=== PATIENT | male | born 1960 | race Caucasian/White ===

== ENCOUNTER 2019-06-18 11:01 | Outpatient (REF) | payer MEDICAID, SELFPAY ==
[2019-06-18 20:50] LABS: Calculated LDL 119 mg/dL; Cholesterol 219 mg/dL (50-200); Glucose 100 mg/dL (70-100); HDL Cholesterol 73 mg/dL (40-60); Triglyceride 139 mg/dL (30-150)
== END 2019-06-18 11:21 ==
LOC: NCHCN 11:01
PROVIDERS: PCP Nurse Practitioner Family; Visit Provider Internal Medicine
DX: I10 Essential (primary) hypertension (principal); Z72.0 Tobacco use; F10.99 Alcohol use, unspecified with unspecified alcohol-induced disorder; J44.9 Chronic obstructive pulmonary disease, unspecified; I51.9 Heart disease, unspecified; Z13.1 Encounter for screening for diabetes mellitus
CPT/HCPCS: 80061; 82947

== ENCOUNTER 2019-09-12 10:18 | Outpatient (REF) | payer MEDICAID, SELFPAY ==
[2019-09-12 21:36] LABS: ALT 59 U/L (16-63); AST 39 U/L (15-37); Albumin 3.9 g/dL (3.4-5.0); Alkaline Phosphatase 107 U/L (46-116); Anion Gap 8.5 mmol/L (3-11); BUN 11 mg/dL (7-18); Bilirubin, Total 0.4 mg/dL (0.2-1.0); CO2 29.5 mmol/L (21.0-32.0); CREATININE 0.87 mg/dL (0.70-1.30); Calcium 9.3 mg/dL (8.5-10.1); Chloride 105 mmol/L (98-107); Glucose 121 mg/dL (74-106); Potassium 4.4 mmol/L (3.5-5.1); Sodium 143 mmol/L (136-145); Total Protein 6.9 g/dL (6.4-8.2)
[2019-09-12 21:52] LABS: Bilirubin Negative (Negative); Blood Negative (Negative); Clarity Sl Cloudy (Clear); Glucose Negative (Negative); Ketones Negative (Negative); Leukocyte Esterase Negative (Negative); Nitrite Negative (Negative)
== END 2019-09-12 10:38 ==
LOC: NCHCN 10:18
PROVIDERS: Nurse Practitioner Community Health; PCP Nurse Practitioner Family; Visit Provider Internal Medicine
DX: I10 Essential (primary) hypertension (principal); F10.19 Alcohol abuse with unspecified alcohol-induced disorder
CPT/HCPCS: 80053; 81003

== ENCOUNTER 2020-07-07 14:02 | Outpatient (REF) | payer MEDICAID, SELFPAY ==
[2020-07-09 13:13] LABS: COVID-19 RT-PCR Result NEGATIVE (Negative)
== END 2020-07-07 14:22 ==
LOC: NCHCN 14:02
PROVIDERS: PCP Nurse Practitioner Family; Visit Provider Internal Medicine
DX: Z20.828 Contact with and (suspected) exposure to other viral communicable diseases (principal)
CPT/HCPCS: U0003

== ENCOUNTER 2020-09-12 07:50 | Outpatient (REF) | payer MEDICAID, SELFPAY ==
[2020-09-12 21:21] LABS: ALT 97 U/L (16-63); AST 70 U/L (15-37); Albumin 4.2 g/dL (3.4-5.0); Alkaline Phosphatase 134 U/L (46-116); Anion Gap 8.8 mmol/L (3-11); BUN 12 mg/dL (7-18); Bilirubin, Total 0.5 mg/dL (0.2-1.0); CO2 27.2 mmol/L (21.0-32.0); CREATININE 0.96 mg/dL (0.70-1.30); Calcium 8.9 mg/dL (8.5-10.1); Calculated LDL 99 mg/dL (<100); Chloride 102 mmol/L (98-107); Cholesterol 201 mg/dL (<200); Glucose 98 mg/dL (74-106); HDL Cholesterol 54 mg/dL (40-60); Potassium 4.1 mmol/L (3.5-5.1); Sodium 138 mmol/L (136-145); Total Protein 7.5 g/dL (6.4-8.2); Triglyceride 241 mg/dL (<150)
== END 2020-09-12 08:10 ==
LOC: NCHCN 07:50
PROVIDERS: PCP Nurse Practitioner Family; Visit Provider Internal Medicine
DX: I10 Essential (primary) hypertension (principal); E78.5 Hyperlipidemia, unspecified; R74.01 Elevation of levels of liver transaminase levels
CPT/HCPCS: 80053; 80061

== ENCOUNTER 2020-12-12 18:59 | Outpatient (REF) | payer MEDICAID, SELFPAY ==
[2020-12-12 14:08] LABS: Calculated LDL 80 mg/dL (<100); Cholesterol 160 mg/dL (<200); HDL Cholesterol 55 mg/dL (40-60); Triglyceride 127 mg/dL (<150)
== END 2020-12-12 19:00 | disposition home or self-care (01) ==
LOC: NCHCN 18:59
PROVIDERS: PCP Nurse Practitioner Family; Visit Provider Internal Medicine
DX: I10 Essential (primary) hypertension (principal); E78.5 Hyperlipidemia, unspecified
CPT/HCPCS: 80061

== ENCOUNTER 2020-12-19 22:36 | Outpatient (CLI) | payer MEDICAID, SELFPAY ==
--- NOTE | 2020-12-19 | DI.US_ITS ---
EXAM: US LOWER EXTREMITY VENOUS RT CLINICAL HISTORY: PAIN RT THIGH M79.651, PAIN AT SITE OF PREVIOUS VASCULAR SURGERY, SWELLING,. TECHNIQUE: Lower extremity venous ultrasound performed using grayscale, color-flow, and spectral Do ppler analysis. COMPARISON: No exams were available for comparison FINDINGS: The common femoral, femoral and popliteal veins demonstrate normal compressibility, augmentation, and color Doppler. The posterior tibial veins are patent. No saphenous vein thrombosis or other superfi cial venous thrombosis is seen. No hematoma, fluid collection or Louise's cyst is seen. No femoral a rtery pseudoaneurysm is seen. A lymph node is noted in the groin in the region of the of the patient 's pain. It measures 3.9 x 0.5 x 2 cm and shows normal architecture. IMPRESSION: Normal appearing groin lymph node. No evidence of DVT. DATA REPOSITORY:
== END 2020-12-19 22:56 ==
PROVIDERS: PCP Nurse Practitioner Family; Visit Provider Internal Medicine
DX: M79.651 Pain in right thigh (principal); R60.0 Localized edema
CPT/HCPCS: 93971

== ENCOUNTER 2021-03-20 11:07 | Outpatient (REF) | payer MEDICAID, SELFPAY ==
[2021-03-20 14:50] LABS: ALT 106 U/L (16-63); AST 75 U/L (15-37); Albumin 4.1 g/dL (3.4-5.0); Alkaline Phosphatase 117 U/L (46-116); Anion Gap 10.6 mmol/L (3-11); BUN 13 mg/dL (7-18); Bilirubin, Total 0.5 mg/dL (0.2-1.0); CO2 26.4 mmol/L (21.0-32.0); CREATININE 0.7 mg/dL (0.70-1.30); Calcium 8.9 mg/dL (8.5-10.1); Calculated LDL 81 mg/dL (<100); Chloride 105 mmol/L (98-107); Cholesterol 159 mg/dL (<200); Glucose 97 mg/dL (74-106); HDL Cholesterol 52 mg/dL (40-60); Potassium 4.7 mmol/L (3.5-5.1); Sodium 142 mmol/L (136-145); Total Protein 7.5 g/dL (6.4-8.2); Triglyceride 132 mg/dL (<150)
== END 2021-03-20 11:08 | disposition home or self-care (01) ==
LOC: NCHCN 11:07
PROVIDERS: PCP Nurse Practitioner Family; Visit Provider Internal Medicine
DX: I10 Essential (primary) hypertension (principal); E78.5 Hyperlipidemia, unspecified
CPT/HCPCS: 80053; 80061

== ENCOUNTER 2022-08-18 16:47 | Outpatient (REF) | payer MEDICAID, SELFPAY ==
[2022-08-18 15:45] LABS: ALT 50 U/L (16-63); AST 49 U/L (15-37); Albumin 4.2 g/dL (3.4-5.0); Alkaline Phosphatase 90 U/L (46-116); Anion Gap 7.2 mmol/L (3-11); BUN 12 mg/dL (7-18); Bilirubin, Total 0.7 mg/dL (0.2-1.0); CO2 29.8 mmol/L (21.0-32.0); Calcium 9.4 mg/dL (8.5-10.1); Calculated LDL 55 mg/dL (<100); Chloride 103 mmol/L (98-107); Cholesterol 144 mg/dL (<200); Estimated GFR 86.16 (mL/min/1.73m2); Glucose 118 mg/dL (74-106); HDL Cholesterol 80 mg/dL (40-60); Potassium 4.2 mmol/L (3.5-5.1); Sodium 140 mmol/L (136-145); Total Protein 7.7 g/dL (6.4-8.2); Triglyceride 46 mg/dL (<150)
== END 2022-08-18 16:48 | disposition home or self-care (01) ==
LOC: NCHCN 16:47
PROVIDERS: PCP Nurse Practitioner Family; Visit Provider Internal Medicine
DX: E78.5 Hyperlipidemia, unspecified (principal); I10 Essential (primary) hypertension; K76.0 Fatty (change of) liver, not elsewhere classified
CPT/HCPCS: 80053; 80061

== ENCOUNTER 2022-10-15 11:42 | Outpatient (REF) | payer MEDICAID, SELFPAY ==
[2022-10-18 08:57] LABS: Hepatitis B Surface Ag Negative (Negative)
[2022-10-18 09:02] LABS: Hepatitis C Ab w Rflx HCV PCR Negative (Negative)
[2022-10-18 10:35] LABS: HBs Antibody, Quant <3.1 mIU/mL (See Note); Hepatitis B Surface Ab Negative (See Note)
== END 2022-10-15 11:43 | disposition home or self-care (01) ==
LOC: NCHCN 11:42
PROVIDERS: PCP Nurse Practitioner Family; Visit Provider Internal Medicine
DX: R74.01 Elevation of levels of liver transaminase levels (principal)
CPT/HCPCS: 86706; 86803; 87340

== ENCOUNTER 2023-09-26 16:20 | Outpatient (REF) | payer MEDICAID, SELFPAY ==
[2023-09-26 16:10] LABS: HCT 46.6 % (40.0-50.0); HGB 15.9 g/dL (13.5-17.5); MCH 33.9 pg (27.0-33.0); MCHC 34.1 % (32.0-36.0); MCV 99 fL (80-95); MPV 9.4 fL (8.0-11.0); Platelet Count 332 10^3/uL (130-400); RBC 4.69 10^6/uL (4.36-5.78); RDW-SD 51.3 fL; WBC 7.25 10^3/uL (4.4-10.8)
[2023-09-26 16:28] LABS: ALT 63 U/L (16-63); AST 46 U/L (15-37); Albumin 4.2 g/dL (3.4-5.0); Alkaline Phosphatase 91 U/L (46-116); BUN 13 mg/dL (7-18); CREATININE 0.9 mg/dL (0.70-1.30); Calcium 9.7 mg/dL (8.5-10.1); Chloride 103 mmol/L (98-107); Cholesterol 161 mg/dL (<200); Estimated GFR 97.17 (mL/min/1.73m2); Glucose 102 mg/dL (74-106); Potassium 4.1 mmol/L (3.5-5.1); Sodium 140 mmol/L (136-145); Total Protein 7.8 g/dL (6.4-8.2); Triglyceride 119 mg/dL (<150)
[2023-09-26 17:20] LABS: Bilirubin, Total 0.4 mg/dL (0.2-1.0); Calculated LDL 64 mg/dL (<100); HDL Cholesterol 74 mg/dL (40-60)
== END 2023-09-26 16:21 | disposition home or self-care (01) ==
LOC: NCHCN 16:20
PROVIDERS: PCP Nurse Practitioner Family; Visit Provider Internal Medicine
DX: K76.0 Fatty (change of) liver, not elsewhere classified (principal); I73.89 Other specified peripheral vascular diseases
CPT/HCPCS: 80053; 80061; 85027

== ENCOUNTER 2024-08-29 11:02 | Outpatient (REF) | payer MEDICAID, SELFPAY ==
--- OUTSIDE RECORDS SUMMARY | 2024-08-29 11:04 | XMS_ITS | Referral Summary ---
Author Organization [facility] Address [address] [place] [address] Care Team Providers Care Regulatory Product Manager Name Role Phone Brittany Fay Primary Care Provider [phone] Encounters Date Type Department Care Team Description 08/23/2024 Orders Only [facility] [address] [place] [address] Luiz Singh MD 08/23/2024 10:15 EST - 08/23/2024 23:59 EST Hospital Encounter [facility] CT Scan [address] [place] [address] Kidney stone Discharge Disposition: Home or Self Care 08/20/2024 8:[address] [facility] - Outpatient Phlebotomy Drawing [address] [place] [address] [facility] Op Phlebotomy Kidney stone; Prostate cancer screening 08/20/2024 8:00 EST Office Visit [facility] [address] [place] [address] Luiz Singh MD Kidney stone (Primary Dx); Prostate cancer screening 06/22/2024 8:04 EDT - 06/22/2024 11:25 EDT Emergency [facility] Emergency Department [address] [place], [place] [address] Christian Castorena MD Left ureteral stone (Primary Dx); Right kidney stone Discharge Disposition: Home or Self Care from Last 3 Months Allergies Active Allergy Reactions Criticality Noted Date Comments Penicillins 05/28/2015 Tetanus Vaccines And Toxoid 05/28/20 15 Medications aspirin 81 mg EC tablet Take 1 Tablet by mouth daily. Active ibuprofen (MOTRIN) 800 mg tablet Take 1 Tablet by mouth every 8 hours as needed for Pain. Active lisinopril (PRINIVIL) 10 mg tablet 2 Tablets daily. Active TAMSulosin (FLOMAX) 0.4 mg capsule Take 1 Capsule by mouth daily. 30 Capsule 4 4 Active tamsulosin (FLOMAX) 0.4 mg capsule 1 cap(s) orally once a day 9 08/23/20 24 Discontinued Active Problems Problem Noted Date Diagnosed Date Abdominal pain, left lower quadrant 08/16/2016 Sigmoid polyp 04/27/2016 Diverticulitis of colon 03/15/2016 Immunizations Name Administration Dates Next Due Covid-19 mRNA Booster Vaccin e (MODERNA COVID-19 BOOSTER) PF 0.25 mL IM (18 yrs+) 09/30/2021 Covid-19 mRNA Vaccine (PFIZE R COVID-19) PF 0.3 ml IM (12 yrs+) 02/18/2021,01/28/2021 Social History Tobacco Use Types Packs/Day Years Used Date Smoking Tobacco: Every Day Cigarettes 2 20 Smokeless Tobacco: Never Tobacco Cessation:Ready to Q uit: No; Counseling Given: Yes Alcohol Use Standard Drinks/Week Comments Yes 20 (1 standard drink = 0.6 oz pu re alcohol) Interpersonal Safety Answer Date Record ed Physically Hurt Never 05/11/2020 Verbally Threaten Not on file 05/11/2020 Sex and Gender Information Value Date Recorded Sex Assigned at Male 08/20/2024 8:28 EST Legal Sex Male 17:59 EST Gender Identity Male 06/22/2024 8:08 EDT Sexual Orientation Not on file Last Filed Vital Signs Vital Sign Reading Time Taken Comments Blood Pressure 115/75 06/22/2024 1000 EDT Pulse 72 06/22/2024 0930 EDT Temperature 36.6 ??C (97.8 ??F) 06/22/2024 0815 EDT Respiratory Rate 18 06/22/2024 1000 EDT Oxygen Saturation 95% 06/22/2024 1000 EDT Inhaled Oxygen Concentration - - Weight 81.6 kg (180 lb) 11/02/2021 1129 EST Height 172.7 cm (5' 8) 03/15/2016 0954 EDT Body Mass Index 27.37 03/15/2016 0954 EDT Functional Status * Are you deaf or do you have serious difficulty hearing? Answer Date of Assessment Author No 06/22/2024 8:17 EDT Shannan Yu RN Plan of Treatment Not on file Procedures Procedure Name Priority Date/Time Associated Diagnosis Comments CT RENAL STONE Routine 08/23/2024 10:25 EST Kidney stone PSA SCREEN Routine 08/20/2024 8:40 EST Kidney stone Prostate cancer screening PTH INTACT Routine 08/20/2024 8:40 EST Kidney stone URIC ACID Routine 08/20/2024 8:40 EST Kidney stone POCT URINALYSIS Routine 08/20/2024 Kidney stone UA SEDIMENT + REFLEX TO CULTURE STAT 06/22/2024 10:21 EDT UA WITH REFLEX SEDIMENT (CULTURE IF POS) STAT 06/22/2024 10:[address] RENAL STONE STAT 06/22/2024 9:03 EDT COMPREHENSIVE METABOLIC PANEL (CMP) STAT 06/22/2024 8:25 EDT COMPLETE BLOOD COUNT AND DIFFERENTIAL STAT 06/22/2024 8:25 EDT HEPATITIS C AB W REFLEX TO HCV RNA BY PCR Routine 10/15/2022 9:30 EST from Last 3 Months or Most Recently Relevant to Health Maintenance Results * CT RENAL STONE (08/23/2024 10:25 EST) Anatomical Region Laterality Modality Body, Abdomen Computed Tomogra phy 08/23/2024 11:1 0 EST Impressions 08/23/2024 11:10 EST 1. Resolution of previous left ureteral stone. Resolution of previous left hydronephrosis. 2. Small nonobstructing right renal calculus. [id number] Narrative 08/23/2024 11:[address] RENAL STONE ??08/23/2024 10:16 AM Signs and Symptoms/Comments: left ureteral stone. ??r/o retained stone; left ureteral stone. ??r/o retained stone Technique: CT images obtained from abdomen immediately superior to level of kidneys through the pelvis without administration of IV contrast. This CT used either dose modulation and/or iterative reconstruction techniques to lower radiation dose. Comparison: 06/22/2020 Findings: Lower chest: Lung bases clear Liver: Mild hepatic steatosis. Too small to characterize low-density lesion in hepatic segment 4, present since 2016 and therefore likely benign. Gallbladder: Unremarkable. Bile ducts: Unremarkable Spleen: Unremarkable. Pancreas: Unremarkable. Adrenal glands: Unremarkable. Kidneys, ureters, bladder: Resolution of previous left ureteral stone and resolution of previous left hydronephrosis. 3 mm nonobstructing stone in the upper pole of the right kidney. No other urinary tract calculi at this time. Reproductive organs: Mildly heterogeneous prostate Bowel: No bowel obstruction or focal inflammation. Rectosigmoid anastomosis. Peritoneal cavity: No free fluid or free intraperitoneal air. Lymph nodes: No lymphadenopathy. Vascular: Scattered atherosclerosis Abdominal wall: Intact Musculoskeletal: Unremarkable for age. No suspicious osseous lesion Resulting Agency Comment [id number] Procedure Note Boom Garcia MD - 08/23/2024 CT RENAL STONE 08/23/2024 10:16 AM Signs and Symptoms/Comments: left ureteral stone. r/o retained stone;left ureteral stone. r/o retained stone Technique: CT images obtained from abdomen immediately superior to levelof kidneys through the pelvis without administration of IV contrast. This CT used either dose modulation and/or iterative reconstructiontechniques to lower radiation dose. Comparison: 06/22/2020 Findings: Lower chest: Lung bases clear Liver: Mild hepatic steatosis. Too small to characterize low-densitylesion in hepatic segment 4, present since 2016 and therefore likelybenign. Gallbladder: Unremarkable. Bile ducts: Unremarkable Spleen: Unremarkable. Pancreas: Unremarkable. Adrenal glands: Unremarkable. Kidneys, ureters, bladder: Resolution of previous left ureteral stone andresolution of previous left hydronephrosis. 3 mm nonobstructing stone inthe upper pole of the right kidney. No other urinary tract calculi at thistime. Reproductive organs: Mildly heterogeneous prostate Bowel: No bowel obstruction or focal inflammation. Rectosigmoidanastomosis. Peritoneal cavity: No free fluid or free intraperitoneal air. Lymph nodes: No lymphadenopathy. Vascular: Scattered atherosclerosis Abdominal wall: Intact Musculoskeletal: Unremarkable for age. No suspicious osseous lesion IMPRESSION 1. Resolution of previous left ureteral stone. Resolution of previous lefthydronephrosis. 2. Small nonobstructing right renal calculus. [id number] us Luiz Singh MD IMG CT ORDERABLES Final Resu lt * PTH INTACT (08/20/2024 8:40 EST) Pathologist [facility] Intact PTH 52 8 - 54 pg/mL 08/20/2024 9:57 EST [facility] Comment:The results of this assay can be falsely decreased due to the consumption of Biotin. Blood VENOUS BLOOD / Unknown Venipuncture / Unknown 08/20/2024 8:40 EST 08/20/2024 9:15 EST us Luiz Singh MD CHEMISTRY & BLOOD GAS ORDERA BLES Final Result Performing Organization Address [place] Co de Phone Number [facility] [address] [place] [address] * (ABNORMAL) URIC ACID (08/20/2024 8:40 EST) [facility] Uric Acid 3.6(L) 3.9 - 9.0 mg/dL 08/20/2024 10:06 EST [facility] Blood VENOUS BLOOD / Unknown Venipuncture / Unknown 08/20/2024 8:40 EST 08/20/2024 9:15 EST us Luiz Singh MD CHEMISTRY & BLOOD GAS ORDERA BLES Final Result Performing Organization Address [place] Co de Phone Number [facility] [address] [place] [address] * PSA SCREEN (08/20/2024 8:40 EST) Pathologist [facility] PSA 0.816 <=4.500 ng/mL 08/20/2024 10:16 EST [facility] Comment: NOTE: Serum PSA concentration should not be interpreted as absolute evidence for the presence or absence of malignant disease. Assayed on [employer] [id number] using chemiluminescent technology. Values obtained by using different assay methods cannot be used interchangeably. Blood VENOUS BLOOD / Unknown Venipuncture / Unknown 08/20/2024 8:40 EST 08/20/2024 9:15 EST us Luiz Singh MD CHEMISTRY & BLOOD GAS ORDERA BLES Final Result [facility] [address] [place] [address] * (ABNORMAL) POCT URINALYSIS, CLINITEK NON-INTERFACED (08/20/2024) Color, UA Yellow Yellow, Colorless [facility] Clarity, UA Clear Clear [facility] Glucose, UA Negative Negative mg/dL [facility] Bilirubin, UA Negative Negative [facility] Ketones, UA Negative Negative mg/dL [facility] Spec Grav, UA 1.025 1.001 - 1.030 [facility] POINT OF CARE Blood, UA Negative Negative [facility] pH, UA 7.0 5.0 - 8.0 [facility] T [facility] Protein, UA 1+(A) Negative mg/dL [facility] Urobilinogen, UA 1.0 0.2 - 1.0 E.U./dL [facility] Nitrite, UA Negative Negative [facility] PO INT [facility] CARE Leuk Esterase Negative Negative [facility] Comment [facility] PO[facility] T [facility] C[facility] Urine URINE SPECIMEN OBTAINED BY CLEAN CATCH PROCEDURE / Unknown 08/20/2024 us Luiz Singh MD POINT OF CARE TEST ORDERABLE S Final Result [facility] PO[facility] CARE * (ABNORMAL) UA CASCADE TO CULTURE (06/22/2024 10:21 EDT) Color UA Angela(A) Colorless, Yellow 06/22/2024 10:37 [facility] Clarity UA Cloudy(A) Clear 06/22/2024 10:37 [facility] Glucose UA Negative Negative mg/dL 06/22/2024 10:37 [facility] Bilirubin UA 1+(A) Negative 06/22/2024 10:37 [facility] Ketones UA Trace(A) Negative 06/22/2024 10:37 [facility] Specific Magna, Urine >=1.030 1.001 - 1.030 06/22/2024 10:37 [facility] Blood UA 3+(A) Negative 06/22/2024 10:37 [facility] pH, UA 5.5 5.0 - 8.0 06/22/2024 10:37 [facility] Protein UA 2+(A) Negative mg/dL 06/22/2024 10:37 [facility] Urobilinogen UA 1.0 0.2-1.0 mg/dL mg/dL 06/22/2024 10:37 [facility] Nitrite UA Negative Negative 06/22/2024 10:37 [facility] Leukocyte Esterase UA Negative Negative 06/22/2024 10:37 [facility] Urine URINE SPECIMEN OBTAINED BY CLEAN CATCH PROCEDURE / Unknown Urine Collect / Unknown 06/22/2024 10:21 EDT 06/22/2024 10:24 EDT us Viki Quiñones [employer] URINALYSIS ORDERABLES Final Result [facility] [address] [place] [id number] * (ABNORMAL) UA SEDIMENT + REFLEX TO CULTURE (06/22/2024 10:21 EDT) Urine RBC Count, Manual >50(A) 0 - 2 Cells/HPF 06/22/2024 10:38 EDT [facility] Urine WBC Count 0 - 3 0 - 3 Cells/HPF 06/22/2024 10:38 EDT [facility] Urine Squamous Count, Manual Few(A) None Seen Cells/HPF 06/22/2024 10:38 EDT [facility] Urine Hyaline Cast Count, Manual <=10 <=10 Casts/LPF 06/22/2024 10:38 EDT [facility] Urine Bacteria Count, Manual Few(A) None Seen Bacteria/H PF 06/22/2024 10:38 EDT [facility] Urine URINE SPECIMEN OBTAINED BY CLEAN CATCH PROCEDURE / Unknown Urine Collect / Unknown 06/22/2024 10:21 EDT 06/22/2024 10:24 EDT Narrative [facility] - 06/22/2024 10:38 EDT Mucus threads seen. Urine Sediment Analysis results are unreliable on urines that are unrefrigerated for >2 hrs or refrigerated >8 hrs. NOTE: Reflex to Urine Culture test is not indicated based on Urine Sediment Analysis results. Viki Quiñones NP URINALYSIS ORDERABLES Final Result Performing Organization Address [place]/State/ZIP Co de Phone Number [facility] [address] [place] [address] * CT RENAL STONE (06/22/2024 9:03 EDT) Anatomical Region Laterality Modality Body, Abdomen Computed Tomogra phy 06/22/2024 9:16 EDT Impressions 06/22/2024 9:16 EDT 1. ??OBSTRUCTING 3 MM MID LEFT URETERAL CALCULUS. Mild left hydronephrosis. 2. ??Small right renal calculus. 3. ??Urinary bladder unremarkable. 4. ??HEALING NONDISPLACED RIGHT 10TH-12TH RIB FRACTURES, new compared to 2017. 5. ??Additional nonemergent findings detailed above. [id number] Narrative 06/22/2024 9:[address] RENAL STONE ?? Signs and Symptoms/Comments: ??flank/abd pain left; Abdominal/flank pain, stone suspected; flank/abd pain left Comparison: CT on 04/21/2017 Technique: CT abdomen pelvis without intravenous contrast was performed. Stone Protocol was utilized. FINDINGS: This exam was performed without intravenous contrast, decreasing sensitivity for some focal lesions. Right Urinary Tract: Nonobstructing 3 mm calculus in the right kidney upper pole. No ureteral calculus or hydronephrosis. Unenhanced kidney otherwise unremarkable. Chronic chronic perinephric fat stranding noted. Left Urinary Tract: Obstructing 3 mm calculus in the mid left ureter, with associated mild left hydronephrosis (coronal series 4 image 50). No additional calculi identified in the left kidney. Unenhanced left kidney otherwise unremarkable. Mild-moderate perinephric fat stranding. Urinary Bladder: No bladder calculus identified. Bladder wall appears unremarkable. Visible Chest: Healing nondisplaced lateral right 10th-12th rib fractures, new compared to 2017 (axial series 2 image [id number]). Visible lung bases unremarkable. Liver: Mild-moderate hepatosteatosis. Bile Ducts: Unremarkable. Gallbladder: Unremarkable. Pancreas: Unremarkable. Spleen: Unremarkable. Adrenal glands: Unremarkable. Bowel: Stomach unremarkable. Scattered distal small bowel feces, suspicious for slow transit. No evidence of acute small bowel obstruction or inflammation. Normal appendix. Grossly intact distal colonic anastomosis. Peritoneal Cavity: No intraperitoneal free fluid or free air identified. Body Wall: Unremarkable. Pelvis/Reproductive: No pelvic mass identified. Lymph Nodes: Unremarkable. Vascular Structures: Patency of the vascular structures cannot be assessed on this noncontrast study. Moderate calcified peripheral atherosclerotic disease. Bones: Healing right 10th-12th rib fractures, new compared to 2017. Mild lumbar spondylosis. Mild bilateral hip and sacroiliac degenerative changes. Resulting Agency Comment [id number] Procedure Note Arvind Champagne MD - 06/22/2024 CT RENAL STONE Signs and Symptoms/Comments: flank/abd pain left; Abdominal/flank pain,stone suspected; flank/abd pain left Comparison: CT on 04/21/2017 Technique: CT abdomen pelvis without intravenous contrast was performed.Stone Protocol was utilized. FINDINGS: This exam was performed without intravenous contrast, decreasingsensitivity for some focal lesions. Right Urinary Tract: Nonobstructing 3 mm calculus in the right kidneyupper pole. No ureteral calculus or hydronephrosis. Unenhanced kidneyotherwise unremarkable. Chronic chronic perinephric fat stranding noted. Left Urinary Tract: Obstructing 3 mm calculus in the mid left ureter, withassociated mild left hydronephrosis (coronal series 4 image 50). Noadditional calculi identified in the left kidney. Unenhanced left kidneyotherwise unremarkable. Mild-moderate perinephric fat stranding. Urinary Bladder: No bladder calculus identified. Bladder wall appearsunremarkable. Visible Chest: Healing nondisplaced lateral right 10th-12th rib fractures,new compared to 2017 (axial series 2 image 51-64). Visible lung basesunremarkable. Liver: Mild-moderate hepatosteatosis. Bile Ducts: Unremarkable. Gallbladder: Unremarkable. Pancreas: Unremarkable. Spleen: Unremarkable. Adrenal glands: Unremarkable. Bowel: Stomach unremarkable. Scattered distal small bowel feces,suspicious for slow transit. No evidence of acute small bowel obstructionor inflammation. Normal appendix. Grossly intact distal colonicanastomosis. Peritoneal Cavity: No intraperitoneal free fluid or free air identified. Body Wall: Unremarkable. Pelvis/Reproductive: No pelvic mass identified. Lymph Nodes: Unremarkable. Vascular Structures: Patency of the vascular structures cannot be assessedon this noncontrast study. Moderate calcified peripheral atheroscleroticdisease. Bones: Healing right 10th-12th rib fractures, new compared to 2017. Mildlumbar spondylosis. Mild bilateral hip and sacroiliac degenerativechanges. IMPRESSION 1. OBSTRUCTING 3 MM MID LEFT URETERAL CALCULUS. Mild lefthydronephrosis. 2. Small right renal calculus. 3. Urinary bladder unremarkable. 4. HEALING NONDISPLACED RIGHT 10TH-12TH RIB FRACTURES, new compared [id number]. 5. Additional nonemergent findings detailed above. [id number] us Viki Quiñones NP IMG CT ORDERABLES Final Res ult * (ABNORMAL) COMPLETE BLOOD COUNT AND DIFFERENTIAL (06/22/2024 8:25 EDT) WBC 8.91 4.00 - 10.40 K/cmm 06/22/2024 8:31 EDT [facility] RBC 4.61 4.36 - 5.78 M/cmm 06/22/2024 8:31 [facility] Hemoglobin 15.9 13.8 - 17.3 g/dL 06/22/2024 8:31 [facility] HCT 46.6 39.5 - 50.2 % 06/22/2024 8:31 [facility] MCV 101(H) 81 - 95 fL 06/22/2024 8:31 [facility] MCH 34.5(H) 27.6 - 33.0 pg 06/22/2024 8:31 [facility] MCHC 34.1 32.8 - 36.4 g/dL 06/22/2024 8:31 [facility] RDW-CV 13.4 <14.2 % 06/22/2024 8:31 [facility] RDW-SD 50.2(H) <46.0 fl 06/22/2024 8:31 [facility] PLT 272 141 - 377 K/cmm 06/22/2024 8:31 [facility] MPV 8.6(L) 9.5 - 12.7 fL 06/22/2024 8:31 [facility] % Neutrophils 73.1 Not Indicated % 06/22/2024 8:31 [facility] % Lymphocytes 16.0 Not Indicated % 06/22/2024 8:31 [facility] % Monocytes 7.2 Not Indicated % 06/22/2024 8:31 [facility] % Eosinophils 2.7 Not Indicated % 06/22/2024 8:31 [facility] % Basophils 0.7 Not Indicated % 06/22/2024 8:31 [facility] % Immature Grans 0.3 <0.9 % 06/22/2024 8:31 [facility] Absolute Neutrophils 6.51 2.20 - 8.85 K/cmm 06/22/2024 8:31 [facility] Absolute Lymphocytes 1.43 1.09 - 3.30 K/cmm 06/22/2024 8:31 [facility] Absolute Monocytes 0.64 0.10 - 0.80 K/cmm 06/22/2024 8:31 [facility] Absolute Eosinophils 0.24 0.03 - 0.61 K/cmm 06/22/2024 8:31 [facility] ABS Basophils 0.06 0.01 - 0.11 K/cmm 06/22/2024 8:31 [facility] Absolute Immature Grans 0.03 0.00 - 0.06 K/cmm 06/22/2024 8:31 [facility] Type of Differential: Auto 06/22/2024 8:31 [facility] Blood VENOUS BLOOD / Unknown Venipuncture / Unknown 06/22/2024 8:25 EDT 06/22/2024 8:28 EDT us Viki Quiñones [employer] PACKAGES & DNA PROBE ORDERA BLES Final Result [facility] [address] [place] [address] * (ABNORMAL) COMPREHENSIVE METABOLIC PANEL (CMP) (06/22/2024 8:25 EDT) Sodium 141 136 - 145 mmol/L 06/22/2024 8:51 [facility] Potassium 4.5 3.5 - 5.0 mmol/L 06/22/2024 8:51 [facility] Chloride 106 96 - 110 mmol/L 06/22/2024 8:51 [facility] CO2 Total 25 22 - 32 mmol/L 06/22/2024 8:51 [facility] Glucose 131(H) 70 - 99 mg/dl 06/22/2024 8:51 [facility] BUN 13 10 - 26 mg/dL 06/22/2024 8:51 [facility] Creatinine 0.81 0.66 - 1.25 mg/dL 06/22/2024 8:51 [facility] eGFR 100 >60 mL/min/1.7 3m2 06/22/2024 8:51 [facility] Total Protein 7.6 6.3 - 8.2 g/dL 06/22/2024 8:51 [facility] Albumin 4.8 3.4 - 4.9 g/dL 06/22/2024 8:51 [facility] Alkaline Phosphatase 94 38 - 126 U/L 06/22/2024 8:51 [facility] AST 86(H) 15 - 46 U/L 06/22/2024 8:51 [facility] ALT 72(H) <50 U/L 06/22/2024 8:51 [facility] Bilirubin, Total 1.0 <1.4 mg/dL 06/22/20 8:51 [facility] Calcium 9.7 8.5 - 10.5 mg/dL 06/22/2024 8:51 [facility] Albumin/Globulin Ratio 1.7 1.0 - 2.5 06/22/2024 8:51 [facility] Anion Gap 10 5 - 14 mmol/L 06/22/2024 8:51 [facility] Blood VENOUS BLOOD / Unknown Venipuncture / Unknown 06/22/2024 8:25 EDT 06/22/2024 8:28 EDT us Viki Quiñones [employer] CHEMISTRY & BLOOD GAS ORDER ADITYA Final Result [facility] [address] [place] [address] * HEPATITIS C AB W REFLEX TO HCV RNA BY PCR (10/15/2022 9:30 EST) Hep C Antibody Negative Negative 10/18/2022 8:58 EST [facility] Blood VENOUS BLOOD / Unknown 10/15/2022 9:30 EST 10/17/2022 17:07 EST us Provider Outr Resulting Lab CHEMISTRY & BLOOD GA S ORDERABLES Final Result [facility] [address] [place] [address] from Last 3 Months or Most Recently Relevant to Health Maintenance Insurance [place] Care Teams Regulatory Product Manager Relationship Specialty Start Date End Date Brittany [place] [address] [place] [phone] PCP - General Internal Medicine - Primary Care 06/22/24
--- OUTSIDE RECORDS SUMMARY | 2024-08-29 11:04 | XMS_ITS | Encounter Summary ---
Author Organization [facility] Address [address] [place] [address] Care Team Providers Care Transportation Program Director Name Role Phone Titus Castro MD Primary Care Provider Unav ailable Encounter Details Date Type Department Care Team (Late st Contact Info) Description 09/14/2017 Historical Results Only [facility] - Main [place] [address] [place] [address] [id number] Amee Campos MD [address] [place] [phone] Social History Tobacco Use Types Packs/Day Years Used Date Smoking Tobacco: Every Day Cigarettes 1 20 Smokeless Tobacco: Never Alcohol Use Standard Drinks/Week Comments Yes 20 (1 standard drink = 0.6 oz pu re alcohol) Sex and Gender Information Value Date Recorded Sex Assigned at Male 08/20/2024 8:28 EST Legal Sex Male 17:59 EST Gender Identity Male 06/22/2024 8:08 EDT Sexual Orientation Not on file documented as of this encounter Plan of Treatment Not on file documented as of this encounter Procedures Procedure Name Priority Date/Time Associated Diagnosis Comments OCCULT BLOOD DIAGNOSTIC, FECES Routine 09/14/2017 7:15 EST documented in this encounter Results * OCCULT BLOOD DIAGNOSTIC, FECES (09/14/2017 7:15 EST) STOOL FOR OCCULT BLOOD - [facility] NEG NEG 09/14/2017 13:33 EST [facility] 09/14/2017 7:15 EST 09/14/2017 9:23 EST us Amee Campos MD MICROBIOLOGY - GENERAL ORDERABL ES Final Result [facility] documented in this encounter Visit Diagnoses Not on filedocumented in this encounter Care Teams Transportation Program Director Relationship Specialty Start Date End Date Titus Castro MD PCP - General 05/27/15 06/21/24 documented as of this encounter
--- OUTSIDE RECORDS SUMMARY | 2024-08-29 11:04 | XMS_ITS | Clinical Summary ---
Author Organization [facility] Address [address] [place] [address] Care Team Providers Care Clinical Systems Analyst Name Role Phone Brittany Fay Primary Care Provider Allergies Active Allergy Reactions Criticality Noted Date [...] Sigmoid polyp 04/27/2016 Diverticulitis of colon 03/15/2016 Encounters Date Type Department Care Team Description 08/23/2024 10:15 EST - 08/23/2024 23:59 EST Hospital Encounter [facility] CT Scan [address] [place] [address] Kidney stone Discharge Disposition: Home or Self Care 08/23/2024 Orders Only [facility] [address] [place] [address] Luiz Singh MD 08/20/2024 8:30 EST Phlebotomy Only [facility] - Outpatient Phlebotomy Drawing [address] [place] [address] Lab, [facility] Phlebotomy Kidney stone; Prostate cancer screening 08/20/2024 8:00 EST Office Visit [facility] [address] [place] [address] Luiz Singh MD Kidney stone (Primary Dx); Prostate cancer screening 06/22/2024 8:04 EDT - 06/22/2024 11:25 EDT Emergency [facility] Emergency Department [address] [place] [address] Christian Castorena MD Left ureteral stone (Primary Dx); Right kidney stone Discharge Disposition: Home or Self Care from Last 3 Months Immunizations Name Administration Dates Next Due Covid-19 mRNA Booster Vaccin e (MODERNA COVID-19 BOOSTER) PF 0.25 mL IM (18 yrs+) 09/30/2021 Covid-19 mRNA Vaccine (PFIZE R COVID-19) PF 0.3 ml IM (12 yrs+) 02/18/2021,01/28/2021 Surgical History Surgery Date Site/Laterality Comments COLON SURGERY 05/27/2016 sigmoid colectomy for diverticulitis Medical History Medical History Date Comments Hypertension Family History Relation Status Comments Brother 1 Alive Brother 2 Alive Brother 3 Alive Brother 4 Alive Father Alive Mother Alive Social History Tobacco Use Types Packs/Day Years [...] 8:08 EDT Sexual Orientation Not on file Obstetrics History Last Filed Vital Signs Vital Sign Reading [...] Body Mass Index 27.37 03/15/2016 0954 EDT Plan of Treatment Health Maintenance Due Date Last Done Comments Lung Cancer Screening 1961 Pneumococcal Immunization (1 of 2 - PCV) 1967 COVID-19 Vaccine ( - season) 2024 09/30/2021, 02/18/2021, 01/28/2021 RSV Immunization ( o r 60+ Years) (1 - 1-dose 75+ series) 2036 Hepatitis C Screen Completed 10/15/2022, 05/24/2019 Procedures Procedure Name Priority Date/Time Associated Diagnosis [...] hydronephrosis. 2. Small nonobstructing right renal calculus. [id number] Narrative 08/23/2024 11:[address] RENAL STONE [...] No suspicious osseous lesion Resulting Agency Comment [id number] Procedure Note Boom Garcia MD - 08/23/2024 [...] lefthydronephrosis. 2. Small nonobstructing right renal calculus. [id number] us Luiz Singh MD IMG CT ORDERABLES Final Resu lt * PTH INTACT (08/20/2024 8:40 EST) Intact PTH 52 8 - 54 pg/mL 08/20/2024 9:57 EST [facility] Comment:The results of this assay can be falsely decreased due to the consumption of Biotin. Blood VENOUS BLOOD / Unknown Venipuncture / Unknown 08/20/2024 8:40 EST 08/20/2024 9:15 EST us Luiz Singh MD CHEMISTRY & BLOOD GAS ORDERA BLES Final Result [facility] [address] [place] [address] * (ABNORMAL) URIC ACID (08/20/2024 8:40 EST) Uric Acid 3.6(L) 3.9 - 9.0 mg/dL 08/20/2024 10:06 EST [facility] Blood VENOUS BLOOD / Unknown Venipuncture / Unknown 08/20/2024 8:40 EST 08/20/2024 9:15 EST us Luiz Singh MD CHEMISTRY & BLOOD GAS ORDERA BLES Final Result Performing Organization Address [facility] Co de Phone Number [facility] [address] [place] [address] * PSA SCREEN (08/20/2024 8:40 EST) PSA 0.816 <=4.500 ng/mL 08/20/2024 10:16 EST [facility] Comment: NOTE: Serum PSA concentration should not be interpreted as absolute evidence for the presence or absence of malignant disease. Assayed on Email Data Source00 using chemiluminescent technology. Values obtained by using different assay methods cannot be used interchangeably. Blood VENOUS BLOOD / Unknown Venipuncture / Unknown 08/20/2024 8:40 EST 08/20/2024 9:15 EST us Luiz Singh MD CHEMISTRY & BLOOD GAS ORDERA BLES Final Result Performing Organization Address [facility] Co de Phone Number [facility] [address] [place] [address] * (ABNORMAL) POCT URINALYSIS, CLINITEK NON-INTERFACED (08/20/2024) Color, UA Yellow Yellow, Colorless [facility] POINT OF CARE Clarity, UA Clear Clear [facility] PO INT OF CARE Glucose, UA Negative Negative mg/dL [facility] POINT OF CARE Bilirubin, UA Negative Negative [facility] POINT OF CARE Ketones, UA Negative Negative mg/dL [facility] POINT OF CARE Spec Grav, UA 1.025 1.001 - 1.030 UV N POINT OF CARE Blood, UA Negative Negative [facility] POIN T OF CARE pH, UA 7.0 [...] OF CARE TEST ORDERABLE S Final Result [facility] * (ABNORMAL) UA CASCADE TO CULTURE (06/22/2024 10:21 EDT) Color UA Angela(A) Colorless, Yellow 06/22/2024 10:37 [facility] Clarity UA Cloudy(A) Clear 06/22/2024 10:37 [facility] Glucose UA Negative Negative mg/dL 06/22/2024 10:37 [facility] Bilirubin UA 1+(A) Negative 06/22/2024 10:37 [facility] Ketones UA Trace(A) Negative 06/22/2024 10:37 [facility] Specific [place], Urine >=1.030 1.001 - 1.030 06/22/2024 10:37 [facility] Blood UA 3+(A) Negative 06/22/2024 10:37 [facility] pH, UA 5.5 5.0 - 8.0 06/22/2024 10:37 [facility] Protein UA 2+(A) Negative mg/dL 06/22/2024 10:37 [facility] Urobilinogen UA 1.0 0.2-1.0 mg/dL mg/dL 06/22/2024 10:37 [facility] Nitrite UA Negative Negative 06/22/2024 10:37 [facility] Leukocyte Esterase UA Negative Negative 06/22/2024 10:37 [facility] Urine URINE SPECIMEN OBTAINED BY CLEAN CATCH PROCEDURE / Unknown Urine Collect / Unknown 06/22/2024 10:21 EDT 06/22/2024 10:24 EDT Viki Quiñones PATHOLOGY SECRETARY/TRANSCRIPTIONIST URINALYSIS ORDERABLES Final Result Performing Organization Address City/[facility]/ZIP Co de Phone Number [facility] [address] [place] [address] * (ABNORMAL) UA SEDIMENT + REFLEX TO CULTURE (06/22/2024 10:21 EDT) Urine RBC Count, Manual >50(A) 0 - 2 Cells/HPF 06/22/2024 10:38 EDT [facility] Urine WBC Count 0 - 3 0 - 3 Cells/HPF 06/22/2024 10:38 [facility] Urine Squamous Count, Manual Few(A) None Seen Cells/HPF 06/22/2024 10:38 [facility] Urine Hyaline Cast Count, Manual <=10 <=10 Casts/LPF 06/22/2024 10:38 [facility] Urine Bacteria Count, Manual Few(A) None Seen Bacteria/H PF 06/22/2024 10:38 [facility] Urine URINE SPECIMEN OBTAINED BY CLEAN CATCH PROCEDURE / Unknown Urine Collect / Unknown 06/22/2024 10:21 EDT 06/22/2024 10:24 EDT Narrative [facility] - 06/22/2024 10:38 EDT Mucus threads seen. Urine Sediment Analysis results are unreliable on urines that are unrefrigerated for >2 hrs or refrigerated >8 hrs. NOTE: Reflex to Urine Culture test is not indicated based on Urine Sediment Analysis results. Viki Quiñones PATHOLOGY SECRETARY/TRANSCRIPTIONIST URINALYSIS ORDERABLES Final Result Performing Organization Address City/[facility]/ZIP Co de Phone Number [facility] [address] [place] [phone] * CT RENAL STONE (06/22/2024 9:03 EDT) Anatomical Region Laterality Modality Body, Abdomen Computed Tomogra phy 06/22/2024 9:16 EDT Impressions 06/22/2024 9:16 EDT 1. ??OBSTRUCTING 3 MM MID LEFT URETERAL CALCULUS. Mild left hydronephrosis. 2. ??Small right renal calculus. 3. ??Urinary bladder unremarkable. 4. ??HEALING NONDISPLACED RIGHT 10TH-12TH RIB FRACTURES, new compared to 2017. 5. ??Additional nonemergent findings detailed above. [id number] Narrative 06/22/2024 9:[address] RENAL STONE [...] and sacroiliac degenerative changes. Resulting Agency Comment [id number] Procedure Note Arvind Champagne MD - 06/22/2024 [...] NONDISPLACED RIGHT 10TH-12TH RIB FRACTURES, new compared [id number]. 5. Additional nonemergent findings detailed above. [id number] us Viki Quiñones PATHOLOGY SECRETARY/TRANSCRIPTIONIST IMG CT ORDERABLES Final Res ult * (ABNORMAL) COMPLETE BLOOD COUNT AND DIFFERENTIAL (06/22/2024 8:25 EDT) WBC 8.91 4.00 - 10.40 K/cmm 06/22/2024 8:31 [facility] RBC 4.61 4.36 - 5.78 M/cmm 06/22/2024 8:31 [facility] Hemoglobin 15.9 13.8 - 17.3 g/dL 06/22/2024 8:31 [facility] HCT 46.6 39.5 - 50.2 % 06/22/2024 8:31 [facility] MCV 101(H) 81 - 95 fL 06/22/2024 8:31 [facility] MCH 34.5(H) 27.6 - 33.0 pg 06/22/2024 8:31 [facility] MCHC 34.1 32.8 - 36.4 g/dL 06/22/2024 8:31 [facility] RDW-CV 13.4 <14.2 % 06/22/2024 8:31 [facility] RDW-SD 50.2(H) <46.0 fl 06/22/2024 8:31 [facility] PLT 272 141 - 377 K/cmm 06/22/2024 8:31 [facility] MPV 8.6(L) 9.5 - 12.7 fL 06/22/2024 8:31 [facility] % Neutrophils 73.1 Not Indicated % 06/22/2024 8:31 [facility] % Lymphocytes 16.0 Not Indicated % 06/22/2024 8:31 [facility] % Monocytes 7.2 Not Indicated % 06/22/2024 8:31 [facility] % Eosinophils 2.7 Not Indicated % 06/22/2024 8:31 [facility] % Basophils 0.7 Not Indicated % 06/22/2024 8:31 [facility] % Immature Grans 0.3 <0.9 % 06/22/2024 8:31 [facility] Absolute Neutrophils 6.51 2.20 - 8.85 K/cmm 06/22/2024 8:31 [facility] Absolute Lymphocytes 1.43 1.09 - 3.30 K/cmm 06/22/2024 8:31 [facility] Absolute Monocytes 0.64 0.10 - 0.80 K/cmm 06/22/2024 8:31 [facility] Absolute Eosinophils 0.24 0.03 - 0.61 K/cmm 06/22/2024 8:31 [facility] ABS Basophils 0.06 0.01 - 0.11 K/cmm 06/22/2024 8:31 [facility] Absolute Immature Grans 0.03 0.00 - 0.06 K/cmm 06/22/2024 8:31 [facility] Type of Differential: Auto 06/22/2024 8:31 [facility] Blood VENOUS BLOOD / Unknown Venipuncture / Unknown 06/22/2024 8:25 EDT 06/22/2024 8:28 EDT us Viki Quiñones PATHOLOGY SECRETARY/TRANSCRIPTIONIST PACKAGES & DNA PROBE ORDERA BLES Final Result [facility] [address] [place] [address] * (ABNORMAL) COMPREHENSIVE METABOLIC PANEL (CMP) (06/22/2024 8:25 EDT) Sodium 141 136 - 145 mmol/L 06/22/2024 8:51 [facility] Potassium 4.5 3.5 - 5.0 mmol/L 06/22/2024 8:51 [facility] Chloride 106 96 - 110 mmol/L 06/22/2024 8:51 [facility] CO2 Total 25 22 - 32 mmol/L 06/22/2024 8:51 [facility] Glucose 131(H) 70 - 99 mg/dl 06/22/2024 8:51 [facility] BUN 13 10 - 26 mg/dL 06/22/2024 8:51 [facility] Creatinine 0.81 0.66 - 1.25 mg/dL 06/22/2024 8:51 [facility] eGFR 100 >60 mL/min/1.7 3m2 06/22/2024 8:51 [facility] Total Protein 7.6 6.3 - 8.2 g/dL 06/22/2024 8:51 [facility] Albumin 4.8 3.4 - 4.9 g/dL 06/22/2024 8:51 [facility] Alkaline Phosphatase 94 38 - 126 U/L 06/22/2024 8:51 [facility] AST 86(H) 15 - 46 U/L 06/22/2024 8:51 [facility] ALT 72(H) <50 U/L 06/22/2024 8:51 [facility] Bilirubin, Total 1.0 <1.4 mg/dL 06/22/20 8:51 [facility] Calcium 9.7 8.5 - 10.5 mg/dL 06/22/2024 8:51 [facility] Albumin/Globulin Ratio 1.7 1.0 - 2.5 06/22/2024 8:51 [facility] Anion Gap 10 5 - 14 mmol/L 06/22/2024 8:51 [facility] Blood VENOUS BLOOD / Unknown Venipuncture / Unknown 06/22/2024 8:25 EDT 06/22/2024 8:28 EDT Viki Quiñones PATHOLOGY SECRETARY/TRANSCRIPTIONIST CHEMISTRY & BLOOD GAS ORDER ADITYA Final Result [facility] [address] [place] [address] * HEPATITIS C AB W REFLEX TO HCV RNA BY PCR (10/15/2022 9:30 EST) Hep C Antibody Negative Negative 10/18/2022 8:58 EST [facility] Blood VENOUS BLOOD / Unknown 10/15/2022 9:30 EST 10/17/2022 17:07 EST us Provider Outr Resulting Lab CHEMISTRY & BLOOD GA S ORDERABLES Final Result [facility] [address] [place] [address] from Last 3 Months or Most Recently Relevant to Health Maintenance Insurance [place] Care Teams Clinical Systems Analyst Relationship Specialty Start Date End Date Brittany Fay [address] [place] [address] PCP - General Internal Medicine - Primary Care 06/22/24
--- OUTSIDE RECORDS SUMMARY | 2024-08-29 11:04 | XMS_ITS | Encounter Summary ---
Author Organization [facility] Address [address] [place] [address] Care Team Providers Care Hydraulic Jack Operator Name Role Phone Titus Castro MD Primary Care Provider Unav ailable Encounter Details Date Type Department Care Team (Latest Contact Info) Description 05/16/2019 9:19 EDT - 05/16/2019 23:59 EDT Hospital Encounter [facility] [address] [place] [address] Unknown, Provider, MD Discharge Disposition: Home or Self Care Social History Tobacco Use Types Packs/Day Years [...] on file documented as of this encounter Medications at Time of Discharge aspirin 81 mg EC tablet Take 1 Tablet by mouth daily. ibuprofen (MOTRIN) 800 mg tablet Take 1 Tablet by mouth every 8 hours as needed for Pain. betamethasone dipropionate 0.05 % lotion Apply topically 2 times daily. 0 fluocinonide (LIDEX) 0.05 % ointment Apply topically 2 times daily Do not apply to face, armpit or groin. 1 Tube 3 05/28/2015 0 hydrochlorothiazid e (HYDRODIURIL) 12.5 mg tablet Take 12.5 mg by mouth daily. 0 lisinopril (PRINIVIL, ZESTRIL) 5 mg tablet Take 5 mg by mouth daily 0 polyethylene glycol (GOLYTELY) 236-22.74-6.74 -5.86 gram suspension Take 4,000 mL by mouth once for 1 dose. 1 Bottle 09/27/2017 0 sildenafil citrate (VIAGRA) 100 mg tablet Take 100 mg by mouth as needed 0 documented as of this encounter Discharge Disposition Disposition Code Departure Means Destination Home or Self Assisted documented in this encounter Plan of Treatment Not on file documented as of this encounter Visit Diagnoses Not on filedocumented in this encounter Care Teams Hydraulic Jack Operator Relationship Specialty Start Date End Date Titus Castro MD PCP - General 05/27/15 06/21/24 documented as of this encounter
--- OUTSIDE RECORDS SUMMARY | 2024-08-29 11:04 | XMS_ITS | Encounter Summary ---
Author Organization [facility] Address [address] [place] [address] Care Team Providers Care Manager Application Development Name Role Phone Brittany Fay Primary Care Provider [phone] Reason for Referral * Radiology Services (Routine/Next Available) - Authorization Not Required Specialty Diagnoses / Procedures Referred By Lexus garsia Referred To Contact Diagnoses Kidney stone Procedures CT RENAL STONE Luiz Singh MD [address] [facility] [address] [place] [address] Phone: tel: fax: [facility] [place] Referral ID Status Reason Start Date Expiration Date Visits Requested Visits Authorized [id number] Authorization Not Required 4 1 1 Reason for Visit * Reason Comments Follow-up * Consult (Routine/Next Available) - Authorization Not Required Specialty Diagnoses / Procedures Referred By Lexus garsia Referred To Contact Urology Diagnoses Left ureteral stone Viki Quiñones, PROPERTY DAMAGE CLAIMS ADJUSTOR [address] [facility] [address] [place] [address] Phone: tel: fax: [facility] [address] [place] [address] Phone: tel: fax: Referral ID Status Reason Start Date Expiration Date Visits Requested Visits Authorized [id number] Authorization Not Required Specialty Services Required 4 1 1 Encounter Details Date Type Department Care Team (Late st Contact Info) Description 08/20/2024 8:00 EST Office Visit [facility] [address] [place] [address] Luiz Singh MD [address] [facility] [address] [place] [address] Kidney stone (Primary Dx); Prostate cancer screening Social History Tobacco Use Types Packs/Day Years Used Date Smoking Tobacco: Every Day Cigarettes 2 20 Smokeless Tobacco: Never Alcohol Use Standard [...] on file documented as of this encounter Functional Status * Are you deaf or do you have serious difficulty hearing? Answer Date of Assessment Author No 06/22/2024 8:17 EDT Shannan Yu RN documented as of this encounter Progress Notes * Skylar Elizabeth, NATASHA - 08/20/2024 0800 EST Chart Prep Reason for Visit: left ureteral stone Last Seen: new patient Other pertinent information from chart: Referral from ER visit 06/22/24 , presented to ER for left flank pain. Has hx of kidney stones. CT 06/22/24 : IMPRESSION 1. OBSTRUCTING 3 MM MID LEFT URETERAL CALCULUS. Mild left hydronephrosis. 2. Small right renal calculus. 3. Urinary bladder unremarkable. 4. HEALING NONDISPLACED RIGHT 10TH-12TH RIB FRACTURES, new compared to 2017. 5. Additional nonemergent findings detailed above. * Luiz Singh MD - 08/20/2024 0800 EST 08/20/2024 NEW PATIENT CHIEF COMPLAINT Follow-up PATIENT: Pollo Melara HISTORY OF PRESENT ILLNESS Pollo Melara is a very pleasant 63 y.o. male who presents with ureterolithiasis. Patient presented himself to the emergency department on 06/22/2024 with acute onset left-sided flank pain and hematuria. CT scan was performed showing a 3 mm left proximal ureteral calculus. He had some hematuria in the emergency department as well as pain, that resolved at that point and he wonders if he passeda stone while he was there. He strained his urine for several days afterwards but no stone was seen. He has had some persistent urinary urgency and frequency since the presentation however. Prior episode of stone in 2017 status post stent placement and subsequent shockwave lithotripsy Family history: Brother with stone recently treated, no urologic malignancy No results found for: PSAULTRA, PSA, PSAEXT, %PSA PAST HISTORY Past Medical History: Diagnosis Date Hypertension Past Surgical History: Procedure Laterality Date COLON SURGERY 05/27/2016 sigmoid colectomy for diverticulitis No family history on file. Social History Tobacco Use Smoking status: Every Day Current packs/day: 2.00 Average packs/day: 2.0 packs/day for 20.0 years (40.0 ttl pk-yrs) Types: Cigarettes Smokeless tobacco: Never Substance Use Topics Alcohol use: Yes Alcohol/week: 20.0 standard drinks of alcohol Types: 20 Shots of liquor per week Drug use: No MEDICATIONS Current Outpatient Medications Medication Sig Dispense Refill aspirin 81 mg EC tablet Take 1 Tablet by mouth daily. ibuprofen (MOTRIN) 800 mg tablet Take 1 Tablet by mouth every 8 hours as needed for Pain. lisinopril (PRINIVIL) 10 mg tablet 2 Tablets daily. tamsulosin (FLOMAX) 0.4 mg capsule 1 cap(s) orally once a day (Patient not taking: Reported on 08/20/2024) No current facility-administered medications for this visit. ALLERGIES Allergies Allergen Reactions Penicillins Tetanus Vaccines And Toxoid REVIEW OF SYSTEMS All other systems reviewed and are negative. VITALS There were no vitals filed for this visit. PHYSICAL EXAM Nursing note and vitals reviewed.Vitals and nursing note reviewed. Constitutional: Appearance: Normal appearance. HENT: Head: Normocephalic. Right Ear: External ear normal. Left Ear: External ear normal. Nose: Nose normal. Mouth/Throat: Mouth: Mucous membranes are moist. Eyes: Conjunctiva/sclera: Conjunctivae normal. Pulmonary: Effort: Pulmonary effort is normal. No respiratory distress. Abdominal: General: Abdomen is flat. Tenderness: There is no abdominal tenderness. There is no right CVA tenderness or left CVA tenderness. Genitourinary: Penis: Normal. Testes: Normal. Prostate: Normal. Rectum: Normal. Comments: Prostate 20 g, nontender, no nodules Skin: General: Skin is warm and dry. Neurological: General: No focal deficit present. Mental Status: He is alert and oriented to person, place, and time. Psychiatric: Mood and Affect: Mood normal. Behavior: Behavior normal. DIAGNOSTIC DATA Office Visit on 08/20/2024 Component Date Value Ref Range Status Color, UA 08/20/2024 Yellow Yellow, Colorless Final Clarity, UA 08/20/2024 Clear Clear Final Glucose, UA 08/20/2024 Negative Negative mg/dL Final Bilirubin, UA 08/20/2024 Negative Negative Final Ketones, UA 08/20/2024 Negative Negative mg/dL Final Spec Grav, UA 08/20/2024 1.025 1.001 - 1.030 Final Blood, UA 08/20/2024 Negative Negative Final pH, UA 08/20/2024 7.0 5.0 - 8.0 Final Protein, UA 08/20/2024 1+ (A) Negative mg/dL Final Urobilinogen, UA 08/20/2024 1.0 0.2 - 1.0 E.U./dL Final Nitrite, UA 08/20/2024 Negative Negative Final Leuk Esterase 08/20/2024 Negative Negative Final BMP: Lab Results Component Value Date NA 141 06/22/2024 K 4.5 06/22/2024 CL 106 06/22/2024 CO2 25 06/22/2024 BUN 13 06/22/2024 CREATININE 0.81 06/22/2024 CALCIUM 9.7 06/22/2024 MG 1.90 05/16/2019 LABALBU 4.8 06/22/2024 DIAGNOSIS 1. Kidney stone POCT URINALYSIS, CLINITEK NON-INTERFACED URIC ACID PTH INTACT CT RENAL STONE PSA SCREEN CANCELED: PSA SCREEN 2. Prostate cancer screening PSA SCREEN ASSESSMENT 63-year-old male with a 3 mm left ureteral stone, persistence of urinary symptoms raises a questionof persistence of the ureteral stone likely migrated to the UVJ -Check repeat CT rule out retained ureteral stone -Metabolic testing will be needed given the high risk recurrent stone condition. Check PTH and uricacid now. If CT negative for stone, check 24-hour urine x 2 -Check PSA PLAN Other Orders Placed This Visit Procedures CT RENAL STONE Uric Acid PTH Intact PSA Screen POCT Urinalysis, Clinitek Non-Interfaced Luiz Singh MD Electronicaly signed by: Luiz Singh MD documented in this encounter Plan of Treatment Not on file documented as of this encounter Procedures Procedure Name Priority Date/Time Associated Diagnosis Comments POCT URINALYSIS Routine 08/20/2024 Kidney stone documented in this encounter Results * CT RENAL STONE (08/23/2024 10:25 EST) Anatomical Region Laterality Modality Body, Abdomen Computed Tomogra phy 08/23/2024 11:1 0 EST Impressions 08/23/2024 11:10 EST 1. Resolution of previous left ureteral stone. Resolution of previous left hydronephrosis. 2. Small nonobstructing right renal calculus. [id number] Narrative 08/23/2024 11:[address] RENAL STONE [...] No suspicious osseous lesion Resulting Agency Comment [id number] Procedure Note Boom Garcia MD - 08/23/2024 [...] lefthydronephrosis. 2. Small nonobstructing right renal calculus. [id number] us Luiz Singh MD IM CT ORDERABLES Final Resu lt * PSA SCREEN (08/20/2024 8:40 EST) PSA 0.816 <=4.500 ng/mL 08/20/2024 10:16 EST [facility] Comment: NOTE: Serum PSA concentration should not be interpreted as absolute evidence for the presence or absence of malignant disease. Assayed on [employer] using chemiluminescent technology. Values obtained by using different assay methods cannot be used interchangeably. Blood VENOUS BLOOD / Unknown Venipuncture / Unknown 08/20/2024 8:40 EST 08/20/2024 9:15 EST us Luiz Singh MD CHEMISTRY & BLOOD GAS ORDERA BLES Final Result Performing Organization Address City/[facility]/ZIP Co de Phone Number [facility] [address] [place] [address] * PTH INTACT (08/20/2024 8:40 EST) Intact PTH 52 8 - 54 pg/mL 08/20/2024 9:57 EST [facility] Comment:The results of this assay can be falsely decreased due to the consumption of Biotin. Blood VENOUS BLOOD / Unknown Venipuncture / Unknown 08/20/2024 8:40 EST 08/20/2024 9:15 EST us Luiz Singh MD CHEMISTRY & BLOOD GAS ORDERA BLES Final Result Performing Organization Address [facility] Co de Phone Number [facility] [address] [place] [address] * (ABNORMAL) URIC ACID (08/20/2024 8:40 EST) Uric Acid 3.6(L) 3.9 - 9.0 mg/dL 08/20/2024 10:06 EST [facility] Blood VENOUS BLOOD / Unknown Venipuncture / Unknown 08/20/2024 8:40 EST 08/20/2024 9:15 EST us Luiz Singh MD CHEMISTRY & BLOOD GAS ORDERA BLES Final Result Performing Organization Address [facility] Co de Phone Number [facility] [address] [place] [address] * (ABNORMAL) POCT URINALYSIS, CLINITEK NON-INTERFACED (08/20/2024) Color, UA Yellow Yellow, Colorless [facility] POINT OF CARE Clarity, UA Clear Clear [facility] PO INT OF CARE Glucose, UA Negative [...] Negative Negative [facility] POINT OF CARE Comment [facility] POIN T OF CARE Urine URINE SPECIMEN OBTAINED BY CLEAN CATCH PROCEDURE / Unknown 08/20/2024 Luiz Singh MD POINT OF CARE TEST ORDERABLE S Final Result [facility] documented in this encounter Visit Diagnoses Diagnosis Kidney stone- Primary Calculus of kidney Prostate cancer screening Special screening for malignant neoplasm of prostate Kidney stone Calculus of kidney documented in this encounter Care Teams Manager Application Development Relationship Specialty Start Date End Date Brittany Fay [address] [place] [address] PCP - General Internal Medicine - Primary Care 06/22/24 documented as of this encounter
--- OUTSIDE RECORDS SUMMARY | 2024-08-29 11:04 | XMS_ITS | Encounter Summary ---
Author Organization [facility] Address [address] [place] [address] Care Team Providers Care As400 Analyst Name Role Phone Titus Castro MD Primary Care Provider Unav ailable Encounter Details Date Type Department Care Team (Late st Contact Info) Description 11/11/[address] [facility] Radiology Results [address] [place] [address] Abdelrahman Noonan MD [address] [place] [address] Social History Tobacco Use Types Packs/Day Years [...] Procedure Name Priority Date/Time Associated Diagnosis Comments XR ABDOMEN 1 VIEW 11/11/2017 9:36 EST documented in this encounter Results * XR ABDOMEN 1 VIEW (11/11/2017 9:36 EST) Anatomical Region Laterality Modality Body Other 11/11/2017 9:36 EST Narrative 11/11/2017 9:39 EST ? EXAM: RADIOLOGY/KUB 1V ?EX. D/ (0846) ? CLINICAL INFORMATION: ? LEFT URETERAL STONE. ??R/O RADIO-OPAQUE URINARY ? STONES. ? INDICATION: LEFT URETERAL STONE. ??R/O RADIO-OPAQUE URINARY, STONES. ? KIDNEY STONES ? TECHNIQUE: Single view abdomen. ? COMPARISON: Radiograph 05/31/[address] abdomen pelvis 04/21/2017. ? FINDINGS: ? No abnormal calculi overlie the kidneys or ureters. ? No abnormal dilated small bowel loops are seen. No abnormal small ? bowel air-fluid levels are noted. ??Air and stool scattered throughout ? the colon. ? There is convex rightward curvature centered near the thoracolumbar ? junction. ? IMPRESSION: ? No urolithiasis detected. ? REPORT SIGNED IN OTHER VENDOR SYSTEM 11/11/2017 ?Reported By: Boom Garcia MD ? CC: ? Transcribed Date/Time: 11/11/2017 (0939) ? Apricot Packer: ? Printed Date/Time: 03/29/2019 (1457) ? PAGE 1 ? Signed Report ? Procedure Note Boom Garcia E - 08/15/2019 EXAM: RADIOLOGY/KUB 1V EX. D/ (0846) CLINICAL INFORMATION: LEFT URETERAL STONE. R/O RADIO-OPAQUE URINARY STONES. INDICATION: LEFT URETERAL STONE. R/O RADIO-OPAQUE URINARY, STONES. KIDNEY STONES TECHNIQUE: Single view abdomen. COMPARISON: Radiograph 05/31/[address] abdomen pelvis 04/21/2017. FINDINGS: No abnormal calculi overlie the kidneys or ureters. No abnormal dilated small bowel loops are seen. No abnormal small bowel air-fluid levels are noted. Air and stool scatteredthroughout the colon. There is convex rightward curvature centered near the thoracolumbar junction. IMPRESSION: No urolithiasis detected. REPORT SIGNED IN OTHER VENDOR SYSTEM 11/11/2017 Reported By: Boom Garcia MD CC: Transcribed Date/Time: 11/11/2017 (0939) Apricot Packer: Printed Date/Time: 03/29/2019 (2359) PAGE 1 Signed Report Abdelrahman Noonan MD IMG DIAGNOSTIC IMAGING OR DERABLES Final Result documented in this encounter Visit Diagnoses Not on filedocumented in this encounter Care Teams As400 Analyst Relationship Specialty Start Date End Date Titus Castro MD PCP - General 05/27/15 06/21/24 documented as of this encounter
--- OUTSIDE RECORDS SUMMARY | 2024-08-29 11:04 | XMS_ITS | Encounter Summary ---
Author Organization [facility] Address [address] [place] [address] Care Team Providers Care Human Resources Talent Manager Name Role Phone Titus Castro MD Primary Care Provider Unav ailable Reason for Visit * Reason Onset Date Comments Pre-procedure 10/12/2017 Encounter Details Date Type Department Care Team (Late st Contact Info) Description 10/12/2017 Telephone [facility] General Surgery - [place] [address] [address] Amee Campos MD [address] [address] Pre-procedure Social History Tobacco Use Types Packs/Day Years [...] on file documented as of this encounter Miscellaneous Notes * Telephone Encounter - Marilu Brandon RN - 10/14/2017 1429 EST Pt states he is all set. No further interventions. * Telephone Encounter - Patito Wesley - 10/12/2017 0969 EST Pt has questions regarding his surgery next Tuesday, 10/19 documented in this encounter Plan of Treatment Not on file documented as of this encounter Visit Diagnoses Not on filedocumented in this encounter Care Teams Human Resources Talent Manager Relationship Specialty Start Date End Date Titus Castro MD PCP - General 05/27/15 06/21/24 documented as of this encounter
--- OUTSIDE RECORDS SUMMARY | 2024-08-29 11:04 | XMS_ITS | Encounter Summary ---
Author Organization [facility] Address [address] [place] [address] Care Team Providers Care Clinical Programmer Name Role Phone Titus Castro MD Primary Care Provider Unav ailable Encounter Details Date Type Department Care Team (Late st Contact Info) Description 10/19/2017 Historical Results Only [facility] Lab - Main [place] [address] [place] [address] Amee Campos MD [address] [place] [address] [address] Social History Tobacco Use Types Packs/Day [...] Procedure Name Priority Date/Time Associated Diagnosis Comments SURGICAL PATHOLOGY Routine 10/19/2017 documented in this encounter Results * SURGICAL PATHOLOGY (10/19/2017) 10/19/2017 10/20/2017 9:1 8 EST Narrative [facility] - 10/21/2017 13:13 EST ----- ------- Name: FERN MONTGOMERY ?: 62 ?Age/Sex: 58/M ?Unit#: [id number] ? Loc: END ? Status: DEP CLI ?? Reg Date: 10/19/17 ? Pt.Phone Number: ? ----- ------- Specimen: [id number] ?STATUS: SOUT ?Spec Date:10/19/17 ? Physician Copies: ?Amee Campos ? Tissues: A ?? Endoscopy specimen (CECUM) ? Titus Castro ?? CPT: 29640 ?? Units: ??1 ?FINAL DIAGNOSIS ? CECUM, POLYP, BIOPSY; ? - Tubular adenoma. ? GROSS DESCRIPTION ? Received in formalin labeled with the patient's name and Cecal polyp is a ? single mucosal tissue fragment measuring 0.4 cm. es 1 KF ?? PREOP DX/CLINICAL HISTORY ?Abdominal pain Signed ____(signature on file)____ Ella Velasquez M.D. 10/21/17 By the signature above, the attending physician certifies that he/she has personally conducted a gross and/or microscopic examination of the described specimens and rendered or confirmed the above diagnosis. Test Performed by [facility], [address] [place] [address] Smoke Eater: Ella Velasquez MD PHD ----- ------- us Amee Campos MD PATHOLOGY ORDERABLES Final Resu lt [facility] documented in this encounter Visit Diagnoses Not on filedocumented in this encounter Care Teams Clinical Programmer Relationship Specialty Start Date End Date Titus Castro MD PCP - General 05/27/15 06/21/24 documented as of this encounter
--- OUTSIDE RECORDS SUMMARY | 2024-08-29 11:04 | XMS_ITS | Encounter Summary ---
Author Organization [facility] Address [address] [place] [address] Care Team Providers Care Lead Housekeeper Name Role Phone Brittany Fay Primary Care Provider [phone] Encounter Details Date Type Department Care Team (Late st Contact Info) Description 08/20/2024 8:30 EST Phlebotomy Only [facility] - Outpatient Phlebotomy Drawing [address] [place] [address] Lab, [facility] Op Phlebotomy Kidney stone; Prostate cancer screening Social History Tobacco Use [...] Yu RN documented as of this encounter Plan of Treatment Not on file documented as of this encounter Procedures Procedure Name Priority Date/Time Associated Diagnosis Comments PTH INTACT Routine 08/20/2024 8:40 EST Kidney stone URIC ACID Routine 08/20/2024 8:40 EST Kidney stone PSA SCREEN Routine 08/20/2024 8:40 EST Kidney stone Prostate cancer screening documented in this encounter Results * PSA SCREEN (08/20/2024 8:40 EST) PSA 0.816 <=4.500 ng/mL 08/20/2024 10:16 EST [facility] Comment: NOTE: Serum PSA concentration should not be interpreted as absolute evidence for the presence or absence of malignant disease. Assayed on [employer] [id number] using chemiluminescent technology. Values obtained by using different assay methods cannot be used interchangeably. Blood VENOUS BLOOD / Unknown Venipuncture / Unknown 08/20/2024 8:40 EST 08/20/2024 9:15 EST us Luiz Singh MD CHEMISTRY & BLOOD GAS ORDERA BLES Final Result Performing Organization Address [facility] Co de Phone Number [facility] [address] [place] [address] * PTH INTACT (08/20/2024 8:40 EST) Pathologist [facility] Intact PTH 52 8 - 54 pg/mL 08/20/2024 9:57 EST [facility] Comment:The results of this assay can be falsely decreased due to the consumption of Biotin. Blood VENOUS BLOOD / Unknown Venipuncture / Unknown 08/20/2024 8:40 EST 08/20/2024 9:15 EST us Luiz Singh MD CHEMISTRY & BLOOD GAS ORDERA BLES Final Result Performing Organization Address [facility] Co de Phone Number [facility] [address] [place] [address] * (ABNORMAL) URIC ACID (08/20/2024 8:40 EST) Pathologist [facility] Uric Acid 3.6(L) 3.9 - 9.0 mg/dL 08/20/2024 10:06 EST [facility] Blood VENOUS BLOOD / Unknown Venipuncture / Unknown 08/20/2024 8:40 EST 08/20/2024 9:15 EST us Luiz Singh MD CHEMISTRY & BLOOD GAS ORDERA BLES Final Result [facility] [address] [place] [address] documented in this encounter Visit Diagnoses Diagnosis Kidney stone Calculus of kidney Prostate cancer screening Special screening for malignant neoplasm of prostate documented in this encounter Care Teams Lead Housekeeper Relationship Specialty Start Date End Date Brittany Fay [address] [place] [address] PCP - General Internal Medicine - Primary Care 06/22/24 documented as of this encounter
--- OUTSIDE RECORDS SUMMARY | 2024-08-29 11:04 | XMS_ITS | Encounter Summary ---
Author Organization [facility] Address [address] [place] [address] Care Team Providers Care Dispatch Clerk Name Role Phone Brittany Fay Primary Care Provider [phone] Encounter Details Date Type Department Care Team (Late st Contact Info) Description 08/23/2024 Orders Only [facility] Clinic [address] [place] [address] Luiz Singh MD [address] [facility] [address] [place] [address] Social History Tobacco Use Types Packs/Day [...] Yu RN documented as of this encounter Ordered Prescriptions Prescription Sig Dispense Quantity Refills Last Filled Start Date End Date TAMSulosin (FLOMAX) 0.4 mg capsule Take 1 Capsule by mouth daily. 30 Capsule 4 08/23/2024 documented in this encounter Plan of Treatment Not on file documented as of this encounter Visit Diagnoses Not on filedocumented in this encounter Discontinued Medications Medication Sig Discontinue Reason Start Date End Da te tamsulosin (FLOMAX) 0.4 mg capsule 1 cap(s) orally once a day 05/24/2019 08/23/2024 documented as of this encounter Care Teams Dispatch Clerk Relationship Specialty Start Date End Date Brittany Fay [address] [place] [address] PCP - General Internal Medicine - Primary Care 06/22/24 documented as of this encounter
--- OUTSIDE RECORDS SUMMARY | 2024-08-29 11:04 | XMS_ITS | Encounter Summary ---
Author Organization [facility] Address [address] [place] [address] Care Team Providers Care Solar Energy Consultant And Designer Name Role Phone Titus Castro MD Primary Care Provider Brittany Barger Primary Care Provider [phone] Encounter Details Date Type Department Care Team (Late st Contact Info) Description 07/08/2020 Lab Requisition [facility] Pathology & Laboratory Medicine - [facility] [address] [place] [address] Outr Resulting Lab, Provider Social History Tobacco Use Types Packs/Day Years [...] Procedure Name Priority Date/Time Associated Diagnosis Comments DO NOT ORDER STANDALONE - BROAD COVID TEST Today 07/07/2020 14:00 EDT COVID-19 TESTING Routine 07/07/2020 14:0 0 EDT documented in this encounter Results * DO NOT ORDER STANDALONE - BROAD COVID TEST (07/07/2020 14:00 EDT) COVID-19 rt-PCR Result NEGATIVE Negative 07/09/2020 10:54 EDT [facility] Comment: 2019-novel Coronavirus (2019-nCoV) not detected by the qRT-PCR assay. Consider testing for other respiratory viruses or re-collecting for 2019-nCoV testing. Note: Optimum timing for peak viral levels during infections caused by 2019-nCoV have not been determined. Collection of multiple specimens from the same patient may be necessary to detect the virus. Limitations Positive results are indicative of active infection with SARS-CoV-2 but do not rule out bacterial infection or co-infection with other viruses. The agent detected may not be the definite cause of disease. In addition, detection of viral RNA may not indicate the presence of infectious virus or that SARS-CoV-2 is the causative agent for clinical symptoms. Negative results do not preclude SARS-CoV-2 infection and should not be used as the sole basis for patient management decisions. Negative results must be combined with clinical observations, patient history, and epidemiological information. False negative results may also occur if amplification inhibitors are present in the specimen or if inadequate numbers of organisms are present in the specimen. Optimum specimen types and timing for peak viral levels during infections caused by SARS-CoV-2 have not been fully determined. Collection of multiple specimens (types and time points) from the same patient may be necessary to detect the virus. The test was validated for use with upper respiratory specimens obtained via nasopharyngeal or oropharyngeal swabs in VTM, UTM, M4, M5, M6, saline, and MTM media. The performance of this test has not been established for other specimens. Specimens collected using other FDA recommended Specimen Collection Materials listed in the FDA COVID-19 [employer] communication (January 03, 2020) are processed with the caveat that they were not all validated for use with this test and the result must be interpreted in this context. Furthermore, a false negative results may occur if a specimen is improperly collected, transported or handled. If the virus mutates in the RT-PCR target region, SARS-CoV-2 may not be detected or may be detected less predictably. Inhibitors or other types of interference may produce a false negative result. An interference study evaluating the effect of common cold medications was not performed. This test is not FDA-cleared but its performance characteristics were established by our CLIA-certified, CAP-accredited, high complexity laboratory in accordance with CLIA regulations, [employer] (CAP) guidelines (Dec 27, 2019), and FDA guidance (Dec 08, 2019). This test is only for use under the Food and Drug Administration's Emergency Use Authorization. Swab ENTIRE NASOPHARYNX / Unknown 07/07/2020 14:00 EDT 07/08/2020 15:54 EDT us Provider Outr Resulting Lab MICROBIOLOGY - GENER AL ORDERABLES Final Result [facility] [place], [place] * COVID-19 TESTING (07/07/2020 14:00 EDT) COVID-19 rt-PCR Result NEGATIVE Negative 07/09/2020 13:08 EDT [facility] Comment: 2019-novel Coronavirus (2019-nCoV) not detected by the qRT-PCR assay. Consider testing for other respiratory viruses or re-collecting for 2019-nCoV testing. Note: Optimum timing for peak viral levels during infections caused by 2019-nCoV have not been determined. Collection of multiple specimens from the same patient may be necessary to detect the virus. Limitations Positive results are indicative of active infection with SARS-CoV-2 but do not rule out bacterial infection or co-infection with other viruses. The agent detected may not be the definite cause of disease. In addition, detection of viral RNA may not indicate the presence of infectious virus or that SARS-CoV-2 is the causative agent for clinical symptoms. Negative results do not preclude SARS-CoV-2 infection and should not be used as the sole basis for patient management decisions. Negative results must be combined with clinical observations, patient history, and epidemiological information. False negative results may also occur if amplification inhibitors are present in the specimen or if inadequate numbers of organisms are present in the specimen. Optimum specimen types and timing for peak viral levels during infections caused by SARS-CoV-2 have not been fully determined. Collection of multiple specimens (types and time points) from the same patient may be necessary to detect the virus. The test was validated for use with upper respiratory specimens obtained via nasopharyngeal or oropharyngeal swabs in VTM, UTM, M4, M5, M6, saline, and MTM media. The performance of this test has not been established for other specimens. Specimens collected using other FDA recommended Specimen Collection Materials listed in the FDA COVID-19 [employer] communication (January 03, 2020) are processed with the caveat that they were not all validated for use with this test and the result must be interpreted in this context. Furthermore, a false negative results may occur if a specimen is improperly collected, transported or handled. If the virus mutates in the RT-PCR target region, SARS-CoV-2 may not be detected or may be detected less predictably. Inhibitors or other types of interference may produce a false negative result. An interference study evaluating the effect of common cold medications was not performed. This test is not FDA-cleared but its performance characteristics were established by our CLIA-certified, CAP-accredited, high complexity laboratory in accordance with CLIA regulations, [employer] [place] [employer] (CAP) guidelines (Dec 27, 2019), and FDA guidance (Dec 08, 2019). This test is only for use under the Food and Drug Administration's Emergency Use Authorization. Performing Lab [facility] 07/09/2020 13:08 EDT [facility] Swab 07/07/2020 14:0 0 EDT 07/08/2020 15:54 EDT us Provider Outr Resulting Lab MICROBIOLOGY - GENER AL ORDERABLES Final Result [facility] [address] [place] [address] [facility] [place], [place] documented in this encounter Visit Diagnoses Not on filedocumented in this encounter Care Teams Solar Energy Consultant And Designer Relationship Specialty Start Date End Date Titus Castro MD PCP - General 05/27/15 06/21/24 Brittany [address]ay [address] [place] [address] PCP - General Internal Medicine - Primary Care 06/22/24 documented as of this encounter
--- OUTSIDE RECORDS SUMMARY | 2024-08-29 11:04 | XMS_ITS | Encounter Summary ---
Author Organization [facility] Address [address] [place] [address] Care Team Providers Care Speech Pathologist Name Role Phone Titus Castro MD Primary Care Provider Unav ailable Reason for Visit * Reason Onset Date Comments Biopsy Results 11/08/2017 Encounter Details Date Type Department Care Team (Late st Contact Info) Description 11/08/2017 Telephone [facility] General Surgery - [place] [address] [address] Amee Campos MD [address] [id number] Biopsy Results Social History Tobacco Use Types Packs/Day Years [...] encounter Miscellaneous Notes * Telephone Encounter - Amee Campos MD - 11/08/2017 1237 EST I left a voicemail message for Mr. Melara regarding his polypectomy: tubular adenoma. I recommendthat he repeat his screening colonoscopy in 5 years. I will send him a letter with this informationas well. Amee Campos MD documented in this encounter Plan of Treatment Not on file documented as of this encounter Visit Diagnoses Not on filedocumented in this encounter Care Teams Speech Pathologist Relationship Specialty Start Date End Date Titus Castro MD PCP - General 05/27/15 06/21/24 documented as of this encounter
--- OUTSIDE RECORDS SUMMARY | 2024-08-29 11:04 | XMS_ITS | Encounter Summary ---
Author Organization [facility] Address [address] [place] [address] Care Team Providers Care Cloth Printer Helper Name Role Phone Brittany Fay Primary Care Provider [phone] Reason for Referral * Consult (Routine/Next Available) - Authorization Not Required Specialty Diagnoses / Procedures Referred By Lexus garsia Referred To Contact Urology Diagnoses Left ureteral stone Viki Quiñones NP [address] [facility] [address] [place] [id number] Phone: tel: fax: [facility] [address] [place] [address] Phone: tel: fax: Referral ID Status Reason Start Date Expiration Date Visits Requested Visits Authorized [id number] Authorization Not Required Specialty Services Required 4 1 1 Question Answer Reason for Request: left ureteral stone Reason for Visit * Reason Comments Flank Pain Pt presents with acu te onset left flank pain that started at 0200 this AM. Hx kidney stones. Denies n/v. Endorses urinary retention. Denies fevers. Encounter Details Date Type Department Care Team (Late st Contact Info) Description 06/22/2024 8:04 EDT - 06/22/2024 11:25 EDT Emergency [facility] Emergency Department [address] [place], [place] [id number] Christian Castorena MD [address] [place] [address] Left ureteral stone (Primary Dx); Right kidney stone Discharge Disposition: Home or Self Care Social [...] on file documented as of this encounter Last Filed Vital Signs Vital Sign Reading Time Taken Comments Blood Pressure 115/75 06/22/2024 1000 EDT Pulse 72 06/22/2024 0930 EDT Temperature 36.6 ??C (97.8 ??F) 06/22/2024 0815 EDT Respiratory Rate 18 06/22/2024 1000 EDT Oxygen Saturation 95% 06/22/2024 1000 EDT Inhaled Oxygen Concentration - - Weight - - Height - - Body Mass Index - - documented in this encounter Functional Status * Are you deaf or do you have serious difficulty hearing? Answer Date of Assessment Author No 06/22/2024 8:17 EDT Shannan Yu RN documented as of this encounter Discharge Instructions * Discharge Instructions* Viki Quiñones NP - 06/22/2024 9:25 EDT You were seen today in the emergency department for left flank/abdominal pain. We performed blood work, urinalysis, and a CT scan to look for a kidney stone. You received 15 mg of a medication calledToradol, which is in the same class as ibuprofen. You also received 4 mg of Zofran for nausea and 1mg of Dilaudid, a narcotic pain medication. You reported improvement in your pain after the Dilaudid. The CT scan showed that you do in fact have a 3mm ureteral stone on the left side that is likely causing your symptoms as well as a smaller stone in the kidney on the right side, which is likely not symptomatic. Your ureter is the tube that connects your kidney to your bladder. Stones that are 5 mmor less tend to pass on their own most of the time without intervention. Incidentally, your 10th through 12th ribs showed evidence of healing fracture on the right side. Your blood work was largely unremarkable. Your liver enzymes are slightly elevated. Your kidney function, blood cells, and electrolytes all look good. There was a large amount of blood in your urine, but this is not unusual with u reteral/kidney stones. Please hydrate well at home to try to help pass the kidney stone. For pain, you may take ibuprofen 800 mg every 8 hours as needed. It sounds like you have a medication called tamsulosin (AKA flomax) at home. This medication can help you pass stones. You should take one 0.4 mg pill once daily. You can take it for up to 4 weeks oruntil the kidney stone passes, whichever comes sooner. A referral was placed to urology. You should hear from them within the week. Please return to the emergency department if your pain becomes unbearable, you develop uncontrollednausea and vomiting, you develop a fever over 101 ??F, or if you develop persistent shaking chills. documented in this encounter Medications at Time of Discharge aspirin 81 mg EC tablet Take 1 Tablet by mouth daily. ibuprofen (MOTRIN) 800 mg tablet Take 1 Tablet by mouth every 8 hours as needed for Pain. lisinopril (PRINIVIL) 10 mg tablet 2 Tablets daily. tamsulosin (FLOMAX) 0.4 mg capsule 1 cap(s) orally once a day 05/24/2019 08/23/2024 documented as of this encounter Discharge Disposition Disposition Code Departure Means Destination Comment s Home or Self Group Home documented in this encounter ED Notes * Christian Castorena MD - 06/22/2024 0803 EDT I, Christian Castorena MD, reviewed this case with the Advanced Practice Provider (ARNOL) and have reviewed the ARNOL's note. I did not perform a [id number] evaluation. My personal evaluation included review of nursing notes, review of vital signs, review of relevant records, and review of diagnostic data. Final diagnoses: Left ureteral stone Right kidney stone * Viki Quiñones NP - 06/22/2024 0803 EDT Emergency Department Visit Medical Decision Making Relevant Data as of 06/22/24 1124 TueJun 22, 2024 0858 BUN: 13 [SITA] 0858 Creatinine: 0.81 [SITA] 0858 GFR, Calculated: 100 [SITA] 0858 AST(!): 86 [SITA] 0858 ALT(!): 72 [SITA] 0858 WBC: 8.91 [SITA] 1122 RBC, UA(!): >50 [SITA] 1122 Urine Squamous Count, Auto(!): Few [SITA] 1122 Bacteria, UA(!): Few [SITA] 1122 Blood, UA(!): 3+ [SITA] Relevant Data User Index [SITA] Viki Quiñones NP Medical Decision Making Pollo Melara is a 63 y.o. male with a past medical history of kidney stones and diverticulitiswho presents to the ED for 10/10 left flank/abdominal pain that awoke him from sleep around 2 AM. He states his pain is very similar to when he had a kidney stone in the past. Physical exam reveals a pleasant cooperative elderly gentleman in moderate acute distress related to pain. His abdomen is flat bowel sounds are normal. There is mild epigastric abdominal tenderness and moderate suprapubic and left lower quadrant abdominal tenderness. There is mild right CVA tenderness and moderate left CVA tenderness. The patient skin is warm and dry. He is afebrile. His respiratory rate and blood pressure are slightly elevated. Differential diagnosis includes ureteral calculi, renal calculi, pyelonephritis, UTI, diverticulitis. A CBC, CMP, UA, and CT for renal stone were ordered. The patient received 1 L of normal saline as well as 15 mg of ketorolac and 4 mg of zofran. The patient was still in a significant amount of pain several minutes after the toradol administration, and then received 1 mg of dilaudid IV with positive effect. Blood work is largely unremarkable aside from a slightly elevated AST/ALT at 86 and 72 respectively. Notably is renal function and WBCs are within normal limits. The CT for renal stone showed an obstructing 3 mm mid left ureteral calculus and mild left hydronephrosis. There is additionallya small right renal calculus. The urinary bladder is unremarkable and incidentally healing nondispla brandie right 10th through 12th rib fractures are identified. Read as urine was positive for blood. This is not surprising given the presence of his stones. There were few bacteria noted, but this is likely contaminant given that there are also squamous cells present. Ultimately Pollo was discharged in stable condition with instructions to take ibuprofen as needed for pain. He declined a prescription for antiemetics. A referral to urology was placed. He states that he has Flomax available at home, and he was told that he may take this medication, 0.4 mg once daily for up to 4 weeks or until he passes the kidney stone, whichever comes sooner. Return precautions were reviewed. Please see discharge instructions for full details. Problems Addressed: Left ureteral stone: complicated acute illness or injury Right kidney stone: complicated acute illness or injury Amount and/or Complexity of Data Reviewed Labs: Decision-making details documented in ED Course. Radiology: ordered. Risk Prescription drug management. Final diagnoses: Left ureteral stone Right kidney stone Disposition: Discharged Chief complaint: Left flank/abdominal pain HPI Pollo Melara is a 63 y.o. male with a past medical history of kidney stones and diverticulitiswho presents to the ED for left flank/abdominal pain. Pollo states that he was in his usual state of health when he went to bed last night. At 2 AM, he was awoken by 10/10 left flank/abdominal pain.This pain is persisted since that time. He states that the pain is always present, but seems to ramp up at moments. He has not taken anything for the pain. He notes a sharp. Pollo states that this feels very similar to when he had a kidney stone in the past, 3-4 years ago. He notes that since 2 AMhe has experienced some burning with urination. He has not noticed any blood in the urine. He states he has been moving his bowels normally. His last bowel movement was this morning and was formed brown. Pollo states he does not believe he has been febrile, but admits to occasional chills and hot flashes. He states he has experienced some episodes of shaking. He denies nausea/vomiting. When asked about the treatment of his kidney stone in the past, Pollo states that this needed to be blasted. When questioned further and asked if it was blasted internally with a laser or externally with ESWL, he believes the treatment was external. Pollo sounds to have a bit of mucus in his throat, but states he is a smoker and this is not unusual for him. History was provided by: Patient Patient's pertinent PMH, FH, SH were reviewed and edited as necessary. Nursing notes reviewed. A medical screening exam was performed. Physical Exam BP 115/75 Pulse 72 Temp 36.6 ??C (97.8 ??F) (Oral) Resp 18 SpO2 95% Physical Exam Constitutional: General: He is in acute distress (Moderate acute distress related to pain). Cardiovascular: Rate and Rhythm: Normal rate and regular rhythm. Pulmonary: Effort: Pulmonary effort is normal. No respiratory distress. Breath sounds: Normal breath sounds. Abdominal: General: Abdomen is flat. Bowel sounds are normal. Tenderness: There is abdominal tenderness (Mild epigastric tenderness; moderate suprapubic and leftlower quadrant tenderness) in the epigastric area, suprapubic area and left lower quadrant. There is right CVA tenderness (Mild) and left CVA tenderness (moderate). There is no guarding or rebound. Skin: General: Skin is warm and dry. Neurological: General: No focal deficit present. Mental Status: He is alert and oriented to person, place, and time. Psychiatric: Mood and Affect: Mood normal. Behavior: Behavior normal. Thought Content: Thought content normal. Judgment: Judgment normal. CT RENAL STONE IMPRESSION 1. OBSTRUCTING 3 MM MID LEFT URETERAL CALCULUS. Mild left hydronephrosis. 2. Small right renal calculus. 3. Urinary bladder unremarkable. 4. HEALING NONDISPLACED RIGHT 10TH-12TH RIB FRACTURES, new compared to 2017. 5. Additional nonemergent findings detailed above. Procedures Procedures documented in this encounter Plan of Treatment Scheduled Referrals Name Type Priority Associated Diagnoses Order Schedule AMB CONS/FOLLOW UP UROLOGY Outpatient Referral Routine/Next Available Left ureteral stone Expected: 06/29/2024 (Approximate), Expires: 06/22/2025 documented as of this encounter Procedures Procedure Name Priority Date/Time Associated Diagnosis Comments UA WITH REFLEX SEDIMENT (CULTURE IF POS) STAT 06/22/2024 10:21 EDT UA SEDIMENT + REFLEX TO CULTURE STAT 06/22/2024 10:[address] RENAL STONE STAT 06/22/2024 9:03 EDT COMPLETE BLOOD COUNT AND DIFFERENTIAL STAT 06/22/2024 8:25 EDT COMPREHENSIVE METABOLIC PANEL (CMP) STAT 06/22/2024 8:25 EDT documented in this encounter Results * (ABNORMAL) UA SEDIMENT + REFLEX TO CULTURE (06/22/2024 10:21 EDT) Urine RBC Count, Manual >50(A) 0 - 2 Cells/HPF 06/22/2024 10:38 [facility] Urine WBC Count 0 - 3 0 - 3 Cells/HPF 06/22/2024 10:38 [facility] Urine Squamous Count, Manual Few(A) None Seen Cells/HPF 06/22/2024 10:38 [facility] Urine Hyaline Cast Count, Manual <=10 <=10 Casts/LPF 06/22/2024 10:38 [facility] Urine Bacteria Count, Manual Few(A) None Seen Bacteria/H PF 06/22/2024 10:38 [facility] Urine URINE SPECIMEN OBTAINED BY CLEAN CATCH PROCEDURE / Unknown Urine Collect / Unknown 06/22/2024 10:21 EDT 06/22/2024 10:24 T [facility] - 06/22/2024 10:38 EDT Mucus threads seen. Urine Sediment Analysis results are unreliable on urines that are unrefrigerated for >2 hrs or refrigerated >8 hrs. NOTE: Reflex to Urine Culture test is not indicated based on Urine Sediment Analysis results. us Viki L Cotnoir SHEET HEATER HELPER URINALYSIS ORDERABLES Final Result [facility] [address] [place] [address] * (ABNORMAL) UA CASCADE TO CULTURE (06/22/2024 10:21 EDT) Color UA Angela(A) Colorless, Yellow 06/22/2024 10:37 [facility] Clarity UA Cloudy(A) Clear 06/22/2024 10:37 [facility] Glucose UA Negative Negative mg/dL 06/22/2024 10:37 [facility] Bilirubin UA 1+(A) Negative 06/22/2024 10:37 [facility] Ketones UA Trace(A) Negative 06/22/2024 10:37 [facility] Specific [place], Urine >=1.030 1.001 - 1.030 06/22/2024 10:37 [facility] Blood UA 3+(A) Negative 06/22/2024 10:37 [facility] pH, UA 5.5 5.0 - 8.0 06/22/2024 10:37 [facility] Protein UA 2+(A) Negative mg/dL 06/22/2024 10:37 [facility] Urobilinogen UA 1.0 0.2-1.0 mg/dL mg/dL 06/22/2024 10:37 [facility] Nitrite UA Negative Negative 06/22/2024 10:37 [facility] Leukocyte Esterase UA Negative Negative 06/22/2024 10:37 [facility] Urine URINE SPECIMEN OBTAINED BY CLEAN CATCH PROCEDURE / Unknown Urine Collect / Unknown 06/22/2024 10:21 EDT 06/22/2024 10:24 EDT us Viki L Cotnoir SHEET HEATER HELPER URINALYSIS ORDERABLES Final Result [facility] [address] [place] [address] * CT RENAL STONE (06/22/2024 9:03 EDT) Anatomical Region Laterality Modality Body, Abdomen Computed Tomogra phy 06/22/2024 9:16 EDT Impressions 06/22/2024 9:16 EDT 1. ??OBSTRUCTING 3 MM MID LEFT URETERAL CALCULUS. Mild left hydronephrosis. 2. ??Small right renal calculus. 3. ??Urinary bladder unremarkable. 4. ??HEALING NONDISPLACED RIGHT 10TH-12TH RIB FRACTURES, new compared to 2017. 5. ??Additional nonemergent findings detailed above. [id number] Narrative 06/22/2024 9:[address] RENAL STONE [...] and sacroiliac degenerative changes. Resulting Agency Comment [id number] Procedure Note Arvind Champagne MD - 06/22/2024 [...] NONDISPLACED RIGHT 10TH-12TH RIB FRACTURES, new compared [id number]. 5. Additional nonemergent findings detailed above. [id number] us Viki Quiñones SHEET HEATER HELPER IMG CT ORDERABLES Final Res ult * (ABNORMAL) COMPREHENSIVE METABOLIC PANEL (CMP) (06/22/2024 8:25 EDT) Sodium 141 136 - 145 mmol/L 06/22/2024 8:51 [facility] Potassium 4.5 3.5 - 5.0 mmol/L 06/22/2024 8:51 [facility] Chloride 106 96 - 110 mmol/L 06/22/2024 8:51 [facility] CO2 Total 25 22 - 32 mmol/L 06/22/2024 8:51 [facility] Glucose 131(H) 70 - 99 mg/dl 06/22/2024 8:51 [facility] BUN 13 10 - 26 mg/dL 06/22/2024 8:51 [facility] Creatinine 0.81 0.66 - 1.25 mg/dL 06/22/2024 8:51 [facility] eGFR 100 >60 mL/min/1.7 3m2 06/22/2024 8:51 [facility] Total Protein 7.6 6.3 - 8.2 g/dL 06/22/2024 8:51 [facility] Albumin 4.8 3.4 - 4.9 g/dL 06/22/2024 8:51 [facility] Alkaline Phosphatase 94 38 - 126 U/L 06/22/2024 8:51 [facility] AST 86(H) 15 - 46 U/L 06/22/2024 8:51 [facility] ALT 72(H) <50 U/L 06/22/2024 8:51 [facility] Bilirubin, Total 1.0 <1.4 mg/dL 06/22/20 8:51 [facility] Calcium 9.7 8.5 - 10.5 mg/dL 06/22/2024 8:51 [facility] Albumin/Globulin Ratio 1.7 1.0 - 2.5 06/22/2024 8:51 [facility] Anion Gap 10 5 - 14 mmol/L 06/22/2024 8:51 [facility] Blood VENOUS BLOOD / Unknown Venipuncture / Unknown 06/22/2024 8:25 EDT 06/22/2024 8:28 EDT us Viki Quiñones NP CHEMISTRY & BLOOD GAS ORDER ADITYA Final Result [facility] [address] [place] [address] * (ABNORMAL) COMPLETE BLOOD COUNT AND DIFFERENTIAL (06/22/2024 8:25 EDT) WBC 8.91 4.00 - 10.40 K/cmm 06/22/2024 8:31 [facility] RBC 4.61 4.36 - 5.78 M/cmm 06/22/2024 8:31 [facility] Hemoglobin 15.9 13.8 - 17.3 g/dL 06/22/2024 8:31 [facility] HCT 46.6 39.5 - 50.2 % 06/22/2024 8:31 [facility] MCV 101(H) 81 - 95 fL 06/22/2024 8:31 [facility] MCH 34.5(H) 27.6 - 33.0 pg 06/22/2024 8:31 [facility] MCHC 34.1 32.8 - 36.4 g/dL 06/22/2024 8:31 [facility] RDW-CV 13.4 <14.2 % 06/22/2024 8:31 [facility] RDW-SD 50.2(H) <46.0 fl 06/22/2024 8:31 [facility] PLT 272 141 - 377 K/cmm 06/22/2024 8:31 [facility] MPV 8.6(L) 9.5 - 12.7 fL 06/22/2024 8:31 [facility] % Neutrophils 73.1 Not Indicated % 06/22/2024 8:31 [facility] % Lymphocytes 16.0 Not Indicated % 06/22/2024 8:31 [facility] % Monocytes 7.2 Not Indicated % 06/22/2024 8:31 [facility] % Eosinophils 2.7 Not Indicated % 06/22/2024 8:31 [facility] % Basophils 0.7 Not Indicated % 06/22/2024 8:31 [facility] % Immature Grans 0.3 <0.9 % 06/22/2024 8:31 [facility] Absolute Neutrophils 6.51 2.20 - 8.85 K/cmm 06/22/2024 8:31 [facility] Absolute Lymphocytes 1.43 1.09 - 3.30 K/cmm 06/22/2024 8:31 [facility] Absolute Monocytes 0.64 0.10 - 0.80 K/cmm 06/22/2024 8:31 [facility] Absolute Eosinophils 0.24 0.03 - 0.61 K/cmm 06/22/2024 8:31 [facility] ABS Basophils 0.06 0.01 - 0.11 K/cmm 06/22/2024 8:31 [facility] Absolute Immature Grans 0.03 0.00 - 0.06 K/cmm 06/22/2024 8:31 [facility] Type of Differential: Auto 06/22/2024 8:31 [facility] Blood VENOUS BLOOD / Unknown Venipuncture / Unknown 06/22/2024 8:25 EDT 06/22/2024 8:28 EDT Viki Quiñones SHEET HEATER HELPER PACKAGES & DNA PROBE ORDERA BLES Final Result [facility] [address] [place] [address] documented in this encounter Visit Diagnoses Diagnosis Left ureteral stone- Primary Right kidney stone Calculus of kidney documented in this encounter Administered Medications Inactive Administered Medications - up to 3 most recent administrations Medication Order MAR Action Action Date Dose Rate Site HYDROmorphone (DILAUDID) injection 1 mg 1 mg, intravenous, NOW X1, 1 dose, On Tue06/22/24 at 0900, STAT Given 06/22/2024 8:44 EDT 1 mg ketOROLAC (TORADOL) injection 15 mg 15 mg, intravenous, NOW X1, 1 dose, On Tue06/22/24 at 0845, STAT Given 06/22/2024 8:31 EDT 15 mg ondansetron (PF) (ZOFRAN) injection 4 mg 4 mg, intravenous, NOW X1, 1 dose, On Tue06/22/24 at 0900, STAT Given 06/22/2024 8:39 EDT 4 mg sodium chloride 0.9 % BOLUS 1,000 mL 1,000 mL, intravenous, NOW X1, 1 dose, On Tue06/22/24 at 0845, STAT New Bag 06/22/2024 8:32 EDT 1,000 mL documented in this encounter Active and Recently Administered Medications Times are shown in EDT. Scheduled Medication Order 06/20/2024 06/21/2024 06/22/2024 HYDROmorphone (DILAUDID) injection 1 mg (COMPLETED) 1 mg, intravenous, NOW X1, 1 dose, On Tue06/22/24 at 0900, STAT 0844 (Given - Provid er: Shala Noble RN) ketOROLAC (TORADOL) injection 15 mg (COMPLETED) 15 mg, intravenous, NOW X1, 1 dose, On Tue06/22/24 at 0845, STAT 0831 (Given - Provid er: Shala Noble RN) ondansetron (PF) (ZOFRAN) injection 4 mg (COMPLETED) 4 mg, intravenous, NOW X1, 1 dose, On Tue06/22/24 at 0900, STAT 0839 (Given - Provid er: Shala Noble RN) sodium chloride 0.9 % BOLUS 1,000 mL (COMPLETED) 1,000 mL, intravenous, NOW X1, 1 dose, On Tue06/22/24 at 0845, STAT 0832 (New Bag - Prov ider: Shala Noble RN)1123 (Completed - Provider: Shala Noble RN) documented in this encounter Care Teams Cloth Printer Helper Relationship Specialty Start Date End Date Brittany Fay [address] [facility] [place] [id number] PCP - General Internal Medicine - Primary Care 06/22/24 documented as of this encounter
--- OUTSIDE RECORDS SUMMARY | 2024-08-29 11:04 | XMS_ITS | Encounter Summary ---
Author Organization [facility] Address [address] [place] [address] Care Team Providers Care Fabrication Department Supervisor Name Role Phone Titus Castro MD Primary Care Provider Unav ailable Encounter Details Date Type Department Care Team (Late st Contact Info) Description 05/24/2019 Historical Results Only [facility] - Main Marine [address] [place], [place] [id number] Mary Taylor PA-C [address] [place] [address] [address] [place] [address] Social History Tobacco Use Types Packs/Day Years [...] Procedure Name Priority Date/Time Associated Diagnosis Comments GC/CHLAMYDIA/TRICHO MONAS URINE - [facility] Routine 05/24/2019 11:36 EDT HIV 1/2 AB, P24 AG - [facility] Routine 05/24/2019 11:36 EDT RAPID PLASMA REAGIN (RPR) WITH REFLEX, S Routine 05/24/2019 11:36 EDT HEPATITIS C AB W REFLEX TO HCV RNA BY PCR Routine 05/24/2019 11:36 EDT HEPATITIS A TOTAL ANTIBODY W REFLEX Routine 05/24/2019 11:36 EDT HEPATITIS B CORE ANTIBODY (TOTAL) Routine 05/24/2019 11:36 EDT HEPATITIS B SURFACE ANTIGEN Routine 05/24/2019 11:36 EDT BACTERIAL CULTURE, URINE Routine 05/24/2019 11:36 EDT documented in this encounter Results * BACTERIAL CULTURE, URINE (05/24/2019 11:36 EDT) Urine Culture 05/26/2019 12:01 EDT [facility] Urine Culture No growth. 05/26/2019 12:01 EDT [facility] 05/24/2019 11:3 6 EDT 05/24/2019 13:08 EDT Comment:VOID us Mary Taylor PA-C MICROBIOLOGY - GENERAL ORDERA BLES Final Result [facility] * HIV 1/2 AB, P24 AG - [facility] (05/24/2019 11:36 EDT) HIV 1/2 AB, P24 AG - [facility] Negative Negative 05/24/2019 14:39 EDT [facility] 05/24/2019 11:3 6 EDT 05/24/2019 13:08 EDT us Mary Taylor PA-C CHEMISTRY & BLOOD GAS ORDERAB LES Final Result [facility] * HEPATITIS C AB W REFLEX TO HCV RNA BY PCR (05/24/2019 11:36 EDT) HEPATITIS C AB W/REFLEX - [facility] Negative 05/24/2019 15:00 EDT [facility] Comment:Expected Values: Neg ative. 05/24/2019 11:3 6 EDT 05/24/2019 13:08 EDT Mary Jorgensen Brandon PA-C CHEMISTRY & BLOOD GAS ORDERAB LES Final Result Performing Organization Address [facility] Co de Phone Number [facility] * HEPATITIS B SURFACE ANTIGEN (05/24/2019 11:36 EDT) Hep B Surface Ag Negative 05/24/2019 15:00 EDT [facility] Comment: Expected Values: ??Negative. The results of this assay can be falsely lowered due to the consumption of Biotin. 05/24/2019 11:3 6 EDT 05/24/2019 13:08 EDT Mary Jorgensen Brandon PA-C CHEMISTRY & BLOOD GAS ORDERAB LES Final Result Performing Organization Address [facility] Phone Number [facility] * HEPATITIS A TOTAL ANTIBODY W REFLEX (05/24/2019 11:36 EDT) Hepatitis A Antibody, IgM Negative 05/24/2019 15:11 EDT [facility] Comment: Indicates a non-reactive sample, negative for anti-HAV. Indicates that the individual has not been infected and is presumed not to be immune to HAV infection. The results of this assay can be falsely lowered due to the consumption of Biotin. 05/24/2019 11:3 6 EDT 05/24/2019 13:08 EDT us Mary A Brandon PA-C CHEMISTRY & BLOOD GAS ORDERAB LES Final Result Performing Organization Address [facility] Co de Phone Number [facility] * GC/CHLAMYDIA/TRICHOMONAS URINE - [facility] (05/24/2019 11:36 EDT) CHLAMYDIA PCR - [facility] NOT DETECTED 05/24/2019 16:10 EDT [facility] GONORRHEA PCR - [facility] NOT DETECTED 05/24/2019 16:10 EDT [facility] SOURCE URINE 05/24/2019 15:48 EDT [facility] TRICHOMONAS VAGINALIS PCR UR - [facility] NOT DETECTED 05/24/2019 15:48 EDT [facility] 05/24/2019 11:3 6 EDT 05/24/2019 13:08 EDT us Mary RAMIREZ-C CHEMISTRY & BLOOD GAS ORDERAB LES Final Result [facility] * HEPATITIS B CORE ANTIBODY (TOTAL) (05/24/2019 11:36 EDT) Hepatitis B Core Ab, Total Negative NEGAT 05/25/2019 15:51 EDT [facility] Comment: Test performed [place] [address] 05/24/2019 11:3 6 EDT 05/24/2019 13:08 EDT us Mary Taylor PA-C CHEMISTRY & BLOOD GAS ORDERAB LES Final Result Performing Organization Address City/[facility]/ZIP Co de Phone Number [facility] * RAPID PLASMA REAGIN (RPR) WITH REFLEX, S (05/24/2019 11:36 EDT) APID PLASMA REAGIN - [facility] Nonreactive NEG 05/31/2019 8:23 EDT [facility] 05/24/2019 11:3 6 EDT 05/24/2019 13:08 EDT us Mary NASCIMENTOC IMMUNOLOGY AND SEROLOGY ORDER ADITYA Final Result [facility] documented in this encounter Visit Diagnoses Not on filedocumented in this encounter Care Teams Fabrication Department Supervisor Relationship Specialty Start Date End Date Titus Castro MD PCP - General 05/27/15 06/21/24 documented as of this encounter
--- OUTSIDE RECORDS SUMMARY | 2024-08-29 11:04 | XMS_ITS | Encounter Summary ---
Author Organization [facility] Address [address] [place] [address] Care Team Providers Care Dray Driver Name Role Phone Brittany Fay Primary Care Provider [phone] Reason for Referral * Radiology Services (Routine/Next Available) - Authorization Not Required Specialty Diagnoses / Procedures Referred By Contac t Referred To Contact Diagnoses Kidney stone Procedures CT RENAL STONE Luiz Singh MD [address] [address] Phone: tel: fax: [facility] Referral ID Status Reason Start Date Expiration Date Visits Requested Visits Authorized [id number] Authorization Not Required 4 1 1 Reason for Visit * Radiology Services (Routine/Next Available) - Authorization Not Required Specialty Diagnoses / Procedures Referred By Lexus garsia Referred To Contact Diagnoses Kidney stone Procedures CT RENAL STONE Luiz Singh MD [address] [address] Phone: tel: fax: [facility] Referral ID Status Reason Start Date Expiration Date Visits Requested Visits Authorized [id number] Authorization Not Required 4 1 1 Encounter Details Date Type Department Care Team (Latest Contact Info) Description 08/23/2024 10:15 EST - 08/23/2024 23:59 EST Hospital Encounter [facility] CT Scan [address] [place] [id number] Kidney stone Discharge Disposition: Home or Self [...] Yu RN documented as of this encounter Medications at Time of Discharge aspirin 81 mg EC tablet Take 1 Tablet by mouth daily. ibuprofen (MOTRIN) 800 mg tablet Take 1 Tablet by mouth every 8 hours as needed for Pain. lisinopril (PRINIVIL) 10 mg tablet 2 Tablets daily. TAMSulosin (FLOMAX) 0.4 mg capsule Take 1 Capsule by mouth daily. 30 Capsule 4 08/23/2024 documented as of this encounter Discharge Disposition Disposition Code Departure Means Destination Home or Self Care documented in this encounter Plan of Treatment Not on file documented as of this encounter Procedures Procedure Name Priority Date/Time Associated Diagnosis Comments CT RENAL STONE Routine 08/23/2024 10:25 EST Kidney stone documented in this encounter Results * CT RENAL STONE (08/23/2024 10:25 EST) Anatomical Region Laterality Modality Body, Abdomen Computed Tomogra phy 08/23/2024 11:1 0 EST Impressions 08/23/2024 11:10 EST 1. Resolution of previous left ureteral stone. Resolution of previous left hydronephrosis. 2. Small nonobstructing right renal calculus. [id number] Narrative 08/23/2024 11:[address] RENAL STONE [...] No suspicious osseous lesion Resulting Agency Comment [id number] Procedure Note Boom Garcia MD - 08/23/2024 [...] lefthydronephrosis. 2. Small nonobstructing right renal calculus. [id number] us Luiz Singh MD IMG CT ORDERABLES Final Resu lt documented in this encounter Visit Diagnoses Diagnosis Kidney stone Calculus of kidney documented in this encounter Care Teams Dray Driver Relationship Specialty Start Date End Date Brittany Fay [address] [place] [address] PCP - General Internal Medicine - Primary Care 06/22/24 documented as of this encounter
--- OUTSIDE RECORDS SUMMARY | 2024-08-29 11:04 | XMS_ITS | Encounter Summary ---
Author Organization [facility] Address [address] [place] [address] Care Team Providers Care Core Winding Operator Name Role Phone Titus Castro MD Primary Care Provider Unav ailable Encounter Details Date Type Department Care Team (Late st Contact Info) Description 05/16/2019 Historical Results Only [facility] Radiology Results [address] [place], [place] [phone] Matthew Ware MD [address] [place] [address] Social History Tobacco Use Types Packs/Day Years [...] Name Priority Date/Time Associated Diagnosis Comments XR CHEST 2 VIEWS 05/16/2019 10:5 2 EDT ETHYL ALCOHOL - [facility] Routine 05/16/2019 9:59 EDT COMPLETE BLOOD COUNT WITH DIFFERENTIAL (AUTO) Routine 05/16/2019 9:59 EDT TROPONIN I Routine 05/16/2019 9:59 EDT MAGNESIUM Routine 05/16/2019 9:59 EDT LIPASE Routine 05/16/2019 9:59 EDT COMPREHENSIVE METABOLIC PANEL (CMP) Routine 05/16/2019 9:59 EDT documented in this encounter Results * XR CHEST 2 VIEWS (05/16/2019 10:52 EDT) Anatomical Region Laterality Modality Other 05/16/2019 10:5 2 EDT Narrative 05/16/2019 10:55 EDT ? EXAM: RADIOLOGY/CHEST PA ?? LAT ?EX. D/ (1047) ? CLINICAL INFORMATION: ? cp ? INDICATION: cp CHEST PAIN ? TECHNIQUE: ??Chest, PA and lateral views ? COMPARISON: None ? FINDINGS: The lungs are clear. There is no pleural effusion or ? pneumothorax. The cardiac silhouette is mildly enlarged. The ? pulmonary vascularity is within normal limits. ? The osseous structures are normal for age. ? IMPRESSION: ? 1. Mild cardiomegaly. ? REPORT SIGNED IN OTHER VENDOR SYSTEM 05/16/2019 ?Reported By: Boom Garcia MD ? CC: Matthew Ware MD ? Transcribed Date/Time: 05/16/2019 (1055) ? Cleaning Laborer: ? Printed Date/Time: 06/27/2019 (3471) ? PAGE 1 ? Signed Report ? Procedure Note Boom Garcia E - 08/14/2019 EXAM: RADIOLOGY/CHEST PA LAT EX. D/ (1047) CLINICAL INFORMATION: cp INDICATION: cp CHEST PAIN TECHNIQUE: Chest, PA and lateral views COMPARISON: None FINDINGS: The lungs are clear. There is no pleural effusion or pneumothorax. The cardiac silhouette is mildly enlarged. The pulmonary vascularity is within normal limits. The osseous structures are normal for age. IMPRESSION: 1. Mild cardiomegaly. REPORT SIGNED IN OTHER VENDOR SYSTEM 05/16/2019 Reported By: Boom Garcia MD CC: Matthew Ware MD Transcribed Date/Time: 05/16/2019 (4500) Cleaning Laborer: Printed Date/Time: 06/27/2019 (9978) PAGE 1 Signed Report Matthew Ware MD IMG DIAGNOSTIC IMAGING O RDERABLES Final Result * MAGNESIUM (05/16/2019 9:59 EDT) Magnesium 1.90 1.7 - 2.8 mg/dL 05/16/2019 10:18 EDT [facility] 05/16/2019 9:59 EDT 05/16/2019 10:01 EDT Matthew Ware MD CHEMISTRY & BLOOD GAS OR DERABLES Final Result [facility] * LIPASE (05/16/2019 9:59 EDT) Lipase 112 <251 U/L 05/16/2019 10:23 EDT [facility] 05/16/2019 9:59 EDT 05/16/2019 10:01 EDT Matthew Ware MD CHEMISTRY & BLOOD GAS OR DERABLES Final Result [facility] * ETHYL ALCOHOL - [facility] (05/16/2019 9:59 EDT) Pathologist [facility] ETHYL ALCOHOL [facility] <10.0 <10 mg/dL 05/16/2019 10:23 [facility] 05/16/2019 9:59 EDT 05/16/2019 10:01 EDT Matthew Ware MD CHEMISTRY & BLOOD GAS OR DERABLES Final Result [facility] * (ABNORMAL) COMPREHENSIVE METABOLIC PANEL (CMP) (05/16/2019 9:59 EDT) [facility] Albumin % 4.9 3.4 - 4.9 g/dL 05/16/2019 10:18 [facility] ALKALINE PHOSPHATASE - [facility] 132(H) 38 - 126 U/L 05/16/2019 10:18 [facility] BILIRUBIN TOTAL 0.8 0.2 - 1.3 mg/dL 05/16/2019 10:18 [facility] BUN - [facility] 13 10 - 26 mg/dL 05/16/2019 10:18 [facility] CALCIUM - [facility] 10.4 8.5 - 10.5 mg/dL 05/16/2019 10:18 [facility] Chloride 100 96 - 110 mmol/L 05/16/2019 10:18 [facility] CO2 Total 28 21 - 32 mEq/L 05/16/2019 10:18 [facility] CREATININE 0.79 0.66 - 1.25 mg/dL 05/16/2019 10:18 [facility] eGFR >60 05/16/2019 10:18 [facility] Comment: Chronic renal impairment is defined as GFR <60 Multiply result by 1.210 for patients. Anion Gap 10 0 - 18 05/16/2019 10:18 [facility] GLUCOSE - [facility] 117(H) 70 - 100 mg/dL 05/16/2019 10:18 [facility] Potassium 4.4 3.5 - 5.0 mEq/L 05/16/2019 10:18 EDT [facility] Sodium 138 136 - 145 mEq/L 05/16/2019 10:18 EDT [facility] TOTAL PROTEIN - [facility] 8.1 6.2 - 8.2 gm/dL 05/16/2019 10:18 [facility] SGOT/AST - [facility] 89(H) 17 - 59 U/L 05/16/2019 10:18 [facility] SGPT/ALT - [facility] 92(H) 21 - 72 U/L [facility]2019 [facility] 9:59 EDT 05/16/2019 10:01 EDT Matthew Ware MD CHEMISTRY & BLOOD GAS OR DERABLES Final Result Performing Organization Address [facility] de Phone Number [facility] * TROPONIN I (05/16/2019 9:59 EDT) [facility] Troponin I (ng/mL) <0.034 0.000 - 0.034 ng/mL 05/16/2019 10:29 EDT [facility] Comment: Interpretation comments: ??Cutoff for a positive troponin result is set at the 99th percentile of the upper reference limit. ??Elevated troponin must always be interpreted in the context of the clinical presentation. ?Serial troponin testing 3-6 hr from baseline is favored over relying on a single troponin level. ?? The results of this assay can be falsely lowered due to the consumption of Biotin. 05/16/2019 9:59 EDT 05/16/2019 10:01 EDT Matthew Ware MD CHEMISTRY & BLOOD GAS OR DERABLES Final Result Performing Organization Address [facility]/ZIP Co de Phone Number [facility] * (ABNORMAL) COMPLETE BLOOD COUNT WITH DIFFERENTIAL (AUTO) (05/16/2019 9:59 EDT) ABSOLUTE NEUTROPHIL COUN - [facility] 3.8 2.2 - 8.85 10e3/uL 05/16/2019 10:13 [facility] BASO # - [facility] 0.06 0.01 - 0.11 10e/uL 05/16/2019 10:13 [facility] BASO % - [facility] 1 0 - 2 % 05/16/2019 10:13 [facility] EOS # - [facility] 0.22 0.03 - 0.61 10e3/ul 05/16/2019 10:13 [facility] EOS % - [facility] 3 0 - 5 % 05/16/2019 10:13 [facility] GRAN % - [facility] 53.6 40 - 80 % 05/16/2019 10:13 [facility] HEMATOCRIT - [facility] 47.8 39.5 - 50.2 % 05/16/2019 10:13 [facility] HEMOGLOBIN - [facility] 16.7 13.8 - 17.3 g/dl 05/16/2019 10:13 [facility] IG# - [facility] 0.02 0 - 0.7 10e3/uL 05/16/2019 10:13 [facility] IG% - [facility] 0.3 0 - 0.9 % 05/16/2019 10:13 [facility] LYMPH # - [facility] 2.3 1.09 - 3.3 10e3/ul 05/16/2019 10:13 [facility] LYMPH% - [facility] 32.9 20 - 40 % 05/16/2019 10:13 [facility] MEAN CORPUSCULAR HGB - [facility] 34.2(H) 27.6 - 33.0 pg 05/16/2019 10:13 [facility] MEAN CORPUSCULAR HGB CONC - [facility] 34.9 32.8 - 36.4 g/dL 05/16/2019 10:13 [facility] MEAN CELL VOLUME - [facility] 98.0(H) 81 - 95 fl 05/16/2019 10:13 [facility] MONO # - [facility] 0.7 0.1 - 0.8 10e3/uL 05/16/2019 10:13 EDT [facility] MONO% - [facility] 9.2 0 - 12 % 05/16/2019 10:13 EDT [facility] PLATELET COUNT 294 141 - 377 10e3/ul 05/16/2019 10:13 EDT [facility] RED BLOOD COUNT - [facility] 4.88 4.36 - 5.78 10e3/ul 05/16/2019 10:13 EDT [facility] RED CELL DISTRI WIDTH - [facility] 12.2 <14.2 % 05/16/2019 10:13 [facility] WHITE BLOOD COUNT - [facility] 7.1 4.0 - 10.4 10e3/ul 05/16/2019 10:13 [facility] 05/16/2019 9:59 EDT 05/16/2019 10:01 EDT Matthew Ware MD HEMATOLOGY & PF4 ORDERAB LES Final Result [facility] documented in this encounter Visit Diagnoses Not on filedocumented in this encounter Care Teams Core Winding Operator Relationship Specialty Start Date End Date Titus Castro MD PCP - General 05/27/15 06/21/24 documented as of this encounter
--- OUTSIDE RECORDS SUMMARY | 2024-08-29 11:04 | XMS_ITS | Encounter Summary ---
Author Organization [facility] Address [address] [place] [address] Care Team Providers Care Long Wall Shear Operator Name Role Phone Titus Castro MD Primary Care Provider Brittany Barger Primary Care Provider [phone] Encounter Details Date Type Department Care Team (Late st Contact Info) Description 10/17/2022 Lab Requisition [facility] Pathology & Laboratory Medicine - [address] [address] Outr Resulting Lab, Provider Social History Tobacco [...] Procedure Name Priority Date/Time Associated Diagnosis Comments HEPATITIS C AB W REFLEX TO HCV RNA BY PCR Routine 10/15/2022 9:30 EST HEPATITIS B SURFACE ANTIBODY Routine 10/15/2022 9:30 EST HEPATITIS B SURFACE ANTIGEN Routine 10/15/2022 9:30 EST documented in this encounter Results * HEPATITIS B SURFACE ANTIBODY (10/15/2022 9:30 EST) Hep B Surface Ab, Quantitative <3.1 See Note mIU/mL 10/18/2022 10:31 EST [facility] Comment: Reference Range for Hep B Surface Ab, Quant: Positive: >= 10.0 mIU/mL Negative: ??< 10.0 mIU/mL Patient is presumed to not be immune to infection with Hepatitis B Virus. Hep B Surface Ab, Qualitative Negative See Note 10/18/2022 10:31 EST [facility] Comment: Reference Range for Hep B Surface Ab, Qual: Unvaccinated: ??Negative Vaccinated: ??Positive Blood VENOUS BLOOD / Unknown 10/15/2022 9:30 EST 10/17/2022 17:07 EST us Provider Outr Resulting Lab CHEMISTRY & BLOOD GA S ORDERABLES Final Result Performing Organization Address [facility] Co de Phone Number [facility] [address] [place] [address] * HEPATITIS B SURFACE ANTIGEN (10/15/2022 9:30 EST) Hep B Surface Ag Negative Negative 10/18/2022 8:52 EST [facility] Blood VENOUS BLOOD / Unknown 10/15/2022 9:30 EST 10/17/2022 17:07 EST us Provider Outr Resulting Lab CHEMISTRY & BLOOD GA S ORDERABLES Final Result Performing Organization Address [facility] Co de Phone Number [facility] [address] [place] [address] * HEPATITIS C AB W REFLEX TO HCV RNA BY PCR (10/15/2022 9:30 EST) Hep C Antibody Negative Negative 10/18/2022 8:58 EST [facility] Blood VENOUS BLOOD / Unknown 10/15/2022 9:30 EST 10/17/2022 17:07 EST us Provider Outr Resulting Lab CHEMISTRY & BLOOD GA S ORDERABLES Final Result Performing Organization Address [facility]/State/ZIP Co de Phone Number [facility] [address] [place] [address] documented in this encounter Visit Diagnoses Not on filedocumented in this encounter Care Teams Long Wall Shear Operator Relationship Specialty Start Date End Date Titus Castro MD PCP - General 05/27/15 06/21/24 Brittany Fay [address] [place], [place] [address] PCP - General Internal Medicine - Primary Care 06/22/24 documented as of this encounter
--- OUTSIDE RECORDS SUMMARY | 2024-08-29 11:04 | XMS_ITS | Encounter Summary ---
Author Organization [facility] Address [address] [place] [address] Care Team Providers Care Swaging Machine Operator Name Role Phone Titus Castro MD Primary Care Provider Unav ailable Reason for Visit * Reason Comments Follow-up LLQ pain Encounter Details Date Type Department Care Team (Late st Contact Info) Description 09/27/2017 13:45 EST Office Visit [facility] [address] [address] Amee Capmos MD [address] [address] Abdominal pain, left lower quadrant (Primary Dx) Social History Tobacco Use Types Packs/Day Years [...] Sign Reading Time Taken Comments Blood Pressure 142/96 09/27/2017 1340 EST Pulse 99 09/27/2017 1340 EST Temperature - - Respiratory Rate - - Oxygen Saturation - - Inhaled Oxygen Concentration - - Weight - - Height - - Body Mass Index - - documented in this encounter Ordered Prescriptions Prescription Sig Dispense Quantity Refills Last Filled Start Date End Date polyethylene glycol (GOLYTELY) 236-22.74-6.74 -5.86 gram suspension Take 4,000 mL by mouth once for 1 dose. 1 Bottle 09/27/2017 10/30/2019 documented in this encounter Progress Notes * Amee Campos MD - 09/27/2017 1345 EST Chief complaint: Left lower quadrant pain; Sigmoidectomy in 2016 Subjective: The patient says he continues to have left lower quadrant pain for at least one month. He did not have it initially following sigmoidectomy. He is trying to eat green vegetables and has been trying to pay attention to what foods make the left lower quadrant pain worse. He thinks fatty foods make the pain worse and give him diarrhea. He is also still drinking alcohol. I sent him for Hemoccult and hemogram after our last visit. Objective:BP (!) 142/96 Pulse 99 Gen.: No distress, hunched over and holding onto his left side, alert and oriented ??3 Lab work: Stool negative for occult blood Hemoglobin 15, hematocrit 44.3 Assessment/plan: Mr. Melara is a 56-year-old man who had laparoscopic sigmoidectomy for diverticulitis in 2016. In the last 2 months he has developed persistent left lower quadrant pain. We discussed the possibility of adhesions causing the pain. I also said that it could be a recurrence of diverticulitis although he denies any fevers or chills. I recommend that we repeat colonoscopy since the last one he had was incomplete prior to surgery. I prescribed the GoLYTELY to his pharmacy. We reviewed the split prep instructions together and I provided him with a written copy. We will schedule colonoscopy sometime within the next few weeks. Amee Campos MD documented in this encounter Plan of Treatment Not on file documented as of this encounter Visit Diagnoses Diagnosis Abdominal pain, left lower quadrant- Primary documented in this encounter Care Teams Swaging Machine Operator Relationship Specialty Start Date End Date Titus Castro MD PCP - General 05/27/15 06/21/24 documented as of this encounter
--- OUTSIDE RECORDS SUMMARY | 2024-08-29 11:04 | XMS_ITS | Encounter Summary ---
Author Organization [facility] Address [address] [place] [address] Care Team Providers Care Gifts Officer Name Role Phone Titus Castro MD Primary Care Provider Unav ailable Reason for Visit * Reason Comments New Patient Visit Encounter Details Date Type Department Care Team (Late st Contact Info) Description 10/30/2019 16:00 EST Procedure visit [facility] [address] [place] [address] Raghu Williamson MD [address] [facility] [address] [place] [address] Paresthesia (Primary Dx) Social History Tobacco Use Types [...] Sign Reading Time Taken Comments Blood Pressure 120/82 10/30/2019 1603 EST Pulse 80 10/30/2019 1603 EST Temperature - - Respiratory Rate - - Oxygen Saturation - - Inhaled Oxygen Concentration - - Weight - - Height - - Body Mass Index - - documented in this encounter Progress Notes * Raghu Williamson MD - 10/30/2019 1600 EST [facility] Clinical Neurophysiology Nerve Conduction and Electromyography Report PATIENT NAME: Pollo Melara PATIENT : 1960 PCP: Titus Castro DATE OF SERVICE: 10/30/2019 History: Pollo Melara is a 58 y.o. male who presents to EMG on referral by Brittany Fay for evaluation of right leg weakness. He describes intermittent whole right leg tingling paroxysmally, especiallywhen walking uphill or climbing stairs. It resolves afterwards. It is not a particularly burning feeling. There is not any romario weakness other than the uncomfortable tingling. He has no history of back surgery or back injury. He is not sure how much of the foot it encompasses, but certainly circumferentially around the upper and lower leg. Past Medical History: Diagnosis Date ??? Hypertension Past Surgical History: Procedure Laterality Date ??? COLON SURGERY 05/27/2016 sigmoid colectomy for diverticulitis REVIEW OF SYSTEMS: 10-point ROS performed and was negative except as noted in HPI. Clinical Exam: General appearance: alert, normal body habitus, no distress Skin: Smoking discoloration changes on the right second and third digits HEENT: NC/AT, no oral lesions Extremities: Feet mildly cool to the touch. Motor Exam: Normal bulk and tone. Lower Extremity Strength HF H Abd KF KE A DF A PF Toe E Right 5/5 5/5 5/5 5/5 5/5 5/5 5/5 Left 5/5 5/5 5/5 5/5 5/5 5/5 5/5 DTRs: 2+ and symmetric at bilateral patellae and Achilles. No crossed abductor present. Toes are downgoing to plantar stimulation. Sensation: Normal pinprick sensation throughout the bilateral lower extremities. Electrodiagnostic Findings: Nerve Conduction: -All nerves examined were normal including the right superficial peroneal sensory, and the right peroneal and tibial motor responses EMG: -All muscles examined were normal including the right gastrocnemius, peroneus longus, tibialis anterior, quadriceps and tensor fascia jeana. For waveforms/values/tables of EMG/nerve conduction study please see accompanying scanned document in the scans/media tab in EMR. Electrodiagnostic Impression: - This study was normal. There is no evidence of right lumbosacral radiculopathy, peripheral neuropathy, or myopathy. Raghu Williamson MD documented in this encounter Plan of Treatment Not on file documented as of this encounter Visit Diagnoses Diagnosis Paresthesia- Primary Disturbance of skin sensation documented in this encounter Discontinued Medications Medication Sig Discontinue Reason Start Date End Da te lisinopril (PRINIVIL, ZESTRIL) 5 mg tablet Take 5 mg by mouth daily 10/30/2019 hydrochlorothiazide (HYDRODIURIL) 12.5 mg tablet Take 12.5 mg by mouth daily. 10/30/2019 polyethylene glycol (GOLYTELY) 236-22.74-6.74 -5.86 gram suspension Take 4,000 mL by mouth once for 1 dose. 09/27/2017 10/30/2019 sildenafil citrate (VIAGRA) 100 mg tablet Take 100 mg by mouth as needed 10/30/2019 fluocinonide (LIDEX) 0.05 % ointment Apply topically 2 times daily Do not apply to face, armpit or groin. 05/28/2015 10/30/2019 betamethasone dipropionate 0.05 % lotion Apply topically 2 times daily. 10/30/2019 documented as of this encounter Historical Medications * This list may reflect changes made after this encounter. lisinopril (PRINIVIL) 10 mg tablet 2 Tablets daily. tamsulosin (FLOMAX) 0.4 mg capsule 1 cap(s) orally once a day 05/24/2019 08/23/2024 added in this encounter Care Teams Gifts Officer Relationship Specialty Start Date End Date Titus Castro MD PCP - General 05/27/15 06/21/24 documented as of this encounter
--- OUTSIDE RECORDS SUMMARY | 2024-08-29 11:05 | XMS_ITS | Encounter Summary ---
Author Organization [facility] Address [address] [place] [address] Care Team Providers Care Electric Tripper Machine Operator Name Role Phone Titus Castro MD Primary Care Provider Unav ailable Encounter Details Date Type Department Care Team (Latest Contact Info) Description 05/27/2016 17:18 EDT - 05/27/2016 23:[address] [facility] [address] [place] [address] Unknown, Provider, MD Discharge Disposition: Home or [...] Take 12.5 mg by mouth daily. 0 HYDROcodone-acetam inophen (VICODIN) 5-300 mg tablet Take 2 Tabs by mouth every 6 hours as needed for Pain. 6 lisinopril (PRINIVIL, ZESTRIL) 5 mg tablet Take 5 mg by mouth daily 0 nicotine (NICODERM CQ) 14 mg/[address] 1 Patch onto the skin daily for 30 days. 30 Patch 1 05/11/2016 6 oxyCODONE (ROXICODONE) 5 mg immediate release tablet Take 5-10 mg by mouth every 4 hours as needed for Pain. 6 sildenafil citrate (VIAGRA) 100 mg tablet Take 100 mg by mouth as needed 0 documented as of this encounter Discharge Disposition Disposition Code Departure Means Destination Home or Self Intermediate documented in this encounter Plan of Treatment Not on file documented as of this encounter Visit Diagnoses Not on filedocumented in this encounter Care Teams Electric Tripper Machine Operator Relationship Specialty Start Date End Date Titus Castro MD PCP - General 05/27/15 06/21/24 documented as of this encounter
--- OUTSIDE RECORDS SUMMARY | 2024-08-29 11:05 | XMS_ITS | Encounter Summary ---
Author Organization [facility] Address [address] [place] [address] Care Team Providers Care Skin Grader Name Role Phone Titus Castro MD Primary Care Provider Unav ailable Encounter Details Date Type Department Care Team (Late st Contact Info) Description 09/13/[address] [facility] [place] [address] [place] [phone] Amee Campos MD [address] [place] [phone] Social History Tobacco Use Types Packs/Day [...] Procedure Name Priority Date/Time Associated Diagnosis Comments COMPLETE BLOOD COUNT WITH DIFFERENTIAL (AUTO) Routine 09/13/2017 14:20 EST documented in this encounter Results * COMPLETE BLOOD COUNT WITH DIFFERENTIAL (AUTO) (09/13/2017 14:20 EST) ABSOLUTE NEUTROPHIL COUN - [facility] 4.74 1.7 - 7.0 10e3/ul 09/13/2017 14:37 EST [facility] BASO # - [facility] 0.04 0.0 - 0.3 10e3/uL 09/13/2017 14:37 [facility] BASO % - [facility] 1 0 - 2 % 09/13/2017 14:37 [facility] EOS # - [facility] 0.35 0.05 - 0.5 10e3/uL 09/13/2017 14:37 [facility] EOS % - [facility] 4 0 - 5 % 09/13/2017 14:37 [facility] GRAN % - [facility] 60 40 - 80 % 09/13/2017 14:37 [facility] HEMATOCRIT - [facility] 44.3 36.0 - 52.0 % 09/13/2017 14:37 [facility] HEMOGLOBIN - [facility] 15.0 13.7 - 17.5 g/dl 09/13/2017 14:37 [facility] IG# - [facility] 0.03 0 - 0.07 10e3/uL 09/13/2017 14:37 [facility] IG% - [facility] 0.4 0 - 0.9 % 09/13/2017 14:37 [facility] LYMPH # - [facility] 2.11 0.9 - 2.9 10e3/uL 09/13/2017 14:37 [facility] LYMPH% - [facility] 27 20 - 40 % 09/13/2017 14:37 [facility] MEAN CORPUSCULAR HGB - [facility] 33.7 26 - 34 pg 09/13/2017 14:37 [facility] MEAN CORPUSCULAR HGB CONC - [facility] 33.9 31 - 36 g/dL 09/13/2017 14:37 [facility] MEAN CELL VOLUME - [facility] 99.6 77 - 100 fl 09/13/2017 14:37 [facility] MONO # - [facility] 0.64 0.3 - 0.9 10e3/uL 09/13/2017 14:37 [facility] MONO% - [facility] 8 0 - 12 % 09/13/2017 14:37 [facility] PLATELET COUNT 290 150 - 400 10e3/ul 09/13/2017 14:37 [facility] RED BLOOD COUNT - [facility] 4.45 4.3 - 5.7 10e6/ul 09/13/2017 14:37 EST [facility] RED CELL DISTRI WIDTH - [facility] 12.7 11.8 - 15.6 % 09/13/2017 14:37 EST [facility] WHITE BLOOD COUNT - [facility] 7.9 3.5 - 10.5 10e3/ul 09/13/2017 14:37 EST [facility] 09/13/2017 14:2 0 EST 09/13/2017 14:20 EST Narrative [facility] - 09/13/2017 14:37 EST Does PT Have a Latex Allergy? NO us Amee Campos MD HEMATOLOGY & PF4 ORDERABLES Fin al Result [facility] documented in this encounter Visit Diagnoses Not on filedocumented in this encounter Care Teams Skin Grader Relationship Specialty Start Date End Date Titus Castro MD PCP - General 05/27/15 06/21/24 documented as of this encounter
--- OUTSIDE RECORDS SUMMARY | 2024-08-29 11:05 | XMS_ITS | Encounter Summary ---
Author Organization [facility] Address [address] [place] [address] Care Team Providers Care Music Autographer Name Role Phone Titus Castro MD Primary Care Provider Unav ailable Reason for Visit * Reason Comments New Patient Visit no h/o skin cancer, no f/h of melanoma Rash hands, lower legs, f eet x 4 months * Consult (Routine) - Closed Specialty Diagnoses / Procedures Referred By Lexus garsia Referred To Contact Dermatology Diagnoses Contact dermatitis and other eczema due to solvents Titus Castro MD [facility] Dermatology [address] [place] [address] Phone: tel: fax: Referral ID Status Reason Start Date Expiration Date Visits Re quested Visits Authorized [id number] Closed 1 1 Encounter Details Date Type Department Care Team (Late st Contact Info) Description 05/28/2015 9:30 EDT Office Visit [facility] Dermatology 3[address] [id number] Michael Velez MD [address] [place] [address], [address] [place] [phone] Dermatitis (Primary Dx) Social History Tobacco Use Types [...] on file documented as of this encounter Discharge Diagnoses Diagnosis 692.9 DERMATITIS NOS[ICD-9-CM] documented in this encounter Patient Instructions * Patient Instructions* Carley Dorsey - 05/28/2015 9:25 EDT Quitting smoking Stopping smoking is the best step you can take to improve your own health and lengthen your life. Quitting smoking will lower your risk for heart attacks, lung problems, and many forms of cancer. When you stop smoking, your loved ones will breathe less smoke from the air. That will lower their riskfor asthma, lung infections, heart attacks, and lung cancer. You will also save money, look and smell better, and feel good about what you've done. Many people have quit smoking. The best way to quit is to be clear on your reasons for quitting, set a quit date, use medication, and work with a trained counselor. Counseling in [facility] offers free smoking cessation counseling services to [facility] including a telephone quit line, in person cessation groups, and Quitnet - an online quit service. You may be able to get nicotine replacement medications for low or even no cost through these counseling services depending on your insurance. The [place] Department of Health also has tips and tools for those who want to try toquit on their own. To learn more about these options go to www.[employer]tersquitnetwork.org or call 1 868-PLGI-NMS ( ). I hope you quit smoking. I think it's the best thing you can do for your health. Please call our office if you have any questions. documented in this encounter Ordered Prescriptions Prescription Sig Dispense Quantity Refills Last Filled Start Date End Date fluocinonide (LIDEX) 0.05 % ointment Apply topically 2 times daily Do not apply to face, armpit or groin. 1 Tube 3 05/28/2015 0 documented in this encounter Progress Notes * Xin Boykin MD - 05/28/2015 0930 EDT DERMATOLOGY OUTPATIENT CLINIC NOTE Chief Complaint Patient presents with ??? New Patient Visit no h/o skin cancer, no f/h of melanoma ??? Rash hands, lower legs, feet x 4 months Dermatologic History: none Last Dermatology office visit: new patient SUBJECTIVE Mr. Melara is a 54 y.o. male who presents for new evaluation and treatment for rash. It is very itchy for him. He says it has been present for about two months. He has tried some steroid cream from his PCP but it has not been very helpful for him. 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 For full Medical, Surgical, Family, and Social histories, please see the History section of this encounter in the electronic chart which I have personally reviewed. For Review of Systems, Medications and Allergies, please see those sections of this encounter in the electronic chart which I have also reviewed. He has a current medication list which includes the following prescription(s): lisinopril and sildenafil citrate. He is allergic to penicillins and tetanus vaccines & toxoid. OBJECTIVE VS: There were no vitals taken for this visit. Mr. Melara is healthy, well developed, well-nourished and in no acute distress male sitting on the examination table with a normal affect. He is alert and oriented to person, place and time. He hasFitzpatrick type II skin. Cutaneous focused exam of the arms, hands, legs, feet, face was performed. The dermatologic examination was normal with the addition of the following comments: A) bilateral plantar feet, bilateral volar wrists: hyperkeratotic scale B) medial right lower leg: scaly 1.5cm nummular plaque C) JONNY prep x 2 negative for fungal elements. IMPRESSION: 1.Nonspecific dermatitis PLAN: 1.Prescription sent for fluocinonide ointmetn to use to areas twice daily. He was also advised to aggressively moisturize with plain vaseline/petrolatum and this will help as well. It was discussed that, while unfortunate, there is no cure for this type of nonspecific dermatitis, rather it is aboutcontrolling the symptoms to be manageable for the patient. He understood this and will try the steroid ointment. 2. The nature of sun-induced photo-aging and skin cancers was discussed. Sun avoidance, protective clothing, and the use of 30-SPF sunscreens is advised. He will f/u as planned or in the interim should problems arise. Xin Boykin MD 05/28/2015 9:32 Attestation Statement: I saw and examined the patient with the resident/fellow. I agree with the findings and plan of care documented in the resident's/fellow's note. Michael Velez MD * Carley Dorsey - 05/28/2015 0927 EDT Review of Systems Constitutional: Negative for fever, fatigue and unexpected weight change. HENT: Negative for mouth sores. Eyes: Negative for pain. Respiratory: Negative for cough and shortness of breath. Cardiovascular: Negative for chest pain and palpitations. Gastrointestinal: Negative for nausea, vomiting, abdominal pain, diarrhea, constipation and blood in stool. Genitourinary: Negative for dysuria, frequency and hematuria. Musculoskeletal: Negative for myalgias, joint swelling, arthralgias and muscle stiffness in the morning. Skin: Negative for rash. Neurological: Negative for numbness and headaches. Endo/Heme/Allergies: Does not bruise/bleed easily. Psychiatric/Behavioral: Negative for sleep disturbance. The patient is not nervous/anxious. Morenosegundo Sunita 9:27 05/28/2015 Building And Grounds Supervisor, Dermatology documented in this encounter Plan of Treatment Not on file documented as of this encounter Visit Diagnoses Diagnosis Dermatitis- Primary Contact dermatitis and other eczema, due to unspecified cause documented in this encounter Historical Medications * This list may reflect changes made after this encounter. sildenafil citrate (VIAGRA) 100 mg tablet Take 100 mg by mouth as needed 10/30/2019 lisinopril (PRINIVIL, ZESTRIL) 5 mg tablet Take 5 mg by mouth daily 10/30/2019 added in this encounter Care Teams Music Autographer Relationship Specialty Start Date End Date Titus Castro MD PCP - General 05/27/15 06/21/24 documented as of this encounter
--- OUTSIDE RECORDS SUMMARY | 2024-08-29 11:05 | XMS_ITS | Encounter Summary ---
Author Organization [facility] Address [address] [place] [address] Care Team Providers Care Nuisance Animal Damage Control Agent Name Role Phone Titus Castro MD Primary Care Provider Unav ailable Reason for Referral * Laboratory Services (Routine) - Closed Specialty Diagnoses / Procedures Referred By Lexus garsia Referred To Contact Diagnoses Orthostatic dizziness Procedures HEMAGRAM AND DIFFERENTIAL Amee Campos MD Phone: tel: fax: Referral ID Status Reason Start Date Expiration Date Visits Re quested Visits Authorized [id number] Closed 09/13/2017 1 1 Reason for Visit * Reason Comments Follow-up Encounter Details Date Type Department Care Team (Late st Contact Info) Description 09/13/2017 13:45 EST Office Visit [facility] General [facility] [address] [facility] [address] [place] [address] Amee Campos MD [address] [facility] [address] [place] [address] Orthostatic dizziness (Primary Dx); Black tarry stools; Abdominal pain, left lower quadrant Social History Tobacco Use Types Packs/Day Years [...] Sign Reading Time Taken Comments Blood Pressure 147/102 09/13/2017 1346 EST Pulse 94 09/13/2017 1346 EST Temperature - - Respiratory Rate - - Oxygen Saturation - - Inhaled Oxygen Concentration - - Weight - - Height - - Body Mass Index - - documented in this encounter Progress Notes * Amee Campos MD - 09/13/2017 1345 EST Chief complaint: Left lower quadrant pain Subjective: The patient had a brief period after his sigmoidectomy in May 2016, during which he did not have left lower quadrant pain. He had been dealing with kidney stones for many months and that is finally resolved. About 3 weeks ago he experienced left lower quadrant pain that is intermittent. He has urgency to defecate and has had one episode of incontinence. He describes dark, sticky, foul-smelling stools, but no bright red blood per rectum. He feels dizzy when he stands up. Once a month he also experiences intense urgency to pass gas and then water comes out of his bottom. He is unsure if it is related to what he eats but he thinks that drinking water causes him cramps. His last colonoscopy was incomplete in March 2016, just prior to surgery. He has about 3-4 bowel movements perday. He does not take NSAIDs. Objective: BP (!) 147/102 Pulse 94 Gen.: Mild distress, alert and oriented ??3, pleasant and cooperative, hunched over and holding onto his left lower abdomen Heart: Regular rate and rhythm Lungs: Clear to auscultation bilaterally Abdomen: Soft, nontender, nondistended, well-healed surgical incision, no rebound or guarding Assessment/plan: Mr. Melara is a 56-year-old man with chronic left lower quadrant pain following laparoscopic sigmoidectomy for diverticulitis. Given his report of orthostatic dizziness, I have ordered a hemagram. Given the report of what sounds like melena, I have also ordered a Hemoccult. I would like to see him in follow-up in 1 week after these lab tests have been performed. If the Hemoccult is positive or he shows signs of anemia, then I think we should proceed with colonoscopy. I told him the colonoscopy would be easier this time around because now his inflamed segment of sigmoid colon has been removed. He expressed understanding. Amee Campos MD documented in this encounter Plan of Treatment Scheduled Orders Name Type Priority Associated Diagnoses Orde r Schedule HEMAGRAM AND DIFFERENTIAL Lab Routine Orthostatic dizziness Ordered: 09/13/2017 documented as of this encounter Visit Diagnoses Diagnosis Orthostatic dizziness- Primary Black tarry stools Blood in stool Abdominal pain, left lower quadrant documented in this encounter Care Teams Nuisance Animal Damage Control Agent Relationship Specialty Start Date End Date Titus Castro MD PCP - General 05/27/15 06/21/24 documented as of this encounter
--- OUTSIDE RECORDS SUMMARY | 2024-08-29 11:05 | XMS_ITS | Encounter Summary ---
Author Organization [facility] Address [address] [place] [address] Care Team Providers Care Torts Law Professor Name Role Phone Titus Castro MD Primary Care Provider Unav ailable Encounter Details Date Type Department Care Team (Late st Contact Info) Description 05/31/2017 Historical Results Only [facility] Radiology Results [address] [place], [place] [id number] Marleni Childress MD Social History Tobacco Use Types Packs/Day Years [...] Associated Diagnosis Comments XR ABDOMEN 1 VIEW 05/31/2017 18: 11 EDT COMPLETE BLOOD COUNT WITH DIFFERENTIAL (AUTO) Routine 05/31/2017 17:04 EDT C REACTIVE PROTEIN Routine 05/31/2017 17 :04 EDT COMPREHENSIVE METABOLIC PANEL (CMP) Routine 05/31/2017 17:04 EDT documented in this encounter Results * XR ABDOMEN 1 VIEW (05/31/2017 18:11 EDT) Anatomical Region Laterality Modality Body Other 05/31/2017 18:1 1 EDT Narrative 05/31/2017 18:15 EDT ? EXAM: RADIOLOGY/KUB 1V ?EX. D/ (1740) ? CLINICAL INFORMATION: ? 5 MM STONE COMPARISON LOCATION/PAIN ? KUB 1V ? Signs and Symptoms/Comments: 5 MM STONE COMPARISON LOCATION/PAIN ? Comparison: KUB on 05/11/2017, 05/06/2017. CT abdomen pelvis on ? 04/21/2017. ? FINDINGS: ? AP supine views of the abdomen were performed. The left ureteral ? stent has been removed compared to 05/11/2017. Although the previously ? described left UVJ calculus is no longer visible, a 7 mm oval ? calcification projecting over the left pelvis is suspicious for ? distal migration of the calculus, which now may lie at the left UVJ ? or in the bladder. A tiny nonobstructing calculus in the upper pole ? of the right kidney is better appreciated on the prior CT. Scattered ? atherosclerotic calcifications are present. ? The bowel gas pattern is unremarkable. An anastomotic staple line ? projects over the mid pelvis. No acute osseous abnormality is ? identified. ? IMPRESSION: ? 1. ??Suspect distal migration of the known 7 mm left ureteral ? calculus, now lying either at the left UVJ or within the bladder. CT ? may be performed for further evaluation if desired. ? 2. ??Interval removal of the left internal ureteral stent. ? 3. ??Known tiny nonobstructing right renal calculus, better ? appreciated on prior CT. ? REPORT SIGNED IN OTHER VENDOR SYSTEM 05/31/2017 ?Reported By: Arvind Champagne MD ? CC: ? Transcribed Date/Time: 05/31/2017 (1815) ? Lift Mechanic: SCR ? Printed Date/Time: 03/27/2019 (1522) ? PAGE 1 ? Signed Report ? Procedure Note Arvind Champagne MD - 08/15/2019 EXAM: RADIOLOGY/KUB 1V EX. D/ (1740) CLINICAL INFORMATION: 5 MM STONE COMPARISON LOCATION/PAIN KUB 1V Signs and Symptoms/Comments: 5 MM STONE COMPARISON LOCATION/PAIN Comparison: KUB on 05/11/2017, 05/06/2017. CT abdomen pelvis on 04/21/2017. FINDINGS: AP supine views of the abdomen were performed. The left ureteral stent has been removed compared to 05/11/2017. Although thepreviously described left UVJ calculus is no longer visible, a 7 mm oval calcification projecting over the left pelvis is suspicious for distal migration of the calculus, which now may lie at the left UVJ or in the bladder. A tiny nonobstructing calculus in the upper pole of the right kidney is better appreciated on the prior CT.Scattered atherosclerotic calcifications are present. The bowel gas pattern is unremarkable. An anastomotic staple line projects over the mid pelvis. No acute osseous abnormality is identified. IMPRESSION: 1. Suspect distal migration of the known 7 mm left ureteral calculus, now lying either at the left UVJ or within the bladder.CT may be performed for further evaluation if desired. 2. Interval removal of the left internal ureteral stent. 3. Known tiny nonobstructing right renal calculus, better appreciated on prior CT. REPORT SIGNED IN OTHER VENDOR SYSTEM 05/31/2017 Reported By: Arvind Champagne MD CC: Transcribed Date/Time: 05/31/2017 (837) Lift Mechanic: Printed Date/Time: 03/27/2019 (2807) PAGE 1 Signed Report us Marleni Childress MD IMG DIAGNOSTIC IMAGING ORD ERABLES Final Result * (ABNORMAL) C REACTIVE PROTEIN (05/31/2017 17:04 EDT) Pathologist [facility] C-Reactive Protein 4.25(H) 0.0 - 3.0 mg/L [facility]2017 [facility]29 [facility] 17:0 4 EDT 05/31/2017 17:10 EDT Narrative [facility] - 05/31/2017 17:29 EDT Does PT Have a Latex Allergy? NO Marleni Childress MD CHEMISTRY & BLOOD GAS ORDE [facility] Final Result [facility] * (ABNORMAL) COMPREHENSIVE METABOLIC PANEL (CMP) (05/31/2017 17:04 EDT) [facility] Albumin % 4.0 3.4 - 5.0 g/dL 05/31/2017 17:29 [facility] ALKALINE PHOSPHATASE - [facility] 117 42 - 122 U/L 05/31/2017 17:29 [facility] BILIRUBIN TOTAL 0.4 0.0 - 1.0 mg/dL 05/31/2017 17:29 [facility] BUN - [facility] 22(H) 7 - 18 mg/dL 05/31/2017 17:29 [facility] CALCIUM - [facility] 9.2 8.5 - 10.1 mg/dL 05/31/2017 17:29 [facility] Chloride 105 98 - 107 mEq/L 05/31/2017 17:29 [facility] CO2 Total 26 21 - 32 mEq/L 05/31/2017 17:29 [facility] CREATININE 1.02 0.5 - 1.3 mg/dL 05/31/2017 17:29 EDT [facility] eGFR >60 05/31/2017 17:29 EDT [facility] Comment: Chronic renal impairment is defined as GFR <60 Multiply result by 1.210 for patients. Anion Gap 10 5 - 15 05/31/2017 17:29 EDT [facility] GLUCOSE - [facility] 90 70 - 100 mg/dL 05/31/2017 17:29 [facility] Potassium 3.6 3.5 - 5.0 mEq/L 05/31/2017 [facility]:29 [facility] Sodium 141 135 - 145 mEq/L 05/31/2017 17:29 [facility] TOTAL PROTEIN - [facility] 7.4 6.4 - 8.2 gm/dl 05/31/2017 17:29 [facility] SGOT/AST - [facility] 32 10 - 37 U/L 05/31/2017 17:29 [facility] SGPT/ALT - [facility] 44 12 - 78 U/L 05/31/2017 17:29 [facility] 05/31/2017 17:0 4 EDT 05/31/2017 17:10 EDT Narrative [facility] - 05/31/2017 17:29 EDT Does PT Have a Latex Allergy? NO us Marleni Childress MD CHEMISTRY & BLOOD GAS [facility] Final Result [facility] * (ABNORMAL) COMPLETE BLOOD COUNT WITH DIFFERENTIAL (AUTO) (05/31/2017 17:04 EDT) ABSOLUTE NEUTROPHIL COUN - [facility] 3.95 1.7 - 7.0 10e3/ul 05/31/2017 17:19 EDT [facility] BASO # - CV 0.04 0.0 - 0.3 10e3/uL 05/31/2017 [facility] % - [facility] 1 0 - 2 % 05/31/2017 17:19 [facility] EOS # - [facility] 0.23 0.05 - 0.5 10e3/uL 05/31/2017 17:19 [facility] EOS % - [facility] 3 0 - 5 % 05/31/2017 17:19 [facility] GRAN % - [facility] 57 40 - 80 % 05/31/2017 17:19 [facility] HEMATOCRIT - [facility] 45.3 36.0 - 52.0 % 05/31/2017 17:19 [facility] HEMOGLOBIN - [facility] 15.8 13.7 - 17.5 g/dl 05/31/2017 17:19 [facility] IG# - [facility] 0.01 0 - 0.07 10e3/uL 05/31/2017 17:19 [facility] IG% - [facility] 0.1 0 - 0.9 % 05/31/2017 17:19 [facility] LYMPH # - [facility] 2.03 0.9 - 2.9 10e3/uL 05/31/2017 17:19 [facility] LYMPH% - [facility] 29 20 - 40 % 05/31/2017 17:19 [facility] MEAN CORPUSCULAR HGB - [facility] 34.6(H) 26 - 34 pg 05/31/2017 17:19 [facility] MEAN CORPUSCULAR HGB CONC - [facility] 34.9 31 - 36 g/dL 05/31/2017 17:19 [facility] MEAN CELL VOLUME - [facility] 99.3 77 - 100 fl 05/31/2017 17:19 [facility] MONO # - [facility] 0.68 0.3 - 0.9 10e3/uL 05/31/2017 17:19 [facility] MONO% - [facility] 10 0 - 12 % 05/31/2017 17:19 [facility] PLATELET COUNT 298 150 - 400 10e3/ul 05/31/2017 17:19 [facility] RED BLOOD COUNT - [facility] 4.56 4.3 - 5.7 10e6/ul 05/31/2017 17:19 [facility] RED CELL DISTRI WIDTH - [facility] 13.1 11.8 - 15.6 % 05/31/2017 17:19 EDT [facility] WHITE BLOOD COUNT - [facility] 6.9 3.5 - 10.5 10e3/ul 05/31/2017 17:19 EDT [facility] 05/31/2017 17:0 4 EDT 05/31/2017 17:10 EDT Narrative [facility] - 05/31/2017 17:19 EDT Does PT Have a Latex Allergy? NO us Marleni Childress MD HEMATOLOGY & PF4 ORDERABLE S Final Result [facility] documented in this encounter Visit Diagnoses Not on filedocumented in this encounter Care Teams Torts Law Professor Relationship Specialty Start Date End Date Titus Castro MD PCP - General 05/27/15 06/21/24 documented as of this encounter
--- OUTSIDE RECORDS SUMMARY | 2024-08-29 11:05 | XMS_ITS | Encounter Summary ---
Author Organization [facility] Address [address] [place] [address] Care Team Providers Care Applicator Sprayer Name Role Phone Titus Castro MD Primary Care Provider Unav ailable Encounter Details Date Type Department Care Team (Late st Contact Info) Description 05/11/2017 Historical Results Only [facility] Radiology Results [address] [place] [address] Abdelrahman Noonan MD [address] [place] [id number] Social History Tobacco Use Types Packs/Day [...] Associated Diagnosis Comments XR ABDOMEN 1 VIEW 05/11/2017 14: 26 EDT documented in this encounter Results * XR ABDOMEN 1 VIEW (05/11/2017 14:26 EDT) Anatomical Region Laterality Modality Body Other 05/11/2017 14:2 6 EDT Narrative 05/11/2017 14:30 EDT ? EXAM: RADIOLOGY/KUB 1V ?EX. D/ (1417) ? CLINICAL INFORMATION: ? N20.0, KIDNEY STONES ? INDICATION: N20.0, KIDNEY STONES. ? COMPARISON: KUB 05/06/2017. ? TECHNIQUE: AP view of the abdomen and pelvis was obtained. ? FINDINGS: The left ureteral stent is unchanged when compared to the ? prior examination. There is persistent 5 mm calcification located ? adjacent to the proximal aspect of the left ureteral stent consistent ? with a proximal ureteral stone. The position of this density is ? unchanged when compared to the prior exam. No other renal stone is ? identified. ? IMPRESSION: ? 1. Persistent left ureteral stone adjacent to the left ureteral ? stent. ? REPORT SIGNED IN OTHER VENDOR SYSTEM 05/11/2017 ?Reported By: Alexandr Hawk MD ? CC: ? Transcribed Date/Time: 05/11/2017 (1430) ? Home Care And Home Health Aides Teacher: ? Printed Date/Time: 03/27/2019 (1522) ? PAGE 1 ? Signed Report ? Procedure Note Alexandr Hawk MD - 08/15/2019 EXAM: RADIOLOGY/KUB 1V EX. D/ (1417) CLINICAL INFORMATION: N20.0, KIDNEY STONES INDICATION: N20.0, KIDNEY STONES. COMPARISON: KUB 05/06/2017. TECHNIQUE: AP view of the abdomen and pelvis was obtained. FINDINGS: The left ureteral stent is unchanged when compared to the prior examination. There is persistent 5 mm calcification located adjacent to the proximal aspect of the left ureteral stentconsistent with a proximal ureteral stone. The position of this density is unchanged when compared to the prior exam. No other renal stone is identified. IMPRESSION: 1. Persistent left ureteral stone adjacent to the left ureteral stent. REPORT SIGNED IN OTHER VENDOR SYSTEM 05/11/2017 Reported By: Alexandr Hawk MD CC: Transcribed Date/Time: 05/11/2017 (3423) [facility] Care And Home Health Aides Teacher: Printed Date/Time: 03/27/2019 (9356) PAGE 1 Signed Report Abdelrahman Noonan MD IMG DIAGNOSTIC IMAGING OR DERABLES Final Result documented in this encounter Visit Diagnoses Not on filedocumented in this encounter Care Teams Applicator Sprayer Relationship Specialty Start Date End Date Titus Castro MD PCP - General 05/27/15 06/21/24 documented as of this encounter
--- OUTSIDE RECORDS SUMMARY | 2024-08-29 11:05 | XMS_ITS | Encounter Summary ---
Author Organization [facility] Address [address] [place] [address] Care Team Providers Care Records Tech Name Role Phone Titus Castro MD Primary Care Provider Unav ailable Encounter Details Date Type Department Care Team (Late st Contact Info) Description 03/03/2016 Historical Results Only [facility] Radiology Results [address] [place] [address] Laurent Patton MD [address] [place] [address] Social History Tobacco Use Types [...] Name Priority Date/Time Associated Diagnosis Comments CT ABDOMEN PELVIS WO CONTRAST 03/03/2016 12:01 EDT documented in this encounter Results * CT ABDOMEN PELVIS WO CONTRAST (03/03/2016 12:01 EDT) Anatomical Region Laterality Modality Other 03/03/2016 12:0 1 EDT Narrative 03/03/2016 12:17 EDT ? EXAM: CAT SCAN/ABDOMEN PELVIS WITHOUT CON EX. D/ (1151) ? CLINICAL INFORMATION: ? RIGHT FLANK PAIN, RECENT DIAGNOSIS OF DIVERTICULITIS ? ABDOMEN PELVIS WITHOUT CONTRAS ? Signs and Symptoms/Comments: RIGHT FLANK PAIN, RECENT DIAGNOSIS OF ? DIVERTICULITIS: CONCERN FOR RENAL COLIC AND PERFORATED BOWEL ? Comparison: CT abdomen pelvis of 02/24/2016 ? Technique: Noncontrast CT abdomen pelvis was performed with ? multiplanar reconstructions. ? FINDINGS: ? Right Urinary Tract: There is a tiny 1 mm nonobstructing calculus in ? the upper pole of the right kidney (axial image 44). No obstructing ? calculi are identified. A 5 mm hyperdense focus in the lower pole of ? the right kidney is similar to prior study and likely a hyperdense ? cyst (axial image 68). No hydronephrosis is present. ? Left Urinary Tract: There is a 6 mm nonobstructing calculus in the ? mid right kidney (axial image 43). No obstructing calculi are ? identified. The unenhanced kidney is unremarkable. No hydronephrosis ? is present. ? Urinary Bladder: No bladder calculi are identified. The bladder wall ? is unremarkable. ? Mild hepatosteatosis is present. The unenhanced liver is otherwise ? unremarkable. The unenhanced bile ducts, gallbladder, pancreas, ? spleen, and adrenal glands are unremarkable. ? The stomach is normal. The small bowel is normal without evidence of ? obstruction. The appendix is normal. Known acute sigmoid ? diverticulitis has progressed, now with romario perforation including ? multiple foci of intraperitoneal free air scattered throughout the ? pelvis, mesentery, and upper abdomen. No drainable fluid collection ? is present at this time. The body wall is unremarkable. ? No pelvic mass is present. No enlarged abdominal or pelvic lymph ? nodes are present. Patency of the major vascular structures cannot be ? assessed on this noncontrast study. Moderate atherosclerotic disease ? is present. The osseous structures are unremarkable. ? Mild bibasilar dependent atelectasis is present. ? IMPRESSION: ? 1. ??Progressive acute sigmoid diverticulitis now with perforation and ? numerous foci of intraperitoneal free air scattered throughout the ? abdomen and pelvis. No drainable fluid collection present at this ? time. ? PAGE 1 ? Signed Report ? (CONTINUED) ? 2. ??Bilateral nonobstructing nephrolithiasis. ? 3. ??Additional chronic findings detailed above. ? Dr. Arvind Champagne discussed these findings with Dr. Laurent Patton on ? 03/03/2016 12:05 PM. ? REPORT SIGNED IN OTHER VENDOR SYSTEM 03/03/2016 ?Reported By: Arvind Champagne MD ? CC: ? Transcribed Date/Time: 03/03/2016 (1217) ? Metal Sorter: ? Printed Date/Time: 03/23/2019 (0153) ? PAGE 2 ? Signed Report ? Procedure Note Arvind Champagne MD - 08/15/2019 EXAM: CAT SCAN/ABDOMEN PELVIS WITHOUT CON EX. D/ (1151) CLINICAL INFORMATION: RIGHT FLANK PAIN, RECENT DIAGNOSIS OF DIVERTICULITIS ABDOMEN PELVIS WITHOUT CONTRAS Signs and Symptoms/Comments: RIGHT FLANK PAIN, RECENT DIAGNOSIS OF DIVERTICULITIS: CONCERN FOR RENAL COLIC AND PERFORATED BOWEL Comparison: CT abdomen pelvis of 02/24/2016 Technique: Noncontrast CT abdomen pelvis was performed with multiplanar reconstructions. FINDINGS: Right Urinary Tract: There is a tiny 1 mm nonobstructing calculusin the upper pole of the right kidney (axial image 44). No obstructing calculi are identified. A 5 mm hyperdense focus in the lower poleof the right kidney is similar to prior study and likely a hyperdense cyst (axial image 68). No hydronephrosis is present. Left Urinary Tract: There is a 6 mm nonobstructing calculus in the mid right kidney (axial image 43). No obstructing calculi are identified. The unenhanced kidney is unremarkable. Nohydronephrosis is present. Urinary Bladder: No bladder calculi are identified. The bladderwall is unremarkable. Mild hepatosteatosis is present. The unenhanced liver is otherwise unremarkable. The unenhanced bile ducts, gallbladder, pancreas, spleen, and adrenal glands are unremarkable. The stomach is normal. The small bowel is normal without evidenceof obstruction. The appendix is normal. Known acute sigmoid diverticulitis has progressed, now with romario perforation including multiple foci of intraperitoneal free air scattered throughout the pelvis, mesentery, and upper abdomen. No drainable fluid collection is present at this time. The body wall is unremarkable. No pelvic mass is present. No enlarged abdominal or pelvic lymph nodes are present. Patency of the major vascular structures cannotbe assessed on this noncontrast study. Moderate atheroscleroticdisease is present. The osseous structures are unremarkable. Mild bibasilar dependent atelectasis is present. IMPRESSION: 1. Progressive acute sigmoid diverticulitis now with perforationand numerous foci of intraperitoneal free air scattered throughout the abdomen and pelvis. No drainable fluid collection present at this time. PAGE 1 Signed Report (CONTINUED) 2. Bilateral nonobstructing nephrolithiasis. 3. Additional chronic findings detailed above. Dr. Arvind Champagne discussed these findings with Dr. Laurent Osorio 03/03/2016 12:05 PM. REPORT SIGNED IN OTHER VENDOR SYSTEM 03/03/2016 Reported By: Arvind Champagne MD CC: Transcribed Date/Time: 03/03/2016 (1217) Metal Sorter: Printed Date/Time: 03/23/2019 (5803) PAGE 2 Signed Report us Laurent Patton MD IMG CT ORDERABLES Final Res ult documented in this encounter Visit Diagnoses Not on filedocumented in this encounter Care Teams Records Tech Relationship Specialty Start Date End Date Titus Castro MD PCP - General 05/27/15 06/21/24 documented as of this encounter
--- OUTSIDE RECORDS SUMMARY | 2024-08-29 11:05 | XMS_ITS | Encounter Summary ---
Author Organization [facility] Address [address] [place] [address] Care Team Providers Care Board Attendant Name Role Phone Titus Castro MD Primary Care Provider Unav ailable Encounter Details Date Type Department Care Team (Late st Contact Info) Description 04/28/2016 Historical Results Only [facility] Radiology Results [address] [place] [address] Amee Campos MD [address] [facility] [address] [place] [address] Social History Tobacco Use Types [...] Associated Diagnosis Comments XR CHEST 2 VIEWS 04/28/2016 8:51 EDT documented in this encounter Results * XR CHEST 2 VIEWS (04/28/2016 8:51 EDT) Anatomical Region Laterality Modality Other 04/28/2016 8:51 EDT Narrative 04/28/2016 8:57 EDT ? EXAM: RADIOLOGY/CHEST (PA ?? LAT) ?EX. D/ (0822) ? CLINICAL INFORMATION: ? PRE-OP FR SIGMOID COLECTOMY, DIVERTICULITIS, ? CURRENT TOBACCO USE ? K57.32 ? CHEST (PA ?? LAT) ??04/28/2016 8:22 AM ? CLINICAL HISTORY/COMMENTS: PRE-OP FR SIGMOID COLECTOMY, ? DIVERTICULITIS,: CURRENT TOBACCO USE. CURRENT TOBACCO USE ? COMPARISON: CT abdomen and pelvis 04/04/2016. ? FINDINGS: ? PA and lateral views of the chest were obtained. The lungs are clear ? and the cardiomediastinal silhouette and pulmonary vasculature are ? within normal limits. The bones and overlying soft tissues are ? unremarkable for patient age. ? IMPRESSION: ? No acute cardiopulmonary process. ? REPORT SIGNED IN OTHER VENDOR SYSTEM 04/28/2016 ?Reported By: Pedro Luis Wallace MD ? CC: Amee Campos ? Transcribed Date/Time: 04/28/2016 (0857) ? It Applications Manager: ? Printed Date/Time: 03/23/2019 (0153) ? PAGE 1 ? Signed Report ? Procedure Note Pedro Luis Wallace MD - 08/15/2019 EXAM: RADIOLOGY/CHEST (PA LAT) EX. D/ (0822) CLINICAL INFORMATION: PRE-OP FR SIGMOID COLECTOMY, DIVERTICULITIS, CURRENT TOBACCO USE K57.32 CHEST (PA LAT) 04/28/2016 8:22 AM CLINICAL HISTORY/COMMENTS: PRE-OP FR SIGMOID COLECTOMY, DIVERTICULITIS,: CURRENT TOBACCO USE. CURRENT TOBACCO USE COMPARISON: CT abdomen and pelvis 04/04/2016. FINDINGS: PA and lateral views of the chest were obtained. The lungs areclear and the cardiomediastinal silhouette and pulmonary vasculature are within normal limits. The bones and overlying soft tissues are unremarkable for patient age. IMPRESSION: No acute cardiopulmonary process. REPORT SIGNED IN OTHER VENDOR SYSTEM 04/28/2016 Reported By: Pedro Luis Wallace MD CC: Amee Campos Transcribed Date/Time: 04/28/2016 (0857) It Applications Manager: [email or web address] Printed Date/Time: 03/23/2019 (0150) PAGE 1 Signed Report Amee Campos MD IMG DIAGNOSTIC IMAGING ORDERABL ES Final Result documented in this encounter Visit Diagnoses Not on filedocumented in this encounter Care Teams Board Attendant Relationship Specialty Start Date End Date Titus Castro MD PCP - General 05/27/15 06/21/24 documented as of this encounter
--- OUTSIDE RECORDS SUMMARY | 2024-08-29 11:05 | XMS_ITS | Encounter Summary ---
Author Organization [facility] Address [address] [place] [address] Care Team Providers Care Clinical Secretary Name Role Phone Titus Castro MD Primary Care Provider Unav ailable Encounter Details Date Type Department Care Team (Latest Contact Info) Description 04/21/2017 11:49 EDT - 04/21/2017 23:59 EDT Hospital Encounter [facility] [address] [place] [address] Unknown, Provider, MD Discharge Disposition: Home or [...] Take 5 mg by mouth daily 0 sildenafil citrate (VIAGRA) 100 mg tablet Take 100 mg by mouth as needed 0 documented as of this encounter Discharge Disposition Disposition Code Departure Means Destination Home or Self Long Term documented in this encounter Plan of Treatment Not on file documented as of this encounter Visit Diagnoses Not on filedocumented in this encounter Care Teams Clinical Secretary Relationship Specialty Start Date End Date Titus Castro MD PCP - General 05/27/15 06/21/24 documented as of this encounter
--- OUTSIDE RECORDS SUMMARY | 2024-08-29 11:05 | XMS_ITS | Encounter Summary ---
[place] [address] Care Team Providers Care Club Manager Name Role Phone Brittany Fay MD Primary Care Provider Encounter Details Date Type Department Care Team (Late st Contact Info) Description 08/13/2021 Orders Only [place] [address] Carmela Moore, RN PAD (peripheral artery disease) Social History Tobacco Use Types Packs/Day Years Used Date Smoking Tobacco: Every Day Cigarettes 0.5 16 Smokeless Tobacco: Never Sex and Gender Information Value Date Recorded Sex Assigned at Not on file Gender Identity Not on file Sexual Orientation Not on file documented as of this encounter Plan of Treatment Not on file documented as of this encounter Visit Diagnoses Diagnosis PAD (peripheral artery disease) Peripheral vascular disease, unspecified documented in this encounter Care Teams Club Manager Relationship Specialty Start Date End Date Brittany Fay MD [address] [place] [address] PCP - General General Internal Medicine 03/25/20 documented as of this encounter
--- OUTSIDE RECORDS SUMMARY | 2024-08-29 11:05 | XMS_ITS | Encounter Summary ---
Author Organization [facility] Address [address] [place] [address] Care Team Providers Care Fine Patcher Name Role Phone Titus Castro MD Primary Care Provider Unav ailable Reason for Visit * Reason Onset Date Comments Appointment Related 09/17/2016 Encounter Details Date Type Department Care Team (Late st Contact Info) Description 09/17/2016 Telephone [facility] General Surgery - [place] [address] [address] Amee Campos MD [address] [phone] Appointment Related Social History Tobacco Use Types Packs/Day Years [...] encounter Miscellaneous Notes * Telephone Encounter - Carole Do - 09/17/2016 1511 EST Spoke to Pollo with regards to his CT scan and follow up with Dr. Campos. His CT is scheduled on 09-24-16 @ 11:00am. Patient is aware he needs to come in @ 8:00am for lab work. He will go to radiology @ 9:00am to start the prep. He will follow up with Dr. Campos on 10-05-16 @ 1:00PM. Patient has confirmed all these appointments. documented in this encounter Plan of Treatment Not on file documented as of this encounter Visit Diagnoses Not on filedocumented in this encounter Care Teams Fine Patcher Relationship Specialty Start Date End Date Titus Castro MD PCP - General 05/27/15 06/21/24 documented as of this encounter
--- OUTSIDE RECORDS SUMMARY | 2024-08-29 11:05 | XMS_ITS | Encounter Summary ---
Author Organization [facility] Address [address] [place] [address] Care Team Providers Care Product Design Manager Name Role Phone Titus Castro MD Primary Care Provider Unav ailable Reason for Referral * Radiology Services (STAT) - Closed Specialty Diagnoses / Procedures Referred By Lexus garsia Referred To Contact Diagnoses Diverticulitis of colon Procedures CT ABDOMEN AND PELVIS Amee Campos MD Phone: tel: fax: Referral ID Status Reason Start Date Expiration Date Visits Re quested Visits Authorized [id number] Closed 03/19/2016 1 1 Reason for Visit * Reason Onset Date Comments Abdominal Pain 03/19/2016 recent hospitali zation with complicated diverticulitis Encounter Details Date Type Department Care Team (Late st Contact Info) Description 03/19/2016 Telephone [facility] General Surgery [address] [address] Amee Campos MD [address] [place] [phone] Abdominal Pain (recent hospitalization with complicated diverticulitis) Social History Tobacco Use Types Packs/Day Years [...] Telephone Encounter - Amee Campos MD - 03/19/2016 1031 EDT I spoke with Mr Melara by telephone. He finished last dose oral abx on Tuesday evening. [place] pain-free for 3-4 days. Yesterday redeveloped low pelvic pain, described as constant dull ache. No fever, was able to tolerate breakfast this morning. I am ordering repeat CT abd/pelvis to evaluate for abscess today. Amee Campos MD documented in this encounter Plan of Treatment Scheduled Orders Name Type Priority Associated Diagnoses Orde r Schedule CT ABDOMEN AND PELVIS Imaging Routine Diverticulitis of colon Ordered: 03/19/2016 documented as of this encounter Visit Diagnoses Diagnosis Diverticulitis of colon- Primary Diverticulitis of colon (without mention of hemorrhage) documented in this encounter Care Teams Product Design Manager Relationship Specialty Start Date End Date Titus Castro MD PCP - General 05/27/15 06/21/24 documented as of this encounter
--- OUTSIDE RECORDS SUMMARY | 2024-08-29 11:05 | XMS_ITS | Encounter Summary ---
Author Organization [facility] Address [address] [place] [address] Care Team Providers Care Research Project Coordinator Name Role Phone Titus Castro MD Primary Care Provider Unav ailable Encounter Details Date Type Department Care Team (Late st Contact Info) Description 05/06/2017 Historical Results Only [facility] Radiology Results [address] [place] [address] Abdelrahman Noonan MD [address] [place] [address] Social History Tobacco Use Types Packs/Day [...] Associated Diagnosis Comments XR ABDOMEN 1 VIEW 05/06/2017 11: 23 EDT documented in this encounter Results * XR ABDOMEN 1 VIEW (05/06/2017 11:23 EDT) Anatomical Region Laterality Modality Body Other 05/06/2017 11:2 3 EDT Narrative 05/06/2017 11:26 EDT ? EXAM: RADIOLOGY/KUB 1V ?EX. D/ (1109) ? CLINICAL INFORMATION: ? URETERAL STONE LEFT/ PT IS HAVING SURG 05-06-2017 ? KUB 1V ? Signs and Symptoms/Comments: URETERAL STONE LEFT/ PT IS HAVING SURG ? 05-06-2017 ? Comparison: CT abdomen pelvis on 04/21/2017. ? FINDINGS: ? AP supine views of the abdomen were performed. A left ureteral stent ? is in expected position. There is a persistent 7 mm calculus at the ? left UPJ, as confirmed on recent CT. A tiny nonobstructing right ? renal calculus on CT is not well visualized radiographically. A few ? additional vascular calcifications project over the pelvis. ? A moderate amount of well-formed colonic stool is present. No ? abnormally dilated loops of bowel are visible to suggest acute ? obstruction. An anastomotic staple line projects over the mid pelvis. ? Surgical clips project over the scrotum. No acute osseous abnormality ? is visible. ? IMPRESSION: ? 1. ??Persistent 7 mm left UPJ calculus. Left ureteral stent in ? expected position. ? 2. ??Known tiny right renal calculus better appreciated on prior CT. ? REPORT SIGNED IN OTHER VENDOR SYSTEM 05/06/2017 ?Reported By: Arvind Champagne MD ? CC: ? Transcribed Date/Time: 05/06/2017 (1126) ? Switchboard Wire Worker Helper: ? Printed Date/Time: 03/26/2019 (0937) ? PAGE 1 ? Signed Report ? Procedure Note Arvind Champagne MD - 08/15/2019 EXAM: RADIOLOGY/KUB 1V EX. D/ (1109) CLINICAL INFORMATION: URETERAL STONE LEFT/ PT IS HAVING SURG 05-06-2017 KUB 1V Signs and Symptoms/Comments: URETERAL STONE LEFT/ PT IS HAVING SURG 05-06-2017 Comparison: CT abdomen pelvis on 04/21/2017. FINDINGS: AP supine views of the abdomen were performed. A left ureteralstent is in expected position. There is a persistent 7 mm calculus at the left UPJ, as confirmed on recent CT. A tiny nonobstructing right renal calculus on CT is not well visualized radiographically. A few additional vascular calcifications project over the pelvis. A moderate amount of well-formed colonic stool is present. No abnormally dilated loops of bowel are visible to suggest acute obstruction. An anastomotic staple line projects over the midpelvis. Surgical clips project over the scrotum. No acute osseousabnormality is visible. IMPRESSION: 1. Persistent 7 mm left UPJ calculus. Left ureteral stent in expected position. 2. Known tiny right renal calculus better appreciated on prior CT. REPORT SIGNED IN OTHER VENDOR SYSTEM 05/06/2017 Reported By: Arvind Champagne MD CC: Transcribed Date/Time: 05/06/2017 (1126) Switchboard Wire Worker Helper: Printed Date/Time: 03/26/2019 (5647) PAGE 1 Signed Report us Abdelrahman Noonan MD IMG DIAGNOSTIC IMAGING OR DERABLES Final Result documented in this encounter Visit Diagnoses Not on filedocumented in this encounter Care Teams Research Project Coordinator Relationship Specialty Start Date End Date Titus Castro MD PCP - General 05/27/15 06/21/24 documented as of this encounter
--- OUTSIDE RECORDS SUMMARY | 2024-08-29 11:05 | XMS_ITS | Encounter Summary ---
Author Organization [facility] Address [address] [place] [address] Care Team Providers Care Senior Data Analyst Name Role Phone Titus Castro MD Primary Care Provider Unav ailable Reason for Visit * Reason Onset Date Comments Appointment Related 04/13/2016 Encounter Details Date Type Department Care Team (Late st Contact Info) Description 04/13/[address] [facility] General Surgery - [place] [address] [address] Amee Campos MD [address] [phone] Appointment Related Social History Tobacco [...] * Telephone Encounter - Carole Do - 04/13/2016 1414 EDT Patient called to schedule a follow up from his colonoscopy and for his diverticulitis. This has been scheduled on 04-27-16. I scheduled it for 30 minutes. Is this okay? documented in this encounter Plan of Treatment Not on file documented as of this encounter Visit Diagnoses Not on filedocumented in this encounter Care Teams Senior Data Analyst Relationship Specialty Start Date End Date Titus Castro MD PCP - General 05/27/15 06/21/24 documented as of this encounter
--- OUTSIDE RECORDS SUMMARY | 2024-08-29 11:05 | XMS_ITS | Encounter Summary ---
Author Organization [facility] Address [address] [place] [address] Care Team Providers Care Bmet Name Role Phone Titus Castro MD Primary Care Provider Unav ailable Encounter Details Date Type Department Care Team (Late st Contact Info) Description 02/24/2016 Historical Results Only [facility] Radiology Results [address] [place] [address] Marleni Childress MD Social History Tobacco Use [...] Diagnosis Comments CT ABDOMEN PELVIS WO CONTRAST 02/24/2016 8:07 EDT documented in this encounter Results * CT ABDOMEN PELVIS WO CONTRAST (02/24/2016 8:07 EDT) Anatomical Region Laterality Modality Other 02/24/2016 8:07 EDT Narrative 02/24/2016 8:12 EDT ? EXAM: CAT SCAN/ABDOMEN PELVIS WITHOUT CON EX. D/ (0805) ? CLINICAL INFORMATION: ? RLQ PAIN ? Indication: RLQ PAIN. ? Comparison: None. ? Technique: Noncontrast CT scan of the abdomen and pelvis was ? performed. ? Findings: There are numerous diverticuli within the sigmoid colon. ? Hazy density and stranding of the fat adjacent to the sigmoid colon ? is consistent with mild diverticulitis. No abdominopelvic abscess or ? free intraperitoneal air is identified. Mild urinary bladder wall ? thickening is likely due to under distention. There is a ? nonobstructing 6 mm diameter stone at the corticomedullary junction ? of the left kidney midpole and a 3 mm diameter nonobstructing stone ? at the corticomedullary junction of the right kidney upper pole. No ? stones are seen within either ureter or the urinary bladder. No ? hydronephrosis is present. The appendix is normal. The unenhanced ? adrenal glands, spleen, pancreas and gallbladder are unremarkable. ? Diffuse hepatic fatty infiltration is present. The lung bases are ? clear. ? IMPRESSION: ? 1. Mild sigmoid diverticulitis. ? 2. Bilateral nephrolithiasis. ? 3. Diffuse hepatic fatty infiltration. ? REPORT SIGNED IN OTHER VENDOR SYSTEM 02/24/2016 ?Reported By: Alexandr Hawk MD ? CC: ? Transcribed Date/Time: 02/24/2016 (0812) ? Electrical Lineman: ? Printed Date/Time: 03/23/2019 (0153) ? PAGE 1 ? Signed Report ? Procedure Note Alexandr Hawk MD - 08/15/2019 EXAM: CAT SCAN/ABDOMEN PELVIS WITHOUT CON EX. D/ (0805) CLINICAL INFORMATION: RLQ PAIN Indication: RLQ PAIN. Comparison: None. Technique: Noncontrast CT scan of the abdomen and pelvis was performed. Findings: There are numerous diverticuli within the sigmoid colon. Hazy density and stranding of the fat adjacent to the sigmoid colon is consistent with mild diverticulitis. No abdominopelvic abscessor free intraperitoneal air is identified. Mild urinary bladder wall thickening is likely due to under distention. There is a nonobstructing 6 mm diameter stone at the corticomedullary junction of the left kidney midpole and a 3 mm diameter nonobstructing stone at the corticomedullary junction of the right kidney upper pole. No stones are seen within either ureter or the urinary bladder. No hydronephrosis is present. The appendix is normal. The unenhanced adrenal glands, spleen, pancreas and gallbladder are unremarkable. Diffuse hepatic fatty infiltration is present. The lung bases are clear. IMPRESSION: 1. Mild sigmoid diverticulitis. 2. Bilateral nephrolithiasis. 3. Diffuse hepatic fatty infiltration. REPORT SIGNED IN OTHER VENDOR SYSTEM 02/24/2016 Reported By: Alexandr Hawk MD CC: Transcribed Date/Time: 02/24/2016 (0812) Electrical Lineman: Printed Date/Time: 03/23/2019 (0156) PAGE 1 Signed Report Marleni Childress MD IMG CT ORDERABLES Final Re sult documented in this encounter Visit Diagnoses Not on filedocumented in this encounter Care Teams Bmet Relationship Specialty Start Date End Date Titus Castro MD PCP - General 05/27/15 06/21/24 documented as of this encounter
--- OUTSIDE RECORDS SUMMARY | 2024-08-29 11:05 | XMS_ITS | Encounter Summary ---
Author Organization [facility] Address [address] [place] [address] Care Team Providers Care Retail Asset Protection Specialist Name Role Phone Titus Castro MD Primary Care Provider Unav ailable Encounter Details Date Type Department Care Team (Late st Contact Info) Description 04/05/2016 Historical Results Only [facility] Radiology Results [address] [place], [place] [id number] Amee Campos MD [address] [facility] [address] [place] [address] Social History Tobacco Use Types [...] Diagnosis Comments CT ABDOMEN PELVIS WO CONTRAST 04/05/2016 0:15 EDT SURGICAL PATHOLOGY Routine 04/05/2016 documented in this encounter Results * CT ABDOMEN PELVIS WO CONTRAST (04/05/2016 0:15 EDT) Anatomical Region Laterality Modality Other 04/05/2016 0:15 EDT Narrative 04/05/2016 0:15 EDT ? EXAM: CAT SCAN/ABDOMEN PELVIS WITHOUT CON EX. D/ (2350) ? CLINICAL INFORMATION: ? LOWER ABD PAIN, NEPHROLITHIASIS ? EXAM: ? CT Abdomen and Pelvis Without Intravenous Contrast. ? CLINICAL HISTORY: ? 55 years old, ??male; Pain; Abdominal pain; Generalized; ? Additional info: Lower abd pain, nephrolithiasis ? TECHNIQUE: ? Axial computed tomography images of the abdomen and pelvis ? without intravenous contrast. ??This CT exam was performed using ? one or more of the following dose reduction techniques: ? automated exposure control, adjustment of the mA and/or kV ? according to patient size, and/or use of iterative ? reconstruction technique. ? EXAM DATE/TIME: ? Exam ordered ??04/04/2016 11:47 PM ? COMPARISON: ? CT - ABDOMEN PELVIS WITH CONTRAST 03/19/2016 2:20:49 PM ? FINDINGS: ? Lower thorax: Unremarkable. ?ABDOMEN: ? Liver: ??There are 2 tiny hypodensities in liver, stable from ? the prior exam ? Gallbladder and bile ducts: ??Unremarkable. ? Pancreas: ??Unremarkable. ? Spleen: ??Unremarkable. ? Adrenals: ??Unremarkable. ? Kidneys and ureters: There is stable renal calculi. ??No ? hydronephrosis. ??Stable tiny hyperdensity in the right renal ? lower pole likely hyperdense cyst. ?PELVIS: ? Bladder: ??Bladder is moderately distended, likely physiologic ? but correlate clinically to exclude urinary retention. ? Reproductive: ??Surgical clips in the scrotum. ? Appendix: Unremarkable. ?ABDOMEN ?? PELVIS: ? Stomach and bowel: The previously seen inflammation on the mid ? sigmoid colon has improved since the prior exam with mild ? persistent fat stranding and free fluid in this region. ??No ? drainable abscess or evidence of free air. ??There has been ? interval development of mild colonic dilatation with fluid ? levels which may be related to ileus or gastroenteritis. ??No ? obstruction. Small bowel is normal in caliber. ? Peritoneum: ??See above. ? Lymph nodes: ??No pathologic size nodes. ? Vasculature: ??Atherosclerotic disease. ? Bones: ??No acute findings. ? PAGE 1 ? Signed Report ? (CONTINUED) ? IMPRESSION: ? Improving mid sigmoid colon diverticulitis. ?? No abscess or free ? air. ? Interval development of mild colonic distention with fluid ? levels which may be related to ileus or gastroenteritis. ??No ? evidence of colonic obstruction. ? Moderate bladder distention which may be physiologic. ??Correlate ? clinically to exclude urinary outlet obstruction. ? Rest of exam is unchanged. ? REPORT SIGNED IN OTHER VENDOR SYSTEM 04/05/2016 ?Reported By: Marilu Stevenson MD ? CC: ? Transcribed Date/Time: 04/05/2016 (0015) ? Clothing Sales Assistant: ? Printed Date/Time: 03/23/2019 (0153) ? PAGE 2 ? Signed Report ? Procedure Note Marilu Stevenson E - 08/15/2019 EXAM: CAT SCAN/ABDOMEN PELVIS WITHOUT CON EX. D/ (0070) CLINICAL INFORMATION: LOWER ABD PAIN, NEPHROLITHIASIS EXAM: CT Abdomen and Pelvis Without Intravenous Contrast. CLINICAL HISTORY: 55 years old, male; Pain; Abdominal pain; Generalized; Additional info: Lower abd pain, nephrolithiasis TECHNIQUE: Axial computed tomography images of the abdomen and pelvis without intravenous contrast. This CT exam was performed using one or more of the following dose reduction techniques: automated exposure control, adjustment of the mA and/or kV according to patient size, and/or use of iterative reconstruction technique. EXAM DATE/TIME: Exam ordered 04/04/2016 11:47 PM COMPARISON: CT - ABDOMEN PELVIS WITH CONTRAST 03/19/2016 2:20:49 PM FINDINGS: Lower thorax: Unremarkable. ABDOMEN: Liver: There are 2 tiny hypodensities in liver, stable from the prior exam Gallbladder and bile ducts: Unremarkable. Pancreas: Unremarkable. Spleen: Unremarkable. Adrenals: Unremarkable. Kidneys and ureters: There is stable renal calculi. No hydronephrosis. Stable tiny hyperdensity in the right renal lower pole likely hyperdense cyst. PELVIS: Bladder: Bladder is moderately distended, likely physiologic but correlate clinically to exclude urinary retention. Reproductive: Surgical clips in the scrotum. Appendix: Unremarkable. ABDOMEN PELVIS: Stomach and bowel: The previously seen inflammation on the mid sigmoid colon has improved since the prior exam with mild persistent fat stranding and free fluid in this region. No drainable abscess or evidence of free air. There has been interval development of mild colonic dilatation with fluid levels which may be related to ileus or gastroenteritis. No obstruction. Small bowel is normal in caliber. Peritoneum: See above. Lymph nodes: No pathologic size nodes. Vasculature: Atherosclerotic disease. Bones: No acute findings. PAGE 1 Signed Report (CONTINUED) IMPRESSION: Improving mid sigmoid colon diverticulitis. No abscess or free air. Interval development of mild colonic distention with fluid levels which may be related to ileus or gastroenteritis. No evidence of colonic obstruction. Moderate bladder distention which may be physiologic. Correlate clinically to exclude urinary outlet obstruction. Rest of exam is unchanged. REPORT SIGNED IN OTHER VENDOR SYSTEM 04/05/2016 Reported By: Marilu Stevenson MD CC: Transcribed Date/Time: 04/05/2016 (0015) Clothing Sales Assistant: Printed Date/Time: 03/23/2019 (9494) PAGE 2 Signed Report us Kyle Ross MD IMG CT ORDERABLES Final Resu lt * SURGICAL PATHOLOGY (04/05/2016) 04/05/2016 04/06/2016 10: 59 EDT Narrative [facility] - 04/09/2016 10:30 EDT ----- ------- Name: FERN MONTGOMERY ?: 62 ?Age/Sex: 58/M ?Unit#: [id number] ? Loc: END ? Status: DEP CLI ?? Reg Date: 04/05/16 ? Pt.Phone Number: ? ----- ------- Specimen: [id number] ? STATUS: SOUT ?Spec Date:04/05/16 ? Physician Copies: ?Andres, Amee ? Tissues: A ?? Endoscopy specimen (SIGMOID @ 20 CM) ? Titus Castro ? B ?? Endoscopy specimen (TRANSVERSE) ? CPT: 26953 ?? Units: ??2 ?FINAL DIAGNOSIS ? A. SIGMOID COLON, 20 CM, BIOPSY; ? - Benign colonic mucosa with fibrosis of the lamina propria and ? superfical mucosal hyperplastic change with mild crypt disarray. ? - Abundant lamina propria hemosiderin laden macrophages and hemorrhage. ? - See comment. ? B. TRANSVERSE COLON, POLYP, BIOPSY; ? - Multiple tubular adenomas. ----- ------- ?COMMENT ? Because of the mild fibrosis of the lamina propria, additional levels were performed. The fibrosis is present yet there is only mild crypt disarray with no acute inflammation or increase in chronic inflammation. This findings in this case are non-specific but may represent a healed ischemic injury or chronic injury of unknown type. No malignancy is present. ??Clinical correlation necessary. ? GROSS DESCRIPTION ? A. ??Received in formalin labeled with the patient's name and Biopsy sigmoid ? are three mucosal tissue fragments ranging in size from 0.2 to 0.4 cm. es 1 ? B. ??Received in formalin labeled with the patient's name and Transverse colon ? polyps are three mucosal tissue fragments ranging in size from 0.3 to 0.4 cm. ? es 1 NM ?? PREOP DX/CLINICAL HISTORY ?Screening colonoscopy Signed ____(signature on file)____ Ally Diaz M.D. 04/09/16 ?? By the signature above, the attending physician certifies that he/she has personally conducted a gross and/or microscopic examination of the described specimens and rendered or confirmed the above diagnosis. Test Performed by [facility], [address] [place] [address] Envelope Sealer: Ella Velasquez MD PHD ----- ------- us Amee Campos MD PATHOLOGY ORDERABLES Final Resu lt [facility] documented in this encounter Visit Diagnoses Not on filedocumented in this encounter Care Teams Retail Asset Protection Specialist Relationship Specialty Start Date End Date Titus Castro MD PCP - General 05/27/15 06/21/24 documented as of this encounter
--- OUTSIDE RECORDS SUMMARY | 2024-08-29 11:05 | XMS_ITS | Encounter Summary ---
Author Organization [facility] Address [address] [place] [address] Care Team Providers Care Meter Engineer Name Role Phone Titus Castro MD Primary Care Provider Unav ailable Encounter Details Date Type Department Care Team (Late st Contact Info) Description 04/27/2017 Historical Results Only [facility] Radiology Results [address] [place] [address] Abdelrahman Noonan MD [address] [place] [address] Social History Tobacco Use Types Packs/Day [...] Procedure Name Priority Date/Time Associated Diagnosis Comments FL C-ARM URETEROSCOPY 04/27/2017 9:49 EDT documented in this encounter Results * FL C-ARM URETEROSCOPY (04/27/2017 9:49 EDT) Anatomical Region Laterality Modality Body Right Other 04/27/2017 9:49 EDT Narrative 04/27/2017 9:52 EDT ? EXAM: RADIOLOGY/C-ARM URETEROSCOPY ?EX. D/ (0945) ? CLINICAL INFORMATION: ? LEFT URETEROSCOPY, LASER LITHO ? C-ARM URETEROSCOPY ? Signs and Symptoms/Comments: LEFT URETEROSCOPY, LASER LITHO ? Comparison: CT abdomen pelvis on 04/21/2017. ? FINDINGS: ? Fluoroscopy services were provided during procedure performed by ? [facility]. ? A selected fluoroscopic image demonstrates contrast in the proximal ? collecting system and a ureteral stent. ? Fluoroscopy: 15.1 seconds ? IMPRESSION: ? As above. ? REPORT SIGNED IN OTHER VENDOR SYSTEM 04/27/2017 ?Reported By: Arvind Champagne MD ? CC: ? Transcribed Date/Time: 04/27/2017 (0952) ? Briquette Machine Operator Helper: ? Printed Date/Time: 03/26/2019 (140) ? PAGE 1 ? Signed Report ? Procedure Note Arvind Champagne MD - 08/15/2019 EXAM: RADIOLOGY/C-ARM URETEROSCOPY EX. D/ (0945) CLINICAL INFORMATION: LEFT URETEROSCOPY, LASER LITHO C-ARM URETEROSCOPY Signs and Symptoms/Comments: LEFT URETEROSCOPY, LASER LITHO Comparison: CT abdomen pelvis on 04/21/2017. FINDINGS: Fluoroscopy services were provided during procedure performed byDr. Noonan. A selected fluoroscopic image demonstrates contrast in the proximal collecting system and a ureteral stent. Fluoroscopy: 15.1 seconds IMPRESSION: As above. REPORT SIGNED IN OTHER VENDOR SYSTEM 04/27/2017 Reported By: Arvind Champagne MD CC: Transcribed Date/Time: 04/27/2017 (0952) Briquette Machine Operator Helper: Printed Date/Time: 03/26/2019 (7453) PAGE 1 Signed Report Abdelrahman Noonan MD IMG OTHER IMAGING ORDERAB LES Final Result documented in this encounter Visit Diagnoses Not on filedocumented in this encounter Care Teams Meter Engineer Relationship Specialty Start Date End Date Titus Castro MD PCP - General 05/27/15 06/21/24 documented as of this encounter
--- OUTSIDE RECORDS SUMMARY | 2024-08-29 11:05 | XMS_ITS | Encounter Summary ---
Author Organization [facility] Address [address] [place] [address] Care Team Providers Care Encapsulator Name Role Phone Titus Castro MD Primary Care Provider Unav ailable Reason for Visit * Reason Comments Diverticulitis Colonoscopy Encounter Details Date Type Department Care Team (Latest Contact Info) Description 03/15/2016 10:00 EDT Office Visit [facility] General Surgery - [place] [address] [address] Amee Campos MD [address] [address] Diverticulitis of colon (Primary Dx) Social History Tobacco Use Types [...] Sign Reading Time Taken Comments Blood Pressure 122/86 03/15/2016 0954 EDT Pulse 79 03/15/2016 0954 EDT Temperature - - Respiratory Rate - - Oxygen Saturation - - Inhaled Oxygen Concentration - - Weight 79.8 kg (176 lb) 03/15/2016 0954 EDT Height 172.7 cm (5' 8) 03/15/2016 0954 EDT Body Mass Index 26.76 03/15/2016 0954 EDT documented in this encounter Ordered Prescriptions Prescription Sig Dispense Quantity Refills Last Filled Start Date End Date polyethylene glycol (GOLYTELY) 236-22.74-6.74 -5.86 gram suspension Take 4,000 mL by mouth once for 1 dose. 1 Bottle 0 03/15/2016 04/27/2016 documented in this encounter Progress Notes * Amee Campos MD - 03/15/2016 1551 EDT [facility] H[facility]ORY AND PHYSICAL EXAMINATION Date of Service: 03/15/2016 PROBLEM: Chief Complaint Patient presents with ??? Diverticulitis ??? Colonoscopy SUBJECTIVE: Mr. Melara is a 55-year-old man whom I met in the emergency department and admitted for complicated diverticulitis. In mid February he was evaluated in the emergency department and sent homewith oral antibiotics for diverticulitis. He completed that course but then re-presented to the emergency department with increased her perineal and lower abdominal pain. He did not have a leukocytosis but a CT scan did show small dots of free air throughout the abdomen and a thickened sigmoid colon. He was admitted for IV antibiotics and bowel rest and was discharged home several days later witha 10 day course of Cipro and Flagyl. He follows up today in clinic and says that he has had no fevers or chills. He has been taking the antibiotics as prescribed and has 1 or 2 days left. Initially he had lower rectal pain 6 out of 10 but now it is 4 out of 10. He mostly has pain with bowel movement. His stools are soft. He has a bowel movement twice daily. He has no other abdominal pain subjectively. He has been refraining from drinking alcohol while on the antibiotics. He has never had a colonoscopy. PROBLEM LIST: does not have any pertinent problems on file. Past Medical History Diagnosis Date ??? Hypertension History reviewed. No pertinent past surgical history. History reviewed. No pertinent family history. History Social History ??? Marital Status: Single Spouse Name: N/A ??? Number of Children: N/A ??? Years of Education: N/A Social History Main Topics ??? Smoking status: Current Every Day Smoker -- 1.00 packs/day for 20 years Types: Cigarettes ??? Smokeless tobacco: Never Used ??? Alcohol Use: 12.0 oz/week 20 Shots of liquor per week ??? Drug Use: No ??? Sexual Activity: Not on file Other Topics Concern ??? None Social History Narrative Current Outpatient Prescriptions Medication Sig Dispense Refill ??? aspirin 81 mg EC tablet Take 81 mg by mouth daily. ??? betamethasone dipropionate 0.05 % lotion Apply topically 2 times daily. ??? ciprofloxacin HCl (CIPRO) 500 mg tablet Take 500 mg by mouth every 12 hours. ??? fluocinonide (LIDEX) 0.05 % ointment Apply topically 2 times daily Do not apply to face, armpitor groin. 1 Tube 3 ??? hydrochlorothiazide (HYDRODIURIL) 12.5 mg tablet Take 12.5 mg by mouth daily. ??? HYDROcodone-acetaminophen (VICODIN) 5-300 mg tablet Take 2 Tabs by mouth every 6 hours as needed for Pain. ??? ibuprofen (MOTRIN) 800 mg tablet Take 800 mg by mouth every 8 hours as needed for Pain. ??? lisinopril (PRINIVIL, ZESTRIL) 5 mg tablet Take 5 mg by mouth daily ??? metroNIDAZOLE (FLAGYL) 250 mg tablet Take 500 mg by mouth 4 times daily. ??? oxyCODONE (ROXICODONE) 5 mg immediate release tablet Take 5-10 mg by mouth every 4 hours as needed for Pain. ??? polyethylene glycol (GOLYTELY) 236-22.74-6.74 -5.86 gram suspension Take 4,000 mL by mouth oncefor 1 dose. 1 Bottle 0 ??? sildenafil citrate (VIAGRA) 100 mg tablet Take 100 mg by mouth as needed No current facility-administered medications for this visit. ALLERGIES: Allergies Allergen Reactions ??? Penicillins ? ? Tetanus Vaccines & Toxoid REVIEW OF SYSTEMS: A 10-point review of systems was conducted. Pertinent positives are listed in the HPI above. All other systems are negative. PHYSICAL EXAM: BP 122/86 mmHg Pulse 79 Ht 172.7 cm (68) Wt 79.833 kg (176 lb) BMI 26.77 kg/m2 General: well-nourished, very pleasant, NAD HEENT: head normocephalic, atraumatic, oronasopharynx clear. Neck supple without masses. Eyes: sclera non-icteric Heart: RRR, no M/R/G Lungs: ctab Abd: bowel sounds present, soft, minimally tender in bilateral lower abdomen, non-distended, no organomegaly; AYUSH reveals pea-sized firm nodule left lateral wall but no other masses or lesions and noballotable fluid collection. Recommend anoscopy Skin: warm and dry, no rashes Musculoskeletal: full range of motion, normal muscle strength and tone for age Psychiatric: A&Ox3, appropriate mood and affect Hem/Lymph: no groin lymphadenopathy bilaterally Anoscopy I explained the procedure, as well as benefits of the procedure, alternative treatments, and consequences of no treatment to patient. Verbal consent for the procedure was obtained. A pre-procedure verification was conducted prior to the procedure. The patient was placed in right lateral position and the buttocks were spread. The anoscope was inserted and the anal canal was inspected circumferentially. Findings were of small internal hemorrhoids and no masses or lesions ASSESSMENT: 1. Diverticulitis of colon Mr. Melara is a 55-year-old man with his first bout of diverticulitis. He is completing a course of oral antibiotics and still has some pain in his pelvis with defecation. I recommend a screening colonoscopy in 1 month from now. We will refrain from any surgical intervention at this time. PLAN: We discussed the pathophysiology of diverticulitis. I explained that some people have a second attack requiring drainage and/or surgery. I explained that we might consider elective sigmoid resection given that he had a complicated bout of diverticulitis. I would like to see how he does off of antibiotics once he finishes this course. If he has recurrence of pain or fevers, then my plan would be to rescan his abdomen/pelvis, looking for an abscess in the pelvis. I explained that diverticulitis can be a spectrum requiring sometimes just antibiotics and sometimes surgery with an ostomy. He agreed to have screening colonoscopy in 1 month from now, assuming his pain has resolved by then. We went over the Split Prep instructions and I ordered GoLYTELY for his pharmacy. I will touch base with him again by telephone on Tuesday to check in on his pelvic pain. If he continues to have pain then I will order CT abdomen/pelvis with oral/IV/rectal contrast.The patient demonstrated understanding. There were no barriers to understanding. Amee Campos MD 03/15/2016 documented in this encounter Plan of Treatment Not on file documented as of this encounter Visit Diagnoses Diagnosis Diverticulitis of colon- Primary Diverticulitis of colon (without mention of hemorrhage) documented in this encounter Historical Medications * This list may reflect changes made after this encounter. ibuprofen (MOTRIN) 800 mg tablet Take 1 Tablet by mouth every 8 hours as needed for Pain. aspirin 81 mg EC tablet Take 1 Tablet by mouth daily. HYDROcodone-acetam inophen (VICODIN) 5-300 mg tablet Take 2 Tabs by mouth every 6 hours as needed for Pain. 6 betamethasone dipropionate 0.05 % lotion Apply topically 2 times daily. 0 hydrochlorothiazid e (HYDRODIURIL) 12.5 mg tablet Take 12.5 mg by mouth daily. 0 metroNIDAZOLE (FLAGYL) 250 mg tablet Take 500 mg by mouth 4 times daily. 6 ciprofloxacin HCl (CIPRO) 500 mg tablet Take 500 mg by mouth every 12 hours. 6 oxyCODONE (ROXICODONE) 5 mg immediate release tablet Take 5-10 mg by mouth every 4 hours as needed for Pain. 6 added in this encounter Care Teams Encapsulator Relationship Specialty Start Date End Date Titus Castro MD PCP - General 05/27/15 06/21/24 documented as of this encounter
--- OUTSIDE RECORDS SUMMARY | 2024-08-29 11:05 | XMS_ITS | Encounter Summary ---
Author Organization [facility] Address [address] [place] [address] Care Team Providers Care Development Analyst Name Role Phone Titus Castro MD Primary Care Provider Unav ailable Encounter Details Date Type Department Care Team (Late st Contact Info) Description 09/24/2016 Historical Results Only [facility] Radiology Results [address] [place], [place] [id number] Jeanna Maldonado MD [address] [facility] [address] [place] [address] Social History Tobacco Use Types [...] Date/Time Associated Diagnosis Comments CT ABDOMEN PELVIS W CONTRAST 09/24/2016 17:54 EST BASIC METABOLIC PANEL (BMP) Routine 09/24/2016 7:54 EST documented in this encounter Results * CT ABDOMEN PELVIS W CONTRAST (09/24/2016 17:54 EST) Anatomical Region Laterality Modality Other 09/24/2016 17:5 4 EST Narrative 09/24/2016 18:07 EST ? EXAM: CAT SCAN/ABDOMEN PELVIS WITH CONTRA EX. D/ (1121) ? CLINICAL INFORMATION: ? R10.30 LOWER ABDOMINAL PAIN ? PT UNDERWENT SIGMOID RESECTION 3 MOS AGO, NOW ? HAS INCREASING CRAMPING AND LEFT SIDED PAIN ? R/O STRICTXURE VS ABSCESS ? ABDOMEN PELVIS WITH CONTRAST 09/24/2016 11:21 AM ? Signs and Symptoms: ABDOMINAL PAIN W/CRAMPS R10.30 LOWER ABDOMINAL ? PAIN: PT UNDERWENT SIGMOID RESECTION 3 MOS AGO, NOW HAS INCREASING ? CRAMPING AND LEFT-SIDED PAIN. EVAL FOR STRICTURE VERSUS ABSCESS. ? Comparison: 04/04/2016 CT abdomen/pelvis ? Technique: Axial enhanced imaging of the abdomen and pelvis was ? obtained. Multiplanar reconstruction was performed. Prior to ? examination, the patient received radiopaque oral contrast, IV ? contrast, and water soluble rectal contrast via enema. 99 cc of ? 350mg% nonionic IV contrast was administered at 3 cc/sec. ? Findings: ? Lower chest: Minimal coronary atherosclerosis. Normal size of cardiac ? chambers. Lung bases clear. ? Hepatobiliary: Moderate hepatic steatosis is present. There are ? scattered hypoattenuating lesions in the liver. These are likely ? cysts though they are too small to confidently characterize by CT. ? Spleen, pancreas, adrenal glands: No abnormalities. ? Kidneys, ureters, bladder: There is a nonobstructing calculus in the ? left kidney (axial #45) it measures approximately 6 mm in diameter. ? There are scattered renal cysts. No abnormalities are seen in the ? collecting system or bladder. ? Prostate, seminal vesicles: Prostatic calcifications. Seminal ? vesicles also contain calcifications this is a nonspecific finding of ? doubtful clinical significance. ? Bowel: There postsurgical changes related to sigmoid resection, with ? rectosigmoid anastomosis noted at the rectosigmoid junction (axial ? #115). The anastomotic site appears widely patent. There is no ? evidence of leak or abscess. The bowel is normal appearing. The ? appendix is present and normal appearing. ? Peritoneal cavity / Subperitoneal space: The small bowel mesentery is ? normal. No free air or fluid. ? Lymphovascular: There is no retroperitoneal adenopathy. ? Abdominal wall: There are post surgical changes related to ? laparotomy. No evidence of dehiscence or hernia noted. ? Musculoskeletal: No abnormalities. ? Impression: ? PAGE 1 ? Signed Report ? (CONTINUED) ? 1. ??No acute abnormality. ? 2. ??Post surgical changes related to sigmoid resection with ? rectosigmoid anastomotic site in the deep pelvis. Anastomotic site ? appears widely patent. ? 3. ??6 mm nonobstructing left renal calculus. ? 4. ??Atherosclerosis. ? REPORT SIGNED IN OTHER VENDOR SYSTEM 09/24/2016 ?Reported By: Alo Curtis MD ? CC: Jeanna Maldonado MD ? Transcribed Date/Time: 09/24/2016 (1807) ? Overnight Associate: ? Printed Date/Time: 03/24/2019 (0115) ? PAGE 2 ? Signed Report ? Procedure Note Alo Curtis MD - 08/15/2019 EXAM: CAT SCAN/ABDOMEN PELVIS WITH CONTRA EX. D/ (1121) CLINICAL INFORMATION: R10.30 LOWER ABDOMINAL PAIN PT UNDERWENT SIGMOID RESECTION 3 MOS AGO, NOW HAS INCREASING CRAMPING AND LEFT SIDED PAIN R/O STRICTXURE VS ABSCESS ABDOMEN PELVIS WITH CONTRAST 09/24/2016 11:21 AM Signs and Symptoms: ABDOMINAL PAIN W/CRAMPS R10.30 LOWER ABDOMINAL PAIN: PT UNDERWENT SIGMOID RESECTION 3 MOS AGO, NOW HAS INCREASING CRAMPING AND LEFT-SIDED PAIN. EVAL FOR STRICTURE VERSUS ABSCESS. Comparison: 04/04/2016 CT abdomen/pelvis Technique: Axial enhanced imaging of the abdomen and pelvis was obtained. Multiplanar reconstruction was performed. Prior to examination, the patient received radiopaque oral contrast, IV contrast, and water soluble rectal contrast via enema. 99 cc of 350mg% nonionic IV contrast was administered at 3 cc/sec. Findings: Lower chest: Minimal coronary atherosclerosis. Normal size ofcardiac chambers. Lung bases clear. Hepatobiliary: Moderate hepatic steatosis is present. There are scattered hypoattenuating lesions in the liver. These are likely cysts though they are too small to confidently characterize by CT. Spleen, pancreas, adrenal glands: No abnormalities. Kidneys, ureters, bladder: There is a nonobstructing calculus inthe left kidney (axial #45) it measures approximately 6 mm in diameter. There are scattered renal cysts. No abnormalities are seen in the collecting system or bladder. Prostate, seminal vesicles: Prostatic calcifications. Seminal vesicles also contain calcifications this is a nonspecific findingof doubtful clinical significance. Bowel: There postsurgical changes related to sigmoid resection,with rectosigmoid anastomosis noted at the rectosigmoid junction (axial #115). The anastomotic site appears widely patent. There is no evidence of leak or abscess. The bowel is normal appearing. The appendix is present and normal appearing. Peritoneal cavity / Subperitoneal space: The small bowel mesenteryis normal. No free air or fluid. Lymphovascular: There is no retroperitoneal adenopathy. Abdominal wall: There are post surgical changes related to laparotomy. No evidence of dehiscence or hernia noted. Musculoskeletal: No abnormalities. Impression: PAGE 1 Signed Report (CONTINUED) 1. No acute abnormality. 2. Post surgical changes related to sigmoid resection with rectosigmoid anastomotic site in the deep pelvis. Anastomotic site appears widely patent. 3. 6 mm nonobstructing left renal calculus. 4. Atherosclerosis. REPORT SIGNED IN OTHER VENDOR SYSTEM 09/24/2016 Reported By: Alo Curtis MD CC: Jeanna Maldonado MD Transcribed Date/Time: 09/24/2016 (6651) Overnight Associate: Printed Date/Time: 03/24/2019 (2735) PAGE 2 Signed Report Jeanna Maldonado MD IMG CT ORDERABLES Shelby l Result * (ABNORMAL) BASIC METABOLIC PANEL (BMP) (09/24/2016 7:54 EST) [facility] [place] [facility] 7 - 18 mg/dL 09/24/2016 8:17 [facility] CALCIUM [place] [facility] 9.2 8.5 - 10.1 mg/dL 09/24/2016 8:17 [facility] Chloride 102 98 - 107 mEq/L 09/24/2016 8:17 [facility] CO2 Total 31 21 - 32 mEq/L 09/24/2016 8:17 [facility] CREATININE 0.83 0.5 - 1.3 mg/dL 09/24/2016 8:17 [facility] eGFR >60 09/24/2016 8:17 [facility] Comment: Chronic renal impairment is defined as GFR <60 Multiply result by 1.210 for patients. Anion Gap 7 5 - 15 09/24/2016 8:17 [facility] GLUCOSE - [facility] 112(H) 70 - 100 mg/dL 09/24/2016 8:17 [facility] Potassium 4.5 3.5 - 5.0 mEq/L 09/24/2016 8:18 [facility] Comment: 1+ Hemolysis, Interpret results with caution. Verified Hemolysis Visually Sodium 140 135 - 145 mEq/L 09/24/2016 8:17 EST [facility] 09/24/2016 7:54 EST 09/24/2016 7:54 EST Narrative [facility] - 09/24/2016 8:18 EST Does PT Have a Latex Allergy? NO us Jeanna Maldonado MD CHEMISTRY & BLOOD GAS ORDERABLES Final Result [facility] documented in this encounter Visit Diagnoses Not on filedocumented in this encounter Care Teams Development Analyst Relationship Specialty Start Date End Date Titus Castro MD PCP - General 05/27/15 06/21/24 documented as of this encounter
--- OUTSIDE RECORDS SUMMARY | 2024-08-29 11:05 | XMS_ITS | Encounter Summary ---
[place] [address] Care Team Providers Care Assembler Adjuster Name Role Phone Brittany Fay MD Primary Care Provider Encounter Details Date Type Department Care Team (Late st Contact Info) Description 07/19/2022 Telephone [place] [id number] Adrienne Dsouza Social History Tobacco Use Types Packs/Day Years Used Date Smoking Tobacco: Every Day Cigarettes 0.5 16 Smokeless Tobacco: Never Sex and Gender Information Value Date Recorded Sex Assigned at Not on file Gender Identity Not on file Sexual Orientation Not on file documented as of this encounter Miscellaneous Notes * Telephone Encounter - Adrienne Dsouza - 07/19/2022 2:01 PM EDT LVM X1 SENT RECALL LETTER X2 CLOSED RECALL. GM 07/19/22 [facility] - PAD; s/p rght fem endarterectomy 1Y f/u [facility] documented in this encounter Plan of Treatment Not on file documented as of this encounter Visit Diagnoses Not on filedocumented in this encounter Care Teams Assembler Adjuster Relationship Specialty Start Date End Date Brittany Fay MD [address] [place] [address] PCP - General General Internal Medicine 03/25/20 documented as of this encounter
--- OUTSIDE RECORDS SUMMARY | 2024-08-29 11:05 | XMS_ITS | Encounter Summary ---
Author Organization [facility] Address [address] [place] [address] Care Team Providers Care Parts Facilitator Name Role Phone Titus Castro MD Primary Care Provider Unav ailable Reason for Referral * Radiology Services (3 - 10 Business Days) - Closed Specialty Diagnoses / Procedures Referred By Lexus garsia Referred To Contact Diagnoses Lower abdominal pain Procedures CT ABDOMEN AND PELVIS Jeanna Maldonado MD Phone: tel: fax: Referral ID Status Reason Start Date Expiration Date Visits Re quested Visits Authorized [id number] Closed 08/31/2016 1 1 Reason for Visit * Reason Onset Date Comments Other 08/31/2016 Encounter Details Date Type Department Care Team (Late st Contact Info) Description 08/31/2016 Telephone [facility] [address] [place] [address] Jeanna Maldonado MD 130 [facility] [address] [address] Other Social History Tobacco Use Types Packs/Day Years [...] Telephone Encounter - Marilu Brandon RN - 08/31/2016 1444 EST Pt notified that Dr. Maldonado has ordered a CT scan and that he will receive a call once this is scheduled. He is aware that he will need bloodwork prior to the CT scan. No further nursing interventions. * Telephone Encounter - Jeanna Maldonado MD - 08/31/2016 1433 EST Patient will need a CT scan to rule out stricture. Needs blood work prior to CT. * Telephone Encounter - Marilu Brandon RN - 08/31/2016 1331 EST Spoke with pt he states he is not doing very good. He says that his symptoms are getting worse and he has cramps big time. Pt states that the pain in his side is constant sometimes he notices that when he is sitting on the couch at night it hurts even worse. He has not gone back to [facility] and says that he gives up on them. Pt denies any fevers no nausea or vomiting. Pt states that he is constipated at times and other times he has loose stools. He is taking a stool softener regularly. Will talk with Dr. Maldonado and call the pt back with his thoughts. Pt has an appointment on 09/[address] Campos. * Telephone Encounter - Noemi Cowan - 08/31/[address] Maldonado on 08/16 and he was told if he was not feeling better by the end of this month tocall and he would order some tests. He feels the same, the pain is still there, in his lower stomach, left side documented in this encounter Plan of Treatment Scheduled Orders Name Type Priority Associated Diagnoses Orde r Schedule CT ABDOMEN AND PELVIS Imaging Routine Lower abdominal pain Ordered: 08/31/2016 documented as of this encounter Visit Diagnoses Diagnosis Lower abdominal pain- Primary Abdominal pain, other specified site documented in this encounter Care Teams Parts Facilitator Relationship Specialty Start Date End Date Titus Castro MD PCP - General 05/27/15 06/21/24 documented as of this encounter
--- OUTSIDE RECORDS SUMMARY | 2024-08-29 11:05 | XMS_ITS | Encounter Summary ---
Author Organization [facility] Address [address] [place] [address] Care Team Providers Care Hydrogen Braze Furnace Operator Name Role Phone Titus Castro MD Primary Care Provider Unav ailable Reason for Visit * Reason Onset Date Comments Appointment Related 03/09/2016 Encounter Details Date Type Department Care Team (Late st Contact Info) Description 03/09/2016 Telephone [facility] General Surgery [facility] [address] [address] Amee Campos MD [address] [address] Appointment Related Social History Tobacco [...] encounter Miscellaneous Notes * Telephone Encounter - Blanca Almaguer - 03/11/2016 1149 EDT Pt rescheduled for 03/15/16 at 10:00am; pt confirmed. * Telephone Encounter - Blanca Almaguer - 03/11/2016 1057 EDT Pt called back to say that he could not wait to see Dr Campos until 04/06/16 due to a return of the abdominal pressure. I will speak with Dr Campos to find a sooner appt. * Telephone Encounter - Blanca Almaguer - 03/09/2016 1733 EDT LMTCB to inform pt of appt w/Dr Campos on 04/06/16 at 1:15pm. Please confirm. documented in this encounter Plan of Treatment Not on file documented as of this encounter Visit Diagnoses Not on filedocumented in this encounter Care Teams Hydrogen Braze Furnace Operator Relationship Specialty Start Date End Date Titus Castro MD PCP - General 05/27/15 06/21/24 documented as of this encounter
--- OUTSIDE RECORDS SUMMARY | 2024-08-29 11:05 | XMS_ITS | Encounter Summary ---
Author Organization [facility] Address [address] [place] [address] Care Team Providers Care Tip Stitcher Name Role Phone None, Provider Primary Care Provider Unavailabl e Encounter Details Date Type Department Care Team (Latest Contact Info) Description 01/03/2015 8:52 EDT - 01/03/2015 23:59 EDT Hospital Encounter [address] [address] Unknown, Provider, MD Discharge Disposition: Home or Self Care Social History Tobacco Use Types Packs/Day Years Used Date Smoking Tobacco: Never Assessed Sex and Gender Information Value Date Recorded Sex Assigned at Male 08/20/2024 8:28 EST Legal Sex Male 17:59 EST Gender Identity Male 06/22/2024 8:08 EDT Sexual Orientation Not on file documented as of this encounter Discharge Disposition Disposition Code Departure Means Destination Home or Self [place] documented in this encounter Plan of Treatment Not on file documented as of this encounter Visit Diagnoses Not on filedocumented in this encounter Care Teams Tip Stitcher Relationship Specialty Start Date End Date None, Provider PCP - General 05/08/10 01/07/15 documented as of this encounter
--- OUTSIDE RECORDS SUMMARY | 2024-08-29 11:05 | XMS_ITS | Encounter Summary ---
Author Organization [facility] Address [address] [place] [address] Care Team Providers Care Cloth Finishing Range Operator Name Role Phone Titus Castro MD Primary Care Provider Unav ailable Reason for Visit * Reason Onset Date Comments Appointment Related 08/02/2016 Encounter Details Date Type Department Care Team (Late st Contact Info) Description 08/02/2016 Telephone [facility] ENT - [place] [address] [place] [address] Amee Campos MD [address] [facility] [address] [place] [address] Appointment Related Social History Tobacco Use [...] Telephone Encounter - Marilu Brandon RN - 08/06/2016 7839 EDT Spoke with pt he states that he has started to have pain in his belly again. He had bloodwork with his pcp but is unsure of the results he believes that this would have gone to [place] as his pcp is in [place]. He notes that the pain is different this time. It is on the left side and lower... Priorto surgery it was in the middle. He denies any n/v, no fever but has been having diarrhea. Dr. Maldonado is aware and notes that there is less than a 5% chance of recurrence he recommends thatthe pt try taking aleve 2x daily and would like to see him in a week. Pt has been given a follow upfor 08/16 at 1pm. He knows that he can call if further questions or concerns arise. No further interventions. * Telephone Encounter - Noemi Cowan - 08/06/2016 1339 EDT Pt called back returning your call * Telephone Encounter - Alicia Cisse - 08/06/2016 1047 EDT Paul Melara [phone] Called again asking to be talked to about an appointment. He is in a lot of pain. Please call back @ [phone] * Telephone Encounter - Alicia Cisse - 08/02/2016 1010 EDT Paul called wanting and appointment. He is having a lot of pain in his lower stomach again. He knowsDr [place] wont be back until September and would like to see Dr Maldonado. documented in this encounter Plan of Treatment Not on file documented as of this encounter Visit Diagnoses Not on filedocumented in this encounter Care Teams Cloth Finishing Range Operator Relationship Specialty Start Date End Date Titus Castro MD PCP - General 05/27/15 06/21/24 documented as of this encounter
--- OUTSIDE RECORDS SUMMARY | 2024-08-29 11:05 | XMS_ITS | Encounter Summary ---
Author Organization [facility] Address [address] [place] [address] Care Team Providers Care Academic Advising Director Name Role Phone Titus Castro MD Primary Care Provider Unav ailable Encounter Details Date Type Department Care Team (Late st Contact Info) Description 05/27/2016 Historical Results Only [facility] - [place] [address] [place] [address] Amee Campos MD [address] [place] [address] [address] Social History Tobacco Use Types [...] Date/Time Associated Diagnosis Comments SURGICAL PATHOLOGY Routine 05/27/2016 documented in this encounter Results * SURGICAL PATHOLOGY (05/27/2016) 05/27/2016 05/27/2016 14: 56 EDT Narrative [facility] - 05/31/2016 11:26 EDT ----- ------- Name: FERN MONTGOMERY ?: 62 ?Age/Sex: 58/M ?Unit#: [id number] ? Loc: 2N ?Status: DIS IN ? Reg Date: 05/27/16 ? Pt.Phone Number: ? ----- ------- Specimen: [id number] ? STATUS: SOUT ?Spec Date:05/27/16 ? Physician Copies: ?Amee Campos ? Tissues: A ?? Colon, resection other than tumor (SIGMOID COLON) ?Titus Castro ?? CPT: 34870 ?? Units: ??1 ?FINAL DIAGNOSIS ? SIGMOID COLON, COLECTOMY; ? - Acute/subacute diverticulitis superimposed on chronic diverticulitis. ? - Evidence of previous perforation with organizing microabscess formation, ? hemorrhage and hemosiderin in subserosa, dense serosal adhesions. ? - Polypoid mucosa with hyperplastic changes and hemosiderin-laden macrophages ? in lamina propria and fibrotic submucosa, evidence of prior bleeding. ? - Proximal and distal resection margins viable, no significant inflammation. ? GROSS DESCRIPTION ? Received in formalin labeled with the patient's name and Sigmoid colon is an ? 18 cm long segment of bowel with pericolic fat. ??One end of the segment is ? stapled closed, while the opposite end is open. ??The free serosal surface is ? pacheco-pink with focal induration and extensive adhesions associated with some fat ? wrapping, filmy exudate, and dense consolidation. ??Greatest changes occupy the ? approximate mid portion of the segment. ??Pericolic fat measures up to 4.5 cm ? wide x 3.5 cm thick. ??The bowel segment is relative stiff with decreased ? compliance. ??Opening the bowel longitudinally shows irregular thickening of the ? muscular wall. ??The mucosa is pacheco-pink and velvety with the usual mucosal ? folds. ??A 0.8 cm red-pink mucosal polyp is identified and sampled for ? histology. ??The polyp is located about 5 cm from the closest resection margin. ? No other polyps or mass lesions are identified. ??A number of diverticula are ? found, each associated with dense fibrosis in pericolic fat. ??There are areas ? of induration and hemorrhage in the subserosa involving the free serosal ? surface and adjacent fat. ??Also present in the specimen container are two ? mucosal donuts up to 2.5 cm in diameter x 2 cm thick, both grossly ? unremarkable. ??rs 6 ??CP ?? PREOP DX/CLINICAL HISTORY ?Diverticulitis, sigmoid polyp. Signed ____(signature on file)____ Ella Velasquez M.D. 08/22/16 By the signature above, the attending physician certifies that he/she has personally conducted a gross and/or microscopic examination of the described specimens and rendered or confirmed the above diagnosis. Test Performed by [facility], [address] [place] [id number] Cloth Dyeing Range Tender: Ella Velasquez MD PHD ----- ------- us Amee Campos MD PATHOLOGY ORDERABLES Final Resu lt [facility] documented in this encounter Visit Diagnoses Not on filedocumented in this encounter Care Teams Academic Advising Director Relationship Specialty Start Date End Date Titus Castro MD PCP - General 05/27/15 06/21/24 documented as of this encounter
--- OUTSIDE RECORDS SUMMARY | 2024-08-29 11:05 | XMS_ITS | Encounter Summary ---
Author Organization [facility] Address [address] [place] [address] Care Team Providers Care Front Line Supervisor Name Role Phone Titus Castro MD Primary Care Provider Unav ailable Reason for Visit * Reason Onset Date Comments Colonoscopy 05/27/2017 Encounter Details Date Type Department Care Team (Late st Contact Info) Description 05/27/[address] [facility] General Surgery - [place] [address] [address] Amee Campos MD [address] [address] Colonoscopy Social History Tobacco Use Types Packs/Day Years [...] * Telephone Encounter - Carole Do - 06/21/[address] Campos and patient is not due for a colonoscopy until March 2019. Patient is aware. A reminder has been scheduled and the patient will get a reminder call to schedule. * Telephone Encounter - Noemi Cowan - 06/20/2017 1158 EDT Did not locate colo has been bennie'd * Telephone Encounter - Noemi Cowan - 05/27/2017 0920 EDT Pt wants to schedule his colo please Schedule as soon as something is available Pt rec'd letter/phone call back in March. His pharmacy is the [facility] Fyi: It states in reason in GE last colo 04/05/20 ... Not sure when he had it done documented in this encounter Plan of Treatment Not on file documented as of this encounter Visit Diagnoses Not on filedocumented in this encounter Care Teams Front Line Supervisor Relationship Specialty Start Date End Date Titus Castro MD PCP - General 05/27/15 06/21/24 documented as of this encounter
--- OUTSIDE RECORDS SUMMARY | 2024-08-29 11:05 | XMS_ITS | Encounter Summary ---
Author Organization [facility] Address [address] [place] [address] Care Team Providers Care Test Facility Engineer Name Role Phone Titus Castro MD Primary Care Provider Unav ailable Encounter Details Date Type Department Care Team (Late st Contact Info) Description 04/06/2016 Historical Results Only [facility] Radiology Results [address] [place], [place] [id number] Amee Campos MD [address] [facility] [address] [place] [address] Social History Tobacco Use Types [...] Name Priority Date/Time Associated Diagnosis Comments FL BARIUM ENEMA FULL COLUMN 04/06/2016 8:48 EDT documented in this encounter Results * FL BARIUM ENEMA FULL COLUMN (04/06/2016 8:48 EDT) Anatomical Region Laterality Modality Body Other 04/06/2016 8:48 EDT Narrative 04/06/2016 8:57 EDT ? EXAM: RADIOLOGY/BARIUM ENEMA/BARIUM ONLY ??EX. D/ (1818) ? CLINICAL INFORMATION: ? INDICATION: Unable to complete colonoscopy. ? COMPARISON: CT scan of the abdomen and pelvis 04/04/2016. ? TECHNIQUE: Single column barium enema was performed. ? FINDINGS: This examination is limited due to pre-existing colonic gas ? from recent colonoscopy. The cecum and ascending colon are not ? adequately visualized by this examination. ? There are numerous diverticuli within the sigmoid colon. No ? obstructing sigmoid colon mass is seen. Extensive segments of colonic ? spasm were encountered during this examination which limited the free ? flow of barium. The mucosal pattern is unremarkable. No mass is seen ? within the transverse, descending or sigmoid colon. ? IMPRESSION: ? 1. Limited single column barium enema. The cecum and ascending colon ? are not adequately visualized. Consider further assessment with ? routine barium enema or CT colonography. ? 2. Mild sigmoid diverticulosis. ? Fluoroscopy time utilized: 4 minutes and 21 seconds. ? REPORT SIGNED IN OTHER VENDOR SYSTEM 04/06/2016 ?Reported By: Alexandr Hawk MD ? CC: Amee Campos ? Transcribed Date/Time: 04/06/2016 (0857) ? Laboratory Monitor: ? Printed Date/Time: 03/23/2019 (0153) ? PAGE 1 ? Signed Report ? Procedure Note Alexandr Hawk MD - 08/15/2019 EXAM: RADIOLOGY/BARIUM ENEMA/BARIUM ONLY EX. D/ (1818) CLINICAL INFORMATION: INDICATION: Unable to complete colonoscopy. COMPARISON: CT scan of the abdomen and pelvis 04/04/2016. TECHNIQUE: Single column barium enema was performed. FINDINGS: This examination is limited due to pre-existing colonicgas from recent colonoscopy. The cecum and ascending colon are not adequately visualized by this examination. There are numerous diverticuli within the sigmoid colon. No obstructing sigmoid colon mass is seen. Extensive segments ofcolonic spasm were encountered during this examination which limited thefree flow of barium. The mucosal pattern is unremarkable. No mass isseen within the transverse, descending or sigmoid colon. IMPRESSION: 1. Limited single column barium enema. The cecum and ascendingcolon are not adequately visualized. Consider further assessment with routine barium enema or CT colonography. 2. Mild sigmoid diverticulosis. Fluoroscopy time utilized: 4 minutes and 21 seconds. REPORT SIGNED IN OTHER VENDOR SYSTEM 04/06/2016 Reported By: Alexandr Hawk MD CC: Amee Campos Transcribed Date/Time: 04/06/2016 (0857) Laboratory Monitor: Printed Date/Time: 03/23/2019 (0153) PAGE 1 Signed Report us Amee Campos MD IMG FLUOROSCOPY ORDERABLES Shelby l Result documented in this encounter Visit Diagnoses Not on filedocumented in this encounter Care Teams Test Facility Engineer Relationship Specialty Start Date End Date Titus Castro MD PCP - General 05/27/15 06/21/24 documented as of this encounter
--- OUTSIDE RECORDS SUMMARY | 2024-08-29 11:05 | XMS_ITS | Encounter Summary ---
Author Organization [facility] Address [address] [place] [address] Care Team Providers Care Electronics Design Engineer Name Role Phone Titus Castro MD Primary Care Provider Unav ailable Reason for Visit * Reason Comments Post-OP Follow Up Encounter Details Date Type Department Care Team (Latest Contact Info) Description 06/11/2016 9:00 EDT Office Visit [facility] General Surgery - [place] [address] [address] Amee Campos MD [address] [address] Diverticulitis of colon (Primary Dx) [...] Sign Reading Time Taken Comments Blood Pressure 131/92 06/11/2016 0857 EDT Pulse 88 06/11/2016 0857 EDT Temperature - - Respiratory Rate - - Oxygen Saturation - - Inhaled Oxygen Concentration - - Weight - - Height - - Body Mass Index - - documented in this encounter Progress Notes * Amee Campos MD - 06/11/2016 0908 EDT Mr. Melara is status post laparoscopic hand-assisted sigmoid colectomy on 05/27/2016. He has been recovering well at home. He says he has no abdominal pain but feels stiff. The incision is sensitiveat his belt line. He is eating a regular diet and taking Ensure shakes, which he hates. He has beenavoiding vegetables and fruit altogether and says that he does not have a bowel movement except every 2 or 3 days. His bowels are soft however and he has been taking Colace as instructed. He is hoping to resume eating fruits and vegetables. He took narcotic pain medication for about 3 days after surgery and then no more. He is no longer taking any pain medication including ibuprofen or Tylenol. He says he cut back on his smoking down to 1 pack a day from 2 or 3 packs a day. Overall he is doing quite well and is very pleased with the surgery. Visit Vitals ??? BP (!) 131/92 ??? Pulse 88 Gen.: No distress, alert oriented ??3, extremely pleasant Abdomen: Soft, nontender, trocar sites and lower midline incision intact without erythema or drainage, Steri-Strips removed Mr. Melara is a 55-year-old man status post laparoscopic hand-assisted sigmoid colectomy for recurrent diverticulitis. He is recovering very well. I said that he could resume eating fruits and vegetables especially if they are cooked. He really wants to have a salad and I said he could have a salad as long as he tries to chew very well and does not overdo it. I explained that the reason for avoiding the right fruits and vegetables so that he does not block up his system right before the intestinal anastomosis. He expressed understanding. I told him he no longer needs to be drinking the Ensure shakes if he really dislikes them but he should try to continue focusing on a high protein diet. I also encouraged him to continue cutting back on smoking. He had no further questions for me and wewill follow-up on an as-needed basis only. Amee Campos MD documented in this encounter Plan of Treatment Not on file documented as of this encounter Visit Diagnoses Diagnosis Diverticulitis of colon- Primary Diverticulitis of colon (without mention of hemorrhage) documented in this encounter Care Teams Electronics Design Engineer Relationship Specialty Start Date End Date Titus Castro MD PCP - General 05/27/15 06/21/24 documented as of this encounter
--- OUTSIDE RECORDS SUMMARY | 2024-08-29 11:05 | XMS_ITS | Encounter Summary ---
Author Organization [facility] Address [address] [place] [address] Care Team Providers Care Feather Sawyer Name Role Phone Titus Castro MD Primary Care Provider Unav ailable Encounter Details Date Type Department Care Team (Late st Contact Info) Description 04/21/2017 Historical Results Only [facility] Radiology Results [address] [place] [address] Becka Celis MD [address] [place] [address] Social History Tobacco Use Types [...] Procedure Name Priority Date/Time Associated Diagnosis Comments URINALYSIS/COMPLETE - [facility] Routine 04/21/2017 4:40 EDT BACTERIAL CULTURE, URINE Routine 04/21/2017 4:[address] RENAL STONE 04/21/2017 4:34 EDT LACTIC ACID SEPSIS REFLEX - [facility] Routine 04/21/2017 3:50 EDT COMPLETE BLOOD COUNT WITH DIFFERENTIAL (AUTO) Routine 04/21/2017 3:50 EDT C REACTIVE PROTEIN Routine 04/21/2017 3: 50 EDT LIPASE Routine 04/21/2017 3:50 EDT COMPREHENSIVE METABOLIC PANEL (CMP) Routine 04/21/2017 3:50 EDT documented in this encounter Results * BACTERIAL CULTURE, URINE (04/21/2017 4:40 EDT) PTH-Related Peptide STAPHYLOCOCCUS SP COAG NEG 04/23/2017 7:19 EDT [facility] CitrateConcentration >100,000 CFU/ML 04/09 7:19 EDT [facility] 04/21/2017 4:40 EDT 04/21/2017 5:29 EDT Comment:VOID Narrative Organism Antibiotic Method Susceptibility Staphylococcus sp coag neg Cefpodoxime GRAM POSITIVE SUSCEPTIBILITY - [facility] Susceptible Staphylococcus sp coag neg Cefazolin GRAM POSITIVE SUSCEPTIBILITY - [facility] Susceptible Staphylococcus sp coag neg Nitrofurantoin GRAM POSITIVE SUSCEPTIBILITY - [facility] <=16: Susceptible Staphylococcus sp coag neg Levofloxacin GRAM POSITIVE SUSCEPTIBILITY - [facility] 0.25: Susceptible Staphylococcus sp coag neg Oxacillin GRAM POSITIVE SUSCEPTIBILITY - [facility] <=0.25: Susceptible Staphylococcus sp coag neg Penicillin GRAM POSITIVE SUSCEPTIBILITY - [facility] 0.12: Resistant Staphylococcus sp coag neg Trimethoprim-Sulfamet hoxazole GRAM POSITIVE SUSCEPTIBILITY - [facility] <=10: Susceptible Staphylococcus sp coag neg Tetracycline GRAM POSITIVE SUSCEPTIBILITY - [facility] 2: Susceptible Staphylococcus sp coag neg Vancomycin GRAM POSITIVE SUSCEPTIBILITY - [facility] <=0.5: Susceptible Comment:See Reason(s) for St [facility] us Becka Celis MD MICROBIOLOGY - GENERAL ORDERABLES Edited Result - Final [facility] * URINALYSIS/COMPLETE - [facility] (04/21/2017 4:40 EDT) URINE APPEARANCE - [facility] Cloudy CLEAR 04/21/2017 5:26 EDT [facility] URINE BACTERIA - [facility] FEW 04/21/2017 5:29 [facility] URINE BILIRUBIN - DIPSTICK - [facility] 1+ NEGATIVE 04/21/2017 5:26 [facility] Comment: Unable to confirm positive urine bilirubin. If clinical correlation is inconsistent, consider serum bilirubin. URINE BLOOD - [facility] 3+ NEG 04/21/2017 5:26 [facility] URINE COLOR - [facility] Yellow YELLOW 04/21/2017 5:26 [facility] URINE GLUCOSE - DIPSTICK - [facility] Negative NEGATIVE 04/21/2017 5:26 [facility] URINE KETONE - [facility] Trace NEGATIVE 04/21/2017 5:26 [facility] URINE LEUK ESTERASE - [facility] Negative NEG 04/21/2017 5:26 [facility] URINE MUCUS - [facility] MOD 04/21/2017 5:29 [facility] URINE NITRITE - DIPSTICK - [facility] Positive NEG 04/21/2017 5:26 [facility] URINE PH - [facility] 5.5 4.0 - 8.0 7 5:26 [facility] URINE PROTEIN - DIPSTICK - [facility] 1+ NEG 04/21/2017 5:26 [facility] URINE RBC - [facility] TNTC rbc/hpf 04/21/20 17 5:29 [facility] URCULTIF+? - [facility] Culture Ordered 04/21/2017 5:29 [facility] URINE SPECIFIC GRAVITY - [facility] >=1.030 1.001 - 1.035 04/21/2017 5:26 [facility] URINE SQUAMOUS CELLS - [facility] RARE NEG #/hpf 04/21/2017 5:29 [facility] URINE UROBILINOGEN - DIPSTICK - [facility] 0.2 0.2 - 1.0 04/21/2017 5:26 [facility] URINE WBC - [facility] 1-4 NEG wbc/hpf 017 5:29 [facility] URINE YEAST - [facility] MOD 04/21/2017 5:29 [facility] 04/21/2017 4:40 EDT 04/21/2017 4:57 EDT Narrative [facility] - 04/21/2017 5:29 EDT Does PT Have a Latex Allergy? NO Becka Celis MD CHEMISTRY & BLOOD GAS ORDERABLES Final Result [facility] * CT RENAL STONE (04/21/2017 4:34 EDT) Anatomical Region Laterality Modality Other 04/21/2017 4:34 EDT Narrative 04/21/2017 4:34 EDT ? EXAM: CAT SCAN/CT STONE PROTOCOL ?EX. D/ (0428) ? CLINICAL INFORMATION: ? LEFT FLANK PAIN ? EXAM: ? CT Abdomen and Pelvis Without Intravenous Contrast ? CLINICAL HISTORY: ? 56 years old, male; Pain; Abdominal pain; Flank; Left; ? Additional info: Left flank pain ? TECHNIQUE: ? Axial computed tomography images of the abdomen and pelvis ? without intravenous contrast. ??This CT exam was performed using ? one or more of the following dose reduction techniques: ? automated exposure control, adjustment of the mA and/or kV ? according to patient size, and/or use of iterative ? reconstruction technique. ? COMPARISON: ? CT - ABDOMEN PELVIS WITH CONTRAST 09/24/2016 11:17:59 AM ? FINDINGS: ? Lower thorax: No acute findings. ?ABDOMEN: ? Liver: ??Hepatic steatosis. ??Stable right hepatic lesion. ? Gallbladder and bile ducts: ??Unremarkable. ??No calcified ? stones. ??No ductal dilation. ? Pancreas: ??Unremarkable. ??No ductal dilation. ? Spleen: ??Unremarkable. ??No splenomegaly. ? Adrenals: ??Unremarkable. ??No mass. ? Kidneys and ureters: ??7 mm left UPJ calculus without ? significant left hydronephrosis. ??Nonobstructing renal calculus. ? Stomach and bowel: ??Unremarkable. ??No obstruction. ??No mucosal ? thickening. ? Appendix: ??Normal appendix. ?PELVIS: ? Bladder: ??Unremarkable. ??No stones. ? Reproductive: ??Unremarkable as visualized. ?ABDOMEN and PELVIS: ? Intraperitoneal space: ??Age-indeterminate focal fat infarct or ? epiploic appendagitis of the peritoneal left mid to upper ? abdomen. ??No free air. ??No significant fluid collection. ? Bones/joints: ??No acute fracture. ??No dislocation. ? Soft tissues: ??Unremarkable. ? Vasculature: ??Unremarkable. ??No abdominal aortic aneurysm. ? Lymph nodes: ??Unremarkable. ??No enlarged lymph nodes. ? IMPRESSION: ? PAGE 1 ? Signed Report ? (CONTINUED) ? 7 mm left UPJ calculus without significant left ? hydronephrosis. ? REPORT SIGNED IN OTHER VENDOR SYSTEM 04/21/2017 ?Reported By: Ricci Cooney MD ? CC: ? Transcribed Date/Time: 04/21/2017 (0434) ? Aerobics Instructor: ? Printed Date/Time: 03/26/2019 (1404) ? PAGE 2 ? Signed Report ? Procedure Note Ricci Cooney MD - 08/15/2019 EXAM: CAT SCAN/CT STONE PROTOCOL EX. D/ (0428) CLINICAL INFORMATION: LEFT FLANK PAIN EXAM: CT Abdomen and Pelvis Without Intravenous Contrast CLINICAL HISTORY: 56 years old, male; Pain; Abdominal pain; Flank; Left; Additional info: Left flank pain TECHNIQUE: Axial computed tomography images of the abdomen and pelvis without intravenous contrast. This CT exam was performed using one or more of the following dose reduction techniques: automated exposure control, adjustment of the mA and/or kV according to patient size, and/or use of iterative reconstruction technique. COMPARISON: CT - ABDOMEN PELVIS WITH CONTRAST 09/24/2016 11:17:59 AM FINDINGS: Lower thorax: No acute findings. ABDOMEN: Liver: Hepatic steatosis. Stable right hepatic lesion. Gallbladder and bile ducts: Unremarkable. No calcified stones. No ductal dilation. Pancreas: Unremarkable. No ductal dilation. Spleen: Unremarkable. No splenomegaly. Adrenals: Unremarkable. No mass. Kidneys and ureters: 7 mm left UPJ calculus without significant left hydronephrosis. Nonobstructing renal calculus. Stomach and bowel: Unremarkable. No obstruction. No mucosal thickening. Appendix: Normal appendix. PELVIS: Bladder: Unremarkable. No stones. Reproductive: Unremarkable as visualized. ABDOMEN and PELVIS: Intraperitoneal space: Age-indeterminate focal fat infarct or epiploic appendagitis of the peritoneal left mid to upper abdomen. No free air. No significant fluid collection. Bones/joints: No acute fracture. No dislocation. Soft tissues: Unremarkable. Vasculature: Unremarkable. No abdominal aortic aneurysm. Lymph nodes: Unremarkable. No enlarged lymph nodes. IMPRESSION: PAGE 1 Signed Report (CONTINUED) 7 mm left UPJ calculus without significant left hydronephrosis. REPORT SIGNED IN OTHER VENDOR SYSTEM 04/21/2017 Reported By: Ricci Cooney MD CC: Transcribed Date/Time: 04/21/2017 (4364) Aerobics Instructor: Printed Date/Time: 03/26/2019 (6216) PAGE 2 Signed Report Becka Celis MD IMG CT ORDERABLES Shelby l Result * (ABNORMAL) C REACTIVE PROTEIN (04/21/2017 3:50 EDT) Pathologist [facility] C-Reactive Protein 4.25(H) 0.0 - 3.0 mg/L 04/21/2017 4[facility] 04[facility]/2017 3:50 EDT 04/21/2017 4:14 EDT Narrative [facility] - 04/21/2017 4:35 EDT Does PT Have a Latex Allergy? NO Becka Celis MD CHEMISTRY & BLOOD GAS ORDERABLES Final Result [facility] * (ABNORMAL) COMPREHENSIVE METABOLIC PANEL (CMP) (04/21/2017 3:50 EDT) [facility] Albumin % 4.1 3.4 - 5.0 g/dL 04/21/2017 4:35 [facility] ALKALINE PHOSPHATASE - [facility] 107 42 - 122 U/L 04/21/2017 4:35 [facility] BILIRUBIN TOTAL 0.3 0.0 - 1.0 mg/dL 04/21/2017 4:35 [facility] BUN - [facility] 17 7 - 18 mg/dL 04/21/2017 4:35 [facility] CALCIUM - [facility] 9.0 8.5 - 10.1 mg/dL 04/21/2017 4:35 [facility] Chloride 105 98 - 107 mEq/L 04/21/2017 4:35 [facility] CO2 Total 26 21 - 32 mEq/L 04/21/2017 4:35 [facility] CREATININE 1.01 0.5 - 1.3 mg/dL 04/21/2017 4:35 [facility] eGFR >60 04/21/2017 4:35 T [facility] Comment: Chronic renal impairment is defined as GFR <60 Multiply result by 1.210 for patients. Anion Gap 9 5 - 15 04/21/2017 4:35 [facility] GLUCOSE - [facility] 118(H) 70 - 100 mg/dL 04/21/2017 4:35 [facility] Potassium 3.7 3.5 - 5.0 mEq/L 04/21/2017 4:35 [facility] Sodium 140 135 - 145 mEq/L 04/21/2017 4:35 [facility] TOTAL PROTEIN - [facility] 7.9 6.4 - 8.2 gm/dl 04/21/2017 4:35 [facility] SGOT/AST - [facility] 37 10 - 37 U/L 04/21/2017 4:35 [facility] SGPT/ALT - [facility] 58 12 - 78 U/L 04/21/2017 4:35 EDT [facility] 04/21/2017 3:50 EDT 04/21/2017 4:14 EDT Narrative [facility] - 04/21/2017 4:35 EDT Does PT Have a Latex Allergy? NO Becka Celis MD CHEMISTRY & BLOOD GAS ORDERABLES Final Result [facility] * LIPASE (04/21/2017 3:50 EDT) Lipase 137 73 - 393 U/L 04/21/2017 4:30 EDT [facility] 04/21/2017 3:50 EDT 04/21/2017 4:13 EDT [facility] - 04/21/2017 4:30 EDT Does PT Have a Latex Allergy? NO Becka Celis MD CHEMISTRY & BLOOD GAS ORDERABLES Final Result [facility] * LACTIC ACID SEPSIS REFLEX - CV (04/21/2017 3:50 EDT) Pathologist [facility] LACTIC ACID - [facility] 1.6 0.4 - 2.0 mmol/L 04/21/2017 4:35 EDT [facility] 04/21/2017 3:50 EDT 04/21/2017 4:14 EDT Narrative [facility] - 04/21/2017 4:35 EDT Does PT Have a Latex Allergy? NO us Becka Celis MD CHEMISTRY & BLOOD GAS ORDERABLES Final Result [facility] * (ABNORMAL) COMPLETE BLOOD COUNT WITH DIFFERENTIAL (AUTO) (04/21/2017 3:50 EDT) Pathologist [facility] ABSOLUTE NEUTROPHIL COUN - [facility] 5.26 1.7 - 7.0 10e3/ul 04/21/2017 4:20 [facility] BASO # - [facility] 0.03 0.0 - 0.3 10e3/uL 04/21/2017 4:20 [facility] BASO % - [facility] 0 0 - 2 % 04/21/2017 4:20 [facility] EOS # - [facility] 0.27 0.05 - 0.5 10e3/uL 04/21/2017 4:20 [facility] EOS % - [facility] 3 0 - 5 % 04/21/2017 4:20 [facility] GRAN % - [facility] 67 40 - 80 % 04/21/2017 4:20 [facility] HEMATOCRIT - [facility] 45.0 36.0 - 52.0 % 04/21/2017 4:20 [facility] HEMOGLOBIN - [facility] 15.9 13.7 - 17.5 g/dl 04/21/2017 4:20 [facility] IG# - [facility] 0.01 0 - 0.07 10e3/uL 04/21/2017 4:20 [facility] IG% - [facility] 0.1 0 - 0.9 % 04/21/2017 4:20 [facility] LYMPH # - [facility] 1.58 0.9 - 2.9 10e3/uL 04/21/2017 4:20 [facility] LYMPH% - [facility] 20 20 - 40 % 04/21/2017 4:20 [facility] MEAN CORPUSCULAR HGB - [facility] 35.3(H) 26 - 34 pg 04/21/2017 4:20 [facility] MEAN CORPUSCULAR HGB CONC - [facility] 35.3 31 - 36 g/dL 04/21/2017 4:20 [facility] MEAN CELL VOLUME - [facility] 100.0 77 - 100 fl 04/21/2017 4:20 [facility] MONO # - [facility] 0.70 0.3 - 0.9 10e3/uL 04/21/2017 4:20 [facility] MONO% - [facility] 9 0 - 12 % 04/21/2017 4:20 [facility] PLATELET COUNT 306 150 - 400 10e3/ul 04/21/2017 4:20 [facility] RED BLOOD COUNT - [facility] 4.50 4.3 - 5.7 10e6/ul 04/21/2017 4:20 [facility] RED CELL DISTRI WIDTH - [facility] 13.6 11.8 - 15.6 % 04/21/2017 4:20 [facility] WHITE BLOOD COUNT - [facility] 7.9 3.5 - 10.5 10e3/ul 04/21/2017 4:20 [facility] 04/21/2017 3:50 EDT 04/21/2017 4:14 EDT Narrative [facility] - 04/21/2017 4:20 EDT Does PT Have a Latex Allergy? NO us Becka Celis MD HEMATOLOGY & PF4 ORDER ADITYA Final Result [facility] documented in this encounter Visit Diagnoses Not on filedocumented in this encounter Care Teams Feather Sawyer Relationship Specialty Start Date End Date Titus Castro MD PCP - General 05/27/15 06/21/24 documented as of this encounter
--- OUTSIDE RECORDS SUMMARY | 2024-08-29 11:05 | XMS_ITS | Encounter Summary ---
Author Organization [facility] Address [address] [place] [address] Care Team Providers Care Paper Cutter Operator Name Role Phone Titus Castro MD Primary Care Provider Unav ailable Reason for Visit * Reason Onset Date Comments Other 05/07/2016 Encounter Details Date Type Department Care Team (Late st Contact Info) Description 05/07/2016 Telephone [facility] General Surgery - [place] [address] [address] Amee Campos MD [address] [address] Other Social History Tobacco Use [...] Telephone Encounter - Marilu Brandon RN - 05/11/2016 1434 EDT Message left on pt cell phone that prescription for patches has been sent to [facility] [place]. No further interventions. * Telephone Encounter - Marilu Brandon RN - 05/11/2016 0843 EDT Left message for pt to call back. Will notify pt that prescription was sent to the pharmacy did notleave on message as message indicates that I have called another # however I tried 2 times and dialed the [phone] # will wait for call back to discuss. * Telephone Encounter - Carole Do - 05/07/2016 1053 EDT Patient is calling to ask for a prescription for patches to quit smoking. Dr. Campos has asked him to stop smoking prior to surgery. He uses [facility] in [place]. Please call to let him know @ [phone]. It is okay to leave a message. documented in this encounter Plan of Treatment Not on file documented as of this encounter Visit Diagnoses Not on filedocumented in this encounter Care Teams Paper Cutter Operator Relationship Specialty Start Date End Date Titus Castro MD PCP - General 05/27/15 06/21/24 documented as of this encounter
--- OUTSIDE RECORDS SUMMARY | 2024-08-29 11:05 | XMS_ITS | Encounter Summary ---
Author Organization [facility] Address [address] [place] [address] Care Team Providers Care Oil Well Pumper Name Role Phone Titus Castro MD Primary Care Provider Unav ailable Reason for Visit * Reason Onset Date Comments Advice Only 06/01/2016 Encounter Details Date Type Department Care Team (Late st Contact Info) Description 06/01/2016 Telephone [facility] General Surgery - [place] [address] [facility] [address] [place] [address] Marilu Brandon, hand bunch maker Only Social History Tobacco Use Types Packs/Day Years [...] Telephone Encounter - Marilu Brandon RN - 06/01/2016 1320 EDT Pt has concerns that he has not had a bowel movement since surgery last . Pt did do fleets enemas prior to surgery and denies any nausea or vomiting or bloating, pt also states he does not feel an urge to move his bowels. He is passing gas and overall feels ok. Pt verifies that he is takinga stool softener and will continue to do so. Dr. Campos is aware and feels that Pollo can give thissome more time however we did discuss s/s to watch for. Pollo will call back on should hestill have not had a BM. Pt also has not been sleeping well and wonders if the pain meds are making him crazy. He notes thathe is not taking a lot of the pain meds for these reasons. I have suggested that he try talking to his PCP for ideas to help with his sleeplessness. He understands and agrees to give dr. Castro a call. Will wait to hear back from pt regarding bowel movement. No further nursing interventions. documented in this encounter Plan of Treatment Not on file documented as of this encounter Visit Diagnoses Not on filedocumented in this encounter Care Teams Oil Well Pumper Relationship Specialty Start Date End Date Titus Castro MD PCP - General 05/27/15 06/21/24 documented as of this encounter
--- OUTSIDE RECORDS SUMMARY | 2024-08-29 11:05 | XMS_ITS | Encounter Summary ---
Author Organization [facility] Address [address] [place] [address] Care Team Providers Care Licensed Social Worker Name Role Phone Titus Castro MD Primary Care Provider Unav ailable Encounter Details Date Type Department Care Team (Latest Contact Info) Description 02/24/2016 12:42 EDT - 02/24/2016 23:59 EDT Hospital Encounter [facility] [address] [place] [address] Unknown, Provider, MD Discharge Disposition: Home or [...] this encounter Medications at Time of Discharge fluocinonide (LIDEX) 0.05 % ointment Apply topically 2 times daily Do not apply to face, armpit or groin. 1 Tube 3 05/28/2015 0 lisinopril (PRINIVIL, ZESTRIL) 5 mg tablet Take 5 mg by mouth daily 0 sildenafil citrate (VIAGRA) 100 mg tablet Take 100 mg by mouth as needed 0 documented as of this encounter Discharge Disposition Disposition Code Departure Means Destination Home or Self Group Home documented in this encounter Plan of Treatment Not on file documented as of this encounter Visit Diagnoses Not on filedocumented in this encounter Care Teams Licensed Social Worker Relationship Specialty Start Date End Date Titus Castro MD PCP - General 05/27/15 06/21/24 documented as of this encounter
--- OUTSIDE RECORDS SUMMARY | 2024-08-29 11:05 | XMS_ITS | Encounter Summary ---
Author Organization [facility] Address [address] [place] [address] Care Team Providers Care Lumber Hacker Name Role Phone Titus Castro MD Primary Care Provider Unav ailable Reason for Visit * Reason Comments Follow-up LLQ pain after colon surgery Encounter Details Date Type Department Care Team (Late st Contact Info) Description 10/05/2016 15:15 EST Office Visit [facility] General Surgery - [address] [address] Amee Campos MD [address] [place] [phone] Abdominal pain, left lower quadrant (Primary [...] Sign Reading Time Taken Comments Blood Pressure 158/95 10/05/2016 1515 EST Pulse 106 10/05/2016 1515 EST Temperature - - Respiratory Rate - - Oxygen Saturation - - Inhaled Oxygen Concentration - - Weight - - Height - - Body Mass Index - - documented in this encounter Progress Notes * Amee Campos MD - 10/05/2016 1515 EST Subjective: I am seeing Mr. Melara several months postoperatively for persistent left lower quadrant abdominal pain following sigmoid colon resection for diverticulitis. Last month he was evaluatedby Dr. Maldonado, who ordered a CT abdomen and pelvis looking for possible anastomotic stricture. Thepatient states that he persistently has intermittent left lower quadrant abdominal pain and that hehas difficulty with his bowel movements. He says that he feels the buildup of gas and then strains in order to pass gas. This incites the left lower quadrant pain. The pain is somewhat relieved by maximum dose ibuprofen. The patient has a bowel movement about every other day and he says his bowel mo vements are soft but that he does not always completely evacuate his bowels in one sitting. Again, he describes straining in order to pass stool, which brings on the left lower quadrant abdominal pain. He admits to not eating much food. For instance, he had nothing to eat today and says he had onlya piece of fish yesterday. He admits to drinking half a fifth of hard alcohol every day and he continues to smoke 1 pack of cigarettes per day. He does not eat much she says because he just does not feel hungry. Objective: Visit Vitals ??? BP (!) 158/95 ??? Pulse (!) 106 Gen.: No distress, alert and oriented ??3, very pleasant Abdomen: Soft, very minimally tender to deep palpation in the left lower quadrant, no masses, no rebound or guarding, well healed midline incision and laparoscopic port site incisions. Imaging: I reviewed the images from the CT abdomen and pelvis with PO/NH/IV contrast dated 09/24/2016. The anastomosis is well visualized in the pelvis and it appears widely patent. There is no evidence of leak or abscess. The remainder of the bowel appears normal. There is no evidence of hernia atthe abdominal wall. Assessment/plan: Mr. Melara is 4 months post op sigmoid resection for diverticulitis. CT scan is unremarkable and the anastomosis appears widely patent and the bowel otherwise appears normal. His pain is relieved with ibuprofen, which leads me to believe it is somewhat musculoskeletal in nature. I strongly urged him to reduce his alcohol intake, which is likely driving down his appetite. I alsostrongly encouraged him to increase the volume of food he eats every day and to take in high-fiber foods, including raw fruits and vegetables and perhaps even Metamucil. He was somewhat reluctant to make these changes but said he would try. I reassured him that there does not appear to be any concerning acute process in his abdomen and he was relieved. I asked him to stop straining in order to pass gas or to have a bowel movement as this may be exacerbating the pain. I encouraged him to call meif things should become worse. He expressed understanding. Amee Campos MD documented in this encounter Plan of Treatment Not on file documented as of this encounter Visit Diagnoses Diagnosis Abdominal pain, left lower quadrant- Primary documented in this encounter Care Teams Lumber Hacker Relationship Specialty Start Date End Date Titus Castro MD PCP - General 05/27/15 06/21/24 documented as of this encounter
--- OUTSIDE RECORDS SUMMARY | 2024-08-29 11:05 | XMS_ITS | Encounter Summary ---
Author Organization [facility] Address [address] [place] [address] Care Team Providers Care Slag Mixer Name Role Phone None, Provider Primary Care Provider Unavailabl e Encounter Details Date Type Department Care Team (Late st Contact Info) Description 01/03/2015 Results Only [facility] Laboratory Services - [facility] ([facility] [address], [place] [id number] Amee Joseph MD [address] [place] [phone] Social History Tobacco Use Types Packs/Day Years [...] Date/Time Associated Diagnosis Comments SURGICAL PATHOLOGY Routine 01/03/2015 8:39 EDT documented in this encounter Results * SURGICAL PATHOLOGY (01/03/2015 8:39 EDT) Pathology Report: SURGICAL PATHOLOGY REPORT Reports generated via electronic interface contain original data; however they are lacking the format of the original report. Caution should be taken when reading/interpret ing unformatted reports. Name: ? FERN MONTGOMERY ? Accession #: ? [id number] ? : ? 1960 (Age: 54) ??M ? Collect Date: ? 01/03/2015 ? Location: ? [facility] ? Receive Date: ? 01/06/2015 ? Provider: AMEE JOSEPH MD Copy to: ? Final Pathologic Diagnosis: SKIN OF ARM, RIGHT UPPER, PUNCH BIOPSY: - Subacute spongiotic dermatitis. ??See comment. Comment: The biopsy shows features of spongiotic (eczematous) dermatitis with prominent spongiosis and microvesicle formation. ??The accompanying inflammatory infiltrate has eosinophils with focal eosinophilic spongiosis. ??The features raise the possibility of allergic contact dermatitis. ??Other forms of eczematous dermatitis would also be included in the differential diagnosis. ??(Dr. Green)/[facility] Microscopic Description: Sections consist of a bisected punch biopsy of skin to the subcutis. ??The stratum corneum has confluent areas of parakeratosis and scale crust. ??The epidermis is slightly acanthotic with an irregular rete ridge pattern. ??There is prominent spongiosis with formation of spongiotic microvesicles. ??Superficial pustules are noted where there is erosion. ??The spongiosis is associated with lymphomononuclear cell exocytosis. ??A rare is also noted within the epidermis. The superficial dermis has a moderately dense perivascular and interstitial inflammatory infiltrate. ??The infiltrate includes eosinophils in addition to lymphomononuclear cells. ??There is mild edema and the vessels show reactive changes. ??(Dr. Green)/[facility] Document reviewed and electronically signed by: MISHEL GREEN MD Report ??Date: 01/08/2015 14:29 By the signature above, the attending physician certifies that he/she has personally conducted a gross and/or microscopic examination of the described specimens and rendered or confirmed the above diagnosis. Specimen(s) Received: Punch bx R upper arm Clinical History: Multiple pruritic scaly red plaques on extremities Gross Description: ? Received in formalin labelled with proper patient identification (initials L, R) and right elbow is a punch biopsy of pacheco-red skin (0.4 cm in diameter and 0.5 cm in thickness). ??The specimen is bisected and entirely submitted in 1. Larongonzalo Cronin 01/07/2015 9:40 AM End of Report [facility] 01/03/2015 8:39 EDT 01/06/2015 8:39 EDT us Amee Joseph MD PATHOLOGY ORDERABLES Final Res ult [facility] [address] [place] [address] documented in this encounter Visit Diagnoses Not on filedocumented in this encounter Care Teams Slag Mixer Relationship Specialty Start Date End Date None, Provider PCP - General 05/08/10 01/07/15 documented as of this encounter
--- OUTSIDE RECORDS SUMMARY | 2024-08-29 11:05 | XMS_ITS | Encounter Summary ---
Author Organization [facility] Address [address] [place] [address] Care Team Providers Care Machinery Cleaner Name Role Phone Titus Castro MD Primary Care Provider Unav ailable Reason for Visit * Reason Comments Follow-up Encounter Details Date Type Department Care Team (Latest Contact Info) Description 08/16/2016 13:00 EST Office Visit [facility] General Surgery - [place] [address] [address] Jeanna Maldonado MD [address] [place] [phone] Diverticulitis of colon (Primary Dx) Social [...] Sign Reading Time Taken Comments Blood Pressure 143/97 08/16/2016 1250 EST Pulse 91 08/16/2016 1250 EST Temperature 36.6 ??C (97.9 ??F) 08/16/2016 1250 EST Respiratory Rate - - Oxygen Saturation - - Inhaled Oxygen Concentration - - Weight 79.4 kg (175 lb) 08/16/2016 1250 EST Height - - Body Mass Index 26.61 03/15/2016 0954 EDT documented in this encounter Progress Notes * Jeanna Maldonado MD - 08/16/2016 1300 EST PROBLEM: Left lower quadrant abdominal pain. SUBJECTIVE: Mr Melara underwent surgery for complex diverticulitis by Dr Campos in mid- May. Moiraid have a rough couple of first weeks but states he has recovered well and was feeling well. He has been back to work and roughly 2 weeks ago noticed significant discomfort in his left lower quadrant of the abdomen. He has had no fevers or chills. He does state his bowels have not been quite normal. They are soft, but he does have a hard time initiating bowel movements. They are not changing caliber. He is not seeing any blood in his stool. The pain is worse with certain movements and especially lifting something heavy. 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 He also reports he saw his primary care physician, they did do blood work. He reports that this was normal. However, he was told he was somewhat dehydrated. On physical exam, he is afebrile and appears well. He does move around the room well. Pulse 91, blood pressure 143/97, temperature is 36.6 degrees Celsius, abdomen is soft, nontender, nondistended with good bowel sounds. He is most uncomfortable palpating the left lower quadrant of the abdomen, right where his lateral port site is. His incision has healed well. No evidence of incisional hernia. No incidence of a port site hernia or left inguinal hernia. ASSESSMENT: Left mid to lower quadrant abdominal pain of unclear etiology. However, I suspect muscle strain. PLAN: 1. I reassured the patient I find no concerning findings on physical exam or based on his history. 2. At this point, I recommend Aleve twice a day and using ice packs at the end of the day when he has been working. He is scheduled to only work for another week and then he will be laid off and perhaps this will allow the area to heal. 3. We should recheck him in a month. Other possibilities would be a stricture of his anastomosis but he has not had a change in the caliber of his stool and I think this is less likely. If, however, this is a concerning factor, we may need to consider a barium enema. documented in this encounter Plan of Treatment Not on file documented as of this encounter Visit Diagnoses Diagnosis Diverticulitis of colon- Primary Diverticulitis of colon (without mention of hemorrhage) documented in this encounter Discontinued Medications Medication Sig Discontinue Reason Start Date End Da te HYDROcodone-acetaminophe n (VICODIN) 5-300 mg tablet Take 2 Tabs by mouth every 6 hours as needed for Pain. Therapy completed 08/16/2016 oxyCODONE (ROXICODONE) 5 mg immediate release tablet Take 5-10 mg by mouth every 4 hours as needed for Pain. Therapy completed 08/16/2016 documented as of this encounter Care Teams Machinery Cleaner Relationship Specialty Start Date End Date Titus Castro MD PCP - General 05/27/15 06/21/24 documented as of this encounter
--- OUTSIDE RECORDS SUMMARY | 2024-08-29 11:05 | XMS_ITS | Encounter Summary ---
Author Organization [facility] Address [address] [place] [address] Care Team Providers Care Reducer Name Role Phone Titus Castro MD Primary Care Provider Unav ailable Encounter Details Date Type Department Care Team (Latest Contact Info) Description 09/24/2016 10:50 EST - 09/24/2016 23:59 EST Hospital Encounter [facility] [address] [place] [address] Unknown, Provider, MD Discharge Disposition: Home or [...] Code Departure Means Destination Home or Self Half-Way documented in this encounter Plan of Treatment Not on file documented as of this encounter Visit Diagnoses Not on filedocumented in this encounter Care Teams Reducer Relationship Specialty Start Date End Date Titus Castro MD PCP - General 05/27/15 06/21/24 documented as of this encounter
--- OUTSIDE RECORDS SUMMARY | 2024-08-29 11:05 | XMS_ITS | Encounter Summary ---
Author Organization [facility] Address [address] [place] [address] Care Team Providers Care Personnel Technician Name Role Phone Titus Castro MD Primary Care Provider Unav ailable Reason for Visit * Reason Onset Date Comments Appointment Related 03/19/2016 Encounter Details Date Type Department Care Team (Late st Contact Info) Description 03/19/2016 Telephone [facility] General Surgery - [place] [address] [address] Amee Campos MD [address] [phone] Appointment Related Social History Tobacco [...] * Telephone Encounter - Blanca Almaguer - 03/19/2016 1107 EDT Pt confirmed. Informed pt to arrive at 12:30pm to begin oral prep for CT. * Telephone Encounter - Blanca Almaguer - 03/19/2016 1105 EDT LMTCB to inform pt of 2:30pm CT today at [facility]. documented in this encounter Plan of Treatment Not on file documented as of this encounter Visit Diagnoses Not on filedocumented in this encounter Care Teams Personnel Technician Relationship Specialty Start Date End Date Titus Castro MD PCP - General 05/27/15 06/21/24 documented as of this encounter
--- OUTSIDE RECORDS SUMMARY | 2024-08-29 11:05 | XMS_ITS | Encounter Summary ---
Author Organization [facility] Address [address] [place] [address] Care Team Providers Care Equipment Maintenance Supervisor Name Role Phone Titus Castro MD Primary Care Provider Unav ailable Reason for Visit * Reason Onset Date Comments Biopsy Results 04/15/2016 Encounter Details Date Type Department Care Team (Late st Contact Info) Description 04/15/2016 Telephone [facility] General Surgery - [place] [address] [address] Amee Campos MD [address] [phone] Biopsy Results Social History Tobacco [...] Telephone Encounter - Amee Campos MD - 04/15/2016 151 EDT I spoke with Mr Melara by telephone to go over colonoscopy biopsy results. He had 2 tubular adenomas of the transverse colon and a sigmoid polyp that was benign but fibrotic and with superficial mucosal hyperplastic changes, laden with hemosiderin. We were unable to reach end of cecum using gastroscope, and follow up barium enema insufficiently visualized the cecum. Recommendation would be to repeat colonoscopy at the very least in 3 years. Patient has an appointment to see me on 04/27 to discuss his episode of diverticulitis and possible surgery. He also informed me that he has a new burning sensation with lifting and movement of the left lower abdomen (doesn't sound like it's in the groin). He has been having trouble having a BM in the morning and said he has to sit down 20 times to get anything out. I recommended he restart the stool softener, add Metamucil, and drink more water. He is not having the lower suprapubic pain any longer. We will discuss his symptoms and possible surgery at his next visit on 04/27. Amee Campos MD documented in this encounter Plan of Treatment Not on file documented as of this encounter Visit Diagnoses Not on filedocumented in this encounter Care Teams Equipment Maintenance Supervisor Relationship Specialty Start Date End Date Titus Castro MD PCP - General 05/27/15 06/21/24 documented as of this encounter
--- OUTSIDE RECORDS SUMMARY | 2024-08-29 11:05 | XMS_ITS | Clinical Summary ---
Author Organization [facility] Address [facility] [place] [address] Care Team Providers Care Production Mechanic Name Role Phone Brittany Fay MD Primary Care Provider [phone] Allergies Active Allergy Reactions Criticality Noted Date Comments Penicillins 05/28/2015 Tetanus Vaccines And Toxoid 05/28/20 15 Medications Medication Sig Dispensed Refills Start Date End Date Status aspirin EC 81 mg Tablet, Delayed Release (E.C.) Take 1 tablet by mouth daily. 30 tablet 3 07/12/2020 Active atorvastatin (Lipitor) 40 mg Tablet Take 1 tablet by mouth every evening. 90 tablet 3 07/11/2020 Active lisinopriL (Prinivil;Zestril) 20 mg Tablet Take 1 tablet by mouth daily. 90 tablet 3 07/12/2020 Active acetaminophen (Tylenol) 500 mg Tablet Take 2 tablets by mouth every 6 hours. 30 tablet 1 07/11/2020 Active Active Problems Problem Noted Date Diagnosed Date Cigarette smoker 07/14/2020 Hepatic steatosis 07/14/2020 Claudication 07/07/2020 PVD (peripheral vascular disease) with claudicat ion 04/23/2020 Hypertension 04/23/2020 Family History Medical History Relation Comments Abdominal Aortic Aneurysm Neg Hx Heart Disease Neg Hx Social History Tobacco Use Types Packs/Day Years Used Date Smoking Tobacco: Every Day Cigarettes 0.5 16 Smokeless Tobacco: Never Sex and Gender Information Value Date Recorded Sex Assigned at Not on file Gender Identity Not on file Sexual Orientation Not on file Last Filed Vital Signs Vital Sign Reading Time Taken Comments Blood Pressure 138/82 08/12/2021 8:01 AM EDT Pulse 87 08/12/2021 8:01 AM EDT Temperature 36.8 ??C (98.2 ??F) 07/11/2020 11:41 AM E DT Respiratory Rate 18 08/12/2021 8:01 AM EDT Oxygen Saturation 97% 07/11/2020 11:41 AM EDT Inhaled Oxygen Concentration - - Weight 81.6 kg (180 lb) 08/12/2021 8:01 AM EDT Height 170.2 cm (5' 7) 08/12/2021 8:01 AM EDT Body Mass Index 28.19 08/12/2021 8:01 AM EDT Plan of Treatment Health Maintenance Due Date Last Done Comments CT Colonography 1960 Colonoscopy 1960 Colorectal Cancer Screening 1960 FIT DNA 1960 FIT 1960 Sigmoidoscopy (10 year) with FIT yearly 1960 Sigmoidoscopy 1960 HIV screen 1979 Hepatitis C Screening 1979 Tetanus/Diphtheria/Pertussis Vaccines (1 - Tdap) 1980 Zoster vaccine (1 of 2) 2011 Advance Directive 2016 Covid-19 Vaccine ( - 2023-2 5 season) 2024 Influenza (Flu) vaccine (1 o f 1 - Influenza standard series) 06/10/2024 Diabetes Screening (HgbA1C o r Glucose) Discontinued 07/11/2020, 07/11/2020, 07/10/2020 Lipid Screening Discontinued 07/11/2020 Medical Devices Implanted Type Area Process Excellence Manager Device Identifier Shelf Expiration Date Model / Serial / Lot Patch,Biol,Xeno sure,.8x8cm ([id number]) - [id number] Implanted:Qty: 1 on 07/10/2020 by Chris Chase MD at [facility] IMPLANTS Right: Arterial [employer] 01/04/2026 [id number] / / [id number] Description:BIOLOGICAL PATCH TO RIGHT ILIOFEMORAL ARTERY Procedures Procedure Name Priority Date/Time Associated Diagnosis Comments HC CHOLESTEROL Routine 07/11/2020 10:21 AM EDT HC VENIPUNCTURE Routine 07/11/2020 10:21 AM EDT from Last 3 Months or Most Recently Relevant to Health Maintenance Results * HDL/Cholesterol Profile (07/11/2020 10:21 AM EDT) Cholesterol, Total 158 mg/dL Aditya PEREZ [facility] Comment: Lower Risk: <200 mg/dL Average Risk: 200-239 mg/dL Higher Risk: >tw=084 mg/dL HDL Cholesterol 56 mg/dL [facility] Comment: Males: ?? Higher Risk: <40 mg/dL Females: ?? HIgher Risk: <50 mg/dL Cholesterol/HDL Ratio 2.8 ratio [facility] Chol/HDL Interpretation See Note [facility] Comment: Lipid management should be guided by a patient? s ASCVD risk, goals and preferences. ACC/AHA Guidelines recommend high intensity statin if clinical ASCVD or LDL greater than or equal to 190 mg/dL. http://[employer].com/ZSV-OOP-Oajkjrxbu Measure LDL if Total Cholesterol minus HDL Cholesterol is greater than 220 mg/dL. Adults aged 40-75 with LDL 70-189 mg/dL should have their 10 year ASCVD risk estimated with the ACC/AHA ASCVD risk volunteer recruitment coordinator http://tools.acc.org/IQRFL-Idzn-Lqtrrhhkh/ Statin should be discussed if risk greater than or equal to 7.5% in non-diabetics. With diabetes, moderate intensity statin is recommended if risk less than 7.5%, high intensity if risk greater than or equal to 7.5%. Annual lipid monitoring on statins is not necessary. Lifestyle modification is a critical component of ASCVD risk reduction. Blood specimen (specimen) 07/11/2020 10:21 AM EDT 07/11/2020 10:54 AM EDT Narrative Resulting Agency Comment Spec In Lab Chris Chase MD CHEMISTRY ORDERABLES [facility] [place] [address] * Hemoglobin A1c (07/11/2020 10:21 AM EDT) Hemoglobin A1c 5.5 4.3 - 5.6 % [facility] Comment: Reference Range: 4.3 - 5.6% 5.7 - 6.4% - Increased Risk of Developing Diabetes Mellitus >= 6.5% - Consistent with diagnosis of Diabetes Mellitus In the absence of hyperglycemia (i.e. plasma glucose > 200 mg/dL) or classic symptoms of hyperglycemia a repeat measurement of HbA1c should be performed on a separate sample to confirm the diagnosis. Diagnosis and Classification of Diabetes Mellitus, Diabetes Care 2013; 36: Suppl. 1, R06-70 Estimated Average Glucose 112 mg/dL [facility] Comment: eAG equivalents for HbA1c percentages: HbA1c(%) ?eAG(mg/dL) 6.0 ?126 6.5 ?140 7.0 ?154 7.5 ?169 8.0 ?183 8.5 ?197 9.0 ?212 9.5 ?226 10.0 ? 240 Limitations: The eAG calculation has not been validated on women, individuals below 18 years old and above 70 years old, and individuals with hemoglobinopathies. Additional resources are available on the ADA website. Jaret FAIRCHILD, Desirae J, Sanjeev R, et al. ??Translating the A1C assay into estimated average glucose values. ??Diabetes Care 2008:31(8):7369-7194. Blood specimen (specimen) 07/11/2020 10:21 AM EDT 07/11/2020 10:54 AM EDT Narrative Resulting Agency Comment Spec In Lab Chris Chase MD CHEMISTRY ORDERABLES [facility] [place] [address] from Last 3 Months or Most Recently Relevant to Health Maintenance Advance Directives * Attempt Cardiopulmonary Resuscitation - Inpatient (Latest Code Status on File) Date Activated Date Inactivated Comments 07/10/2020 11:15 AM 07/11/2020 6:09 PM Question Answer Comments Code Status decision made by: Patient * Attempt Cardiopulmonary Resuscitation - Inpatient Date Activated Date Inactivated Comments 07/10/2020 7:03 AM 07/10/2020 11:15 AM Question Answer Comments Code Status decision made by: Patient Care Teams Production Mechanic Relationship Specialty Start Date End Date Brittany Fay MD [address] [place] [address] PCP - General General Internal Medicine 03/25/20
--- OUTSIDE RECORDS SUMMARY | 2024-08-29 11:05 | XMS_ITS | Encounter Summary ---
Author Organization [facility] Address [address] [place] [address] Care Team Providers Care Robot Programmer Name Role Phone Shagufta Bertrand SHOTGUN SHELL REPRINTING UNIT OPERATOR Primary Care Provider [phone] Reason for Visit * Reason Onset Date Comments Referral Request 05/12/2015 Encounter Details Date Type Department Care Team (Late st Contact Info) Description 05/12/2015 Telephone [facility] Dermatology 3rd Floor [address] [address] Michael Velez MD [address] [facility], [address] [place] [address] Referral Request Social History Tobacco Use Types Packs/Day Years Used Date Smoking Tobacco: Never Assessed Sex and Gender Information Value Date Recorded Sex Assigned at Male 08/20/2024 8:28 EST Legal Sex Male 17:59 EST Gender Identity Male 06/22/2024 8:08 EDT Sexual Orientation Not on file documented as of this encounter Miscellaneous Notes * Telephone Encounter - Jessica Bhardwaj - 05/12/2015 1125 EDT Patient schedule to see Dr. Velez on 05/28/15. Jessica Bhardwaj 05/12/2015 11:25 * Telephone Encounter - Edie Lindquist - 05/12/2015 1059 EDT This is a traffic manager request. 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 He would like to request to be seen before next available. Please call patient with appt date and time. documented in this encounter Plan of Treatment Not on file documented as of this encounter Visit Diagnoses Not on filedocumented in this encounter Care Teams Robot Programmer Relationship Specialty Start Date End Date Shagufta Bertrand FNP PCP - General 01/08/15 05/26/15 documented as of this encounter
--- OUTSIDE RECORDS SUMMARY | 2024-08-29 11:05 | XMS_ITS | Encounter Summary ---
Author Organization [facility] Address [address] [place] [address] Care Team Providers Care Health Service Worker Name Role Phone Titus Castro MD Primary Care Provider Unav ailable Reason for Visit * Reason Onset Date Comments Other 05/19/2016 Encounter Details Date Type Department Care Team (Late st Contact Info) Description 05/19/[address] [facility] General Surgery - [address] [place] [id number] Marilu Brandon, RN Other Social History Tobacco Use Types Packs/Day [...] Telephone Encounter - Marilu Brandon RN - 05/19/2016 1046 EDT Spoke with pt and discussed all of Dr. Campos's thoughts with him. He understands that he needs to do a fleets enema both the night before surgery and the morning of surgery. He states he already is drinking ensure and focusing on improving protein intake. He also states he is trying to quit smoking. He has not been able to do much walking and states I will get right on that he says that walkingis hard for him. However he notes that he understands and he will try. No further nursing interventions. * Telephone Encounter - Marilu Brandon RN - 05/19/2016 1000 EDT Attempted to call Pollo as Dr. Campos would like him to do a bowel prep for surgery next week. Pt will need to be given the below information when he calls back. See below. Per Dr. Campos: Can you ask patient Pollo Melara (62) to do a bowel prep before his sigmoid colectomy on 05/27? I would like him to do a Fleets enema the night before surgery, and another Fleets enema the morning of surgery. Also, can you ask him to drink a daily Ensure or other protein drink one week prior to surgery and to focus on healthy eating with lots of protein? He and I talked about quitting smoking and I already prescribed him the patches as he requested. It would also be good if he did some walking before surgery in order to get stronger (like a mile per day). documented in this encounter Plan of Treatment Not on file documented as of this encounter Visit Diagnoses Not on filedocumented in this encounter Care Teams Health Service Worker Relationship Specialty Start Date End Date Titus Castro MD PCP - General 05/27/15 06/21/24 documented as of this encounter
--- OUTSIDE RECORDS SUMMARY | 2024-08-29 11:05 | XMS_ITS | Encounter Summary ---
Author Organization [facility] Address [address] [place] [address] Care Team Providers Care Supervisor Customer Complaint Service Name Role Phone Titus Castro MD Primary Care Provider Unav ailable Encounter Details Date Type Department Care Team (Late st Contact Info) Description 03/19/[address] [facility] Radiology Results [address] [place], [place] [id number] Amee Campos MD [address] [facility] [address] [place] [address] Social History Tobacco Use Types [...] Diagnosis Comments CT ABDOMEN PELVIS W CONTRAST 03/19/2016 14:39 EDT documented in this encounter Results * CT ABDOMEN PELVIS W CONTRAST (03/19/2016 14:39 EDT) Anatomical Region Laterality Modality Other 03/19/2016 14:3 9 EDT Narrative 03/19/2016 14:50 EDT ? EXAM: CAT SCAN/ABDOMEN PELVIS WITH CONTRA EX. D/ (1431) ? CLINICAL INFORMATION: ? K57.32 RECENT DIVERTICULITIS;STILL WITH LOW ? PELVIC PAIN ? INDICATION: DIVERTICULITIS K57.32 RECENT DIVERTICULITIS;STILL WITH ? LOW: PELVIC PAIN ? TECHNIQUE: Axial enhanced imaging of the abdomen and pelvis was ? obtained. Multiplanar reconstruction was performed. ? COMPARISON: 03/03/2016. ? FINDINGS: ? CT ABDOMEN: The lung bases are clear. No effusion is seen at the lung ? bases. The scattered tiny low-attenuation hepatic foci are unchanged. ? There is a lobular peripheral 3 x 1 cm focus in the posterior right ? hepatic lobe (series 2 image 26). Aortic atherosclerosis is seen. No ? intra-abdominal free air is currently seen. No focal pancreatic ? abnormality is seen. No peripancreatic inflammation is noted. The ? spleen is normal in size. No focal splenic lesion is seen. The ? adrenal glands are symmetric and normal in appearance. There is a 5 ? mm left mid pole nonobstructing renal calculus again seen. No ? hydronephrosis is noted. No: Coronary No abnormally enlarged lymph ? nodes are seen within the abdomen or pelvis. ? CT PELVIS: Numerous diverticuli throughout the sigmoid colon are ? again seen. There is persistent extensive deep pelvic pericolonic ? stranding as well as sigmoid colonic wall thickening. However, the ? multifocal areas of extraluminal air in the deep pelvis appear to ? have resolved. The retrocecal appendix is normal in appearance. No ? free fluid is seen in the deep pelvis. No pelvic or inguinal ? adenopathy is detected. The bony structures of the pelvis and lumbar ? spine demonstrate no acute abnormality. ? IMPRESSION: ? 1. Diverticulosis without imaging evidence of diverticulitis again ? seen. The extensive deep pelvic stranding has improved slightly, and ? currently, no extraluminal air or circumscribed abscess is seen. ? 2. Nonobstructing left nephrolithiasis. ? 3. Multiple indeterminate low-attenuation hepatic foci. These are ? likely better seen on the current, enhanced study due to technical ? factors. Please consider right upper quadrant ultrasound to better ? assess these indeterminate foci. ? REPORT SIGNED IN OTHER VENDOR SYSTEM 03/19/2016 ?Reported By: Michael Baeza MD ? CC: Amee Campos ? Transcribed Date/Time: 03/19/2016 (1450) ? Autocad Draftsman: SCR ? Printed Date/Time: 03/23/2019 (0153) ? PAGE 1 ? Signed Report ? Procedure Note Michael Baeza MD - 08/15/2019 EXAM: CAT SCAN/ABDOMEN PELVIS WITH CONTRA EX. D/ (1431) CLINICAL INFORMATION: K57.32 RECENT DIVERTICULITIS;STILL WITH LOW PELVIC PAIN INDICATION: DIVERTICULITIS K57.32 RECENT DIVERTICULITIS;STILL WITH LOW: PELVIC PAIN TECHNIQUE: Axial enhanced imaging of the abdomen and pelvis was obtained. Multiplanar reconstruction was performed. COMPARISON: 03/03/2016. FINDINGS: CT ABDOMEN: The lung bases are clear. No effusion is seen at thelung bases. The scattered tiny low-attenuation hepatic foci areunchanged. There is a lobular peripheral 3 x 1 cm focus in the posterior right hepatic lobe (series 2 image 26). Aortic atherosclerosis is seen.No intra-abdominal free air is currently seen. No focal pancreatic abnormality is seen. No peripancreatic inflammation is noted. The spleen is normal in size. No focal splenic lesion is seen. The adrenal glands are symmetric and normal in appearance. There is a 5 mm left mid pole nonobstructing renal calculus again seen. No hydronephrosis is noted. No: Coronary No abnormally enlarged lymph nodes are seen within the abdomen or pelvis. CT PELVIS: Numerous diverticuli throughout the sigmoid colon are again seen. There is persistent extensive deep pelvic pericolonic stranding as well as sigmoid colonic wall thickening. However, the multifocal areas of extraluminal air in the deep pelvis appear to have resolved. The retrocecal appendix is normal in appearance. No free fluid is seen in the deep pelvis. No pelvic or inguinal adenopathy is detected. The bony structures of the pelvis andlumbar spine demonstrate no acute abnormality. IMPRESSION: 1. Diverticulosis without imaging evidence of diverticulitis again seen. The extensive deep pelvic stranding has improved slightly,and currently, no extraluminal air or circumscribed abscess is seen. 2. Nonobstructing left nephrolithiasis. 3. Multiple indeterminate low-attenuation hepatic foci. These are likely better seen on the current, enhanced study due to technical factors. Please consider right upper quadrant ultrasound to better assess these indeterminate foci. REPORT SIGNED IN OTHER VENDOR SYSTEM 03/19/2016 Reported By: Michael Baeza MD CC: Amee Campos Transcribed Date/Time: 03/19/2016 (1450) Autocad Draftsman: Printed Date/Time: 03/23/2019 (0154) PAGE 1 Signed Report us Amee Campos MD IMG CT ORDERABLES Final Result documented in this encounter Visit Diagnoses Not on filedocumented in this encounter Care Teams Supervisor Customer Complaint Service Relationship Specialty Start Date End Date Titus Castro MD PCP - General 05/27/15 06/21/24 documented as of this encounter
--- OUTSIDE RECORDS SUMMARY | 2024-08-29 11:05 | XMS_ITS | Encounter Summary ---
Author Organization [facility] Address [address] [place] [address] Care Team Providers Care Office Agent Name Role Phone Titus Castro MD Primary Care Provider Unav ailable Encounter Details Date Type Department Care Team (Late st Contact Info) Description 05/11/2016 Orders Only [facility] General Surgery - [place] [address] [facility] [address] [place] [address] Amee Campos MD [address] [facility] [address] [address] Social History Tobacco Use Types [...] on file documented as of this encounter Ordered Prescriptions Prescription Sig Dispense Quantity Refills Last Filled Start Date End Date nicotine (NICODERM CQ) 14 mg/[address] 1 Patch onto the skin daily for 30 days. 30 Patch 1 05/11/2016 06/10/2016 documented in this encounter Plan of Treatment Not on file documented as of this encounter Visit Diagnoses Not on filedocumented in this encounter Care Teams Office Agent Relationship Specialty Start Date End Date Titus Castro MD PCP - General 05/27/15 06/21/24 documented as of this encounter
--- OUTSIDE RECORDS SUMMARY | 2024-08-29 11:05 | XMS_ITS | Encounter Summary ---
Author Organization [facility] Address [address] [place] [address] Care Team Providers Care Network Liaison Name Role Phone Titus Castro MD Primary Care Provider Unav ailable Encounter Details Date Type Department Care Team (Late st Contact Info) Description 04/04/2016 Historical Results Only [facility] Radiology Results [address] [place], [place] [phone] Kyle Ross MD [address] [place] [address] Social History Tobacco Use Types Packs/Day Years [...] Priority Date/Time Associated Diagnosis Comments XR ABDOMEN FLAT AND UPRIGHT 04/04/2016 23:07 EDT documented in this encounter Results * XR ABDOMEN FLAT AND UPRIGHT (04/04/2016 23:07 EDT) Anatomical Region Laterality Modality Body Other 04/04/2016 23:0 7 EDT Narrative 04/04/2016 23:07 EDT ? EXAM: RADIOLOGY/ABDOMEN FLAT AND UPRIGHT ??EX. D/ (2242) ? CLINICAL INFORMATION: ? ABD PAIN ? EXAM: ? XR Abdomen, 1 View. ? CLINICAL HISTORY: ? 55 years old, ??male; Pain; Abdominal pain; Generalized; ? Additional info: Abd pain ? TECHNIQUE: ? Frontal supine view of the abdomen/pelvis. ? EXAM DATE/TIME: ? Exam ordered ??04/04/2016 9:19 PM ? COMPARISON: ? CT - ABDOMEN PELVIS WITH CONTRAST 03/19/2016 2:20:49 PM ? FINDINGS: ? Gastrointestinal tract: ??There are a few fluid levels in the ? small bowel which may related to ileus. ??No significant bowel ? dilatation noted. ? Visualized organs and vessels: ??Surgical clips are seen in ? scrotum. ??There is a 5 mm calcification in the region of the ? left renal upper pole which corresponds to the nonobstructing ? calculus seen on recent abdominal CT. ? Bones/joints: ??Unremarkable. ??No acute fracture. ? Other findings: ??No free air. ? IMPRESSION: ? Few fluid levels in nondilated small bowel which may related to ? ileus. ? 5 mm left renal calculus. ? REPORT SIGNED IN OTHER VENDOR SYSTEM 04/04/2016 ?Reported By: Marilu Stevenson MD ? CC: ? Transcribed Date/Time: 04/04/2016 (5767) ? Siebel Consultant: ? Printed Date/Time: 03/23/2019 (0153) ? PAGE 1 ? Signed Report ? Procedure Note GrahamMarilu polo - 08/15/2019 EXAM: RADIOLOGY/ABDOMEN FLAT AND UPRIGHT EX. D/ (2242) CLINICAL INFORMATION: ABD PAIN EXAM: XR Abdomen, 1 View. CLINICAL HISTORY: 55 years old, male; Pain; Abdominal pain; Generalized; Additional info: Abd pain TECHNIQUE: Frontal supine view of the abdomen/pelvis. EXAM DATE/TIME: Exam ordered 04/04/2016 9:19 PM COMPARISON: CT - ABDOMEN PELVIS WITH CONTRAST 03/19/2016 2:20:49 PM FINDINGS: Gastrointestinal tract: There are a few fluid levels in the small bowel which may related to ileus. No significant bowel dilatation noted. Visualized organs and vessels: Surgical clips are seen in scrotum. There is a 5 mm calcification in the region of the left renal upper pole which corresponds to the nonobstructing calculus seen on recent abdominal CT. Bones/joints: Unremarkable. No acute fracture. Other findings: No free air. IMPRESSION: Few fluid levels in nondilated small bowel which may related to ileus. 5 mm left renal calculus. REPORT SIGNED IN OTHER VENDOR SYSTEM 04/04/2016 Reported By: Marilu Stevenson MD CC: Transcribed Date/Time: 04/04/2016 (2303) Siebel Consultant: Printed Date/Time: 03/23/2019 (0156) PAGE 1 Signed Report us Kyle Ross MD IMG DIAGNOSTIC IMAGING ORDER ADITYA Final Result documented in this encounter Visit Diagnoses Not on filedocumented in this encounter Care Teams Network Liaison Relationship Specialty Start Date End Date Titus Castro MD PCP - General 05/27/15 06/21/24 documented as of this encounter
--- OUTSIDE RECORDS SUMMARY | 2024-08-29 11:06 | XMS_ITS | Encounter Summary ---
Author Organization [facility] [place] [address] Care Team Providers Care Service Promoter Salesperson Name Role Phone Brittany Fay MD Primary Care Provider [phone] Encounter Details Date Type Department Care Team (Late st Contact Info) Description 08/12/2021 7:30 AM EDT Tech [place] [phone] Ilya Castro [place] PAD (peripheral artery disease) Social History Tobacco [...] Procedure Name Priority Date/Time Associated Diagnosis Comments PRG NON-INVASIVE PHYSIOLOGIC STUDY EXTREMITY ART 2 LEVEL Routine 08/12/2021 7:28 AM EDT PAD (peripheral artery disease) documented in this encounter Results * PARKER, legs, multiple levels (08/12/2021 7:28 AM EDT) VB Text Report Department: Vascular Surgery Lab Patient: [id number] (FERN MONTGOMERY) CPT: 89529 ICD10: I73.9 Referring Physician: CHRIS CHASE ?? Phone: Indications: s/p RIGHT LE iliofemoral endart Diabetes mellitus: no ICD10 Diagnosis Code: I73.9 Findings: Right ?Pressure (mm Hg) ?? PARKER ??Waveform ?? Brachial Artery ?157 ? Dorsalis Pedis (Ankle) Artery ?166 ? 1.06 ??Triphasic ?? Posterior Tibial (Ankle) Artery ??168 ? 1.07 ??Triphasic ?? Left ? Pressure (mm Hg) ?? PARKER ??Waveform ? Brachial Artery ?150 ? Dorsalis Pedis (Ankle) Artery ?161 ? 1.03 ??Bi-Triphasic ?? Posterior Tibial (Ankle) Artery ??167 ? 1.06 ??Triphasic ? Interpretation: RIGHT: No significant lower extremity arterial occlusive disease identifiable at rest. Normal ankle/brachial pressure ratios and ankle Doppler waveforms. No significant change compared to previous exam. LEFT: No significant lower extremity arterial occlusive disease identifiable at rest. Normal ankle/brachial pressure ratios and ankle Doppler waveforms. No significant change compared to previous exam. Previous ABIs with change from previous value: Date ?RIGHT DP ?? RIGHT PT ?? RT GR TOE ??RT Sec TOE ??0.73 ? 0.90 ? ---- ? ---- ??1.06(+.33) 1.15(+.25) ---- ? ---- Current ? 1.06( .00) 1.07(-.08) ---- ? ---- Date ?LEFT DP ?LEFT PT ?LT GR TOE LT Sec TOE ??1.10 ? 1.28 ? ---- ? ---- ??1.17(+.07) 1.20(-.08) ---- ? ---- Current ? 1.03(-.14) 1.06(-.14) ---- ? ---- Electronically Signed by: CHRIS CHASE on 2021-08-12 08:30:44 AM VAS[facility] VB Text Report End of Report [facility] 08/12/2021 7:28 AM EDT Chris Chase MD VASCULAR ORDERABLES Performing Organization Address City/State/[facility] [place] Phone Number [facility] documented in this encounter Visit Diagnoses Diagnosis PAD (peripheral artery disease) Peripheral vascular disease, unspecified documented in this encounter Care Teams Service Promoter Salesperson Relationship Specialty Start Date End Date Brittany Fay MD [address] [place] [address] PCP - General General Internal Medicine 03/25/20 documented as of this encounter
--- OUTSIDE RECORDS SUMMARY | 2024-08-29 11:06 | XMS_ITS | Encounter Summary ---
Author Organization [facility] [place] [address] Care Team Providers Care Bus System Operator Name Role Phone Brittany Fay MD Primary Care Provider [phone] Reason for Visit * Auth/Cert Specialty Diagnoses / Procedures Referred By Lexus garsia Referred To Contact Diagnoses Claudication RLE claudication UNKNOWN Procedures PRO THROMBOENDARTECTMY ILIOFEMORAL @ENDARTERECTOMY, ILIOFEMORAL W OR W/O PATCH GRAFT (WRVU 19.86) Referral ID Status Reason Start Date Expiration Date Visits Re quested Visits Authorized [id number] 1 1 Encounter Details Date Type Department Care Team (Late st Contact Info) Description 07/10/2020 7:33 AM EDT Anesthesia Event [place] [id number] Keaton Thompson MD [facility] [place] [address] Anesthesia Record Procedure Summary Procedure Name Responsible Anesthesiologist Anesthesia Start Time Anesthesia Stop Time @ENDARTERECTOMY, ILIOFEMORAL W OR W/O PATCH GRAFT (WRVU 19.86) (Right: Groin) Keaton Thompson MD 07/10/20 0733 07/10/20 1109 Events Date Time Event Comment 07/10/2020 0712 0732 AN Verify 0733 Start 0733 An Start Data 0738 An Induction 0746 An Intubation 0757 Anesthesia Ready 0813 Break/Relief In I assumed ca re for Break Relief before which we: 1. Identified the patient 2. Identified the responsible provider(s) 3. Reviewed the pertinent medical history 4. Discussed the surgical plan and course 5. Reviewed intra-op anesthesia management and issues during anesthesia 6. Set expectations for the relief (and/or post-procedure) period 7. Allowed opportunity for questions and acknowledgement of understanding Bhavya Durham CRNA 0816 Procedure Start 0830 Break/Relief Out 0859 Heparin 1054 Extubation/LMA Out 1054 Procedure Stop 1058 an stop data 1109 Recovery or ICU Handoff Radha ent care was transferred to the destination unit staff after review of the patient's medical history, current anesthetic/surgical status and plan, according to the Provider Handoff Checklist. 1109 Stop Meds Name Total fentaNYL 100 mcg IV Lidocaine 100 mg Propofol 250 mg Rocuronium 50 mg Heparin 8,000 Units Protamine 50 mg Dexamethasone 8 mg clindamycin (CLEOCIN) 900mg in dextrose 5% 50mL 900 mg Esmolol 120 mg PHENYLephrine INF 970 mcg Dexmedetomidine 16 mcg lactated ringers infusion 1,600 mL Lactated Ringers 600 mL * Agents Name O2 Air N2O Sevoflurane (et) * Blood No blood administrations on file. Lines, Drains, and Airways Type Details Placement Removal (RETIRED) Peripheral IV Line - Single Lumen cephalic vein (lateral side of arm), right; bawg-out-pfmsdx catheter system; 18 gauge; Griselda Hendrickson NUT TIGHTENER; tolerated well; 07/11/20; 1524 07/10/20 0828 by 07/11/20 1524 by Teresa Rosen, RN (RETIRED) Peripheral IV Line - Single Lumen 05/23/20; 1446; median cubital vein (antecubital fossa), right; oeqs-bba-hpgkwt catheter system; 20 gauge; distraction, intradermal injection, tolerated well; 07/10/20; 19105/23/20 1446 by Dane Jacobsen LPN 07/10/20 191 by Doris Nunez RN (RETIRED) Peripheral IV Line - Single Lumen 07/03/20; 0943; basilic vein (medial side of arm), right; tmst-vxl-qoydgq catheter system; 22 gauge; 07/15/21 (LDA Cleanup utility RA#[id number]); 1650 (LDA Cleanup utility RA#[id number]) 07/03/20 0943 by Kyle Lobato 07/15/21 1650 by Helio Randle (RETIRED) Peripheral IV Line - Single Lumen 07/10/20; 0653; cephalic vein (lateral side of arm), left; chsp-tfp-ukyxyg catheter system; 20 gauge; distraction; 07/11/20; 1524 07/10/20 0653 by Teresa Rosen RN 07/11/20 1524 by Teresa Rosen RN ETT Mask Ventilation: Ea sourav (1); ETT Type: Cuffed, Oral; ETT Size: 8 mm; Mac Blade: 4; Exchange: Bougie; Notes: Asleep, Cricoid Pressure, Pre-O2, Stylette; Attempts: 2; Laryngoscopy Grade: 2; ETT Placement Verified By: Auscultation, Capnometry, Visual; Secured at Teeth: 23 cm; Inserted by: Donna; Removal Date: 07/10/20; Removal Time: 1054 07/10/20 0746 by Patito Méndez, NUT TIGHTENER 07/10/20 1054 by Patito Méndez CRNA Arterial Line 07/10/20; 0805; radi al artery, left; 20 gauge; Patito Méndez SRNA; Sterile Prep, Sterile Gloves; 07/10/20; 1243 07/10/20 0805 by Patito Méndez, NUT TIGHTENER 07/10/20 1243 by Nel Lehman RN Urethral Catheter 07/10/20; 0805; Surg allison longer than 2 hours; indwelling single lumen catheter; latex; 14; inserted at this facility; 1; 10; 10; (performed under general anesthesia); drainage bag to dependent drainage; urethral catheter removed, tubing intact; 07/11/20; 0007 07/10/20 0805 by Maryam Beyer RN 07/11/20 0007 by Doris Nunez RN Incision 07/10/20; 0817; groi n; 06/07/22 (LDA cleanup utility RA#[id number]); 1715 (LDA cleanup utility RA#[id number]) 07/10/20 08 by Maryam Beyer RN 06/07/22 171 by Leeann Kwong documented in this encounter Social History Tobacco Use Types Packs/Day Years Used Date Smoking Tobacco: Every Day Cigarettes 0.5 16 Smokeless Tobacco: Never Sex and Gender Information Value Date Recorded Sex Assigned at Not on file Gender Identity Not on file Sexual Orientation Not on file documented as of this encounter OR Notes * Anesthesia Postprocedure Evaluation - Keaton Thompson MD - 07/10/2020 1:24 PM EDT Department of Anesthesiology Post-procedure Note Patient: Pollo Melara Procedure Summary Date: 07/10/20 Room / Location: [address] MAIN OR Anesthesia Start: 732 Anesthesia Stop: 1108 Procedures: @ENDARTERECTOMY, ILIOFEMORAL W OR W/O PATCH GRAFT (WRVU 19.86) (Right Groin) @ENDARTERECTOMY, PROFUNDAPLASTY, DEEP, PROFUNDA FEMORIS W OR W/O PATCH GRAFT (WRVU 18.58) (Right Leg Upper) Diagnosis: (RLE claudication) Surgeon: Chris Chase MD Responsible Provider: Keaotn Thompson MD Anesthesia Type: general ASA Status: 3 All Anesthesia Providers: Anesthesiologist: Keaton Thompson MD NUT TIGHTENER: Griselda Hendrickson CRNA Student Nurse Tool Maker Apprentice: Patito Méndez Vitals Value Taken Time BP 125/78 07/10/20 1315 Temp 36.1 ??C (97 ??F) 07/10/20 1230 Pulse 71 07/10/20 1313 Resp 15 07/10/20 1313 SpO2 96 % 07/10/20 1322 Pain Level 6 07/10/20 1129 Vitals shown include unvalidated device data. Patient Location: PACU/[facility] Level of Consciousness: Awake and Alert Pain Management: Satisfactory Analgesia PONV: None Cardiovascular Status: Hemodynamically Stable and At Baseline Respiratory Status: Stable Respiratory Status Postoperative Fluid Status: Intravascular EUvolemia Possible Anesthetic Complications: NONE apparent at time of evaluation Final Primary Anesthesia Type: General (The anesthetic type performed was the same as planned.) Comments: * Anesthesia Preprocedure Evaluation - Keaton Thompson MD - 07/10/2020 6:54 AM EDT Pre-Anesthesia Evaluation for: Pollo Melara a 59 y.o. male. Procedure(s): @ENDARTERECTOMY, ILIOFEMORAL W OR W/O PATCH GRAFT (WRVU 19.86) Patient Active Problem List Diagnosis ??? Claudication ??? PVD (peripheral vascular disease) with claudication ??? Hypertension Past Medical History: Diagnosis Date ??? Hypertension 04/23/2020 ??? PVD (peripheral vascular disease) with claudication 04/23/2020 Past Surgical History: Procedure Laterality Date ??? COLON SURGERY diverticulitis Social History Tobacco Use ??? Smoking status: Current Every Day Smoker Packs/day: 0.50 Years: 16.00 Pack years: 8.00 Types: Cigarettes ??? Smokeless tobacco: Never Used Substance Use Topics ??? Alcohol use: Not on file Social History Substance and Sexual Activity Drug Use Not on file Allergies Allergen Reactions ??? Penicillins ??? Tetanus Vaccines And Toxoid Medications: MAR and/or home medications have been reviewed. Physical Exam: Patient Vitals for the past 24 hrs: Temp Pulse Resp BP SpO2 O2 Device 07/10/20 0614 36.4 ??C (97.5 ??F) 98 18 163/88 100 % RA Body mass index is 27.37 kg/m??. Height: 172.7 cm (5' 8) Airway Assessment: Mallampati: III TM distance: >3 FB Neck ROM: full Cardiovascular Assessment: Rhythm: regular Rate: normal Pulmonary Assessment: PE comment: NAD Dental Assessment: - normal exam Misc Assessment: IV access: Peripheral line Anesthesia Plan: ASA 3 general, with a(n) intravenous induction 59 y/o man with a PMH of HTN, HLD, smoking, PVD here for right femoral endarterectomy. Tolerated GA in the past without issue. Had reported some chest pressure along with exertional claudication, had nuc stress test with no ischemia, normal EF and wall motion. NPO. Plan for GA, ETT, PIVx2, arterial line. Region - [facility] Informed Consent: Anesthetic plan and risks discussed with patient. Plan discussed with NUT TIGHTENER. PAT Clinic Note documented in this encounter Plan of Treatment Not on file documented as of this encounter Visit Diagnoses Not on filedocumented in this encounter Administered Medications Inactive Administered Medications - up to 3 most recent administrations Medication Order MAR Action Action Date Dose Rate Site clindamycin (CLEOCIN) 900mg in dextrose 5% 50mL 900 mg, Intravenous, ONCE, 1 dose, On Freya 07/10/20 at 0630, Administer over 30 Minutes, Give over 30-60 minutes. Do not exceed 30mg/minute. Redose every 6 hours if CrCl is greater than 20. Redose every 6 hours if CrCl is less than 20., Day of Surgery (Day of Procedure), Indication for (Active or Suspected): Prophylaxis Given 07/10/2020 8:07 AM EDT 900 mg dexamethasone (Decadron) injection PRN, Starting on Freya 07/10/20 at 0738, Until Freya 07/10/20 at 1109, Anesthesia Intra-op, Routine Given 07/10/2020 7:38 AM EDT 8 mg dexmedetomidine (PRECEDEX) injection PRN, Starting on Freya 07/10/20 at 1042, Until Freya 07/10/20 at 1109, Anesthesia Intra-op, Routine Given 07/10/2020 10:52 AM EDT 6 mcg Given 07/10/2020 10:47 AM EDT 6 mcg Given 07/10/2020 10:42 AM EDT 4 mcg esmoloL (BREVIBLOC) injection PRN, Starting on Freya 07/10/20 at 0802, Until Freya 07/10/20 at 1109, Anesthesia Intra-op, Routine Given 07/10/2020 8:17 AM EDT 20 mg Given 07/10/2020 8:03 AM EDT 10 mg Given 07/10/2020 8:02 AM EDT 40 mg fentaNYL 50 mcg/mL multi-dose injection PRN, Starting on Freya 07/10/20 at 0738, Until Freya 07/10/20 at 1109, Anesthesia Intra-op, Routine Given 07/10/2020 7:38 AM EDT 100 mcg heparin (porcine) 1,000 unit/mL injection PRN, Starting on Freya 07/10/20 at 0859, Until Freya 07/10/20 at 1109, Anesthesia Intra-op, Routine Given 07/10/2020 8:59 AM EDT 8,000 Units lactated ringers infusion 1,000 mL, at 100 mL/hr, Intravenous, CONTINUOUS, Starting on Freya 07/10/20 at 0630, Until Freya 07/10/20 at 1122, Day of Surgery (Day of Procedure) New Bag 07/10/2020 9:22 AM EDT New Bag 07/10/2020 6:53 AM EDT 1,000 mLs 100 mL/hr lactated ringers infusion CONTINUOUS PRN, Starting on Freya 07/10/20 at 0755, Until Freya 07/10/20 at 1109, Anesthesia Intra-op New Bag 07/10/2020 7:55 AM EDT lidocaine (PF) (XYLOCAINE) 100 mg/5 mL (2 %) injection PRN, Starting on Freya 07/10/20 at 0738, Until Freya 07/10/20 at 1109, Anesthesia Intra-op, Routine Given 07/10/2020 7:38 AM EDT 100 mg PHENYLephrine (BLANCA-SYNEPHRINE) 20 mg in sodium chloride 250 mL (standard ADULT & Pedi greater than 20kg) infusion CONTINUOUS PRN, Starting on Freya 07/10/20 at 0936, Until Freya 07/10/20 at 1109, Anesthesia Intra-op, Routine Rate/Dose Change 07/10/2020 10:18 AM EDT 10 mcg/min 7.5 mL/hr New Bag 07/10/2020 9:36 AM EDT 20 mcg/min 15 mL/hr propofoL (Diprivan) 10 mg/mL bolus injection (Anesthesia) PRN, Starting on Freya 10 at 0738, Until Freya 07/10/20 at 1109, Anesthesia Intra-op Given 07/10/2020 7:45 AM EDT 50 mg Given 07/10/2020 7:41 AM EDT 40 mg Given 07/10/2020 7:38 AM EDT 160 mg protamine injection PRN, Starting on Freya 07/10/20 at 1006, Until Freya 07/10/20 at 1109, Anesthesia Intra-op, Routine Given 07/10/2020 10:06 AM EDT 50 mg rocuronium (ZEMURON) multi-dose injection PRN, Starting on Freya 10 at 0738, Until Freya 07/10/20 at 1109, Anesthesia Intra-op, Routine Given 07/10/2020 7:38 AM EDT 50 mg documented in this encounter Care Teams Bus System Operator Relationship Specialty Start Date End Date Brittany Fay MD [address] [place] [address] PCP - General General Internal Medicine 03/25/20 documented as of this encounter
--- OUTSIDE RECORDS SUMMARY | 2024-08-29 11:06 | XMS_ITS ---
Author Organization Unknown Address [address] [place] [phone] Phone Care Team Providers Care Electric Serviceman Name Role Phone CHANCE TED Tori Attending Unavailable REUBEN Lowery Primary Unavailable Social History Type Status Start Date End Date Code Code Syst em Smoking History Current every day smoker 652039147 SNOMED CT Sex Male Medications Medication Start Date End Date Route Frequency Dose Code Code System Medication Instructions Home Meds Valium 5MG Oral Tablet 11/02/2021 Unknown ORAL NEEDED EVERY 8 HOURS 1 TABLET 938423 RxNorm TAKE 1 TABLET ORAL NEEDED EVERY 8 HOURS Cipro 500MG Oral Tablet 01/08/2024 Unknown ORAL TWICE A DAY 1 TABLET 923486 RxNorm TAKE 1 TABLET ORAL TWICE A DAY Hospital Discharge Instructions Should you have any questions prior to discharge, please contact a member of your healthcare team. If you have left the hospital and have any questions, please contact your primary care physician. Reason For Referral No Data Found Procedures Procedure Name Date Status Code Code Syste m Exc B9 Lesion Mrgn Xcp Sk Tg T/A/L 0.6-1.0 cm 09/23/2022 c ompleted 77554 CPT Repair, Intermediate, Wounds Of Scalp, Axillae, Trunk And/Or Extremities; 2.5 cm Or Less 09/23/2022 completed 94852 CPT Problems Problem Start Date Resolved Date Status Code Code System HIGH BLOOD PRESSURE 01/07/2024 resolved 45970307 SNOMED-CT HIGH CHOLESTEROL 01/07/2024 resolved 09797934 SN OMED-CT Allergies and Adverse Reactions Allergy Substance Reaction Severity Start Date Concern Status Co de Code System TETANUS IMMUNE GLOBULIN Active 15347 RxNorm PENICILLIN Active Plan of Treatment CT CHEST W/O CONTRAST 10/14/2023 CT CHEST W/O CONTRAST 01/14/2023 Encounters Encounter Diagnosis Start Date Code Code Sys tem Epidermal cyst 09/23/2022 SNOMED-CT Personal Care Team Section Performer Name Performer Role Active Date Inactive Da te
--- OUTSIDE RECORDS SUMMARY | 2024-08-29 11:06 | XMS_ITS | Encounter Summary ---
Author Organization [facility] Address [facility] [place] [address] Care Team Providers Care Contracts Paralegal Name Role Phone Brittany Fay MD Primary Care Provider [phone] Encounter Details Date Type Department Care Team (Late st Contact Info) Description 08/12/2021 8:00 AM EDT Office [place] [address] Chris Chase MD [facility] [place] [address] PVD (peripheral vascular disease) with claudication Social History Tobacco Use Types Packs/Day Years [...] Pulse 87 08/12/2021 8:01 AM EDT Temperature - - Respiratory Rate 18 08/12/2021 8:01 AM EDT Oxygen Saturation - - Inhaled Oxygen Concentration - - Weight 81.6 kg (180 lb) 08/12/2021 8:01 AM EDT Height 170.2 cm (5' 7) 08/12/2021 8:01 AM EDT Body Mass Index 28.19 08/12/2021 8:01 AM EDT documented in this encounter Progress Notes * Chris Chase MD - 08/12/2021 8:00 AM EDT Vascular Surgery Follow up Visit CC: Follow up right femoral endarterectomy for claudication performed 07/10/2020 Interval history: Since last being seen Mr. Melara has had no recurrence of symptoms. He has beentaking his aspirin and statin. He is down to 0.5 PPD smoking. He has been having some tingling / numbness over a patch of his medial thigh which has been bothersome. He otherwise is feeling well. Review of Systems: 10 point review of systems negative except as noted Problem List: Patient Active Problem List Diagnosis ??? Cigarette smoker ??? Hepatic steatosis ??? Claudication ??? PVD (peripheral vascular disease) with claudication ??? Hypertension Home Medications: Antiplatelet: Aspirin Anticoagulant: None Statin: Lipitor Outpatient Medications Marked as Taking for the 08/12/21 encounter (Office Visit) with Chris Chase MD Medication Sig Dispense Refill ??? aspirin EC 81 mg Tablet, Delayed Release (E.C.) Take 1 tablet by mouth daily. 30 tablet 3 ??? atorvastatin (Lipitor) 40 mg Tablet Take 1 tablet by mouth every evening. 90 tablet 3 ??? lisinopriL (Prinivil;Zestril) 20 mg Tablet Take 1 tablet by mouth daily. 90 tablet 3 ??? acetaminophen (Tylenol) 500 mg Tablet Take 2 tablets by mouth every 6 hours. 30 tablet 1 Physical Exam: Temp: -- Heart Rate: [87] Resp: [18] BP: (138)/(82) SpO2: -- Heart Rate from SpO2: -- General: NAD, resting comfortably CVS: Regular rate Pulm: Normal work of breathing on room air GI: Abdomen soft, non tender, non distended Vasc: RLE: Well healed groin incision. No edema. No tissue loss. Brisk capillary refill 2/2 PT pulse LLE: No edema. No tissue loss. Brisk capillary refill 2/2 PT pulse Neuro: CN 2-12 grossly intact, nonfocal, moving all extremities. Studies: ABIs today: Findings: ?? Right ?Pressure (mm Hg) ?? PARKER ??Waveform ?? Brachial Artery ?157 ? Dorsalis Pedis (Ankle) Artery ?166 ? 1.06 ??Triphasic ?? Posterior Tibial (Ankle) Artery ??168 ? 1.07 ??Triphasic ? Left ? Pressure (mm Hg) ?? PARKER ??Waveform ? Brachial Artery ?150 ? Dorsalis Pedis (Ankle) Artery ?161 ? 1.03 ??Bi-Triphasic ?? Posterior Tibial (Ankle) Artery ??167 ? 1.06 ??Triphasic ? Interpretation: ?? RIGHT: No significant lower extremity arterial occlusive disease identifiable at rest. Normal ankle/brachial pressure ratios and ankle Doppler waveforms. No significant change compared to previous exam. ?? LEFT: No significant lower extremity arterial occlusive disease identifiable at rest. Normal ankle/brachial pressure ratios and ankle Doppler waveforms. No significant change compared to previous exam. ?? Previous ABIs with change from previous value: ?? Date ?RIGHT DP ?? RIGHT PT ?? RT GR TOE ??RT Sec TOE ??0.73 ? 0.90 ? ---- ? ---- ??1.06(+.33) 1.15(+.25) ---- ? ---- Current ? 1.06( .00) 1.07(-.08) ---- ? ---- ?? Date ?LEFT DP ?LEFT PT ?LT GR TOE LT Sec TOE ??1.10 ? 1.28 ? ---- ? ---- ??1.17(+.07) 1.20(-.08) ---- ? ---- Current ? 1.03(-.14) 1.06(-.14) ---- ? ---- ?? Assessment and Plan: 60 y.o. male smoker status post right femoral endarterectomy 07/10/2020. Resolution of claudication. Normal ABIs. I urged him for 5 minutes to stop smoking completely, and warned him of the implications of not doing so. He stated that he would continue to work on this anddeclined referrals to any support sources. He will continue taking his aspirin and statin. His area of numbness over the medial thigh is likely due to his femoral incision, and is an unavoidable consequence in some patients. He understood. I will see him back in 1 year with repeat ABIs. He will contact us sooner if he has any questions or troubles. Chris Chase MD Vascular Surgery [facility] documented in this encounter Plan of Treatment Not on file documented as of this encounter Visit Diagnoses Diagnosis PVD (peripheral vascular disease) with claudication Peripheral vascular disease, unspecified documented in this encounter Care Teams Contracts Paralegal Relationship Specialty Start Date End Date Brittany Fay MD [address] [place] [address] PCP - General General Internal Medicine 03/25/20 documented as of this encounter
--- OUTSIDE RECORDS SUMMARY | 2024-08-29 11:06 | XMS_ITS | Encounter Summary ---
Author Organization [facility] [place] [address] Care Team Providers Care Tyre Fitter Name Role Phone Brittany Fay MD Primary Care Provider [phone] Reason for Referral * Diagnostic Test (Routine) - Closed Specialty Diagnoses / Procedures Referred By Lexus garsia Referred To Contact Radiology Diagnoses PVD (peripheral vascular disease) with claudication Procedures CT Angiogram Aortic Lower Extremity Runoff Leesa Bruno APRN [facility] [place] [address] [facility] [place] [address] Referral ID Status Reason Start Date Expiration Date V isits Requested Visits Authorized [id number] Closed Specialty Service Requested 05/21/2020 11/17/2020 1 1 Reason for Visit * Consultation (MARINO) - Closed Specialty Diagnoses / Procedures Referred By Lexus garsia Referred To Contact Vascular Surgery Diagnoses Peripheral vascular disease, unspecified RT LEG CLAUDICATION Brittany Fay MD [address] [place] [address] [facility] [address] [place] [address] Referral ID Status Reason Start Date Expiration Date V isits Requested Visits Authorized [id number] Closed Consult, [facility] & Treat [facility] PCP Updated and/or Approved 04/17/2020 04/17/2021 1 1 Encounter Details Date Type Department Care Team (Late st Contact Info) Description 04/23/2020 8:30 AM EDT Office [place] [address] Leesa Bruno, [employer] [facility] [place] [address] PVD (peripheral vascular disease) with claudication Social [...] Sign Reading Time Taken Comments Blood Pressure 124/70 04/23/2020 8:39 AM EDT Pulse 74 04/23/2020 8:39 AM EDT Temperature - - Respiratory Rate - - Oxygen Saturation - - Inhaled Oxygen Concentration - - Weight 81.6 kg (180 lb) 04/23/2020 8:39 AM EDT r eported Height 170.2 cm (5' 7) 04/23/2020 8:39 AM EDT r eported Body Mass Index 28.19 04/23/2020 8:39 AM EDT documented in this encounter Progress Notes * Leesa Bruno, BRITTANY - 04/23/2020 8:30 AM EDT This is a new patient to the practice who is being evaluated for right leg claudication and was referred by Brittany Fay MD. 59 yo male with HTN noted one year of right calf pain with walking. More recently c/o right calf pain and numbness right leg at 30-50 feet, worsen with speed or inclines. Denies rest pain, tissue loss, chest pain, SOB, TIA's, NC, CVA,DVT. He is a current smoker for 30 years 1/2 ppd. He takes daily ASA. He does not take a statin. Social Hx: Social History Tobacco Use ??? Smoking status: Current Every Day Smoker Packs/day: 0.50 Years: 16.00 Pack years: 8.00 Types: Cigarettes ??? Smokeless tobacco: Never Used Substance Use Topics ??? Alcohol use: Not on file Medications: Medications 04/23/20 0912 Medication Sig Taking? lisinopriL (Prinivil;Zestril) 10 mg Tablet 20 mg Daily. Yes aspirin EC 81 mg Tablet, Delayed Release (E.C.) Take 81 mg by mouth Daily. Yes Allergies: Allergies Allergen Reactions ??? Penicillins ??? Tetanus Vaccines And Toxoid Review of Systems: Constitutional (weight change, fever) - Denies Neuro (dizziness, seizures, numbness, tingling) - Denies Eyes (vision) - Denies Ears, nose, throat (hearing) - Denies Cardiovascular (CP) - Denies Respiratory (SOB) - Denies GI (abd pain, nausea, emesis, blood in stool) - Denies (hematuria, dysuria, frequency) - Denies Muscoloskeletal (extremity pain, weakness) - right leg pain and numbness with walking. Skin (ulcers, rashes) - Denies All other ROS negative Physical Exam: Vitals: Vitals: 04/23/20 0839 BP: 124/70 BP Location (NBP): Right arm Patient Position: Sitting BP Cuff Sizes: Adult (25-34 cm) Pulse: 74 Weight: 81.6 kg (180 lb) Height: 170.2 cm (5' 7) General: NAD, appears well Neuro: Alert and oriented, motor sensory grossly intact Lungs: CTA Heart: RRR Abd: Soft, NT, ND, no palpable pulsatile masses Extremity - [place], warm, no ulceration, brisk capillary refill, no edema Vascular: R L Carotid 2/2 bruit (n) 2/2 bruit (n) Radial 2/2 2/2 Femoral 2/2 2/2 Popliteal -/2 -/2 DP -/2 2/2 PT -/2 2/2 PARKER's 03/25/20 Right ?Pressure (mm Hg) ?? PARKER ??Waveform ? Brachial Artery ?149 ? Common Femoral Artery ?Biphasic ? Popliteal Artery ? Biphasic ? Dorsalis Pedis (Ankle) Artery ?109 ? 0.73 ??Biphasic ? Posterior Tibial (Ankle) Artery ??134 ? 0.90 ??Bi-Triphasic ? Left ? Pressure (mm Hg) ?? PARKER ??Waveform ?? Brachial Artery ?146 ? Common Femoral Artery ?Triphasic ?? Popliteal Artery ? Triphasic ?? Dorsalis Pedis (Ankle) Artery ?164 ? 1.10 ??Triphasic ?? Posterior Tibial (Ankle) Artery ??190 ? 1.28 ??Triphasic ? Interpretation: RIGHT: Mild lower extremity arterial occlusive disease. Disease level, inflow. ?? LEFT: No significant lower extremity arterial occlusive disease identified at rest. Normal ankle/brachial pressure ratios and ankle Doppler waveforms. Assessment/Plan: 59 yo male with HTN noted one year of right calf pain with walking. More recently c/o right calf pain and numbness right leg at 30-50 feet, worsen with speed or inclines. Denies restpain, tissue loss. PARKER's right Mild lower extremity arterial occlusive disease. Disease level, inflow. Left: No significant lower extremity arterial occlusive disease identified at rest. Discussed natural history of PAD. Discussed importance of smoking cession. Continue ASA. Recommend having PCP start statin. RTC 1-4 weeks with CTA runoff and see one of the surgeons to discuss results and options. Cr today 0.85, GFR 96. documented in this encounter Plan of Treatment Not on file documented as of this encounter Results * CT Angiogram Aortic Lower Extremity Runoff (05/23/2020 2:57 PM EDT) Anatomical Region Laterality Modality Abdomen Computed Tomogra phy Impressions 05/23/2020 3:51 PM EDT 1. ??Bilateral dense calcified plaque within the common femoral arteries, just prior to the bifurcations resulting in moderate to severe stenosis, right greater than left. 2. ??Hepatic steatosis. 3. ??Prior sigmoid colectomy with end-to-end anastomosis; the anastomosis appears patent. Thank you for letting us participate in the care of this patient. For questions regarding this report, please contact the number below. ? Narrative 05/23/2020 3:51 PM EDT EXAMINATION: CT ANGIOGRAM AORTA LOWER EXTREMITY RUNOFF CLINICAL HISTORY: 59-year-old male with debilitating and disabling right lower extremity claudication. TECHNIQUE: Helical CTA of the abdomen, pelvis and lower extremities was performed following the intravenous administration of contrast. Administered 150.0 ml of OMNIPAQUE 350.00 mg/ml. MPRs were performed. 3-D images were generated on an independent workstation. COMPARISON: None FINDINGS: VASCULAR FINDINGS Abdominal aorta: There is no stenosis or aneurysm. ??There is mild atherosclerotic calcification predominantly of the infrarenal abdominal aorta. Celiac: No stenosis. SMA: No stenosis. Right renal artery: No stenosis. Left renal artery: No stenosis. CARLOS: No stenosis. RIGHT LOWER EXTREMITY Common iliac artery: Widely patent. External iliac artery: Widely patent. Internal iliac artery: Widely patent. Common femoral artery: Within the distal right common femoral artery, just prior to its bifurcation, there is a large calcified atherosclerotic plaque resulting in greater than 80-90% stenosis. Superficial femoral artery: Widely patent. Profundus femoral artery: Widely patent. Popliteal artery: Widely patent Anterior tibial artery: Widely patent. Tibio-peroneal trunk: Widely patent. Posterior tibial artery: Widely patent. Peroneal artery: Widely patent. Dorsalis pedis: Widely patent. Plantar arteries: Widely patent. LEFT LOWER EXTREMITY Common iliac artery: Widely patent. External iliac artery: Widely patent. Internal iliac artery: Widely patent. Common femoral artery: There is a focal dense calcified plaque just prior to the bifurcation, resulting in approximately 80% stenosis. Superficial femoral artery: Widely patent. Profundus femoral artery: Widely patent. Popliteal artery: Widely patent Anterior tibial artery: Widely patent. Tibio-peroneal trunk: Widely patent. Posterior tibial artery: Widely patent. Peroneal artery: Widely patent. Dorsalis pedis: Widely patent. Plantar arteries: Widely patent. NON-VASCULAR FINDINGS Lower chest: Normal. Liver: The liver is diffusely hypoattenuating, consistent with hepatic steatosis. Bile ducts: Normal. Gallbladder: The gallbladder is contracted, limiting evaluation. Pancreas: Normal attenuation without ductal dilatation. Spleen: Normal. Adrenals: Normal. Kidneys: There is nonspecific perinephric fat stranding bilaterally. Urinary Bladder: Normal. Lymph Nodes: No enlarged lymph nodes. Bowel: The distal esophagus is unremarkable. ??The stomach is distended with food stuffs and debris. ??The duodenum is normal in course and caliber. ??The small bowel is unremarkable.. ??There has been prior sigmoid resection with an end to end anastomosis. ??The anastomosis appears patent. Peritoneum and mesentery: No ascites, free air, or loculated fluid collection. No mesenteric inflammation. Abdominal wall: Normal. Reproductive organs: The prostate gland is mildly enlarged with calcifications within the prostate gland. ??There are bilateral surgical clips, consistent with prior vasectomy. ??There is a small hydrocele bilaterally. Osseous structures: There are no suspicious osseous lesions. ??There are diffuse disc bulges within the inferior lumbar spine resulting in mild central canal stenosis. Procedure Note Darrell Abreu, - 05/23/2020 EXAMINATION: CT ANGIOGRAM AORTA LOWER EXTREMITY RUNOFF CLINICAL HISTORY: 59-year-old male with debilitating and disabling rightlower extremity claudication. TECHNIQUE: Helical CTA of the abdomen, pelvis and lower extremities was performed following the intravenous administration of contrast.Administered 150.0 ml of OMNIPAQUE 350.00 mg/ml. MPRs were performed. 3-D images were generated on an independent workstation. COMPARISON: None FINDINGS: VASCULAR FINDINGS Abdominal aorta: There is no stenosis or aneurysm. There is mild atherosclerotic calcification predominantly of the infrarenal abdominalaorta. Celiac: No stenosis. SMA: No stenosis. Right renal artery: No stenosis. Left renal artery: No stenosis. CARLOS: No stenosis. RIGHT LOWER EXTREMITY Common iliac artery: Widely patent. External iliac artery: Widely patent. Internal iliac artery: Widely patent. Common femoral artery: Within the distal right common femoral artery, justprior to its bifurcation, there is a large calcified atherosclerotic plaqueresulting in greater than 80-90% stenosis. Superficial femoral artery: Widely patent. Profundus femoral artery: Widely patent. Popliteal artery: Widely patent Anterior tibial artery: Widely patent. Tibio-peroneal trunk: Widely patent. Posterior tibial artery: Widely patent. Peroneal artery: Widely patent. Dorsalis pedis: Widely patent. Plantar arteries: Widely patent. LEFT LOWER EXTREMITY Common iliac artery: Widely patent. External iliac artery: Widely patent. Internal iliac artery: Widely patent. Common femoral artery: There is a focal dense calcified plaque just priorto the bifurcation, resulting in approximately 80% stenosis. Superficial femoral artery: Widely patent. Profundus femoral artery: Widely patent. Popliteal artery: Widely patent Anterior tibial artery: Widely patent. Tibio-peroneal trunk: Widely patent. Posterior tibial artery: Widely patent. Peroneal artery: Widely patent. Dorsalis pedis: Widely patent. Plantar arteries: Widely patent. NON-VASCULAR FINDINGS Lower chest: Normal. Liver: The liver is diffusely hypoattenuating, consistent with hepatic steatosis. Bile ducts: Normal. Gallbladder: The gallbladder is contracted, limiting evaluation. Pancreas: Normal attenuation without ductal dilatation. Spleen: Normal. Adrenals: Normal. Kidneys: There is nonspecific perinephric fat stranding bilaterally. Urinary Bladder: Normal. Lymph Nodes: No enlarged lymph nodes. Bowel: The distal esophagus is unremarkable. The stomach is distendedwith food stuffs and debris. The duodenum is normal in course and caliber. Thesmall bowel is unremarkable.. There has been prior sigmoid resection with anend to end anastomosis. The anastomosis appears patent. Peritoneum and mesentery: No ascites, free air, or loculated fluidcollection. No mesenteric inflammation. Abdominal wall: Normal. Reproductive organs: The prostate gland is mildly enlarged withcalcifications within the prostate gland. There are bilateral surgical clips, consistentwith prior vasectomy. There is a small hydrocele bilaterally. Osseous structures: There are no suspicious osseous lesions. There arediffuse disc bulges within the inferior lumbar spine resulting in mild centralcanal stenosis. IMPRESSION 1. Bilateral dense calcified plaque within the common femoral arteries,just prior to the bifurcations resulting in moderate to severe stenosis,right greater than left. 2. Hepatic steatosis. 3. Prior sigmoid colectomy with end-to-end anastomosis; the anastomosisappears patent. Thank you for letting us participate in the care of this patient. Forquestions regarding this report, please contact the number below. Leesa Bruno APRN IMG CT ORDERABLES * Creatinine (04/23/2020 9:28 AM EDT) Creatinine 0.85 0.80 - 1.50 mg/dL [facility] Est Glomerular Filtration Rate 96 >=60 mL/min/1.7 3 m?? [facility] Comment: The eGFR was calculated using the CKD-EPI equation. As with all creatinine based estimates of kidney function, eGFR values calculated with the CKD-EPI equation are not accurate in patients with acute kidney failure, extremes of body mass or the acutely ill. [email or web address] [email or web address] eGFR 111 >=60 mL/min/1.7 3 m?? [facility] Comment: The eGFR was calculated using the CKD-EPI equation. As with all creatinine based estimates of kidney function, eGFR values calculated with the CKD-EPI equation are not accurate in patients with acute kidney failure, extremes of body mass or the acutely ill. [email or web address] Blood specimen (specimen) 04/23/2020 9:28 AM EDT 04/23/2020 9:34 AM EDT Narrative Resulting Agency Comment Spec In Lab Leesa Bruno [employer] ORDERABL ES [facility] [place] [address] documented in this encounter Visit Diagnoses Diagnosis PVD (peripheral vascular disease) with claudication Peripheral vascular disease, unspecified PVD (peripheral vascular disease) with claudication Peripheral vascular disease, unspecified documented in this encounter Care Teams Tyre Fitter Relationship Specialty Start Date End Date Brittany Fay MD [address] [place] [address] PCP - General General Internal Medicine 03/25/20 documented as of this encounter
--- OUTSIDE RECORDS SUMMARY | 2024-08-29 11:06 | XMS_ITS ---
Author Organization Unknown Address [address] [place] [phone] Phone Care Team Providers Care [employer] Station Operator Name Role Phone CHANCE Valle Attending Unavailable REUBEN Lowery Primary Unavailable Social History Type Status Start Date End Date Code Code Syst em Smoking History Current every day smoker 553823503 SNOMED CT Sex Male Medications Medication Start Date End Date Route Frequency Dose Code Code System Medication Instructions Home Meds Valium 5MG Oral Tablet 11/02/2021 Unknown ORAL NEEDED EVERY 8 HOURS 1 TABLET 359515 RxNorm TAKE 1 TABLET ORAL NEEDED EVERY 8 HOURS Cipro 500MG Oral Tablet 01/08/2024 Unknown ORAL TWICE A DAY 1 TABLET 871048 RxNorm TAKE 1 TABLET ORAL TWICE A DAY Hospital Discharge Instructions Should you have any questions prior to discharge, please contact a member of your healthcare team. If you have left the hospital and have any questions, please contact your primary care physician. Reason For Referral No Data Found Problems Problem Start Date Resolved Date Status Code Code System HIGH BLOOD PRESSURE 01/07/2024 resolved 30920629 SNOMED-CT HIGH CHOLESTEROL 01/07/2024 resolved 33127162 SN OMED-CT Allergies and Adverse Reactions Allergy Substance Reaction Severity Start Date Concern Status Co de Code System TETANUS IMMUNE GLOBULIN Active 23395 RxNorm PENICILLIN Active Plan of Treatment CT CHEST W/O CONTRAST 10/14/2023 CT CHEST W/O CONTRAST 01/14/2023 Encounters Encounter Diagnosis Start Date Code Code Sys tem Localized swelling, mass and lump, trunk 09/07/2022 SNOMED-CT Personal Care Team Section Performer Name Performer Role Active Date Inactive Da te
--- OUTSIDE RECORDS SUMMARY | 2024-08-29 11:06 | XMS_ITS | Encounter Summary ---
Author Organization [facility] Address [facility] [place] [address] Care Team Providers Care Insulation Estimator Name Role Phone Brittany Fay MD Primary Care Provider Encounter Details Date Type Department Care Team (Late st Contact Info) Description 07/23/2020 2:00 PM EDT Office [place] [address] Bren Calloway PA [facility] [place] [address] PVD (peripheral vascular disease) with claudication Social [...] Sign Reading Time Taken Comments Blood Pressure 114/78 07/23/2020 1:52 PM EDT Pulse 102 07/23/2020 1:52 PM EDT Temperature - - Respiratory Rate - - Oxygen Saturation - - Inhaled Oxygen Concentration - - Weight 81.6 kg (180 lb) 07/23/2020 1:52 PM EDT Height 170.2 cm (5' 7) 07/23/2020 1:52 PM EDT Body Mass Index 28.19 07/23/2020 1:52 PM EDT documented in this encounter Progress Notes * Bren Calloway PA - 07/23/2020 2:00 PM EDT Vascular Follow-Up Reason for Visit: Pollo Melara is a 59 y.o. male presenting for hospital check. HPI: Pollo Melara is a 59 y.o. male with a PMH of HTN and PAD with RLE claudication s/p R iliofemoral and PFA endarterectomy on 07/10/2020 states that he is doing well since his surgery. He denies any pain, erythema or drainage from R groin incisions site. Denies fevers and chills. Patient reports resolution of RLE claudication symptoms, however, he is not ambulating at his baseline yet. He denies BLE rest pain and tissue loss. On daily ASA and statin therapy. He reports that he has cut down to 0.5 PPD and is actively trying to quit smoking on his own. Review of systems: Negative except as noted in HPI. Prior Vascular Hx: 07/10/2020: R iliofemoral and PFA endarterectomy for RLE claudication. ([place]) Atherosclerotic RF: DM (N) HTN (Y) CAD (N) CHF (N) HLD (N) CVA (N) Tobacco (Y) - Current 0.5 PPD smoker. Problem List: Patient Active Problem List Diagnosis Code ??? PVD (peripheral vascular disease) with claudication I73.9 ??? Hypertension I10 ??? Claudication I73.9 ??? Cigarette smoker F17.210 ??? Hepatic steatosis K76.0 Medications: Current Outpatient Medications on File Prior to Visit Medication Sig Dispense Refill ??? aspirin EC [...] mouth every 6 hours. 30 tablet 1 ??? senna-docusate (Pericolace) 8.6-50 mg Tablet Take 2 tablets by mouth 2 times daily. 60 tablet 0 ??? polyethylene glycoL (Miralax) 17 gram Powder in Packet Take 17 g by mouth daily. 14 each 0 No current facility-administered medications on file prior to visit. Physical Exam: GEN: Alert and appears stated age. Cooperative. In NAD. HEENT: Normocephalic and atraumatic. CV: RRR. S1/S2 present. Pulm: Clear to auscultation bilaterally. Abd: No palpable aortic pulse or abdominal mass. Soft, non-distended, non-tender to palpation. Skin: Color, texture, turgor normal. No rashes or lesions. Neuro: No gross sensory or motor abnormality. Extremities: R groin incision site c/d/i, well-approximated - no surrounding erythema or drainage. Bilateral UE and LE warm and pink. No edema. No wounds. Vascular Exam: R L Carotid Bruit No No Radial 2/2 2/2 Femoral 2/2 2/2 Popliteal 2/2 2/2 DP 0/2 (+Doppler signal) 2/2 PT 2/2 2/2 Labs: No results found for this or any previous visit (from the past 24 hour(s)). Studies: No results found for this or any previous visit (from the past 24 hour(s)). Assessment/Plan: Pollo Melara is a 59 y.o. male with PAD s/p R iliofemoral and PFA endarterectomy, doing well post-op. R groin incision site is healing well without signs of infection. Instructed patient to keep incision site clean and dry, gently washing incision site daily with soap and water, pat dry. Continue ASA and statin therapy. Recommend close follow-up with PCP and tight control ofco-morbidities. Strongly encourage patient to continue with his smoking cessation. Follow-up in vascular clinic on 08/14/2020 with ABIs. Instructed to call the clinic with any concerns prior to next appointment. Bren Calolway PA-C documented in this encounter Plan of Treatment Not on file documented as of this encounter Visit Diagnoses Diagnosis PVD (peripheral vascular disease) with claudication Peripheral vascular disease, unspecified documented in this encounter Care Teams Insulation Estimator Relationship Specialty Start Date End Date Brittany Fay MD [address] [place] [address] PCP - General General Internal Medicine 03/25/20 documented as of this encounter
--- OUTSIDE RECORDS SUMMARY | 2024-08-29 11:06 | XMS_ITS | Encounter Summary ---
Author Organization [facility] [place] [address] Care Team Providers Care Nail Expert Name Role Phone Brittany Fay MD Primary Care Provider [phone] Reason for Referral * Diagnostic Test (Routine) - Closed Specialty Diagnoses / Procedures Referred By Lexus garsia Referred To Contact Radiology Diagnoses PVD (peripheral vascular disease) with claudication Procedures CT Angiogram Aortic Lower Extremity Runoff Leesa Bruno APRN [facility] [place] [address] [facility] [place] [address] Referral ID Status Reason Start Date Expiration Date V isits Requested Visits Authorized [id number] Closed Specialty Service Requested 05/21/2020 11/17/2020 1 1 Reason for Visit * Diagnostic Test (Routine) - Closed Specialty Diagnoses / Procedures Referred By Lexus garsia Referred To Contact Radiology Diagnoses PVD (peripheral vascular disease) with claudication Procedures CT Angiogram Aortic Lower Extremity Runoff Leesa Bruno APRN [facility] [place] [address] [facility] [place] [address] Referral ID Status Reason Start Date Expiration Date V isits Requested Visits Authorized [id number] Closed Specialty Service Requested 05/21/2020 11/17/2020 1 1 Encounter Details Date Type Department Care Team (Latest Contact Info) Description 05/23/2020 2:32 PM EDT - 05/23/2020 11:59 PM EDT Hospital [place] [address] Leesa Bruno APRN [facility] [place] [address] PVD (peripheral vascular disease) with claudication Discharge Disposition: Home Social History Tobacco Use Types Packs/Day Years Used Date Smoking Tobacco: Every Day Cigarettes 0.5 16 Smokeless Tobacco: Never Sex and Gender Information Value Date Recorded Sex Assigned at Not on file Gender Identity Not on file Sexual Orientation Not on file documented as of this encounter Medications at Time of Discharge Medication Sig Dispensed Refills Start Date End Date atorvastatin (Lipitor) 20 mg Tablet Take 20 mg by mouth daily. 06/17/2020 lisinopriL (Prinivil;Zestril) 10 mg Tablet 20 mg Daily. 07/11/2020 aspirin EC 81 mg Tablet, Delayed Release (E.C.) Take 81 mg by mouth Daily. 07/11/2020 documented as of this encounter Plan of Treatment Not on file documented as of this encounter Procedures Procedure Name Priority Date/Time Associated Diagnosis Comments CT ANGIOGRAM AORTA LOWER EXTREMITY RUNOFF Routine 05/23/2020 2:57 PM EDT PVD (peripheral vascular disease) with claudication documented in this encounter Results * CT Angiogram Aortic [...] central canal stenosis. Procedure Note Darrell Abreu, DO - 05/23/2020 EXAMINATION: CT ANGIOGRAM AORTA LOWER [...] this report, please contact the number below. Landers B Damion MAINFRAME SOFTWARE DEVELOPER IMG CT ORDERABLES documented in this encounter Visit Diagnoses Diagnosis PVD (peripheral vascular disease) with claudication Peripheral vascular disease, unspecified documented in this encounter Administered Medications Inactive Administered Medications - up to 3 most recent administrations Medication Order MAR Action Action Date Dose Rate Site iohexoL (OMNIPAQUE) 350 mg/mL solution 0-200 mL 0-200 mL, Intravenous, ONCE PRN, 1 dose, Starting on Tue05/23/20 at 1456, Until Tue05/23/20 at 1456, Per Protocol, Warning Vesicant/Irritant Medication , Radiology Contrast, Routine Given 05/23/2020 2:56 PM EDT 150 mLs documented in this encounter Care Teams Nail Expert Relationship Specialty Start Date End Date Brittany Fay MD [address] [place] [address] PCP - General General Internal Medicine 03/25/20 documented as of this encounter
--- OUTSIDE RECORDS SUMMARY | 2024-08-29 11:06 | XMS_ITS | Encounter Summary ---
Author Organization [facility] [place] [address] Care Team Providers Care Insurance Consultant Name Role Phone Brittany Fay MD Primary Care Provider [phone] Reason for Visit * Diagnostic Lab (Routine) - Closed Specialty Diagnoses / Procedures Referred By Lexus t Referred To Contact Vascular Surgery Diagnoses Peripheral vascular disease, unspecified Nicotine dependence, unspecified, uncomplicated Procedures PARKER/Tcpo2- RT leg claudictoin, smoker is [facility] concerning for peripheral artery disease Brittany Fay MD [address] [place] [address] [facility] Vascular Lab [address] [place] [address] Referral ID Status Reason Start Date Expiration Date V isits Requested Visits Authorized [id number] Closed Test Only 03/13/2020 03/13/2021 1 1 Encounter Details Date Type Department Care Team (Latest Contact Info) Description 03/25/2020 9:00 AM EDT Tech [place] [address] Kenzie Macedo, RVT Atherosclerosis of [place] artery of right lower extremity with intermittent claudication Social History Tobacco Use Types Packs/Day Years Used Date Smoking Tobacco: Never Assessed Sex and Gender Information Value Date Recorded Sex Assigned at Not on file Gender Identity Not on file Sexual Orientation Not on file documented as of this encounter Plan of Treatment Not on file documented as of this encounter Procedures Procedure Name Priority Date/Time Associated Diagnosis Comments PARKER, LEGS, MULTIPLE LEVELS Routine 03/25/2020 9:03 AM EDT Atherosclerosis of [place] artery of right lower extremity with intermittent claudication documented in this encounter Results * PARKER, legs, multiple levels (03/25/2020 9:03 AM EDT) VB Text Report Department: Vascular Surgery Lab Patient: [id number] (FERN MONTGOMERY) CPT: 33530 ICD10: I70.211 Referring Physician: BRITTANY FAY ?? Phone: Indications: Right LE claudication, ? peripheral perfusion Diabetes mellitus: No ICD10 Diagnosis Code: I70.211 Findings: Right ?Pressure (mm Hg) ?? PARKER ??Waveform ? Brachial Artery ?149 ? Common Femoral Artery ?Biphasic ? Popliteal Artery ? Biphasic ? Dorsalis Pedis (Ankle) Artery ?109 ? 0.73 ??Biphasic ? Posterior Tibial (Ankle) Artery ??134 ? 0.90 ??Bi-Triphasic ?? Left ? Pressure (mm Hg) ?? PARKER ??Waveform ?? Brachial Artery ?146 ? Common Femoral Artery ?Triphasic ?? Popliteal Artery ? Triphasic ?? Dorsalis Pedis (Ankle) Artery ?164 ? 1.10 ??Triphasic ?? Posterior Tibial (Ankle) Artery ??190 ? 1.28 ??Triphasic ?? Interpretation: RIGHT: Mild lower extremity arterial occlusive disease. Disease level, inflow. LEFT: No significant lower extremity arterial occlusive disease identified at rest. Normal ankle/brachial pressure ratios and ankle Doppler waveforms. Comparison: ??No previous study in our vascular lab database for comparison. Electronically Signed by: MONIQUE BORJAS on 2020-03-26 09:19:11 AM VASCUBASE VB Text Report End of Report VASCUBASE 03/25/2020 9:03 AM EDT Brittany Fay MD VASCULAR ORDERABLES VASCU[facility] documented in this encounter Visit Diagnoses Diagnosis Atherosclerosis of [place] artery of right lower extremity with intermittent claudication Atherosclerosis of [place] arteries of the extremities with intermittent claudication documented in this encounter Care Teams Insurance Consultant Relationship Specialty Start Date End Date Brittany Fay MD [address] [place] [id number] PCP - General General Internal Medicine 03/25/20 documented as of this encounter
--- OUTSIDE RECORDS SUMMARY | 2024-08-29 11:06 | XMS_ITS | Encounter Summary ---
Author [facility] [place] [address] Care Team Providers Care Tire Buster Name Role Phone Brittany Fay MD Primary Care Provider [phone] Encounter Details Date Type Department Care Team (Latest Contact Info) Description 04/23/2020 9:20 AM EDT Laboratory Appointment Lab [address] [place] [address] PVD (peripheral vascular disease) with claudication Social [...] Name Priority Date/Time Associated Diagnosis Comments HC VENIPUNCTURE Routine 04/23/2020 9:28 AM EDT PVD (peripheral vascular disease) with claudication documented in this encounter Results * Creatinine (04/23/2020 9:28 AM EDT) Creatinine 0.85 0.80 - 1.50 mg/dL [facility] Est Glomerular Filtration Rate 96 >=60 mL/min/1.7 3 m?? [facility] Comment: The eGFR was calculated using the CKD-EPI equation. As with all creatinine based estimates of kidney function, eGFR values calculated with the CKD-EPI equation are not accurate in patients with acute kidney failure, extremes of body mass or the acutely ill. http://Wheely/DHMCnkf eGFR 111 >=60 mL/min/1.7 3 m?? [facility] Comment: The eGFR was calculated using the CKD-EPI equation. As with all creatinine based estimates of kidney function, eGFR values calculated with the CKD-EPI equation are not accurate in patients with acute kidney failure, extremes of body mass or the acutely ill. http://Wheely/DHMCnkf Blood specimen (specimen) 04/23/2020 9:28 AM EDT 04/23/2020 9:34 AM EDT Narrative Resulting Agency Comment Spec In Lab Leesa Bruno ELECTRONICS TECHNICIAN CHEMISTRY ORDERABL ES [facility] [place] [address] documented in this encounter Visit Diagnoses Diagnosis PVD (peripheral vascular disease) with claudication Peripheral vascular disease, unspecified documented in this encounter Care Teams Tire Buster Relationship Specialty Start Date End Date Brittany Fay MD [address] [place] [address] PCP - General General Internal Medicine 03/25/20 documented as of this encounter
--- OUTSIDE RECORDS SUMMARY | 2024-08-29 11:06 | XMS_ITS | Encounter Summary ---
Author Organization [facility] Address [facility] [place] [address] Care Team Providers Care Crankshaft Straightener Name Role Phone Brittany Fay MD Primary Care Provider [phone] Reason for Visit * Reason Comments Pre-op Exam Follow-up Encounter Details Date Type Department Care Team (Latest Contact Info) Description 07/03/2020 1:30 PM EDT Office Visit [place] [id number] Elder Ha MD [facility] [place] [address] PVD (peripheral vascular disease) with claudication; Essential hypertension; Pre-operative cardiovascular examination Social History Tobacco Use Types Packs/Day Years Used Date Smoking Tobacco: Every Day Cigarettes 0.5 16 Smokeless Tobacco: Never Sex and Gender Information Value Date Recorded Sex Assigned at Not on file Gender Identity Not on file Sexual Orientation Not on file documented as of this encounter Last Filed Vital Signs Vital Sign Reading Time Taken Comments Blood Pressure 142/83 07/03/2020 1:21 PM EDT Pulse 72 07/03/2020 1:21 PM EDT Temperature - - Respiratory Rate 18 07/03/2020 1:21 PM EDT Oxygen Saturation - - Inhaled Oxygen Concentration - - Weight 81.6 kg (180 lb) 07/03/2020 1:21 PM EDT Height 170.2 cm (5' 7) 07/03/2020 1:21 PM EDT Body Mass Index 28.19 07/03/2020 1:21 PM EDT documented in this encounter Progress Notes * Elder Ha MD - 07/03/2020 1:30 PM EDT Images from the original note were not included. [facility] [place] [address] [address] CARDIOVASCULAR MEDICINE OUTPATIENT CONSULTATION Pollo Melara [id number] 07/03/2020 REFERRING PROVIDER: Chris Chase CHIEF COMPLAINT: Chief Complaint Patient presents with ??? Pre-op Exam ??? Follow-up PROBLEM LIST Patient Active Problem List Diagnosis ??? PVD (peripheral vascular disease) with claudication ??? Hypertension HISTORY OF PRESENT ILLNESS: Mr. Melara is a very pleasant 59-year-old gentleman with history of hypertension, hyperlipidemia,peripheral artery disease whom I met on 06/17/2020 for pre-op evaluation prior to RLE revascularization for lifestyle limiting claudication. At our visit, he reported some substernal chest pressure at same time as claudication, which resolves with rest. Due to these symptoms, and inability to achieve>4 METs, we obtained pharmacologic nuclear stress test, which was negative for scar or ischemia.Otherwise, no changes in symptoms. Tolerating statin without issues. REVIEW OF SYSTEMS: All others negative except as stated in the HPI. No flowsheet data found. PAST MEDICAL HISTORY: Past Medical History: Diagnosis Date ??? Hypertension 04/23/2020 ??? PVD (peripheral vascular disease) with claudication 04/23/2020 SOCIAL HISTORY: Social History Tobacco Use ??? Smoking status: Current Every Day Smoker Packs/day: 0.50 Years: 16.00 Pack years: 8.00 Types: Cigarettes ??? Smokeless tobacco: Never Used Substance Use Topics ??? Alcohol use: Not on file MEDICATIONS: Current Outpatient Medications Medication Sig Dispense Refill ??? atorvastatin (Lipitor) 40 mg Tablet Take 1 tablet by mouth daily. 90 tablet 3 ??? lisinopriL (Prinivil;Zestril) 10 mg Tablet 20 mg Daily. ??? aspirin EC 81 mg Tablet, Delayed Release (E.C.) Take 81 mg by mouth Daily. No current facility-administered medications for this visit. ALLERGIES: Penicillins and Tetanus vaccines and toxoid PHYSICAL EXAMINATION: Vital Signs: BP 142/83 (BP Location (NBP): Right arm, Patient Position: Sitting) Pulse 72 Resp 18 Ht 170.2cm (5' 7) Wt 81.6 kg (180 lb) BMI 28.19 kg/m?? Exam Details: General: Pleasant 59 y.o. man in no acute distress Eyes: No scleral icterus ENT: Moist mucous membranes Neuro: No gross abnormalities noted Psych: Alert and oriented 3 x, normal affect DATA PERSONALLY REVIEWED: Last 3 wbc, hgb, hct plt No results for input(s): WBC, HGB, HCT, PLATELET in the last 7068 hours. Last 3 Lytes Recent Labs 04/23/20 0928 CREATININE 0.85 EKG 06/17/2020: RA/RL lead reversal, NSR 73bpm, IRBBB MPI 07/03/2020: IMPRESSION 1. No ischemia or scar. Left ventricular function is normal. 2. Unexpected finding: Small, 5 mm right upper lobe pulmonary nodule. Recommend noncontrast low-dose CT chest for further characterization. ASSESSMENT AND PLAN: #1 PAD #2 Hypertension #3 Preoperative CV evaluation Mr. Melara is a very pleasant 59 year old man with history of HTN, HLD, PAD with lifestyle limiting claudication who presents for follow-up. MPI reassuring. He's on aspirin and statin, which shouldbe continued melony-operatively. No further work-up necessary prior to surgery. I will see him in ~3 months to see how he's doing after surgery. Thank you for allowing me to participate in the care of your patient. Please do not hesitate to contact me with any questions or concerns. Elder Ha MD, MPH, RPVI, [facility] Cardiovascular Labeling SpecialistShrinkercleaner [place] [address] documented in this encounter Plan of Treatment Not on file documented as of this encounter Visit Diagnoses Diagnosis PVD (peripheral vascular disease) with claudication Peripheral vascular disease, unspecified Essential hypertension Unspecified essential hypertension Pre-operative cardiovascular examination documented in this encounter Care Teams Crankshaft Straightener Relationship Specialty Start Date End Date Brittany Fay MD [address] [place] [address] PCP - General General Internal Medicine 03/25/20 documented as of this encounter
--- OUTSIDE RECORDS SUMMARY | 2024-08-29 11:06 | XMS_ITS | Encounter Summary ---
Author Organization [facility] [place] [address] Care Team Providers Care Template Maker Name Role Phone Brittany Fay MD Primary Care Provider [phone] Reason for Visit * Diagnostic Test (Routine) - Closed Specialty Diagnoses / Procedures Referred By Contac t Referred To Contact Radiology Diagnoses PAD (peripheral artery disease) Stable angina pectoris Procedures NM Pharmacologic Stress and Rest Myocardial Perfusion NM Exercise Stress and Rest Myocardial Perfusion Elder Ha MD [facility] [place] [address] [facility] [place] [address] Referral ID Status Reason Start Date Expiration Date V isits Requested Visits Authorized [id number] Closed Specialty Service Requested 07/01/2020 12/28/2020 1 1 Encounter Details Date Type Department Care Team (Latest Contact Info) Description 07/03/2020 9:30 AM EDT Hospital Encounter [place] [address] Elder Ha MD [facility] CARDIOLOGY DEPT [place], [place] [id number] Discharge Disposition: Home Social History Tobacco Use Types Packs/Day Years Used Date Smoking Tobacco: Every Day Cigarettes 0.5 16 Smokeless Tobacco: Never Sex and Gender Information Value Date Recorded Sex Assigned at Not on file Gender Identity Not on file Sexual Orientation Not on file documented as of this encounter Medications at Time of Discharge Medication Sig Dispensed Refills Start Date End Date aspirin EC 81 mg Tablet, Delayed Release (E.C.) Take 1 tablet by mouth daily. 30 tablet 3 07/12/2020 atorvastatin (Lipitor) 40 mg Tablet Take 1 tablet by mouth every evening. 90 tablet 3 07/11/2020 lisinopriL (Prinivil;Zestril) 20 mg Tablet Take 1 tablet by mouth daily. 90 tablet 3 07/12/2020 acetaminophen (Tylenol) 500 mg Tablet Take 2 tablets by mouth every 6 hours. 30 tablet 1 07/11/2020 senna-docusate (Pericolace) 8.6-50 mg Tablet Take 2 tablets by mouth 2 times daily. 60 tablet 07/11/2020 08/14/2020 polyethylene glycoL (Miralax) 17 gram Powder in Packet Take 17 g by mouth daily. 14 each 07/12/2020 08/14/2020 atorvastatin (Lipitor) 40 mg Tablet Take 1 tablet by mouth daily. 90 tablet 3 06/17/2020 07/11/2020 lisinopriL (Prinivil;Zestril) 10 mg Tablet 20 mg Daily. 07/11/2020 aspirin EC 81 mg Tablet, Delayed Release (E.C.) Take 81 mg by mouth Daily. 07/11/2020 documented as of this encounter Plan of Treatment Not on file documented as of this encounter Procedures Procedure Name Priority Date/Time Associated Diagnosis Comments NM PHARMACOLOGIC STRESS AND REST MYOCARDIAL PERFUSION Routine 07/03/2020 11:05 AM EDT PAD (peripheral artery disease) Stable angina pectoris documented in this encounter Results * (ABNORMAL) NM Pharmacologic Stress CT Component (07/03/2020 11:20 AM EDT) Anatomical Region Laterality Modality Nuclear Medicine Impressions 07/03/2020 12:09 PM EDT 1. ??No ischemia or scar. ??Left ventricular function is normal. 2. ??Unexpected finding: Small, 5 mm right upper lobe pulmonary nodule. Recommend noncontrast low-dose CT chest for further characterization. I have personally reviewed the image(s) and the resident's interpretation and agree with the findings, Todd Snyder MD at 07/03/2020 12:09 PM Thank you for letting us participate in the care of this patient. For questions regarding this report, please contact the number below. ? Narrative 07/03/2020 12:09 PM EDT EXAMINATION: NM PHARMACOLOGIC STRESS AND REST MYOCARDIAL PERFUSION, NM PHARMACOLOGIC STRESS CT COMPONENT CLINICAL HISTORY: PAD PAD, having chest pain at same time as claudication, needs vascular surgery, ?ischemia TECHNIQUE: During rest, 8.6 mCi of technetium-99m sestamibi was administered intravenously. Approximately 20 minutes later, SPECT images of the heart were obtained with reconstruction in the short, vertical long and horizontal long axis. The patient then received regadenoson intravenously at a dose of 0.4 mg. 20 seconds later, 30.1 mCi of technetium-99m sestamibi was administered intravenously. Images of the heart were then again obtained with SPECT reconstruction. A low-dose CT scan was acquired for the purpose of attenuation correction COMPARISON: CTA aorta and lower extremity dated 05/23/2020 FINDINGS: No fixed or reversible perfusion defects are present. Functional analysis: Myocardial function: There is normal wall thickening and wall motion. Left ventricular ejection fraction: 73 % (normal greater than than 50%). INCIDENTAL CT FINDINGS: There is a 5 mm pulmonary nodule in the right upper lobe (CT series 4 axial image 6). Mild coronary artery calcifications. Hepatic steatosis. There is a 2.5 cm relatively hyperdense lesion along the medial margin of the right hepatic lobe, most consistent with a hemangioma as seen on the prior CT. Elder Ha MD [facility] [place] ORDERABLES * (ABNORMAL) NM Pharmacologic Stress and Rest Myocardial Perfusion (07/03/2020 11:05 AM EDT) Anatomical Region Laterality Modality Nuclear Medicine Impressions 07/03/2020 12:09 PM EDT 1. ??No ischemia or scar. ??Left ventricular function is normal. 2. ??Unexpected finding: Small, 5 mm right upper lobe pulmonary nodule. Recommend noncontrast low-dose CT chest for further characterization. I have personally reviewed the image(s) and the resident's interpretation and agree with the findings, Todd Snyder MD at 07/03/2020 12:09 PM Thank you for letting us participate in the care of this patient. For questions regarding this report, please contact the number below. ? Narrative 07/03/2020 12:09 PM EDT EXAMINATION: NM PHARMACOLOGIC STRESS AND REST MYOCARDIAL PERFUSION, NM PHARMACOLOGIC STRESS CT COMPONENT CLINICAL HISTORY: PAD PAD, having chest pain at same time as claudication, needs vascular surgery, ?ischemia TECHNIQUE: During rest, 8.6 mCi of technetium-99m sestamibi was administered intravenously. Approximately 20 minutes later, SPECT images of the heart were obtained with reconstruction in the short, vertical long and horizontal long axis. The patient then received regadenoson intravenously at a dose of 0.4 mg. 20 seconds later, 30.1 mCi of technetium-99m sestamibi was administered intravenously. Images of the heart were then again obtained with SPECT reconstruction. A low-dose CT scan was acquired for the purpose of attenuation correction COMPARISON: CTA aorta and lower extremity dated 05/23/2020 FINDINGS: No fixed or reversible perfusion defects are present. Functional analysis: Myocardial function: There is normal wall thickening and wall motion. Left ventricular ejection fraction: 73 % (normal greater than than 50%). INCIDENTAL CT FINDINGS: There is a 5 mm pulmonary nodule in the right upper lobe (CT series 4 axial image 6). Mild coronary artery calcifications. Hepatic steatosis. There is a 2.5 cm relatively hyperdense lesion along the medial margin of the right hepatic lobe, most consistent with a hemangioma as seen on the prior CT. Resulting Agency Comment Unexpected Finding Elder Ha MD [facility] [place] ORDERABLES documented in this encounter Visit Diagnoses Not on filedocumented in this encounter Administered Medications Inactive Administered Medications - up to 3 most recent administrations Medication Order MAR Action Action Date Dose Rate Site regadenoson (LEXISCAN) injection 0.4 mg 0.4 mg, Intravenous, ONCE, 1 dose, On Freya 07/03/20 at 1130, Routine Given 07/03/2020 11:30 AM EDT 0.4 mg technetium (Tc-99m) sestamibi injection 30.1 mCi 30.1 mCi, Intravenous, ONCE PRN, 1 dose, Starting on Freya 07/03/20 at 1101, Until Freya 07/03/20 at 1101, Per Protocol, Routine Given 07/03/2020 11:01 AM EDT 30.1 mCi Right Arm documented in this encounter Care Teams Template Maker Relationship Specialty Start Date End Date Brittany Fay MD [address] [place] [address] PCP - General General Internal Medicine 03/25/20 documented as of this encounter
--- OUTSIDE RECORDS SUMMARY | 2024-08-29 11:06 | XMS_ITS | Encounter Summary ---
Author Organization [facility] Address [facility] [place] [address] Care Team Providers Care Truck Repair Supervisor Name Role Phone Brittany Fay MD Primary Care Provider [phone] Encounter Details Date Type Department Care Team (Late st Contact Info) Description 07/18/2020 Telephone [place] [address] Bren Calloway PA [facility] [place] [address] Social History Tobacco Use Types Packs/Day Years Used Date Smoking Tobacco: Every Day Cigarettes 0.5 16 Smokeless Tobacco: Never Sex and Gender Information Value Date Recorded Sex Assigned at Not on file Gender Identity Not on file Sexual Orientation Not on file documented as of this encounter Miscellaneous Notes * Telephone Encounter - Bren Calloway PA - 07/18/2020 10:11 AM EDT Telephone call: Patient called to report Prevena vac lost suction this morning and asked if it is ok for PCP to remove Prevena vac today. Ok for patient to have Prevena vac removed now. Instructed to call the clinicwith any concerns prior to next appointment. ASHLEY Bailon documented in this encounter Plan of Treatment Not on file documented as of this encounter Visit Diagnoses Not on filedocumented in this encounter Care Teams Truck Repair Supervisor Relationship Specialty Start Date End Date Brittany Fay MD [address] [place], [place] [id number] PCP - General General Internal Medicine 03/25/20 documented as of this encounter
--- OUTSIDE RECORDS SUMMARY | 2024-08-29 11:06 | XMS_ITS | Encounter Summary ---
Author Organization [facility] [place] [address] Care Team Providers Care Antique Finisher Name Role Phone Brittany Fay MD Primary Care Provider [phone] Encounter Details Date Type Department Care Team (Late st Contact Info) Description 08/15/2020 Orders [place] [address] Raven Ontiveros, JOB TRAINER PAD (peripheral artery disease) Social History Tobacco [...] documented as of this encounter Results * PARKER, legs, multiple levels (08/12/2021 7:28 AM EDT) VB Text Report Department: Vascular Surgery Lab Patient: [id number] ([id number]) CPT: 31692 ICD10: I73.9 Referring Physician: CHRIS CHASE ?? [...] MD VASCULAR ORDERABLES Performing Organization Address City/State/[facility] Co de Phone Number [facility]AS[facility] documented in this encounter Visit Diagnoses Diagnosis PAD (peripheral artery disease) Peripheral vascular disease, unspecified documented in this encounter Care Teams Antique Finisher Relationship Specialty Start Date End Date Brittany Fay MD [address] [place] [address] PCP - General General Internal Medicine 03/25/20 documented as of this encounter
--- OUTSIDE RECORDS SUMMARY | 2024-08-29 11:06 | XMS_ITS | Encounter Summary ---
Author Organization [facility] Address [facility] [place] [address] Care Team Providers Care Probation Manager Name Role Phone Brittany Fay MD Primary Care Provider [phone] Encounter Details Date Type Department Care Team (Latest Contact Info) Description 07/03/2020 9:31 AM EDT - 07/03/2020 11:59 PM EDT Hospital Encounter Non-[place] [phone] Elder Ha MD [facility] [place] [address] PAD (peripheral artery disease); Stable angina pectoris Discharge Disposition: Home Social History Tobacco Use [...] Procedure Name Priority Date/Time Associated Diagnosis Comments NUCLEAR PHARMACOLOGIC STRESS CARDIOLOGY Routine 07/03/2020 10:59 AM EDT PAD (peripheral artery disease) Stable angina pectoris documented in this encounter Results * Nuclear Pharmacologic Stress Cardiology (07/03/2020 10:59 AM EDT) Anatomical Region Laterality Modality Other Elder Ha [facility] documented in this encounter Visit Diagnoses Diagnosis PAD (peripheral artery disease) Peripheral vascular disease, unspecified Stable angina pectoris documented in this encounter Care Teams Probation Manager Relationship Specialty Start Date End Date Brittany Fay MD [address] [place] [address] PCP - General General Internal Medicine 03/25/20 documented as of this encounter
--- OUTSIDE RECORDS SUMMARY | 2024-08-29 11:06 | XMS_ITS | Encounter Summary ---
[place] [address] Care Team Providers Care Machine Sprayer Name Role Phone Brittany Fay MD Primary Care Provider Encounter Details Date Type Department Care Team (Late st Contact Info) Description 07/07/2020 [place] [phone] Carmita Krueger Social History Tobacco Use Types Packs/Day Years Used Date Smoking Tobacco: Every Day Cigarettes 0.5 16 Smokeless Tobacco: Never Sex and Gender Information Value Date Recorded Sex Assigned at Not on file Gender Identity Not on file Sexual Orientation Not on file documented as of this encounter Miscellaneous Notes * Telephone Encounter - Carmita Krueger - 07/07/2020 12:23 PM EDT Spoke to pt re: pre-op COVID test for 07/10 procedure. Pt sched at [place] PCP for test today. WCB if needs to be tested in [place] to try to guarantee result. documented in this encounter Plan of Treatment Not on file documented as of this encounter Visit Diagnoses Not on filedocumented in this encounter Care Teams Machine Sprayer Relationship Specialty Start Date End Date Brittany Fay MD [address] [place] [address] PCP - General General Internal Medicine 03/25/20 documented as of this encounter
--- OUTSIDE RECORDS SUMMARY | 2024-08-29 11:06 | XMS_ITS | Encounter Summary ---
Author [facility] [place] [address] Care Team Providers Care Aviation Warfare Systems Operator Name Role Phone Brittany Fay MD Primary Care Provider Encounter Details Date Type Department Care Team (Late st Contact Info) Description 06/18/2020 Telephone [place] [phone] Desiree Caballero Social History Tobacco Use Types Packs/Day Years Used Date Smoking Tobacco: Every Day Cigarettes 0.5 16 Smokeless Tobacco: Never Sex and Gender Information Value Date Recorded Sex Assigned at Not on file Gender Identity Not on file Sexual Orientation Not on file documented as of this encounter Miscellaneous Notes * Telephone Encounter - Desiree Caballero - 06/18/2020 11:34 AM EDT Per yellow sheet: Nuclear Med stress test and follow up with Dr. Ha. The patient is already scheduled on 07/03 with Chris Chase MD I was able to get the stress test for 10:[address] Ha said he could see the patient after 1 pm. I have left a message for the patient documented in this encounter Plan of Treatment Not on file documented as of this encounter Visit Diagnoses Not on filedocumented in this encounter Care Teams Aviation Warfare Systems Operator Relationship Specialty Start Date End Date Brittany Fay MD [address] [place] [address] PCP - General General Internal Medicine 03/25/20 documented as of this encounter
--- OUTSIDE RECORDS SUMMARY | 2024-08-29 11:06 | XMS_ITS | Encounter Summary ---
Author Organization [facility] Address [facility] [place] [address] Care Team Providers Care Qa Architect Name Role Phone Brittany Fay MD Primary Care Provider [phone] Encounter Details Date Type Department Care Team (Latest Contact Info) Description 07/03/2020 8:00 AM EDT Office [place] [address] Chris Chase MD [facility] [place] [place] [address] PVD (peripheral vascular disease) with claudication; Smoking trying to quit; Nicotine dependence, cigarettes, uncomplicated Social History Tobacco Use Types Packs/Day Years Used Date Smoking Tobacco: Every Day Cigarettes 0.5 16 Smokeless Tobacco: Never Sex and Gender Information Value Date Recorded Sex Assigned at Not on file Gender Identity Not on file Sexual Orientation Not on file documented as of this encounter Last Filed Vital Signs Vital Sign Reading Time Taken Comments Blood Pressure 145/77 07/03/2020 7:52 AM EDT Pulse 69 07/03/2020 7:52 AM EDT Temperature - - Respiratory Rate - - Oxygen Saturation - - Inhaled Oxygen Concentration - - Weight 81.6 kg (180 lb) 07/03/2020 7:52 AM EDT r eported Height 170.2 cm (5' 7) 07/03/2020 7:52 AM EDT r eported Body Mass Index 28.19 07/03/2020 7:52 AM EDT documented in this encounter Progress Notes * Chris Chase MD - 07/03/2020 8:00 AM EDT Vascular Surgery Follow up Visit CC: RLE Claudication Interval history: Mr. Melara returns to discuss management of his RLE claudication. He was seen last month by my partner Dr. Bush. 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 He had to stop 3 times while walking from the parking garage to the clinic. He has cut back to less than 1 pack per day of cigarettes from more than two packs. He is taking his aspirin and a statin. He has a stress test planned for later this morning and is then meeting with Dr. Ha for a preop risk stratification visit. He presents to see me this morning to discuss surgical options. Review of Systems: 10 point review of systems negative except as noted Problem List: Patient Active Problem List Diagnosis ??? PVD (peripheral vascular disease) with claudication ??? Hypertension Home Medications: Antiplatelet: Aspirin Anticoagulant: None Statin: Lipitor Outpatient Medications Marked as Taking for the 07/03/20 encounter (Office Visit) with Chris Chase MD Medication Sig Dispense Refill ??? atorvastatin (Lipitor) 40 mg Tablet Take 1 tablet by mouth daily. 90 tablet 3 ??? lisinopriL (Prinivil;Zestril) 10 mg Tablet 20 mg Daily. ??? aspirin EC 81 mg Tablet, Delayed Release (E.C.) Take 81 mg by mouth Daily. Physical Exam: Temp: -- Heart Rate: [69] Resp: -- BP: (145)/(77) SpO2: -- Heart Rate from SpO2: -- General: NAD, resting comfortably CVS: Regular rate Pulm: Normal work of breathing on room air GI: Abdomen soft, non tender, non distended Vasc: RLE: 2/2 femoral pulse. No pedal pulses. No edema. No tissue loss. Brisk capillary refill LLE: 2/2 femoral pulse. 2/2 PT pulse. No edema. No tissue loss. Brisk capillary refill Neuro: CN 2-12 grossly intact, nonfocal, moving all extremities. Studies: PARKER 03/26/2020: Findings: ?? Right ?Pressure (mm Hg) ?? [...] Artery ??190 ? 1.28 ??Triphasic ? Interpretation: ?? RIGHT: Mild lower extremity arterial occlusive disease. Disease level, inflow. ?? LEFT: No significant lower extremity arterial occlusive disease identified at rest. Normal ankle/brachial pressure ratios and ankle Doppler waveforms. CTA 06/17/2020: Large bulky plaque at the right femoral bifurcation. Otherwise in-line flow from the aortic bifurcation to the foot. Assessment and Plan: 59 y.o. male smoker non diabetic with lifestyle limiting claudication. He states he is pretty much unable to work because of the symptoms. 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 He is working on quitting smoking and is down to less than a pack per day. Based on his anatomy I believe that a femoral endarterectomy should greatly improve his symptoms. Iexplained the risks benefits and alternatives to this, and he would like to proceed with surgery assoon as possible. He will undergo a stress test this morning and then meet with Dr. Ha for risk stratification. If his stress test is negative we will proceed with scheduling his surgery. I spent 5 minutes discussing smoking cessation and commended him for working on quitting. Continue aspirin and statin. Chris Chase Vascular Surgery Chris Chase MD Vascular Surgery [facility] documented in this encounter Plan of Treatment Not on file documented as of this encounter Visit Diagnoses Diagnosis PVD (peripheral vascular disease) with claudication Peripheral vascular disease, unspecified Smoking trying to quit Tobacco use disorder Nicotine dependence, cigarettes, uncomplicated documented in this encounter Care Teams Qa Architect Relationship Specialty Start Date End Date Brittany Fay MD [address] [place] [id number] PCP - General General Internal Medicine 03/25/20 documented as of this encounter
--- OUTSIDE RECORDS SUMMARY | 2024-08-29 11:06 | XMS_ITS ---
Author Organization Unknown Address [address] [place] [phone] Phone Care Team Providers Care Chef Broiler Or Fry Name Role Phone YENIFER SCOTT Registered Nurse Unavailable MILANA SERRA Registered Nurse Unavailable BALAJI Burgess Attending Unavailable REUBEN Lowery Primary Unavailable UNLISTED PROVIDER - REQUESTED Xhandoff Un available Results TROPONIN HIGH SENSITIVITY* - Collect Date/Time: 11/02/2021 13:56 [facility] ID: [id number] - [id number] [address] [place] [address], [address] LOINC: 18811-2 Test Value Unit Reference Range Code Code System Flag TROPONIN HS 8.9 pg/mL L=0.0 H=60.4 Specimen seq. Random TROPONIN-I ADM.* - Collect D ate/Time: 11/02/2021 13:56 [facility] ID: [id number] [address] [place] [address], [address] LOINC: 72577-0 Test Value Unit Reference Range Code Code System Flag TROPONIN-I < 0.017 ng/mL L=0.000 H=0.060 89014-3 LOINC [facility] COVID FLU RSV GENEXPE RT - Collect Date/Time: 11/02/2021 10:50 [facility] ID: [id number] [address] [place] [address], [phone] LOINC: 96327-0 Test Value Unit Reference Range Code Code System Flag COVID NEGATIVE Normal: Negative 94534-9 LOINC INFLUENZA A DNA NEGATIVE Normal: Negative 33429-5 LOINC INFLUENZA B DNA NEGATIVE Normal: Negative 07194-6 LOINC RSV DNA NEGATIVE Normal: Negative 31856-2 LOINC TROPONIN HIGH SENSITIVITY* - Collect Date/Time: 11/02/2021 10:40 [facility] ID: [id number] [address] [place] [address], [address] LOINC: 56304-1 Test Value Unit Reference Range Code Code System Flag TROPONIN HS 6.4 pg/mL L=0.0 H=60.4 Specimen seq. ADM. TROPONIN-I ADM.* - Collect D ate/Time: 11/02/2021 10:40 [facility] ID: [id number] [address] [place] [address], [address] LOINC: 86267-0 Test Value Unit Reference Range Code Code System Flag TROPONIN-I < 0.017 ng/mL L=0.000 H=0.060 31014-0 LOINC PTT PARTIAL THROMBOPLASTIN T MRATINEZ* - Collect Date/Time: 11/02/2021 10:40 [facility] ID: [id number] [address] [place] [address], [id number] LOINC: 13375-0 Test Value Unit Reference Range Code Code System Flag PTT 26 seconds L=24 H=32 88198-1 LOINC PT PROTHROMBIN TIME* - Colle ct Date/Time: 11/02/2021 10:40 [facility] ID: [id number] [address] [place] [address], [address] LOINC: 5902-2 Test Value Unit Reference Range Code Code System Flag PROTIME 10.3 seconds L=9.3 H=11.4 5902-2 LOINC INR 1.01 L=2.00 H=3.00 05836-0 LOINC L COMPREHENSIVE METABOLIC PANE L (CMP) - Collect Date/Time: 11/02/2021 10:40 [facility] ID: [id number] [address] [place] [address], [address] LOINC: 17597-3 Test Value Unit Reference Range Code Code System Flag GLUCOSE 111 mg/dL L=70 H=116 2345-7 LOINC BUN 12 mg/dL L=6 H=25 3094-0 LOINC CREATININE 0.69 mg/dL L=0.67 H=1.17 2160-0 LOINC SODIUM SERUM 140 mmol/L L=136 H=145 2951-2 LOINC POTASSIUM SERUM 4.2 mmol/L L=3.4 H=5.2 2823-3 LOINC CHLORIDE SERUM 104 mmol/L L=96 H=110 2075-0 LOINC CARBON DIOXIDE (CO2) 26 mmol/L L=22 H=34 2028-9 LOINC ANION GAP 9.6 mmol/L 25247-1 LOINC CALCIUM SERUM 9.0 mg/dL L=8.2 H=10.2 51852-4 LOINC BILIRUBIN TOTAL 0.4 mg/dL L=0.0 H=1.3 1975-2 LOINC ALK. PHOS. 88 U/L L=46 H=116 6768-6 LOINC SGOT (AST) 34 U/L L=15 H=37 1920-8 LOINC SGPT (ALT) 38 U/L L=12 H=78 1742-6 LOINC TOTAL PROTEIN 7.1 gm/dL L=6.0 H=8.0 2885-2 LOINC ALBUMIN 3.7 gm/dL L=3.4 H=5.0 1751-7 LOINC AGE 60 years eGFR (non-Afr.Amer.) 117 mL/min 90164-6 LOINC eGFR (Afr-Sammarinese) > 120 mL/min 10241-5 LOINC CBC W/ DIFFERENTIAL* - Colle ct Date/Time: 11/02/2021 10:40 [facility] ID: [id number] - [id number] [address] [place], [place], [address] LOINC: 91611-7 Test Value Unit Reference Range Code Code System Flag WBC 7.86 th/cmm L=5.00 H=10.00 6690-2 LOINC NEUT % 61.6 % L=40.0 H=80.0 LYMPH % 23.8 % L=10.0 H=50.0 MONO % 10.1 % L=2.0 H=12.0 51427-5 LOINC EOS % 3.3 % L=0.0 H=8.0 BASO % 0.8 % L=0.0 H=3.0 IG % 0.4 % L=0.0 H=1.1 2514-8 LOINC NRBC % 0.0 % L=0.0 H=0.0 67791-6 LOINC NEUT abs count 4.9 th/cmm L=1.6 H=8.4 751-8 LOINC LYMPH abs count 1.9 th/cmm L=1.5 H=4.0 731-0 LOINC MONO abs count 0.8 th/cmm L=0.2 H=1.0 742-7 LOINC EOS abs count 0.3 th/cmm L=0.0 H=0.5 711-2 LOINC BASO abs count 0.1 th/cmm L=0.0 H=0.2 704-7 LOINC IG abs count 0.0 th/cmm L=0.0 H=0.1 84387-4 LOINC NRBC abs count 0.0 mil/cmm L=0.0 H=0.0 89423-3 LOINC RBC 4.37 mil/cmm L=4.30 H=6.20 789-8 LOINC HEMOGLOBIN 15.3 gm/dL L=13.0 H=17.0 718-7 LOINC HEMATOCRIT 48 % L=45 H=52 4544-3 LOINC MCV 109 fL L=82 H=92 787-2 LOINC H MCH 35.0 pg L=27.0 H=31.0 785-6 LOINC H MCHC 32.0 % L=32.0 H=36.0 786-4 LOINC RDW-SD 54.3 fL L=39.0 H=49.0 788-0 LOINC H PLATELET COUNT 272 th/cmm L=150 H=450 777-3 LOINC BNP (PRO-B NATRIURETIC PEPTI DE) - Collect Date/Time: 11/02/2021 10:40 [facility] ID: [id number] - [id number] [address] [place], [place], [address] LOINC: 14870-5 Test Value Unit Reference Range Code Code System Flag NT-proBNP 27.0 pg/mL L=0.0 H=125 34126-[address] ABD + PELV W CONTRAST - C ompleted: 11/02/2021 07:58 LOINC: Radiation optimization: All CT scans at this facility use at least one of these dose optimization techniques: automated exposure control; mA and/or kV adjustment per patient size (includes targeted exams where dose is matched to clinical indication); or iterative reconstruction. CTA OF THE CHEST AND ABDOMEN:Routine examination was performed. Comparison is 11/14/20. The tracheobronchial tree is unremarkable. Dependent atelectatic changes are seen in the lung bases. Faint ground glass opacities are seen in the lower lobes. This is likely due to poor inspiration. No focal consolidating infiltrates are seen. No effusion or pneumothorax is present. The visualized thyroid gland is unremarkable. There is atherosclerosis of the thoracic aorta but no evidence of aneurysm or dissection. There is no evidence of pulmonary embolism. Heart size is within normal limits. Coronary artery calcifications are present. No pericardial effusion is seen. There is no significant mediastinal or hilar adenopathy. The thoracic aorta is unremarkable. No significant axillary adenopathy is present. Age-appropriate degenerative changes are seen in the spine. IMPRESSION: 1. No evidence of thoracic aortic aneurysm or dissection. 2. No evidence of pulmonary embolism. 3. Dependent atelectatic changes in the lung bases. CTA OF THE ABDOMEN: There is atherosclerosis of the abdominal aorta but no evidence of aneurysm or dissection. The celiac axis and mesenteric arteries show no evidence of occlusion or significant stenosis. The renal arteries show no evidence of occlusion or significant stenosis. There is atherosclerosis of the iliac arteries but no evidence of occlusion or significant stenosis. The liver is grossly unremarkable. The gallbladder is unremarkable. There is no biliary ductal dilatation. The pancreas, spleen and adrenal glands are unremarkable. There are a few scattered less than 5 mm hypodensities in the kidneys. They are too small for further characterization. No suspicious renal masses are seen. No evidence of nephrolithiasis or hydronephrosis. The visualized portions of the urinary bladder are unremarkable. No significant abdominal adenopathy, ascites or pneumoperitoneum is present. Anastomotic clips are seen at the rectosigmoid junction. The bowel shows no evidence of obstruction or inflammation. The soft tissues are unremarkable. Age-appropriate degenerative changes are seen in the lumbar spine. IMPRESSION: 1. No acute abdominal or pelvic process. 2. No evidence of abdominal aortic dissection, occlusion or significant stenosis. The findings were discussed with the Emergency Department on the date of the examination. Dictated by: WANDA LYONS MD Transcribed by: BUNNY 11/03/21/07:39 D Tuesday, November 02, 2021 11:09:06 AM [id number] Electronically Reviewed and Signed By: CRISTELA LYONS MD 11/03/21 19:29 Copy for: [facility] [employer] [address]MT DISCHAR[address]ED CT ANGIOGRAPHY CHEST - Compl eted: 11/02/2021 13:38 LOINC: Radiation optimization: All CT scans at this facility use at least one of these dose optimization techniques: automated exposure control; mA and/or kV adjustment per patient size (includes targeted exams where dose is matched to clinical indication); or iterative reconstruction. CTA OF THE CHEST AND ABDOMEN:Routine examination was performed. Comparison is 11/14/20. The tracheobronchial tree is unremarkable. Dependent atelectatic changes are seen in the lung bases. Faint ground glass opacities are seen in the lower lobes. This is likely due to poor inspiration. No focal consolidating infiltrates are seen. No effusion or pneumothorax is present. The visualized thyroid gland is unremarkable. There is atherosclerosis of the thoracic aorta but no evidence of aneurysm or dissection. There is no evidence of pulmonary embolism. Heart size is within normal limits. Coronary artery calcifications are present. No pericardial effusion is seen. There is no significant mediastinal or hilar adenopathy. The thoracic aorta is unremarkable. No significant axillary adenopathy is present. Age-appropriate degenerative changes are seen in the spine. IMPRESSION: 1. No evidence of thoracic aortic aneurysm or dissection. 2. No evidence of pulmonary embolism. 3. Dependent atelectatic changes in the lung bases. CTA OF THE ABDOMEN: There is atherosclerosis of the abdominal aorta but no evidence of aneurysm or dissection. The celiac axis and mesenteric arteries show no evidence of occlusion or significant stenosis. The renal arteries show no evidence of occlusion or significant stenosis. There is atherosclerosis of the iliac arteries but no evidence of occlusion or significant stenosis. The liver is grossly unremarkable. The gallbladder is unremarkable. There is no biliary ductal dilatation. The pancreas, spleen and adrenal glands are unremarkable. There are a few scattered less than 5 mm hypodensities in the kidneys. They are too small for further characterization. No suspicious renal masses are seen. No evidence of nephrolithiasis or hydronephrosis. The visualized portions of the urinary bladder are unremarkable. No significant abdominal adenopathy, ascites or pneumoperitoneum is present. Anastomotic clips are seen at the rectosigmoid junction. The bowel shows no evidence of obstruction or inflammation. The soft tissues are unremarkable. Age-appropriate degenerative changes are seen in the lumbar spine. IMPRESSION: 1. No acute abdominal or pelvic process. 2. No evidence of abdominal aortic dissection, occlusion or significant stenosis. The findings were discussed with the Emergency Department on the date of the examination. Dictated by: WANDA LYONS MD Transcribed by: BUNNY 11/03/2107:39 D Tuesday, November 02, 2021 11:09:06 AM [id number] Electronically Reviewed and Signed By: CRISTELA LYONS MD 11/03/21 19:29 Copy for: 185 HEALTH INFORMATION MGMT DISCHARGED XR EXAM CHEST 1 VIEW - Compl eted: 11/02/2021 10:44 LOINC: PORTABLE AP VIEW OF THE CHES T: Comparison chest x-ray is 06/30/2015. Comparison CT scan of the chest is 11/14/2020. The examination is suboptimal, as it is an AP view and the person is semi- recumbent and therefore a lordotic view. No definite widening of the superior mediastinum is identified. Heart size appears mildly enlarged. The lungs are clear. No effusion or pneumothorax is identified. The tracheal air shadow is midline. IMPRESSION: 1. Suboptimal examination of the chest secondary to patient positioning. 2. Heart at the upper limits of normal to mildly enlarged. 3. Lungs are clear. If there is continued clinical concern, a CT scan of the chest with contrast is recommended. Findings were discussed with Dr. Campos on the date of the examination. Dictated by: WANDA LYONS MD Transcribed by: RHEA 11/02/21/14:28 [id number] Electronically Reviewed and Signed By: CRISTELA LYONS MD 11/02/21 15:33 Copy for: 185 HEALTH INFORMATION MGMT DISCHARGED Social History Type Status Start Date End Date Code Code Syst em Smoking History Current every day smoker [id number] SNOMED CT Sex Male Vital Signs Vital Sign Value Unit Yell Value Yell Unit Date/Time Recent/Initial? Code Code System Systolic Blood Pressure 117 mm[Hg] 11/02/2021 15:04 Most Recent 8480-6 LOINC Diastolic Blood Pressure 73 mm[Hg] 11/02/2021 15:04 Most Recent 8462-4 LOINC Systolic Blood Pressure 118 mm[Hg] 11/02/2021 12:53 Initial 8480-6 LOINC Diastolic Blood Pressure 70 mm[Hg] 11/02/2021 12:53 Initial 8462-4 LOINC O2 Saturation 98 % 2021 15:04 Most Recent 16124- 5 LOINC O2 Saturation 94 % 2021 12:53 Initial 95810- 5 LOINC Pulse 68.0 /min 11/02/2021 15:04 Most Recent 8867-4 LOINC Pulse 63.0 /min 11/02/2021 12:53 Initial 8867-4 LOINC Respiration 16 /min 11/02/19 15:04 Most Recent 9279-1 LOINC Respiration 19 /min 11/02/19 12:53 Initial 9279-1 LOINC Medications Medication Start Date End Date Route Frequency Dose Code Code System Medication Instructions Home Meds Valium 5MG Oral Tablet 11/02/2021 Unknown ORAL NEEDED EVERY 8 HOURS 1 TABLET 409418 RxNorm TAKE 1 TABLET ORAL NEEDED EVERY 8 HOURS Cipro 500MG Oral Tablet 01/08/2024 Unknown ORAL TWICE A DAY 1 TABLET 455848 RxNorm TAKE 1 TABLET ORAL TWICE A [...] Code System HIGH BLOOD PRESSURE 01/07/2024 resolved 26602151 SNOMED-CT HIGH CHOLESTEROL 01/07/2024 resolved 69028707 SN OMED-CT Allergies and Adverse Reactions Allergy Substance Reaction Severity Start Date Concern Status Co de Code System TETANUS IMMUNE GLOBULIN Active 44642 RxNorm PENICILLIN Active Plan of Treatment CT CHEST W/O CONTRAST 10/14/2023 CT CHEST W/O CONTRAST 01/14/2023 Encounters Encounter Diagnosis Start Date Code Code Sys tem Other chest pain 11/02/2021 SNOMED-CT Personal Care Team Section Performer Name Performer Role Active Date Inactive Da te
--- OUTSIDE RECORDS SUMMARY | 2024-08-29 11:06 | XMS_ITS | Encounter Summary ---
Author Organization [facility] Address [facility] [place] [address] Care Team Providers Care Horse Stud Manager Name Role Phone Brittany Fay MD Primary Care Provider [phone] Reason for Referral * Consultation (Routine) - Closed Specialty Diagnoses / Procedures Referred By Lexus garsia Referred To Contact Thoracic Surgery Diagnoses Claudication of right lower extremity Currently attempting to quit smoking PVD (peripheral vascular disease) with claudication Essential hypertension Taryn Chase MD [facility] [place] [address] Marina Richter APRN [facility] [place] [address] Referral ID Status Reason Start Date Expiration Date V isits Requested Visits Authorized [id number] Closed Consult, Test & Treat 07/11/2020 07/11/2021 1 1 Reason for Visit * Auth/Cert Specialty Diagnoses / Procedures Referred By Lexus garsia Referred To Contact Diagnoses Claudication RLE claudication UNKNOWN Procedures PRO THROMBOENDARTECTMY ILIOFEMORAL @ENDARTERECTOMY, ILIOFEMORAL W OR W/O PATCH GRAFT (WRVU 19.86) Referral ID Status Reason Start Date Expiration Date Visits Re quested Visits Authorized [id number] 1 1 Encounter Details Date Type Department Care Team (Latest Contact Info) Description 07/10/2020 5:35 AM EDT - 07/11/2020 4:04 PM EDT Hospital Encounter [address] [place] [id number] Taryn Chase MD [facility] DR VASCULAR SURGERY [place] [id number] Claudication of right lower extremity; Currently attempting to quit smoking; PVD (peripheral vascular disease) with claudication; Essential hypertension Discharge Disposition: Home Social History Tobacco Use Types Packs/Day Years Used Date Smoking Tobacco: Every Day Cigarettes 0.5 16 Smokeless Tobacco: Never Sex and Gender Information Value Date Recorded Sex Assigned at Not on file Gender Identity Not on file Sexual Orientation Not on file documented as of this encounter Last Filed Vital Signs Vital Sign Reading Time Taken Comments Blood Pressure 131/79 07/11/2020 11:41 AM EDT Pulse 83 07/10/2020 7:58 PM EDT Temperature 36.8 ??C (98.2 ??F) 07/11/2020 11:41 AM E DT Respiratory Rate 18 07/11/2020 11:41 AM EDT Oxygen Saturation 97% 07/11/2020 11:41 AM EDT Inhaled Oxygen Concentration - - Weight - - Height 172.7 cm (5' 8) 07/10/2020 6:14 AM EDT Body Mass Index - - documented in this encounter Discharge Summaries * Essence East MD - 07/11/2020 2:22 PM EDT Inpatient - Discharge Summary Patient Name: Fern Montgomery Patient Age: 59 y.o. Birthdate: 1960 Admit date: 07/10/2020 Discharge date and time: 07/11/2020 Attending Physician: Taryn Chase MD Discharging Provider: Essence East MD Discharging Service: Vascular Surgery Operations/Major Procedures: 07/10/2020: Iliofemoral endarterectomy with graft, deep profunda femoris endarterectomy and profundaplasty Active Hospital Problems: Active Hospital Problems Diagnosis ??? Claudication Resolved Hospital Problems No resolved problems to display. Active Non Hospital Problems: Active Non-Hospital Problems Diagnosis ??? PVD (peripheral vascular disease) with claudication ??? Hypertension History of Presentation: Fern Montgomery is a 59 y.o. male with history of HTN, PAD with RLE claudication. 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 He has cut backfrom >2 ppd to <1ppd. Presents today for RLE revascularization. ?? Patient denies recent changes to his health. Denies recent CP, SOB, MCCLAIN, PND, orthopnea. Patient ismaintained on daily ASA, statin. ?? Patient reports drinking 4-6 hard alcoholic beverages per day. These are heavy pours. Longest he has gone without drinking is 2 days but had no withdrawal symptoms at that time. Hospital Course: In surgery, Anatomy consistent with preoperative imaging. Bulky, irregular plaque at the femoral bifurcation. Endarterectomy performed and distal endpoints in both SFA and profunda tacked down. Palpable PT pulse at case completion.??Patient did very well postoperatively. On HD#2 patient was eating regular diet, ambulating, and without pain. He was voiding spontaneously and his incisions were clean, dry, intact. He was determined to be medically ready for discharge to home. He will follow up with Vascular Surgery in 2 weeks for a wound check and 4 weeks with ABIs. Day of discharge exam: HEENT: PERRL, anicteric sclerae CVS: Regular rate Pulm: Breathing comfortably on room air Abd: soft, non tender, non distended. Barahona in place. Ext: RLE: Groin incision c/d/i with Prevena wound vac in place. NITIN wrap c/d/i. No edema. Skin warmand pink. No tissue loss. Brisk capillary refill. Doppler signal for PT, absent DP unchanged from preop. LLE: No edema. Skin warm and pink. No tissue loss. Brisk capillary refill. DP/PT signals dopplerable. Neuro: Nonfocal, moving all extremities. Sensation intact in extremities bilaterally symmetric. Motor function intact in extremities, bilaterally symmetric ?? Vitals: BP 131/79 (BP Location (NBP): Right arm, Patient Position: Lying) Pulse 83 Temp 36.8 ??C (98.2 ??F) (Oral) Resp 18 Ht 172.7 cm (5' 8) SpO2 97% BMI 27.37 kg/m?? Important Studies and Lab Data: Labs: Lab Results Component Value Date CREATININE 0.89 07/11/2020 Discharge Condition: Good Discharge to: Home Future Appointments and Orders Future Appointments and Orders Future Appointments Provider Department Dept Phone 07/23/2020 2:00 PM Bren Calloway PA Vascular Surgery at [facility] Arrive at: Labor Relations Director Area [phone] 08/14/2020 10:30 AM Kamini Cuba Vascular Lab at [facility] Arrive at: Labor Relations Director Area [phone] 08/14/2020 11:00 AM Taryn Chase MD Vascular Surgery at [facility] Arrive at: Labor Relations Director Area [phone] Future Orders Complete By Expires PARKER, legs, multiple levels [VAS8 Custom] 08/11/2020 (Approximate) 02/10/2021 Process Instructions: There is no in-house vascular labor law professor available on weeknights (5pm-8am), weekends, or holidays. IF THIS IS A REQUEST FOR AN EMERGENT STUDY DURING THOSE HOURS, please have the senior provider responsible for the patient page the Vascular Surgery Fellow/Senior Resident instruction librarian to discuss options. Scheduling Instructions: Questions: Indication for study/signs & symptoms: S/p R iliofemoral endarterectomy Question to be answered: ? of degree of blood flow to feet Preferred location?: [facility] Clinics Referral to Smoking Cessation Program [NLN628 Custom] As directed Process Instructions: If no progress note charted, please enter Clinical details in comments. Scheduling Instructions: Questions: My question or request is: Pt who would like help with smoking cessation Anticoagulation & Antiplatelet: Antiplatelet: Agent: Aspirin 81 mg daily Indication: S/p iliofemoral endarterectomy, home medication Intended Duration: Indefinite For questions regarding these medications, please contact: [phone] Discharge Medications: Your Medications UNREVIEWED medications - Discuss With Your Provider Dose Details aspirin EC 81 mg Tbec Take 81 mg by mouth Daily. 81 mg Refills: 0 atorvastatin 40 mg Tab Commonly known as: Lipitor Take 1 tablet by mouth daily. 40 mg Quantity: 90 tablet Refills: 3 lisinopriL 10 mg Tab Commonly known as: Prinivil;Zestril 20 mg Daily. 20 mg Refills: 0 Updated Allergies/ADRs: Allergies Allergen Reactions ??? Penicillins ??? Tetanus Vaccines And Toxoid Instructions Given to Patient at Discharge: Patient Instructions Patient Instructions You were admitted on 07/10 for right lower extremity revascularization to get more blood flow to your leg. All of this went very well. Dr. Chase will want you to be seen in approximately one month with ABIs. All of this will be ordered and sent to you in the mail. If for some reason you don't receive this within a week or so please call our office as your followup is very important. Anticoagulation: Aspirin 81 mg daily Call your doctor if: Any fever, any drainage, redness or separation of your incision, increased pain or change in temperature of your leg Activity level: up as tolerated but watch for swelling of your leg. Manage this with leg elevation,toes higher than your nose and also can use acewrapping from your foot to below knee, tape in place, rewrap as necessary. Diet: resume your previous regular diet Driving: none right now with pain medication use Shower/Bath: It is ok to shower and wash all incisions under running water, pat dry. No soaking in a pool/bath/hottub for 2-4 weeks Wound Care: Please keep your Provena wound vac area idalmis and dryn. You will return for a wound check in 2 weeks. For any problems or questions please call [phone] For issues on weeknights after 5pm and weekends please call [phone] and ask for the Vascular Fellow instruction librarian. documented in this encounter Discharge Instructions * Patient Instructions* Essence East MD - 07/09/2020 1:06 PM EDT Patient Instructions You were admitted on 07/10 for right lower extremity revascularization to get more blood flow to your leg. All of this went very well. Dr. Chase will want you to be seen in approximately one month with ABIs. All of this will be ordered and sent to you in the mail. If for some reason you don't receive this within a week or so please call our office as your followup is very important. Anticoagulation: Aspirin 81 mg daily Call your doctor if: Any fever, any drainage, redness or separation of your incision, increased pain or change in temperature of your leg Activity level: up as tolerated but watch for swelling of your leg. Manage this with leg elevation,toes higher than your nose and also can use acewrapping from your foot to below knee, tape in place, rewrap as necessary. Diet: resume your previous regular diet Driving: none right now with pain medication use Shower/Bath: It is ok to shower and wash all incisions under running water, pat dry. No soaking in a pool/bath/hottub for 2-4 weeks Wound Care: Please keep your Provena wound vac area idalmis and dryn. You will return for a wound check in 2 weeks. For any problems or questions please call [phone] For issues on weeknights after 5pm and weekends please call [phone] and ask for the Vascular Fellow instruction librarian. documented in this encounter Medications at Time [...] by mouth daily. 14 each 07/12/2020 08/14/2020 documented as of this encounter Progress Notes * Teresa Rosen RN - 07/11/2020 3:32 PM EDT Pt discharged to home via private vehicle in stable condition. Masimo and IV sites removed. Belongings with the pt. Prevena wound vac remains in place. AVS reviewed and gave to the pt. No home service. * Essence East MD - 07/10/2020 3:23 PM EDT Surgery Post Op Check Fern Montgomery is a 59 y.o. male status post Right iliofemoral endarterectomy. S: Patient is doing well, denies pain. He has been tolerating PO clear liquids without issues. He deines nausea/vomiting, chest pain, SOB. No complaints at this time. O: Temp: [36.1 ??C (97 ??F)-36.2 ??C (97.2 ??F)] Heart Rate: [64-80] Resp: [14-20] BP: (118-136)/(77-85) SpO2: [94 %-100 %] Heart Rate from SpO2: [64 bpm-80 bpm] No intake/output data recorded. I/O this shift: In: 2200 [I.V.:2200] Out: 430 [Urine:355; Blood:75] UOP since OR: 255 mL via Barahona Physical Exam General: NAD, resting comfortably HEENT: PERRL, anicteric sclerae CVS: Regular rate Pulm: Breathing comfortably on room air Abd: soft, non tender, non distended. Barahona in place. Ext: RLE: Groin incision c/d/i with Prevena wound vac in place. NITIN wrap c/d/i. No edema. Skin warmand pink. No tissue loss. Brisk capillary refill. Doppler signal for PT, absent DP unchanged from preop. LLE: No edema. Skin warm and pink. No tissue loss. Brisk capillary refill. DP/PT signals dopplerable. Neuro: Nonfocal, moving all extremities. Sensation intact in extremities bilaterally symmetric. Motor function intact in extremities, bilaterally symmetric AP Fern Montgomery is a 59 y.o. male status post Right iliofemoral endarterectomy currently in stable condition and recovering well - Pain well controlled - Hemodynamically stable - UOP adequate - Discontinue Barahona at midnight - Regular diet - Bedrest tonight Essence East MD Vascular Surgery 07/10/20 * Teresa Rosen RN - 07/10/2020 3:00 PM EDT Pt [facility] from PACU via bed in stable condition. VSS, AO x4. Barahona and IV sites in place.Belongings with the pt. * Nel Lehman RN - 07/10/2020 12:00 PM EDT Report received from NATASHA Samuel. Right groin site CDI with Prevena wound vac in place. Right PT pulse found with doppler. Right DP pulse absent, vascular surgery aware and per their report was absent pre-op as well. Barahona putting out CYU. Pain treated with available medications. Pt denies nausea at this time. Pt tolerating ice chips. Left radial A-line removed and pressure bandage applied. Report given to NATASHA Moore. * Gi Santos RN - 07/10/2020 11:36 AM EDT 1100: Patient received from operating room, alarms on and set appropriate for patient, vs's, patient complaining of right groin pain medicated with hydromorphone iv documented in this encounter H&P Notes * Sergio Beverly MD - 07/10/2020 7:01 AM EDT Vascular Surgery History and Physical HPI: Fern Montgomery is a 59 y.o. male with history of HTN, PAD with RLE claudication. 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 He has cut back from >2 ppd to <1ppd. Presents today for RLE revascularization. Patient denies recent changes to his health. Denies recent CP, SOB, MCCLAIN, PND, orthopnea. Patient ismaintained on daily ASA, statin. Patient reports drinking 4-6 hard alcoholic beverages per day. These are heavy pours. Longest he has gone without drinking is 2 days but had no withdrawal symptoms at that time. Review of Systems: A full review encompassing at least 10 organ systems including general, neuro, pulm, cardiac, GI, , MSK, Endo, and psych was negative other than that listed in the HPI. Past Medical History: Past Medical History: Diagnosis Date ??? Hypertension 04/23/2020 ??? PVD (peripheral vascular disease) with claudication 04/23/2020 Past Surgical History: Past Surgical History: Procedure Laterality Date ??? COLON SURGERY diverticulitis Functional Status/Social Hx: Lives at home, [place], Current smoker Family Hx: Negative for Thrombosis, Bleeding Disorders Medications: No current facility-administered medications on file prior to encounter. Current Outpatient Medications on File Prior to Encounter Medication Sig Dispense Refill ??? atorvastatin (Lipitor) 40 mg Tablet Take 1 tablet by mouth daily. 90 tablet 3 ??? lisinopriL (Prinivil;Zestril) 10 mg Tablet 20 mg Daily. ??? aspirin EC 81 mg Tablet, Delayed Release (E.C.) Take 81 mg by mouth Daily. Allergies: Penicillins and Tetanus vaccines and toxoid Physical Exam: Temp: [36.4 ??C (97.5 ??F)] Heart Rate: [98] Resp: [18] BP: (163)/(88) SpO2: [100 %] Heart Rate from SpO2: -- General: NAD, resting comfortably HEENT: PERRL, anicteric sclerae CVS: Regular rate, no murmurs rubs or gallops Pulm: Clear bilaterally Abd: soft, non tender, non distended Ext: RLE: No edema. Skin warm and pink. No tissue loss. Brisk capillary refill. LLE: No edema. Skin warm and pink. No tissue loss. Brisk capillary refill. Neuro: Grossly nonfocal, moving all extremities. Vascular Exam: R L Carotid 2/2 2/2 Radial 2/2 2/2 Femoral 2/2 2/2 DP 0/2 2/2 PT 0/2 2/2 Labs: Recent Labs 07/10/20 0559 WBC 7.0 HGB 15.8 HCT 47.1 PLATELET 308 Recent Labs 07/10/20 0559 NA 140 K 4.7 CL 102 CO2 27 BUN 11 CREATININE 0.78* CALCIUM 9.6 Studies/Imaging: PARKER 03/26/2020: Findings: ?? Right ?Pressure (mm [...] ankle/brachial pressure ratios and ankle Doppler waveforms. ?? CTA 06/17/2020: Large bulky plaque at the right femoral bifurcation. Otherwise in-line flow from the aortic bifurcation to the foot. EKG??06/17/2020:??RA/RL lead reversal, NSR 73bpm, IRBBB ?? MPI 07/03/2020: IMPRESSION 1. ??No ischemia or scar. ??Left ventricular function is normal. 2. ??Unexpected finding: Small, 5 mm right upper lobe pulmonary nodule. Recommend noncontrast low-dose CT chest for further characterization. Assessment and Plan: Fern Montgomery is a 59 y.o. male who presents today for RIGHT iliofemoral endarterectomy. Risks, benefits, and alternatives were discussed and patient elects to proceed. Bhavya Oleary Beverly Vascular Surgery Pager #[phone] documented in this encounter Miscellaneous Notes * Plan of Care - Teresa Rosen RN - 07/10/2020 8:22 PM EDT OUTCOME EVALUATION NOTE: OUTCOME SUMMARY: Pt had a good day. VSS, AO x4. Q2H check alcohol withdrawal assessment done as ordered. UO via barahona, adequate amount. Incision site CDI, with prevena w. Vac in placed. Pain controlled with scheduledpain meds. Will continue to monitor PLAN MOVING FORWARD: D/C barahona, encourage ambulation, I/O, pain management INDIVIDUALIZED FALL PREVENTION INTERVENTIONS: Patient-specific fall risk factors per assessment: [current deficits]: Pain, generalized weakness, IV tubings Assistance [level of assistance required for transfers and ambulation]: 2 assist with walker Supervision [direct monitoring required during toileting and ADLs]: Hands on Surveillance [continuous indirect monitoring]: Call brothers in reach, bed alarm Patient-specific fall prevention interventions for sensory deficits provided, if applicable: [X] Yes Call brothers, bed alarm CPG GOAL OUTCOME EVALUATION: ongoing * Op Note - Sergio Beverly MD - 07/10/2020 11:19 AM EDT [facility] Operative Note Patient Name: Fern Montgomery : [id number] MR#: [id number] Case Date: 07/10/2020 Surgeon: Surgeon(s) and Role: * Taryn Chase MD - Primary * Sergio Beverly MD - Resident Preoperative diagnosis: RLE claudication Postoperative diagnosis: RLE claudication Procedure(s) (LRB): @ENDARTERECTOMY, ILIOFEMORAL W OR W/O PATCH GRAFT (WRVU 19.86) (Right) @ENDARTERECTOMY, PROFUNDAPLASTY, DEEP, PROFUNDA FEMORIS W OR W/O PATCH GRAFT (WRVU 18.58) (Right) Findings: Anatomy consistent with preoperative imaging. Bulky, irregular plaque at the femoral bifurcation. Endarterectomy performed and distal endpoints in both SFA and profunda tacked down. Palpable PT pulse at case completion. Anesthesia: General Estimated Blood Loss: 75 mL Heparin: 8000 units ?? Protamine: 50 mg Specimens removed during surgery: None Fluids: 1800 ml PRBCs: none (See Anesthesia Record/Report for Other Blood Products) Urine Output: 100 mL Drains: Prevena incisional wound vac Surgical Closure: Primary Closure - skin incision is completely closed without any wires, jeffery, drains or other devices Disposition: awakened from anesthesia, extubated and taken to the recovery room in a stable condition, having suffered no apparent untoward event. Condition: doing well without problems (Please see the Surgical Encounter Summary for any Implant and Specimen details pertinent to this patient.) HPI/Surgical Indications: 59 y.o. male with history of HTN, PAD with RLE claudication. 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 He has cut back from >2 ppd to <1ppd. Presents today for RLE revascularization. Procedure Description: After informed consent was obtained the patient was brought back to the operating room and placed supine on the OR table. General anesthesia was induced and the patient was intubated with an ETT. Additional support lines (barahona, arterial line, PIVs) were placed. Preoperative antibiotics were given. A timeout was performed. Attention was then turned to the patient's right leg, which was prepped and draped in the standard sterile fashion. A longitudinal incision was made overlying the patient's right common femoral artery. Subcutaneous tissue was divided with a combination of electrocautery and sharp dissection with metzenbaums. Lymph nodes and lymphatics were doubly lig ated and transected. The distal external iliac, superficial femoral, profunda and circumflex arteries were circumferentially dissected and encircled with vessel loops. Systemic heparin was given. An arteriotomy was made along the common femoral artery with an 11-blade and extended with Pott's scissors. An endarterectomy was then performed in standard fashion starting in the proximal common femoral artery artery and continuing to the SFA and profunda femoris artery. Tacking 6-0 sutures were placed around the os of the profunda and the distal endpoint of the SFA endarterectomy. A bovine pericardial patch was then cut to size and sewn in place with running 5-0 prolene suture for patch angioplasty. Prior to completion of the patch angioplasty, the arteries were all flushed to expel debris andair. The patch angioplasty was completed and all clamps were removed. Doppler confirmed excellent, flow through the patched segment and into both the SFA and profunda. Protamine was given. Hemostasiswas ensured with surgicel and cautery. The wound was then closed in multiple layers of interrupted 2-0 vicryl sutures followed by 3-0 vicryl deep dermal sutures and 4-0 monocryl subcuticular sutures.A Prevena incisional wound vac was placed over the incision and suction was applied. The patient was awoken, extubated and taken to PACU in stable condition. All counts were reported to be correct. Infection Bundle used? No Associated attestation - Taryn Chase MD - 07/11/2020 9:48 AM EDT Attestation: Case Date: 07/10/2020 I was present and I participated during the entire procedure (does not need to include opening and closing). Taryn Chase MD 07/11/2020 * Brief Op Note - Sergio Beverly MD - 07/10/2020 11:15 AM EDT Brief Operative Note Patient Name: Fern Montgomery : [id number] MR#: [id number] Case Date: 07/10/2020 Surgeon: Surgeon(s) and Role: * Taryn Chase MD - Primary * Sergio Beverly MD - Resident Preoperative diagnosis: RLE claudication Postoperative diagnosis: RLE claudication Procedure(s) (LRB): @ENDARTERECTOMY, ILIOFEMORAL W OR W/O PATCH GRAFT (WRVU 19.86) (Right) @ENDARTERECTOMY, PROFUNDAPLASTY, DEEP, PROFUNDA FEMORIS W OR W/O PATCH GRAFT (WRVU 18.58) (Right) Anesthesia: General Findings: Anatomy consistent with preoperative imaging. Bulky, irregular plaque at the femoral bifurcation. Endarterectomy performed and distal endpoints in both SFA and profunda tacked down. Palpable PT pulse at case completion. Complications: None Estimated Blood Loss: 75 mL Heparin: 8000 units Protamine: 50 mg Specimens removed during surgery: None Fluids: 1800 ml PRBCs: none (See Anesthesia Record/Report for Other Blood Products) Urine Output: 100 mL Drains: Prevena incisional wound vac Disposition: awakened from anesthesia, extubated and taken to the recovery room in a stable condition, having suffered no apparent untoward event. Condition: doing well without problems (Please see the Surgical Encounter Summary for any Implant and Specimen details pertinent to this patient.) Infection Bundle used? No documented in this encounter Plan of Treatment Scheduled Referrals Name Type Priority Associated Diagnoses Orde r Schedule Referral to Smoking Cessation Program Outpatient Referral Routine Claudication of right lower extremity Currently attempting to quit smoking PVD (peripheral vascular disease) with claudication Essential hypertension Ordered: 07/11/2020 documented as of this encounter Procedures Procedure Name Priority Date/Time Associated Diagnosis Comments BMP W/FASTING GLUCOSE Routine 07/11/2020 10:21 AM EDT HEMOGRAM Routine 07/11/2020 10:21 AM EDT DIFFERENTIAL, AUTOMATED Routine 07/11/20 20 10:21 AM EDT HC CBC,PLT & AUTO DIFF Routine 0 10:21 AM EDT HC TRIGLYCERIDES Routine 07/11/2020 10:2 1 AM EDT HC LDL CHOLESTEROL, DIRECT Routine 07/11/2020 10:21 AM EDT HC CHOLESTEROL Routine 07/11/2020 10:21 AM EDT HC VENIPUNCTURE Routine 07/11/2020 10:21 AM EDT ENDART, PROFUNDAPLASTY, DEEP, PROFUNDA FEMORIS W OR W/O PATCH GRAFT Routine 07/10/2020 11:17 AM EDT Thromboendartectmy Femoral Deep ([id number]) Yes 07/10/2020 7:31 AM EDT RLE claudication Thromboendartectmy Iliofemoral ([id number]) Yes 07/10/2020 7:31 AM EDT RLE claudication HC UA W/OUT MICROSCOPIC Routine 07/10/20 20 6:09 AM EDT Claudication of right lower extremity ENDARTERECTOMY, ILIOFEMORAL W OR W/O PATCH GRAFT Routine 07/10/2020 6:03 AM EDT ABORH RECHECK STATUS Routine 07/10/2020 5:59 AM EDT HC HEMOGRAM Routine 07/10/2020 5:59 AM EDT Claudication of right lower extremity HC ABO-MICROTITER Routine 07/10/2020 5:5 9 AM EDT Claudication of right lower extremity ABO/RH TYPING Routine 07/10/2020 5:59 AM EDT Claudication of right lower extremity ANTIBODY SCREEN Routine 07/10/2020 5:59 AM EDT Claudication of right lower extremity HC PREALBUMIN, SERUM Routine 07/10/2020 5:59 AM EDT Claudication of right lower extremity BASIC METABOLIC PANEL Routine 07/10/2020 5:59 AM EDT Claudication of right lower extremity IMPLANTABLE DEVICES SCAN 020 12:00 AM EDT documented in this encounter Results * PARKER, legs, multiple levels (08/14/2020 10:21 AM EST) VB Text Report Department: Vascular Surgery Lab Patient: [id number] (FERN MONTGOMERY) CPT: 76555 ICD10: I70.211;I73.9 Referring Physician: TARYN CHASE ?? Phone: Indications: ??s/p RIGHT LE iliofemoral endart Diabetes mellitus: no ICD10 Diagnosis Code: I73.9 Findings: Right ?Pressure (mm Hg) ?? PARKER ??Waveform ?? Brachial Artery ?142 ? Dorsalis Pedis (Ankle) Artery ?152 ? 1.06 ??Triphasic ?? Posterior Tibial (Ankle) Artery ??164 ? 1.15 ??Triphasic ?? Left ? Pressure (mm Hg) ?? PARKER ??Waveform ?? Brachial Artery ?143 ? Dorsalis Pedis (Ankle) Artery ?167 ? 1.17 ??Triphasic ?? Posterior Tibial (Ankle) Artery ??172 ? 1.20 ??Triphasic ?? Interpretation: RIGHT: No significant lower extremity arterial occlusive disease identifiable at rest. Normal ankle/brachial pressure ratios and ankle Doppler waveforms. Improved compared to previous exam. LEFT: No significant lower extremity arterial occlusive disease identifiable at rest. Normal ankle/brachial pressure ratios and ankle Doppler waveforms. No significant change compared to previous exam. Previous ABIs with change from previous value: Date ?RIGHT DP ?? RIGHT PT ?? RT GR TOE ??RT Sec TOE ??0.73 ? 0.90 ? ---- ? ---- Current ? 1.06(+.33) 1.15(+.25) ---- ? ---- Date ?LEFT DP ?LEFT PT ?LT GR TOE LT Sec TOE ??1.10 ? 1.28 ? ---- ? ---- Current ? 1.17(+.07) 1.20(-.08) ---- ? ---- Electronically Signed by: TARYN CHASE on 2020-08-14 11:10:35 AM VASCUBASE VB Text Report End of Report VASCUBASE 08/14/2020 10:2 1 AM EST Taryn Chase MD VASCULAR ORDERABLES VASCUBASE * (ABNORMAL) BMP w/fasting Glucose (07/11/2020 10:21 AM EDT) Pathologist [facility] Glucose Fasting 128(H) 65 - 99 mg/dL [facility] Comment: ?Fasting* Glucose Interpretive Criteria Normal ?65-99 mg/dL Impaired Fasting glucose ?100-125 mg/dL Consistent with Diabetes Mellitus ? >or= 126 mg/dL *Fasting is defined as no caloric intake for at least 8 hours In the absence of unequivocal hyperglycemia a plasma glucose value of >or= 126 mg/dL should be repeated on a subsequent day. Diagnosis and Classification of Diabetes Mellitus, Position Statement from the [place] [employer]. ??Diabetes Care, Volume 33, Supplement 1, Oct 2009 Blood Urea Nitrogen 12 10 - 20 mg/dL [facility] Creatinine 0.89 0.80 - 1.50 mg/dL [facility] Sodium 140 135 - 145 mmol/L [facility] Potassium 4.1 3.5 - 5.0 mmol/L [facility] Comment: Please note: ??Patients with WBC >100,000 may have falsely elevated Potassium levels. ??For accurate Potassium quantification in these patients send serum separator tube (gold top) for subsequent determinations. ??Contact the Clinical Chemistry Laboratory if there are any questions. Chloride 103 98 - 107 mmol/L [facility] Carbon Dioxide 28 22 - 31 mmol/L [facility] Anion Gap 9 5 - 15 mmol/L [facility] Calcium 9.3 8.5 - 10.5 mg/dL [facility] Est Glomerular Filtration Rate 94 >=60 mL/min/1. 73 m?? [facility] Comment: The eGFR was calculated using the CKD-EPI equation. As with all creatinine based estimates of kidney function, eGFR values calculated with the CKD-EPI equation are not accurate in patients with acute kidney failure, extremes of body mass or the acutely ill. [email or web address] eGFR 109 >=60 mL/min/1. 73 m?? [facility] Comment: The eGFR was calculated using the CKD-EPI equation. As with all creatinine based estimates of kidney function, eGFR values calculated with the CKD-EPI equation are not accurate in patients with acute kidney failure, extremes of body mass or the acutely ill. [email or web address] Blood specimen (specimen) 07/11/2020 10:21 AM EDT 07/11/2020 10:54 AM EDT Narrative Resulting Agency Comment Spec In Lab Essence East MD CHEMISTRY ORDERA BLES [facility] [place] [address] * (ABNORMAL) Differential, Automated (07/11/2020 10:21 AM EDT) Neutrophil % 78.0 % [facility] Neutrophil Absolute 11.09(H) 1.70 - 6.10 x10(3)/mc L [facility] Lymph % 14.2 % [facility] Lymphocytes Abs 2.0 0.9 - 3.2 x10(3)/mc L [facility] Monocyte % 7.1 % [facility] Monocyte Abs 1.0(H) 0.3 - 0.9 x10(3)/mc L [facility] Eos % 0.1 % [facility] Eosinophils Abs 0.0 0.0 - 0.4 x10(3)/mc L [facility] Basophil % 0.1 % [facility] Baso Absolute 0.0 0.0 - 0.1 x10(3)/mc L [facility] Immature Gran % 0.50 % [facility] Comment: Immature granulocytes(IG's)percentage and absolute count will include metamyelocytes, myelocytes, and promyelocytes. Blood smears from CBCs yielding IG's will be scanned manually for concordance. If this scan disagrees with the automated IG or if promyelocytes are noted, a manual differential will be performed. Immature Gran Absolute 0.07(H) 0.00 - 0.04 x10(3)/ L [facility] Blood specimen (specimen) 07/11/2020 10:21 AM EDT 07/11/2020 10:54 AM EDT Narrative Resulting Agency Comment Spec In Lab Essence East MD HEMATOLOGY ORDER ADITYA [facility] [place] [address] * (ABNORMAL) Hemogram (07/11/2020 10:21 AM EDT) White Blood Cell 14.2(H) 4.0 - 9.5 x10(3)/[facility] Red Blood Cell 4.21(L) 4.58 - 5.54 x10(6)/[facility] Hemoglobin 14.2 13.7 - 16.5 gm/dL [facility] Hematocrit 42.2 40.5 - 48.5 % [facility] Mean Cell Volume 100.2(H) 82.9 - 93.1 [facility] Mean Cell Hemoglobin 33.7(H) 27.5 - 32.1 pg [facility] Mean Cell Hemoglobin Concentration 33.6 32.0 - 35.7 gm/dL [facility] Platelet 279 145 - 357 x10(3)/ L [facility] RDW Standard Deviation 48.9(H) 36.0 - 45.0 [facility] RDW coefficient of variation 13.2 11.4 - 13.8 % [facility] Mean Platelet Volume 9.0 7.6 - 12.9 [facility] NRBC% auto 0.0 % [facility] NRBC Absolute 0.000 0.000 - 0.000 x10(3)/ L [facility] Blood specimen (specimen) 07/11/2020 10:21 AM EDT 07/11/2020 10:54 AM EDT Narrative Resulting Agency Comment Spec In Lab Essence East MD HEMATOLOGY ORDER ADITYA Performing Organization Address [facility]/ZIP Co de Phone Number [facility] [place] [address] * Triglyceride (07/11/2020 10:21 AM EDT) Triglyceride 210 mg/dL [facility] Comment: Average Risk/Lower Risk: <150 mg/dL Borderline High Risk: 150-199 mg/dL High Risk: 200-499 mg/dL Very High Risk: >dr=689 mg/dL Blood specimen (specimen) 07/11/2020 10:21 AM EDT 07/11/2020 10:54 AM EDT Narrative Resulting Agency Comment Spec In Lab Taryn Chase MD CHEMISTRY ORDERABLES Performing Organization Address City/[facility]/ZIP Co de Phone Number [facility] [place] [address] * HDL/Cholesterol Profile (07/11/2020 10:21 AM EDT) Cholesterol, Total 158 mg/dL [facility] Comment: Lower Risk: <200 mg/dL Average Risk: 200-239 mg/dL Higher Risk: >oc=231 mg/dL HDL Cholesterol 56 mg/dL [facility] Comment: Males: ?? Higher Risk: <40 mg/dL Females: ?? HIgher Risk: <50 mg/dL Cholesterol/HDL Ratio 2.8 ratio [facility] Chol/HDL Interpretation See Note [facility] Comment: Lipid management should be guided by a patient? s ASCVD risk, goals and preferences. ACC/AHA Guidelines recommend high intensity statin if clinical ASCVD or LDL greater than or equal to 190 mg/dL. http://[email or web address] IDEurl.com/APX-VJY-Ipjsdhzgx Measure LDL if Total Cholesterol minus HDL Cholesterol is greater than 220 mg/dL. Adults aged 40-75 with LDL 70-189 mg/dL should have their 10 year ASCVD risk estimated with the ACC/AHA ASCVD risk production estimator http://tools.acc.org/COINE-Hhym-Bycedufeg/ Statin should be discussed if risk greater [...] Narrative Resulting Agency Comment Spec In Lab Taryn Chase MD CHEMISTRY ORDERABLES Performing Organization Address [facility] Co de Phone Number [facility] [place] [address] * LDL Cholesterol, Direct (07/11/2020 10:21 AM EDT) LDL Cholesterol, Direct 86 mg/dL [facility] Comment: Lowest Risk: <100 mg/dL Lower Risk: 100-129 mg/dL Borderline High Risk: 130-159 mg/dL High Risk: 160-189 mg/dL Very High Risk: >vb=141 mg/dL Blood specimen (specimen) 07/11/2020 10:21 AM EDT 07/11/2020 10:54 AM EDT Narrative Resulting Agency Comment Spec In Lab Taryn Chase MD CHEMISTRY ORDERABLES Performing Organization Address City/[facility]/ZIP Co de Phone Number [facility] [place] [address] * Hemoglobin A1c (07/11/2020 10:21 AM EDT) Hemoglobin A1c 5.5 4.3 - 5.6 % [facility] Comment: Reference Range: 4.3 - 5.6% [...] Mellitus, Diabetes Care 2013; 36: Suppl. 1, S67-74 Estimated Average Glucose 112 mg/dL [facility] Comment: eAG equivalents for HbA1c percentages: [...] into estimated average glucose values. ??Diabetes Care 2008:31(8):5137-4939. Blood specimen (specimen) 07/11/2020 10:21 AM EDT 07/11/2020 10:54 AM EDT Narrative Resulting Agency Comment Spec In Lab Taryn Chase MD CHEMISTRY ORDERABLES [facility] [place] [address] * (ABNORMAL) Urinalysis without microscopic (07/10/2020 6:09 AM EDT) Glucose, Urine Dipstick Negative Negative mg/dL [facility] Protein, Urine Dipstick Trace(A) Negative mg/dL [facility] Bilirubin, Urine Dipstick Negative Negative mg/dL [facility] Comment: Clinical correlation required for positive Urine Bilirubin results as false positive may occur with some drugs and drug related products. If a false positive is suspected a serum total bilirubin should be considered if clinically indicated. Urobilinogen, Urine Dipstick Normal Normal mg/dL [facility] pH, Urn (dipstick) 5.5 5.0 - 8.0 [facility] Blood, Urine Dipstick Negative Negative mg/dL [facility] Ketone, Urine Dipstick Trace(A) Negative mg/dL [facility] Nitrite, Urine Dipstick Negative Negative [facility] Leukocytes, Urine Dipstick Trace(A) Negative mcL [facility] Appearance, Urine Dipstick Clear Clear [facility] Specific Donner Urine Automated 1.021 1.006 - 1.030 [facility] Color, Urine Dipstick Dark Yellow Yellow [facility] Urine specimen (specimen) 07/10/2020 6:09 AM EDT 07/10/2020 6:13 AM EDT Narrative Resulting Agency Comment Spec In Lab Taryn Chase MD URINE ORDERABLES Performing Organization Address City/[facility]/ZIP Co de Phone Number [facility] [place] [address] * ABORH Recheck Status (07/10/2020 5:59 AM EDT) ABORH Recheck Order Order Placed [facility] ABORH Type Recheck Complete [facility] Blood specimen (specimen) 07/10/2020 5:59 AM EDT 07/10/2020 6:15 AM EDT Narrative Resulting Agency Comment Spec In Lab Taryn Chase MD BLOOD BANK LAB ORDER ADITYA [facility] [place] [address] * Antibody screen (07/10/2020 5:59 AM EDT) Ab Screen Interp Negative [facility] Expires at [id number] on: 07/13/2020 [facility] Blood specimen (specimen) 07/10/2020 5:59 AM EDT 07/10/2020 6:15 AM EDT Narrative Resulting Agency Comment Spec In Lab Taryn Chase MD BLOOD BANK LAB ORDER ADITYA [facility] [place] [address] * ABO/Rh Typing (07/10/2020 5:59 AM EDT) ABORH Type O Pos [facility] Blood specimen (specimen) 07/10/2020 5:59 AM EDT 07/10/2020 6:15 AM EDT Narrative Resulting Agency Comment Spec In Lab Taryn Chase MD BLOOD BANK LAB ORDER ADITYA Performing Organization Address City/[facility]/ZIP Co de Phone Number [facility] [place] [address] * (ABNORMAL) Hemogram (07/10/2020 5:59 AM EDT) White Blood Cell 7.0 4.0 - 9.5 x10(3)/mc L [facility] Red Blood Cell 4.65 4.58 - 5.54 x10(6)/mc L [facility] Hemoglobin 15.8 13.7 - 16.5 gm/dL [facility] Hematocrit 47.1 40.5 - 48.5 % [facility] Mean Cell Volume 101.3(H) 82.9 - 93.1 fL [facility] Mean Cell Hemoglobin 34.0(H) 27.5 - 32.1 pg [facility] Mean Cell Hemoglobin Concentration 33.5 32.0 - 35.7 gm/dL [facility] Platelet 308 145 - 357 x10(3)/mc L [facility] RDW Standard Deviation 50.8(H) 36.0 - 45.0 fL [facility] RDW coefficient of variation 13.3 11.4 - 13.8 % [facility] Mean Platelet Volume 8.9 7.6 - 12.9 fL [facility] NRBC% auto 0.0 % [facility] NRBC Absolute 0.000 0.000 - 0.000 x10(3)/mc L [facility] Blood specimen (specimen) 07/10/2020 5:59 AM EDT 07/10/2020 6:13 AM EDT Narrative Resulting Agency Comment Spec In Lab Taryn Chase MD HEMATOLOGY ORDERABLE S Performing Organization Address City/State/[facility] Co de Phone Number [facility] [place] [address] * (ABNORMAL) Basic Metabolic Panel (non-fasting) (07/10/2020 5:59 AM EDT) Glucose 100 65 - 199 mg/dL [facility] Comment:Diabetes: >=200 mg/d L plus symptoms Blood Urea Nitrogen 11 10 - 20 mg/dL [facility] Creatinine 0.78(L) 0.80 - 1.50 mg/dL [facility] Sodium 140 135 - 145 mmol/L [facility] Potassium 4.7 3.5 - 5.0 mmol/L [facility] Comment: Please note: ??Patients with WBC >100,000 may have falsely elevated Potassium levels. ??For accurate Potassium quantification in these patients send serum separator tube (gold top) for subsequent determinations. ??Contact the Clinical Chemistry Laboratory if there are any questions. Chloride 102 98 - 107 mmol/L [facility] Carbon Dioxide 27 22 - 31 mmol/L [facility] Anion Gap 11 5 - 15 mmol/L [facility] Calcium 9.6 8.5 - 10.5 mg/dL [facility] Est Glomerular Filtration Rate 100 >=60 mL/min/1. 73 m?? [facility] Comment: The eGFR was calculated using the CKD-EPI equation. As with all creatinine based estimates of kidney function, eGFR values calculated with the CKD-EPI equation are not accurate in patients with acute kidney failure, extremes of body mass or the acutely ill. [email or web address] eGFR 115 >=60 mL/min/1. 73 m?? [facility] Comment: The eGFR was calculated using the CKD-EPI equation. As with all creatinine based estimates of kidney function, eGFR values calculated with the CKD-EPI equation are not accurate in patients with acute kidney failure, extremes of body mass or the acutely ill. [email or web address] Blood specimen (specimen) 07/10/2020 5:59 AM EDT 07/10/2020 6:13 AM EDT Narrative Resulting Agency Comment Spec In Lab Taryn Chase MD CHEMISTRY ORDERABLES Performing Organization Address [facility] Co de Phone Number [facility] [place] [address] * Prealbumin (07/10/2020 5:59 AM EDT) Prealbumin 30 20 - 40 mg/dL [facility] Comment: Prealbumin levels are generally lower in the pediatric population; adult concentrations are usually attained near puberty. Blood specimen (specimen) 07/10/2020 5:59 AM EDT 07/10/2020 6:13 AM EDT Narrative Resulting Agency Comment Spec In Lab Taryn Chase MD CHEMISTRY ORDERABLES Performing Organization Address City/[facility] Co de Phone Number [facility] [place] [address] * SCAN DOC: IMPLANTABLE DEVICES (07/10/2020 12:00 AM EDT) Narrative 07/10/2020 12:00 AM EDT Ordered by an unspecified provider. Scanning Provider MEDIA MGR SCAN EXT O RDR/RSLT documented in this encounter Visit Diagnoses Diagnosis Claudication of right lower extremity Peripheral vascular disease, unspecified Currently attempting to quit smoking PVD (peripheral vascular disease) with claudication Peripheral vascular disease, unspecified Essential hypertension Unspecified essential hypertension Claudication Peripheral vascular disease, unspecified documented in this encounter Admitting Diagnoses Diagnosis Claudication Peripheral vascular disease, unspecified documented in this encounter Administered Medications Inactive Administered Medications - up to 3 most recent administrations Medication Order MAR Action Action Date Dose Rate Site acetaminophen (Tylenol) tablet 1,000 mg 1,000 mg, Oral, ONCE, 1 dose, On Tue07/10/20 at 0630, Day of Surgery (Day of Procedure), Routine Given 07/10/2020 6:52 AM EDT 1,000 mg acetaminophen (Tylenol) tablet 1,000 mg 1,000 mg, Oral, EVERY 6 HOURS SCHEDULED, First dose on Tue07/10/20 at 1400, Until Discontinued, Administer for temperature greater than or equal to 38.2 degrees celsius. Maximum daily dose of acetaminophen from all sources not to exceed 4,000 mg., Routine Given 07/11/2020 2:00 PM EDT 1,000 mg Given 07/11/2020 8:19 AM EDT 1,000 mg Given 07/11/2020 2:52 AM EDT 1,000 mg aspirin EC tablet 81 mg 81 mg, Oral, DAILY, First dose on Tue07/11/20 at 0900, Until Discontinued, Routine Given 07/11/2020 8:16 AM EDT 81 mg atorvastatin (Lipitor) tablet 40 mg 40 mg, Oral, EVERY EVENING, First dose on Tue07/10/20 at 1700, Until Discontinued, Routine Given 07/10/2020 4:22 PM EDT 40 mg calcium carbonate (Tums) chewable tablet 1,000 mg 1,000 mg, Oral, DAILY PRN, Starting on Tue07/10/20 at 2214, Until Tue07/11/20 at 1804, Heartburn, Routine Given 07/10/2020 10:25 PM EDT 1,000 mg clindamycin (CLEOCIN) 600mg in dextrose 5% 50mL 600 mg, Intravenous, EVERY 8 HOURS, 3 doses, First dose on Freya 07/10/20 at 1600, Last dose on Tue07/11/20 at 0800, Administer over 20 Minutes, Indication for (Active or Suspected): Prophylaxis New Bag 07/11/2020 8:19 AM EDT 600 mg 150 mL/ hr New Bag 07/11/2020 12:22 AM EDT 600 mg 150 mL/hr New Bag 07/10/2020 5:43 PM EDT 600 mg 150 mL/hr folic acid (Folvite) tablet 1,000 mcg 1,000 mcg (1 mg), Oral, DAILY, First dose on Freya 07/10/20 at 1600, Until Discontinued, Routine Given 07/11/2020 8:19 AM EDT 1,000 mcg Given 07/10/2020 4:23 PM EDT 1,000 mcg gabapentin (Neurontin) capsule 600 mg 600 mg, Oral, ONCE, 1 dose, On Freya 07/10/20 at 0630, Day of Surgery (Day of Procedure), Routine Given 07/10/2020 6:52 AM EDT 600 mg heparin (Porcine) subcutaneous injection 5,000 Units 5,000 Units, Subcutaneous, EVERY 8 HOURS SCHEDULED, First dose on Freya 07/10/20 at 2200, Until Discontinued, Routine Given 07/11/2020 2:01 PM EDT 5,000 Unit s Given 07/11/2020 6:11 AM EDT 5,000 Units Given 07/10/2020 9:56 PM EDT 5,000 Units HYDROmorphone (DILAUDID) injection 0.4-0.6 mg 0.4-0.6 mg, Intravenous, EVERY 5 MIN PRN, Starting on Freya 07/10/20 at 1039, Until Freya 07/10/20 at 1328, Pain, Give 0.4 mg every 5 minutes PRN for mild to moderate pain (1-5) Give 0.6 mg every 5 minutes PRN for moderate to severe pain (6-10). Hold for respiratory rate less than 10 per minute. Maximum dose 2 mg over one hour. If multiple pain medications are ordered, start with hydromorphone or morphine and use fentanyl for breakthrough pain., PACU Recovery, Routine Given 07/10/2020 12:05 PM EDT 0.4 mg Given 07/10/2020 11:29 AM EDT 0.4 mg lactated ringers infusion 1,000 mL, at 100 mL/hr, Intravenous, CONTINUOUS, Starting on Tue07/10/20 at 0630, Until Tue07/10/20 at 1122, Day of Surgery (Day of Procedure) New Bag 07/10/2020 9:22 AM EDT New Bag 07/10/2020 6:53 AM EDT 1,000 mLs 100 mL/hr lactated ringers infusion 100 mL/hr, Intravenous, CONTINUOUS, Starting on Tue07/10/20 at 1145, Until Tue07/10/20 at 1507 New Bag 07/10/2020 11:30 AM EDT 100 mL/hr 100 mL/hr lisinopriL (Prinivil;Zestril) tablet 20 mg 20 mg, Oral, DAILY, First dose on Tue07/11/20 at 0900, Until Discontinued, Routine Given 07/11/2020 8:18 AM EDT 20 mg multivitamin with minerals (THERA-M) tablet 1 tablet 1 tablet, Oral, DAILY, First dose on Tue07/10/20 at 1600, Until Discontinued, Routine Given 07/11/2020 8:16 AM EDT 1 tablet Given 07/10/2020 4:23 PM EDT 1 tablet nicotine (NICODERM CQ) 21 mg/24 hr patch 21 mg 21 mg (1 patch), Transdermal, DAILY, First dose on Tue07/10/20 at 1600, Until Discontinued, Application Site: arm, Routine Patch Applied 07/11/2020 8:15 AM EDT 21 mg 04- Shoulder (Right) Patch Applied 07/10/2020 4:24 PM EDT 21 mg 03- Shoulder (Left) nicotine (NICODERM CQ) 21 mg/24 hr patch Patch Removal Transdermal, DAILY, First dose on Tue07/11/20 at 1115, Until Discontinued, Remove nicotine 21 mg/24 hr patch nicotine (NICODERM CQ) 21 mg/24 hr patch Patch Verification Transdermal, 2 TIMES DAILY, First dose on Tue07/10/20 at 2315, Until Discontinued, Verify nicotine 21 mg/24 hr patch ondansetron (ZOFRAN) injection 4-8 mg 4-8 mg, Intravenous, EVERY 8 HOURS PRN, Starting on Tue07/10/20 at 1506, Until Tue07/11/20 at 1804, Nausea, Start with 4mg and if ineffective in 30 minutes, give an additional 4mg If multiple antiemetics are ordered, give ondansetron first. ondansetron (Zofran) tablet 4-8 mg 4-8 mg, Oral, EVERY 8 HOURS PRN, Starting on Freya 07/10/20 at 1506, Until Tue07/11/20 at 1804, Nausea, Vomiting, If multiple antiemetics are ordered, use ondansetron first. PO Preferred. If patient unable to take PO, may give IV if ordered. Start with 4mg and if ineffective in 45 minutes, give an additional 4mg. If unable to take PO, may give IV., Routine oxyCODONE (Roxicodone) tablet 10-15 mg 10-15 mg, Oral, EVERY 4 HOURS PRN, Starting on Freya 07/10/20 at 1122, Until Tue07/11/20 at 1804, Pain, severe pain (7-10), Initial dose 10mg. If pain control not adequate in 60 minutes, give additional 5mg, Routine oxyCODONE (Roxicodone) tablet 5-10 mg 5-10 mg, Oral, EVERY 4 HOURS PRN, Starting on Freya 07/10/20 at 1122, Until Tue07/11/20 at 1804, Pain, moderate pain (4-6), Initial dose 5mg. If pain control not adequate in 60 minutes, give additional 5mg, Routine sodium chloride 0.9 % (flush) flush 5 mL 5 mL, Intravenous, 2 TIMES DAILY, First dose on Tue07/10/20 at 2100, Until Discontinued, Routine Given 07/11/2020 8:21 AM EDT 5 mLs thiamine (Vitamin B1) tablet 100 mg 100 mg, Oral, DAILY, First dose on Tue07/10/20 at 1600, Until Discontinued, Routine Given 07/11/2020 8:19 AM EDT 100 mg Given 07/10/2020 4:23 PM EDT 100 mg documented in this encounter Active and Recently Administered Medications Times are shown in EDT. Scheduled Medication Order 07/09/2020 07/10/2020 07/11/2020 acetaminophen (Tylenol) tablet 1,000 mg (COMPLETED) 1,000 mg, Oral, ONCE, 1 dose, On Tue07/10/20 at 0630, Day of Surgery (Day of Procedure), Routine 0652 (Given - Provider: Renata Ramirez RN) acetaminophen (Tylenol) tablet 1,000 mg 1,000 mg, Oral, EVERY 6 HOURS SCHEDULED, First dose on Tue07/10/20 at 1400, Until Discontinued, Administer for temperature greater than or equal to 38.2 degrees celsius. Maximum daily dose of acetaminophen from all sources not to exceed 4,000 mg., Routine 1622 (Given - Provider: Teresa Rosen RN)2156 (Given - Provider: Doris Nunez RN) 0252 (Given - Provider: Doris Nunez RN)0819 (Given - Provider: Teresa Rosen RN)1400 (Given - Provider: Teresa Rosen RN) aspirin EC tablet 81 mg 81 mg, Oral, DAILY, First dose on Tue07/11/20 at 0900, Until Discontinued, Routine 0816 (Given - Provid er: Teresa Rosen RN) atorvastatin (Lipitor) tablet 40 mg 40 mg, Oral, EVERY EVENING, First dose on Freya 07/10/20 at 1700, Until Discontinued, Routine 1622 (Given - Provider: Teresa Rosen RN) clindamycin (CLEOCIN) 600mg in dextrose 5% 50mL (COMPLETED) 600 mg, Intravenous, EVERY 8 HOURS, 3 doses, First dose on Tue07/10/20 at 1600, Last dose on Tue07/11/20 at 0800, Administer over 20 Minutes, Indication for (Active or Suspected): Prophylaxis 1743 (New Bag - Provider: Teresa Rosen RN)1950 (Stopped - Provider: Doris Nunez RN) 0022 (New Bag - Provider: Doris Nunez RN)0042 (Stopped - Provider: Doris Nunez, NATASHA)0819 (New Bag - Provider: Teresa Rosen RN)0839 (Stopped - Provider: Teresa Rosen RN) clindamycin (CLEOCIN) 900mg in dextrose 5% 50mL (COMPLETED) 900 mg, Intravenous, ONCE, 1 dose, On Freya 07/10/20 at 0630, Administer over 30 Minutes, Give over 30-60 minutes. Do not exceed 30mg/minute. Redose every 6 hours if CrCl is greater than 20. Redose every 6 hours if CrCl is less than 20., Day of Surgery (Day of Procedure), Indication for (Active or Suspected): Prophylaxis 0807 (Given - Provider: Patito Méndez - Comment: over 30 minutes) folic acid (Folvite) tablet 1,000 mcg 1,000 mcg (1 mg), Oral, DAILY, First dose on Freya 07/10/20 at 1600, Until Discontinued, Routine 1623 (Given - Provider: Teresa Rosen RN) 0819 (Given - Provider: Teresa Rosen RN) gabapentin (Neurontin) capsule 600 mg (COMPLETED) 600 mg, Oral, ONCE, 1 dose, On Tue07/10/20 at 0630, Day of Surgery (Day of Procedure), Routine 0652 (Given - Provider: Renata Ramirez RN) heparin (Porcine) subcutaneous injection 5,000 Units 5,000 Units, Subcutaneous, EVERY 8 HOURS SCHEDULED, First dose on Tue07/10/20 at 2200, Until Discontinued, Routine 2156 (Given - Provider: Doris Nunez RN) 0611 (Given - Provider: Doris Nunez RN)1401 (Given - Provider: Teresa Rosen RN) lisinopriL (Prinivil;Zestril) tablet 20 mg 20 mg, Oral, DAILY, First dose on Tue07/11/20 at 0900, Until Discontinued, Routine 0818 (Given - Provid er: Teresa Rosen RN) multivitamin with minerals (THERA-M) tablet 1 tablet 1 tablet, Oral, DAILY, First dose on Tue07/10/20 at 1600, Until Discontinued, Routine 1623 (Given - Provider: Teresa Rosen RN) 0816 (Given - Provider: Teresa Rosen RN) nicotine (NICODERM CQ) 21 mg/24 hr patch 21 mg(Linked Group 1) 21 mg (1 patch), Transdermal, DAILY, First dose on Tue07/10/20 at 1600, Until Discontinued, Application Site: arm, Routine 1624 (Patch Applied - Provider: Teresa L Melendy, RN) 0815 (Patch Applied - Provider: Teresa Rosen RN) nicotine (NICODERM CQ) 21 mg/24 hr patch Patch Removal(Linked Group 1) Transdermal, DAILY, First dose on Tue07/11/20 at 1115, Until Discontinued, Remove nicotine 21 mg/24 hr patch 1115 (Patch Removed - Provider: Teresa Rosen RN) nicotine (NICODERM CQ) 21 mg/24 hr patch Patch Verification(Linked Group 1) Transdermal, 2 TIMES DAILY, First dose on Tue07/10/20 at 2315, Until Discontinued, Verify nicotine 21 mg/24 hr patch 2100 (Patch (dose and location) verified - Provider: Doris Nunez RN) 0900 (Patch (dose and location) verified - Provider: Teresa Rosen RN) polyethylene glycoL (Miralax) packet 17 g 17 g, Oral, DAILY, First dose on Tue07/10/20 at 1600, Until Discontinued, Routine 1600 (Not Given - Provider: Teresa Rosen RN - Reason: Patient/family refused) 0900 (Not Given - Provider: Teresa Rosen RN - Reason: Patient/family refused) senna-docusate (Pericolace) 8.6-50 mg per tablet 2 tablet 2 tablet, Oral, 2 TIMES DAILY, First dose on Tue07/10/20 at 2100, Until Discontinued, Routine 2100 (Not Given - Provider: Trinity Garcia RN - Reason: Patient/family refused) 0900 (Not Given - Provider: Teresa Rosen RN - Reason: Patient/family refused) sodium chloride 0.9 % (flush) flush 5 mL 5 mL, Intravenous, 2 TIMES DAILY, First dose on Tue07/10/20 at 2100, Until Discontinued, Routine 2100 (Not Given - Provider: Doris Nunez RN - Reason: See comment - Comment: infusing) 0821 (Given - Provider: Teresa Rosen RN) thiamine (Vitamin B1) tablet 100 mg 100 mg, Oral, DAILY, First dose on Tue07/10/20 at 1600, Until Discontinued, Routine 1623 (Given - Provider: Teresa Rosen RN) 0819 (Given - Provider: Teresa Rosen RN) Continuous Medication Order 07/09/2020 07/10/2020 07/11/2020 lactated ringers infusion (CANCELED) 1,000 mL, at 100 mL/hr, Intravenous, CONTINUOUS, Starting on Freya 07/10/20 at 0630, Until Freya 07/10/20 at 1122, Day of Surgery (Day of Procedure) 0653 (New Bag - Provider: Sa ra Harris Ramirez RN)0904 (Anesthesia Volume Adjustment - Provider: Patito Méndez)0922 (New Bag - Provider: Patito Méndez)1034 (Anesthesia Volume Adjustment - Provider: Pattio Méndez)1054 (Anesthesia Volume Adjustment - Provider: Patito Méndez) lactated ringers infusion (CANCELED) 100 mL/hr, Intravenous, CONTINUOUS, Starting on Freya 07/10/20 at 1145, Until Freya 07/10/20 at 1507 1130 (New Bag - Provider: Gi Santos RN) PRN Medication Order 07/09/2020 07/10/2020 07/11/2020 bisacodyL (Dulcolax) suppository 10 mg 10 mg, Rectal, DAILY PRN, Starting on Freya 07/10/20 at 1506, Until Tue07/11/20 at 1804, Constipation, Routine calcium carbonate (Tums) chewable tablet 1,000 mg 1,000 mg, Oral, DAILY PRN, Starting on Freya 07/10/20 at 2214, Until Tue07/11/20 at 1804, Heartburn, Routine 2225 (Given - Provider: Doris Nunez RN) gelatin adsorbable (GELFOAM) sponge (CANCELED) ONCE PRN, Starting on Freya 07/10/20 at 0835, Until Tue07/11/20 at 1804, Intra-Operative (Intra-Procedure) 0835 (Given - Provider: Lucero Chase MD - Comment: passed to sterile field for use by surgeon)1019 (Given - Provider: Taryn Chase MD - Comment: passed to sterile field for surgeon use) heparin (porcine) injection (CANCELED) ONCE PRN, Starting on Freya 07/10/20 at 0837, Until Tue07/11/20 at 1804, Intra-Operative (Intra-Procedure), Routine 0837 (Given - Provider: Lucero Chase MD - Comment: mixed with 500ml 0.9%NaCl IV for heparinized saline for use on sterile field) HYDROmorphone (DILAUDID) injection 0.4-0.6 mg (CANCELED) 0.4-0.6 mg, Intravenous, EVERY 5 MIN PRN, Starting on Freya 10 at 1039, Until Freya 10 at 1328, Pain, Give 0.4 mg every 5 minutes PRN for mild to moderate pain (1-5) Give 0.6 mg every 5 minutes PRN for moderate to severe pain (6-10). Hold for respiratory rate less than 10 per minute. Maximum dose 2 mg over one hour. If multiple pain medications are ordered, start with hydromorphone or morphine and use fentanyl for breakthrough pain., PACU Recovery, Routine 1129 (Given - Provider: Gi Santos RN)1205 (Given - Provider: Nel Lehman RN) ondansetron (ZOFRAN) injection 4-8 mg(Linked Group 2) 4-8 mg, Intravenous, EVERY 8 HOURS PRN, Starting on Freya 10 at 1506, Until 07/11/20 at 1804, Nausea, Start with 4mg and if ineffective in 30 minutes, give an additional 4mg If multiple antiemetics are ordered, give ondansetron first. ondansetron (Zofran) tablet 4-8 mg(Linked Group 2) 4-8 mg, Oral, EVERY 8 HOURS PRN, Starting on Freya 10 at 1506, Until Tue07/11/20 at 1804, Nausea, Vomiting, If multiple antiemetics are ordered, use ondansetron first. PO Preferred. If patient unable to take PO, may give IV if ordered. Start with 4mg and if ineffective in 45 minutes, give an additional 4mg. If unable to take PO, may give IV., Routine oxyCODONE (Roxicodone) tablet 10-15 mg(Linked Group 3) 10-15 mg, Oral, EVERY 4 HOURS PRN, Starting on Freya 10 at 1122, Until Tue07/11/20 at 1804, Pain, severe pain (7-10), Initial dose 10mg. If pain control not adequate in 60 minutes, give additional 5mg, Routine oxyCODONE (Roxicodone) tablet 5-10 mg(Linked Group 3) 5-10 mg, Oral, EVERY 4 HOURS PRN, Starting on Freya 07/10/20 at 1122, Until Tue07/11/20 at 1804, Pain, moderate pain (4-6), Initial dose 5mg. If pain control not adequate in 60 minutes, give additional 5mg, Routine thrombin (bovine) (THROMBIN-JMI) solution (CANCELED) ONCE PRN, Starting on Freya 07/10/20 at 0836, Until Tue07/11/20 at 1804, Intra-Operative (Intra-Procedure) 0836 (Given - Provider: Lucero Chase MD - Comment: passed to sterile field for use by surgeon)1019 (Given - Provider: Taryn Chase MD - Comment: passed to sterile field for surgeon use) Linked Groups Order Group 1: nicotine (NICODERM CQ) 21 mg/24 hr patch 21 mgJump to med 21 mg (1 patch), Transdermal, DAILY, First dose on Tue07/10/20 at 1600, Until Discontinued, Application Site: arm, Routine And nicotine (NICODERM CQ) 21 mg/24 hr patch Patch VerificationJump to med Transdermal, 2 TIMES DAILY, First dose on Tue07/10/20 at 2315, Until Discontinued, Verify nicotine 21 mg/24 hr patch And nicotine (NICODERM CQ) 21 mg/24 hr patch Patch RemovalJump to med Transdermal, DAILY, First dose on Tue07/11/20 at 1115, Until Discontinued, Remove nicotine 21 mg/24 hr patch Group 2: ondansetron (Zofran) tablet 4-8 mgJump to med 4-8 mg, Oral, EVERY 8 HOURS PRN, Starting on Freya 07/10/20 at 1506, Until Tue07/11/20 at 1804, Nausea, Vomiting, If multiple antiemetics are ordered, use ondansetron first. PO Preferred. If patient unable to take PO, may give IV if ordered. Start with 4mg and if ineffective in 45 minutes, give an additional 4mg. If unable to take PO, may give IV., Routine Or ondansetron (ZOFRAN) injection 4-8 mgJump to med 4-8 mg, Intravenous, EVERY 8 HOURS PRN, Starting on Freya 07/10/20 at 1506, Until Tue07/11/20 at 1804, Nausea, Start with 4mg and if ineffective in 30 minutes, give an additional 4mg If multiple antiemetics are ordered, give ondansetron first. Group 3: oxyCODONE (Roxicodone) tablet 5-10 mgJump to med 5-10 mg, Oral, EVERY 4 HOURS PRN, Starting on Freya 07/10/20 at 1122, Until Tue07/11/20 at 1804, Pain, moderate pain (4-6), Initial dose 5mg. If pain control not adequate in 60 minutes, give additional 5mg, Routine Or oxyCODONE (Roxicodone) tablet 10-15 mgJump to med 10-15 mg, Oral, EVERY 4 HOURS PRN, Starting on Freya 07/10/20 at 1122, Until Tue07/11/20 at 1804, Pain, severe pain (7-10), Initial dose 10mg. If pain control not adequate in 60 minutes, give additional 5mg, Routine documented in this encounter Care Teams Horse [employer] Manager Relationship Specialty Start Date End Date Brittany Fay MD [address] [place] [address] PCP - General General Internal Medicine 03/25/20 documented as of this encounter
--- OUTSIDE RECORDS SUMMARY | 2024-08-29 11:06 | XMS_ITS | Encounter Summary ---
Author Organization [facility] [place] [address] Care Team Providers Care Brand Ambassador Name Role Phone Brittany Fay MD Primary Care Provider [phone] Reason for Visit * Auth/Cert Specialty Diagnoses / Procedures Referred By Lexus garsia Referred To Contact Diagnoses Claudication RLE claudication UNKNOWN Procedures PRO THROMBOENDARTECTMY ILIOFEMORAL @ENDARTERECTOMY, ILIOFEMORAL W OR W/O PATCH GRAFT (WRVU 19.86) Referral ID Status Reason Start Date Expiration Date Visits Re quested Visits Authorized [id number] 1 1 Encounter Details Date Type Department Care Team (Late st Contact Info) Description 07/10/2020 7:30 AM EDT - 07/10/2020 10:58 AM EDT Surgery [place] [phone] Taryn Chase MD [facility] [place] [address] @ENDARTERECTOMY, ILIOFEMORAL W OR W/O PATCH GRAFT (WRVU 19.86) Social History Tobacco Use Types Packs/Day Years Used Date Smoking Tobacco: Every Day Cigarettes 0.5 16 Smokeless Tobacco: Never Sex and Gender Information Value Date Recorded Sex Assigned at Not on file Gender Identity Not on file Sexual Orientation Not on file documented as of this encounter Last Filed Vital Signs Vital Sign Reading Time Taken Comments Blood Pressure 163/88 07/10/2020 6:14 AM EDT Pulse 98 07/10/2020 6:14 AM EDT Temperature 36.4 ??C (97.5 ??F) 07/10/2020 6:14 AM ED T Respiratory Rate 18 07/10/2020 6:14 AM EDT Oxygen Saturation 100% 07/10/2020 6:14 AM EDT Inhaled Oxygen Concentration - - [...] PM Bren Calloway PA Vascular Surgery at [facility] Arrive at: [facility] [phone] 08/14/2020 10:30 AM Kamini Cuba Vascular Lab at [facility] Arrive at: [facility] [phone] 08/14/2020 11:00 AM Taryn Chase MD Vascular Surgery at [facility] Arrive at: [facility] [phone] Future Orders Complete By Expires PARKER, legs, multiple levels [VAS8 Custom] 08/11/2020 (Approximate) 02/10/2021 Process Instructions: There is no in-house vascular school laboratory technician available on weeknights (5pm-8am), weekends, or holidays. IF THIS IS A REQUEST FOR AN EMERGENT STUDY DURING THOSE HOURS, please have the senior provider responsible for the patient page the Vascular Surgery Fellow/Senior Resident public health nutritionist to discuss options. Scheduling Instructions: Questions: Indication for study/signs & symptoms: S/p R iliofemoral endarterectomy Question to be answered: ? of degree of blood flow to feet Preferred location?: [facility] Clinics Referral to Smoking Cessation Program [[id number] Custom] As directed Process Instructions: If no progress note charted, please enter Clinical details in comments. Scheduling Instructions: Questions: My question or request is: Pt who would like help with smoking cessation Anticoagulation & Antiplatelet: Antiplatelet: Agent: Aspirin 81 mg daily Indication: S/p iliofemoral endarterectomy, home medication Intended Duration: Indefinite For questions regarding these medications, please contact: [phone] Discharge Medications: Your Medications UNREVIEWED medications - [...] For any problems or questions please call [phone] For issues on weeknights after 5pm and weekends please call [phone] and ask for the Vascular Fellow public health nutritionist. documented in this encounter Discharge Instructions * [...] For any problems or questions please call [phone] For issues on weeknights after 5pm and weekends please call [phone] and ask for the Vascular Fellow public health nutritionist. documented in this encounter Medications at Time [...] 07/10/2020 3:00 PM EDT Pt arrived [facility] from PACU via bed in stable condition. [...] discussed and patient elects to proceed. Bhavya Beverly Vascular Surgery Pager #[phone] documented in this encounter Miscellaneous Notes * [...] Beverly MD - 07/10/2020 11:19 AM EDT [facility] Operative Note Patient Name: Fern Montgomery : [id number] MR#: [id number] Case Date: 07/10/2020 Surgeon: Surgeon(s) and Role: [...] Operative Note Patient Name: Fern Montgomery : [id number] MR#: [id number] Case Date: 07/10/2020 Surgeon: Surgeon(s) and Role: [...] 07/10/2020 11:17 AM EDT Thromboendartectmy Femoral Deep (32467) Yes 07/10/2020 7:31 AM EDT RLE claudication Thromboendartectmy Iliofemoral (51009) Yes 07/10/2020 7:31 AM EDT RLE claudication [...] Text Report Department: Vascular Surgery Lab Patient: [id number] (FERN MONTGOMERY) CPT: 65197 ICD10: I70.211;I73.9 Referring Physician: TARYN CHASE ?? [...] BMP w/fasting Glucose (07/11/2020 10:21 AM EDT) Glucose Fasting 128(H) 65 - 99 mg/dL [facility] Comment: ?Fasting* Glucose Interpretive [...] of Diabetes Mellitus, Position Statement from the [place] [employer]. ??Diabetes Care, Volume 33, Supplement 1, Oct 2009 Blood Urea Nitrogen 12 10 - 20 mg/dL [facility] Creatinine 0.89 0.80 - 1.50 mg/dL [facility] Sodium 140 135 - 145 mmol/L [facility] Potassium 4.1 3.5 - 5.0 mmol/L [facility] Comment: Please note: ??Patients with WBC >100,000 may have falsely elevated Potassium levels. ??For accurate Potassium quantification in these patients send serum separator tube (gold top) for subsequent determinations. ??Contact the Clinical Chemistry Laboratory if there are any questions. Chloride 103 98 - 107 mmol/L [facility] Carbon Dioxide 28 22 - 31 mmol/L [facility] Anion Gap 9 5 - 15 mmol/L [facility] Calcium 9.3 8.5 - 10.5 mg/dL [facility] Est Glomerular Filtration Rate 94 >=60 mL/min/1. 73 m?? [facility] Comment: The eGFR was calculated using the CKD-EPI equation. As with all creatinine based estimates of kidney function, eGFR values calculated with the CKD-EPI equation are not accurate in patients with acute kidney failure, extremes of body mass or the acutely ill. [email or web address]/[facility]SAnkf eGFR 109 >=60 mL/min/1. 73 m?? [facility] Comment: The eGFR was calculated using the CKD-EPI equation. As with all creatinine based estimates of kidney function, eGFR values calculated with the CKD-EPI equation are not accurate in patients with acute kidney failure, extremes of body mass or the acutely ill. [email or web address]/[facility]kf Blood specimen (specimen) 07/11/2020 10:21 AM EDT 07/11/2020 10:54 AM EDT Narrative Resulting Agency Comment Spec In Lab Essence East MD CHEMISTRY ORDERA BLES [facility] [place] [address] * (ABNORMAL) Differential, Automated (07/11/2020 10:21 AM EDT) Neutrophil % 78.0 % [facility] Neutrophil Absolute 11.09(H) 1.70 - 6.10 x10(3)/[facility] Lymph % 14.2 % [facility] Lymphocytes Abs 2.0 0.9 - 3.2 x10(3)/[facility] Monocyte % 7.1 % [facility] Monocyte Abs 1.0(H) 0.3 - 0.9 x10(3)/[facility] Eos % 0.1 % [facility] Eosinophils Abs 0.0 0.0 - 0.4 x10(3)/[facility] Basophil % 0.1 % [facility] Baso Absolute 0.0 0.0 - 0.1 x10(3)/[facility] Immature Gran % 0.50 % [facility] Comment: Immature granulocytes(IG's)percentage and absolute count will include metamyelocytes, myelocytes, and promyelocytes. Blood smears from CBCs yielding IG's will be scanned manually for concordance. If this scan disagrees with the automated IG or if promyelocytes are noted, a manual differential will be performed. Immature Gran Absolute 0.07(H) 0.00 - 0.04 x10(3)/[facility] Blood specimen (specimen) 07/11/2020 10:21 AM EDT 07/11/2020 10:54 AM EDT Narrative Resulting Agency Comment Spec In Lab Essence East MD HEMATOLOGY ORDER ADITYA [facility] [place] [address] * (ABNORMAL) Hemogram (07/11/2020 10:21 AM EDT) White Blood Cell 14.2(H) 4.0 - 9.5 x10(3)/ L [facility] Red Blood Cell 4.21(L) 4.58 - 5.54 x10(6)/mc L [facility] Hemoglobin 14.2 13.7 - 16.5 gm/dL [facility] Hematocrit 42.2 40.5 - 48.5 % [facility] Mean Cell Volume 100.2(H) 82.9 - 93.1 fL [facility] Mean Cell Hemoglobin 33.7(H) 27.5 - 32.1 pg [facility] Mean Cell Hemoglobin Concentration 33.6 32.0 - 35.7 gm/dL [facility] Platelet 279 145 - 357 x10(3)/mc L [facility] RDW Standard Deviation 48.9(H) 36.0 - 45.0 fL [facility] RDW coefficient of variation 13.2 11.4 - 13.8 % [facility] Mean Platelet Volume 9.0 7.6 - 12.9 [facility] NRBC% auto 0.0 % [facility] NRBC Absolute 0.000 0.000 - 0.000 x10(3)/mc L [facility] Blood specimen (specimen) 07/11/2020 10:21 AM EDT 07/11/2020 10:54 AM EDT Narrative Resulting Agency Comment Spec In Lab ed Laura East MD HEMATOLOGY ORDER ADITYA [facility] [place] [address] * Triglyceride (07/11/2020 10:21 AM EDT) Triglyceride 210 mg/dL [facility] Comment: Average Risk/Lower Risk: <150 mg/dL Borderline High Risk: 150-199 mg/dL High Risk: 200-499 mg/dL Very High Risk: >aw=802 mg/dL Blood specimen (specimen) 07/11/2020 10:21 AM EDT 07/11/2020 10:54 AM EDT Narrative Resulting Agency Comment Spec In Lab Taryn Chase MD CHEMISTRY ORDERABLES Performing Organization Address [facility] Co de Phone Number [facility] [place] [address] * HDL/Cholesterol Profile (07/11/2020 10:21 AM EDT) Cholesterol, Total 158 mg/dL [facility] Comment: Lower Risk: <200 mg/dL Average Risk: 200-239 mg/dL Higher Risk: >bw=313 mg/dL HDL Cholesterol 56 mg/dL [facility] Comment: Males: ?? Higher Risk: <40 mg/dL Females: ?? HIgher Risk: <50 mg/dL Cholesterol/HDL Ratio 2.8 ratio [facility] Chol/HDL Interpretation See Note [facility] Comment: Lipid management should be guided by a patient? s ASCVD risk, goals and preferences. ACC/AHA Guidelines recommend high intensity statin if clinical ASCVD or LDL greater than or equal to 190 mg/dL. http://[employer].com/SWT-QZV-Ihogezdft Measure LDL if Total Cholesterol minus HDL Cholesterol is greater than 220 mg/dL. Adults aged 40-75 with LDL 70-189 mg/dL should have their 10 year ASCVD risk estimated with the ACC/AHA ASCVD risk welding estimator http://tools.acc.org/BXIEW-Opaq-Qykadauyj/ Statin should be discussed if risk greater [...] Chase MD CHEMISTRY ORDERABLES Performing Organization Address City/[facility]/ZIP Co de Phone Number [facility] [place] [phone] * LDL Cholesterol, Direct (07/11/2020 10:21 AM EDT) LDL Cholesterol, Direct 86 mg/dL [facility] Comment: Lowest Risk: <100 mg/dL Lower Risk: 100-129 mg/dL Borderline High Risk: 130-159 mg/dL High Risk: 160-189 mg/dL Very High Risk: >ir=178 mg/dL Blood specimen (specimen) 07/11/2020 10:21 AM EDT 07/11/2020 10:54 AM EDT Narrative Resulting Agency Comment Spec In Lab Taryn Chase MD CHEMISTRY ORDERABLES [facility] [place] [phone] * Hemoglobin A1c (07/11/2020 10:21 AM EDT) Pathologist [facility] Hemoglobin A1c 5.5 4.3 - 5.6 % [facility] Comment: Reference Range: 4.3 [...] Mellitus, Diabetes Care 2013; 36: Suppl. 1, J67-24 Estimated Average Glucose 112 mg/dL [facility] Comment: eAG equivalents for [...] into estimated average glucose values. ??Diabetes Care 2008:31(8):3679-5191. Blood specimen (specimen) 07/11/2020 10:21 AM EDT 07/11/2020 10:54 AM EDT Narrative Resulting Agency Comment Spec In Lab Taryn Chase MD CHEMISTRY ORDERABLES Performing Organization Address City/State/[facility] Co de Phone Number [facility] [place] [address] * (ABNORMAL) Urinalysis without microscopic (07/10/2020 6:09 AM EDT) Glucose, Urine Dipstick Negative Negative mg/dL [facility] Protein, Urine Dipstick Trace(A) Negative mg/dL [facility] Bilirubin, Urine Dipstick Negative Negative mg/dL [facility] Comment: Clinical correlation required for positive Urine Bilirubin results as false positive may occur with some drugs and drug related products. If a false positive is suspected a serum total bilirubin should be considered if clinically indicated. Urobilinogen, Urine Dipstick Normal Normal mg/dL [facility] pH, Urn (dipstick) 5.5 5.0 - 8.0 [facility] Blood, Urine Dipstick Negative Negative mg/dL [facility] Ketone, Urine Dipstick Trace(A) Negative mg/dL [facility] Nitrite, Urine Dipstick Negative Negative [facility] Leukocytes, Urine Dipstick Trace(A) Negative [facility] Appearance, Urine Dipstick Clear Clear [facility] Specific [place] Urine Automated 1.021 1.006 - 1.030 [facility] Color, Urine Dipstick Dark Yellow Yellow [facility] Urine specimen (specimen) 07/10/2020 6:09 AM EDT 07/10/2020 6:13 AM EDT Narrative Resulting Agency Comment Spec In Lab Taryn hCase MD URINE ORDERABLES Performing Organization Address City/[facility]/ZIP Co de Phone Number [facility] [place] [address] * ABORH Recheck Status (07/10/2020 5:59 AM EDT) ABORH Recheck Order Order Placed [facility] ABORH Type Recheck Complete [facility] Blood specimen (specimen) 07/10/2020 5:59 AM EDT 07/10/2020 6:15 AM EDT Narrative Resulting Agency Comment Spec In Lab Taryn Chase MD BLOOD BANK LAB ORDER ADITYA Performing Organization Address City/[facility]/ZIP Co de Phone Number [facility] [place] [address] * Antibody screen (07/10/2020 5:59 AM EDT) Ab Screen Interp Negative [facility] Expires at 2359 on: 07/13/2020 [facility] Blood specimen (specimen) 07/10/2020 5:59 AM EDT 07/10/2020 6:15 AM EDT Narrative Resulting Agency Comment Spec In Lab Taryn Chase MD BLOOD BANK LAB ORDER ADITYA [facility] [place] [address] * ABO/Rh Typing (07/10/2020 5:59 AM EDT) ABORH Type O Pos [facility] Blood specimen (specimen) 07/10/2020 5:59 AM EDT 07/10/2020 6:15 AM EDT Narrative Resulting Agency Comment Spec In Lab Taryn Chase MD BLOOD BANK LAB ORDER ADITYA [facility] [place] [address] * (ABNORMAL) Hemogram (07/10/2020 5:59 AM EDT) White Blood Cell 7.0 4.0 - 9.5 x10(3)/[facility] Red Blood Cell 4.65 4.58 - 5.54 x10(6)/ L [facility] Hemoglobin 15.8 13.7 - 16.5 gm/dL [facility] Hematocrit 47.1 40.5 - 48.5 % [facility] Mean Cell Volume 101.3(H) 82.9 - 93.1 fL [facility] Mean Cell Hemoglobin 34.0(H) 27.5 - 32.1 pg [facility] Mean Cell Hemoglobin Concentration 33.5 32.0 - 35.7 gm/dL [facility] Platelet 308 145 - 357 x10(3)/ L [facility] RDW Standard Deviation 50.8(H) 36.0 - 45.0 [facility] RDW coefficient of variation 13.3 11.4 - 13.8 % [facility] Mean Platelet Volume 8.9 7.6 - 12.9 [facility] NRBC% auto 0.0 % [facility] NRBC Absolute 0.000 0.000 - 0.000 x10(3)/ L [facility] Blood specimen (specimen) 07/10/2020 5:59 AM EDT 07/10/2020 6:13 AM EDT Narrative Resulting Agency Comment Spec In Lab Taryn Chase MD HEMATOLOGY ORDERABLE S [facility] [place] [address] * (ABNORMAL) Basic Metabolic Panel (non-fasting) (07/10/2020 5:59 AM EDT) Glucose 100 65 - 199 mg/dL [facility] Comment:Diabetes: >=200 mg/d L plus symptoms Blood Urea Nitrogen 11 10 - 20 mg/dL [facility] Creatinine 0.78(L) 0.80 - 1.50 mg/dL [facility] Sodium 140 135 - 145 mmol/L [facility] Potassium 4.7 3.5 - 5.0 mmol/L [facility] Comment: Please note: ??Patients with WBC >100,000 may have falsely elevated Potassium levels. ??For accurate Potassium quantification in these patients send serum separator tube (gold top) for subsequent determinations. ??Contact the Clinical Chemistry Laboratory if there are any questions. Chloride 102 98 - 107 mmol/L [facility] Carbon Dioxide 27 22 - 31 mmol/L [facility] Anion Gap 11 5 - 15 mmol/L [facility] Calcium 9.6 8.5 - 10.5 mg/dL [facility] Est Glomerular Filtration Rate 100 >=60 mL/min/1. 73 m?? [facility] Comment: The eGFR was calculated using the CKD-EPI equation. As with all creatinine based estimates of kidney function, eGFR values calculated with the CKD-EPI equation are not accurate in patients with acute kidney failure, extremes of body mass or the acutely ill. http://[email or web address]/DHnkf eGFR 115 >=60 mL/min/1. 73 m?? [facility] Comment: The eGFR was calculated using the CKD-EPI equation. As with all creatinine based estimates of kidney function, eGFR values calculated with the CKD-EPI equation are not accurate in patients with acute kidney failure, extremes of body mass or the acutely ill. http://[employer]/DHMCnkf Blood specimen (specimen) 07/10/2020 5:59 AM EDT 07/10/2020 6:13 AM EDT Narrative Resulting Agency Comment Spec In Lab Taryn Chase MD CHEMISTRY ORDERABLES Performing Organization Address [facility]/ZIP Co de Phone Number [facility] [place] [address] * Prealbumin (07/10/2020 5:59 AM EDT) Prealbumin 30 20 - 40 mg/dL [facility] Comment: Prealbumin levels are generally lower in the pediatric population; adult concentrations are usually attained near puberty. Blood specimen (specimen) 07/10/2020 5:59 AM EDT 07/10/2020 6:13 AM EDT Narrative Resulting Agency Comment Spec In Lab Taryn Chase MD CHEMISTRY ORDERABLES Performing Organization Address [facility] Co de Phone Number [facility] [place] [address] * SCAN DOC: IMPLANTABLE DEVICES (07/10/2020 12:00 AM EDT) Narrative 07/10/2020 12:00 AM EDT Ordered by an unspecified provider. Scanning Provider MEDIA MGR SCAN EXT O RDR/RSLT documented in this encounter Visit Diagnoses Not on filedocumented in this encounter Admitting Diagnoses Diagnosis Claudication Peripheral vascular disease, unspecified documented in this encounter Administered Medications Inactive Administered Medications - up to 3 most recent administrations Medication Order MAR Action Action Date Dose Rate Site acetaminophen (Tylenol) tablet 1,000 mg 1,000 mg, Oral, EVERY 6 HOURS SCHEDULED, First dose on Freya 07/10/20 at 1400, Until Discontinued, Administer for temperature [...] Given 07/10/2020 10:25 PM EDT 1,000 mg folic acid (Folvite) tablet 1,000 mcg 1,000 mcg (1 mg), Oral, DAILY, First dose on Tue07/10/20 at 1600, Until Discontinued, Routine Given 07/11/2020 8:19 AM EDT 1,000 mcg Given 07/10/2020 4:23 PM EDT 1,000 mcg gelatin adsorbable (GELFOAM) sponge ONCE PRN, Starting on Tue07/10/20 at 0835, Until Tue07/11/20 at 1804, Intra-Operative (Intra-Procedure) Given 07/10/2020 10:19 AM EDT 2 each 19- Surgical Site Given 07/10/2020 8:35 AM EDT 3 each 19 - Surgical Site heparin (porcine) injection ONCE PRN, Starting on Tue07/10/20 at 0837, Until Tue07/11/20 at 1804, Intra-Operative (Intra-Procedure), Routine Given 07/10/2020 8:37 AM EDT 2,500 Units 19- Surgical Site heparin (Porcine) subcutaneous injection 5,000 Units 5,000 Units, Subcutaneous, EVERY 8 HOURS SCHEDULED, First dose on Tue07/10/20 at 2200, Until Discontinued, Routine Given 07/11/2020 2:01 PM EDT 5,000 Units Given 07/11/2020 6:11 AM EDT 5,000 Units Given 07/10/2020 9:56 PM EDT 5,000 Units lisinopriL (Prinivil;Zestril) tablet 20 mg 20 mg, [...] Oral, EVERY 8 HOURS PRN, Starting on Tue07/10/20 [...] Intravenous, 2 TIMES DAILY, First dose on Freya 07/10/20 at 2100, Until Discontinued, Routine Given 07/11/2020 8:21 AM EDT 5 mLs thiamine (Vitamin B1) tablet 100 mg 100 mg, Oral, DAILY, First dose on Freya 07/10/20 at 1600, Until Discontinued, Routine Given 07/11/2020 8:19 AM EDT 100 mg Given 07/10/2020 4:23 PM EDT 100 mg thrombin (bovine) (THROMBIN-JMI) solution ONCE PRN, Starting on Freya 07/10/20 at 0836, Until Tue07/11/20 at 1804, Intra-Operative (Intra-Procedure) Given 07/10/2020 10:19 AM EDT 5,000 Units 19- Surgical Site Given 07/10/2020 8:36 AM EDT 5,000 Units 1 9- Surgical Site documented in this encounter Active and Recently Administered Medications Times are shown in EDT. Scheduled Medication Order 07/09/2020 07/10/2020 07/11/2020 acetaminophen (Tylenol) tablet 1,000 mg (COMPLETED) 1,000 mg, Oral, ONCE, 1 dose, On Freya 07/10/20 at 0630, Day of Surgery (Day of Procedure), Routine 0652 (Given - Provider: Renata Ramirez RN) acetaminophen (Tylenol) tablet 1,000 mg 1,000 mg, Oral, EVERY 6 HOURS SCHEDULED, First dose on Freya 07/10/20 at 1400, Until Discontinued, Administer for temperature [...] on Tue07/10/20 at 1700, Until Discontinued, Routine 1622 (Given - Provider: Teresa Rosen RN) clindamycin (CLEOCIN) 600mg in dextrose 5% 50mL (COMPLETED) 600 mg, Intravenous, EVERY 8 HOURS, 3 doses, First dose on Tue07/10/20 at 1600, Last dose on Tue07/11/20 at 0800, Administer over 20 Minutes, Indication for (Active or Suspected): Prophylaxis 1743 (New Bag - Provider: Teresa oRsen RN)1950 (Stopped - Provider: Doris Nunez RN) [...] Procedure), Indication for (Active or Suspected): Prophylaxis 08 (Given - Provider: Patito Méndez - Comment: over 30 minutes) folic acid (Folvite) tablet 1,000 mcg 1,000 mcg (1 mg), Oral, DAILY, First dose on Tue07/10/20 at [...] Routine 1624 (Patch Applied - Provider: Teresa Rosen RN) 0815 (Patch Applied - Provider: Teresa Rosen RN) nicotine (NICODERM CQ) 21 mg/24 hr patch Patch Removal(Linked Group 1) Transdermal, DAILY, First dose on Tue07/11/20 at 1115, Until Discontinued, Remove nicotine 21 mg/24 hr patch 1115 (Patch Removed - Provider: Teresa Rosen RN) nicotine (NICODERM CQ) 21 mg/24 hr patch Patch Verification(Linked Group 1) Transdermal, 2 TIMES DAILY, First dose on Freya 07/10/20 at 2315, Until Discontinued, Verify nicotine 21 mg/24 hr patch 2100 (Patch (dose and location) verified - Provider: Doris Nunez RN) 0900 (Patch (dose and location) verified - Provider: Teresa Rosen RN) polyethylene glycoL (Miralax) packet 17 g 17 g, Oral, DAILY, First dose on Freya 07/10/20 at 1600, Until Discontinued, Routine 1600 (Not Given - Provider: Teresa Rosen RN - Reason: Patient/family refused) 0900 (Not Given - Provider: Teresa Rosen RN - Reason: Patient/family refused) senna-docusate (Pericolace) 8.6-50 mg per tablet 2 tablet 2 tablet, Oral, 2 TIMES DAILY, First dose on Freya 07/10/20 at 2100, Until Discontinued, Routine 2100 (Not Given - Provider: Trinity Garcia RN - Reason: Patient/family refused) 0900 (Not Given - Provider: Teresa Rosen RN - Reason: Patient/family refused) sodium chloride 0.9 % (flush) flush 5 mL 5 mL, Intravenous, 2 TIMES DAILY, First dose on Freya 07/10/20 at 2100, Until Discontinued, Routine 2100 (Not Given - Provider: Doris Nunez RN - Reason: See comment - Comment: infusing) 0821 (Given - Provider: Teresa Rosen RN) thiamine (Vitamin B1) tablet 100 mg 100 mg, Oral, DAILY, First dose on Freya 07/10/20 [...] Patito Méndez)1034 (Anesthesia Volume Adjustment - Provider: Patito Méndez)1054 (Anesthesia Volume Adjustment - Provider: Patito [...] Starting on Freya 07/10/20 at 1506, Until 07/11/20 at 1804, Nausea, [...] Starting on Freya 10 at 1122, Until 07/11/20 at 1804, Pain, severe pain (7-10), Initial [...] (1 patch), Transdermal, DAILY, First dose on Freya 07/10/20 at 1600, Until Discontinued, Application Site: arm, [...] Routine documented in this encounter Care Teams Brand Ambassador Relationship Specialty Start Date End Date Brittany Fay MD [address] [place] [id number] PCP - General General Internal Medicine 03/25/20 documented as of this encounter
--- OUTSIDE RECORDS SUMMARY | 2024-08-29 11:06 | XMS_ITS | Encounter Summary ---
[facility] Organization [facility] [place] [address] Care Team Providers Care Senior Supplier Quality Engineer Name Role Phone Brittany Fay MD Primary Care Provider [phone] Encounter Details Date Type Department Care Team (Late st Contact Info) Description 07/03/2020 Orders [place] [address] Phuong Colmenares RN Claudication of right lower extremity Social History Tobacco Use Types Packs/Day Years Used Date Smoking Tobacco: Every Day Cigarettes 0.5 16 Smokeless Tobacco: Never Sex and Gender Information Value Date Recorded Sex Assigned at Not on file Gender Identity Not on file Sexual Orientation Not on file documented as of this encounter Plan of Treatment Not on file documented as of this encounter Results * (ABNORMAL) Urinalysis without microscopic (07/10/2020 6:09 AM EDT) Glucose, Urine Dipstick Negative Negative mg/dL [facility] Protein, Urine Dipstick Trace(A) Negative mg/dL [facility] Bilirubin, Urine Dipstick Negative Negative mg/dL [facility] Comment: Clinical correlation required for positive Urine Bilirubin results as false positive may occur with some drugs and drug related products. If a false positive is suspected a serum total bilirubin should be considered if clinically indicated. Urobilinogen, Urine Dipstick Normal Normal mg/dL [facility] pH, Urn (dipstick) 5.5 5.0 - 8.0 [facility] Blood, Urine Dipstick Negative Negative mg/dL [facility] Ketone, Urine Dipstick Trace(A) Negative mg/dL [facility] Nitrite, Urine Dipstick Negative Negative [facility] Leukocytes, Urine Dipstick Trace(A) Negative [facility] Appearance, Urine Dipstick Clear Clear [facility] Specific [place] Urine Automated 1.021 1.006 - 1.030 [facility] Color, Urine Dipstick Dark Yellow Yellow [facility] Urine specimen (specimen) 07/10/2020 6:09 AM EDT 07/10/2020 6:13 AM EDT Narrative Resulting Agency Comment Spec In Lab Chris Chase MD URINE ORDERABLES Performing Organization Address [facility] Co de Phone Number [facility] [place] [address] * Prealbumin (07/10/2020 5:59 AM EDT) Prealbumin 30 20 - 40 mg/dL [facility] Comment: Prealbumin levels are generally lower in the pediatric population; adult concentrations are usually attained near puberty. Blood specimen (specimen) 07/10/2020 5:59 AM EDT 07/10/2020 6:13 AM EDT Narrative Resulting Agency Comment Spec In Lab Chris Chase MD CHEMISTRY ORDERABLES Performing Organization Address [facility]/ZIP Co de Phone Number [facility] [place] [address] * (ABNORMAL) Basic Metabolic Panel (non-fasting) (07/10/2020 5:59 AM EDT) Glucose 100 65 - 199 mg/dL [facility] Comment:Diabetes: >=200 mg/d L plus symptoms Blood Urea Nitrogen 11 10 - 20 mg/dL [facility] Creatinine 0.78(L) 0.80 - 1.50 mg/dL [facility] Sodium 140 135 - 145 mmol/L [facility] Potassium 4.7 3.5 - 5.0 mmol/L [facility] Comment: Please note: ??Patients with WBC >100,000 may have falsely elevated Potassium levels. ??For accurate Potassium quantification in these patients send serum separator tube (gold top) for subsequent determinations. ??Contact the Clinical Chemistry Laboratory if there are any questions. Chloride 102 98 - 107 mmol/L [facility] Carbon Dioxide 27 22 - 31 mmol/L [facility] Anion Gap 11 5 - 15 mmol/L [facility] Calcium 9.6 8.5 - 10.5 mg/dL [facility] Est Glomerular Filtration Rate 100 >=60 mL/min/1. 73 m?? [facility] Comment: The eGFR was calculated using the CKD-EPI equation. As with all creatinine based estimates of kidney function, eGFR values calculated with the CKD-EPI equation are not accurate in patients with acute kidney failure, extremes of body mass or the acutely ill. [email or web address] eGFR 115 >=60 mL/min/1. 73 m?? [facility] Comment: The eGFR was calculated using the CKD-EPI equation. As with all creatinine based estimates of kidney function, eGFR values calculated with the CKD-EPI equation are not accurate in patients with acute kidney failure, extremes of body mass or the acutely ill. [email or web address] Blood specimen (specimen) 07/10/2020 5:59 AM EDT 07/10/2020 6:13 AM EDT Narrative Resulting Agency Comment Spec In Lab Chris Chase MD CHEMISTRY ORDERABLES [facility] [place] [address] * (ABNORMAL) Hemogram (07/10/2020 5:59 AM EDT) White Blood Cell 7.0 4.0 - 9.5 x10(3)/mc L [facility] Red Blood Cell 4.65 4.58 - 5.54 x10(6)/mc L [facility] Hemoglobin 15.8 13.7 - 16.5 gm/dL [facility] Hematocrit 47.1 40.5 - 48.5 % [facility] Mean Cell Volume 101.3(H) 82.9 - 93.1 fL [facility] Mean Cell Hemoglobin 34.0(H) 27.5 - 32.1 pg [facility] Mean Cell Hemoglobin Concentration 33.5 32.0 - 35.7 gm/dL [facility] Platelet 308 145 - 357 x10(3)/mc L [facility] RDW Standard Deviation 50.8(H) 36.0 - 45.0 fL [facility] RDW coefficient of variation 13.3 11.4 - 13.8 % [facility] Mean Platelet Volume 8.9 7.6 - 12.9 [facility] NRBC% auto 0.0 % [facility] NRBC Absolute 0.000 0.000 - 0.000 x10(3)/mc L [facility] Blood specimen (specimen) 07/10/2020 5:59 AM EDT 07/10/2020 6:13 AM EDT Narrative Resulting Agency Comment Spec In Lab Chris Chase MD HEMATOLOGY ORDERABLE S Performing Organization Address City/State/[facility] Co de Phone Number [facility] [place] [address] documented in this encounter Visit Diagnoses Diagnosis Claudication of right lower extremity Peripheral vascular disease, unspecified documented in this encounter Care Teams Senior Supplier Quality Engineer Relationship Specialty Start Date End Date Brittany Fay MD [address] [place] [address] PCP - General General Internal Medicine 03/25/20 documented as of this encounter
--- OUTSIDE RECORDS SUMMARY | 2024-08-29 11:06 | XMS_ITS | Encounter Summary ---
Author Organization [facility] Address [facility] [place] [address] Care Team Providers Care Phys Ther Name Role Phone Brittany Fay MD Primary Care Provider [phone] Encounter Details Date Type Department Care Team (Late st Contact Info) Description 08/14/2020 11:00 AM EST Office [place] [address] Chris Chase MD [facility] [place] [address] Claudication; Cigarette smoker Social History Tobacco Use Types Packs/Day Years Used Date Smoking Tobacco: Every Day Cigarettes 0.5 16 Smokeless Tobacco: Never Sex and Gender Information Value Date Recorded Sex Assigned at Not on file Gender Identity Not on file Sexual Orientation Not on file documented as of this encounter Last Filed Vital Signs Vital Sign Reading Time Taken Comments Blood Pressure 137/82 08/14/2020 10:55 AM EST Pulse 87 08/14/2020 10:55 AM EST Temperature - - Respiratory Rate - - Oxygen Saturation - - Inhaled Oxygen Concentration - - Weight 79.4 kg (175 lb) 08/14/2020 10:55 AM EST Height 170.2 cm (5' 7) 08/14/2020 10:55 AM EST Body Mass Index 27.41 08/14/2020 10:55 AM EST documented in this encounter Progress Notes * Chris Chase MD - 08/14/2020 11:00 AM EST Vascular Surgery Follow up Visit CC: Follow up right femoral endarterectomy for claudication performed 07/10/2020 Interval history: Mr. Melara has done very well since last being seen. His claudication is resolved. His wound has healed. He is down to a half pack per day of cigarettes. He is taking a daily aspirin and statin. He underwent ABIs today and would like to discuss the results. Review of Systems: 10 point review of systems negative except as noted Problem List: Patient Active Problem List Diagnosis ??? Cigarette smoker ??? Hepatic steatosis ??? Claudication ??? PVD (peripheral vascular disease) with claudication ??? Hypertension Home Medications: Antiplatelet: Aspirin Anticoagulant: None Statin: Lipitor Current Outpatient Medications Medication Sig Dispense Refill ??? aspirin EC [...] mouth every 6 hours. 30 tablet 1 No current facility-administered medications for this visit. Physical Exam: Temp: -- Heart Rate: [87] Resp: -- BP: (137)/(82) SpO2: -- Heart Rate from SpO2: -- General: NAD, resting comfortably CVS: Regular rate Pulm: Normal work of breathing on room air GI: Abdomen soft, non tender, non distended Vasc: Right groin incision healing well, no open areas, no redness, no drainage. Neuro: CN 2-12 grossly intact, nonfocal, moving all extremities. Studies: PARKER 08/14/2020: Findings: ?? Right ?Pressure (mm Hg) ?? PARKER ??Waveform ?? Brachial Artery ?142 ? Dorsalis Pedis (Ankle) Artery ?152 ? 1.06 ??Triphasic ?? Posterior Tibial (Ankle) Artery ??164 ? 1.15 ??Triphasic ? Left ? Pressure (mm Hg) ?? PARKER ??Waveform ?? Brachial Artery ?143 ? Dorsalis Pedis (Ankle) Artery ?167 ? 1.17 ??Triphasic ?? Posterior Tibial (Ankle) Artery ??172 ? 1.20 ??Triphasic ? Interpretation: ?? RIGHT: No significant lower extremity arterial occlusive disease identifiable at rest. Normal ankle/brachial pressure ratios and ankle Doppler waveforms. Improved compared to previous exam. ?? LEFT: No significant lower extremity arterial occlusive disease identifiable at rest. Normal ankle/brachial pressure ratios and ankle Doppler waveforms. No significant change compared to previous exam. Assessment and Plan: 59 y.o. male smoker status post right femoral endarterectomy 07/10/2020. Mr. Melara is doing very well and his symptoms of claudication are resolved, he is very happy with the result. His wound is healed. I encouraged him to continue working towards complete smoking cessation to decrease his risk of arterial restenosis or PAD progression, he understood. I will plan to see him back in the office in 1 year with repeat ABIs. He will continue his aspirin and statin. He will call us sooner should he experience any troubles. Chris Chase MD Vascular Surgery [facility] documented in this encounter Plan of Treatment Not on file documented as of this encounter Visit Diagnoses Diagnosis Claudication Peripheral vascular disease, unspecified Cigarette smoker Tobacco use disorder documented in this encounter Care Teams Phys Ther Relationship Specialty Start Date End Date Brittany Fay MD [facility] [address] [place] [address] PCP - General General Internal Medicine 03/25/20 documented as of this encounter
--- OUTSIDE RECORDS SUMMARY | 2024-08-29 11:06 | XMS_ITS | Encounter Summary ---
Author Organization [place] [address] Care Team Providers Care Rd Manager Name Role Phone Brittany Fay MD Primary Care Provider [phone] Reason for Visit * Diagnostic Test (Routine) - Closed Specialty Diagnoses / Procedures Referred By Contac t Referred To Contact Radiology Diagnoses PAD (peripheral artery disease) Stable angina pectoris Procedures NM Pharmacologic Stress and Rest Myocardial Perfusion NM Exercise Stress and Rest Myocardial Perfusion Elder Ha MD [facility] [place] [address] [facility] [place] [address] Referral ID Status Reason Start Date Expiration Date V isits Requested Visits Authorized [id number] Closed Specialty Service Requested 07/01/2020 12/28/2020 1 1 Encounter Details Date Type Department Care Team (Latest Contact Info) Description 07/03/2020 9:30 AM EDT Hospital Encounter [place] [address] Elder Ha MD [facility] CARD[facility]PT [place], [place] [id number] Discharge Disposition: Home Social History Tobacco Use [...] report, please contact the number below. ? Electronically signed by: Todd Snyder MD, [facility] ([phone]), at 07/03/2020 12:09 PM Narrative 07/03/2020 12:09 PM EDT EXAMINATION: NM [...] on the prior CT. Elder Ha MD [facility] [place] ORDERABLES * (ABNORMAL) NM Pharmacologic Stress [...] report, please contact the number below. ? Electronically signed by: Todd Snyder MD, [facility] ([phone]), at 07/03/2020 12:09 PM Narrative 07/03/2020 12:09 PM EDT EXAMINATION: NM [...] Agency Comment Unexpected Finding Elder Ha MD [facility] NM ORDERABLES documented in this encounter Visit Diagnoses Not on filedocumented in this encounter Care Teams Rd Manager Relationship Specialty Start Date End Date Brittany Fay MD [address] [place] [address] PCP - General General Internal Medicine 03/25/20 documented as of this encounter
--- OUTSIDE RECORDS SUMMARY | 2024-08-29 11:06 | XMS_ITS | Encounter Summary ---
Author Organization [facility] Address [facility] [place] [address] Care Team Providers Care Assistant Clinical Director Name Role Phone Brittany Fay MD Primary Care Provider [phone] Reason for Visit * Reason Comments Post Hospital Discharge Chest Pain Pre-op Exam Encounter Details Date Type Department Care Team (Latest Contact Info) Description 06/17/2020 8:00 AM EDT Office Visit [place] [id number] Elder Ha MD [facility] [place] [address] PAD (peripheral artery disease); Stable angina pectoris; Essential hypertension; Pre-operative cardiovascular examination; Hyperlipidemia, unspecified hyperlipidemia type Social History Tobacco Use Types Packs/Day Years Used Date Smoking Tobacco: Every Day Cigarettes 0.5 16 Smokeless Tobacco: Never Sex and Gender Information Value Date Recorded Sex Assigned at Not on file Gender Identity Not on file Sexual Orientation Not on file documented as of this encounter Last Filed Vital Signs Vital Sign Reading Time Taken Comments Blood Pressure 116/69 06/17/2020 7:56 AM EDT Pulse 79 06/17/2020 7:56 AM EDT Temperature - - Respiratory Rate - - Oxygen Saturation - - Inhaled Oxygen Concentration - - Weight 81.6 kg (180 lb) 06/17/2020 7:56 AM EDT r eported Height 170.2 cm (5' 7) 06/17/2020 7:56 AM EDT r eported Body Mass Index 28.19 06/17/2020 7:56 AM EDT documented in this encounter Progress Notes * Elder Ha MD - 06/17/2020 8:00 AM EDT Images from the original note were not included. [facility] [place] [address] [address] CARDIOVASCULAR MEDICINE OUTPATIENT CONSULTATION Pollo Melara [phone] 06/17/2020 REFERRING PROVIDER: Brittany Fay CHIEF COMPLAINT: Chief Complaint Patient presents with ??? Post Hospital Discharge ??? Chest Pain ??? Pre-op Exam PROBLEM LIST Patient Active Problem List Diagnosis ??? PVD (peripheral vascular disease) with claudication ??? Hypertension HISTORY OF PRESENT ILLNESS: Mr. Melara is a very pleasant 51-year-old gentleman with history of hypertension, hyperlipidemia,peripheral artery disease who presents for preoperative evaluation prior to right common femoral endarterectomy for left still limiting claudication. He is a schofield, and has had lifestyle limiting claudication for quite some time. He has been recently seen by Dr. Bush with plan for surgery. He is referred for risk factor optimization and preoperative consultation. He reports that when he walks uphill, he gets significant right lower extremity claudication and at the same time substernal chest pressure that resolves with rest. He does not get chest pressure at other times, including rest. He denies shortness of breath, PND, orthopnea, lower extremity edema, presyncope, syncope, or symptoms of TIA/stroke. He does not have known history of coronary artery disease. He continues to smoke but is down to 1 pack/day. PAST MEDICAL HISTORY: Past Medical History: Diagnosis Date ??? Hypertension 04/23/2020 ??? PVD (peripheral vascular disease) with claudication 04/23/2020 REVIEW OF SYSTEMS: GENERAL HEENT CV PULM x All negative x All negative All negative x All negative Weight loss Headache x Chest Pain Non-productive cough Weight gain Vision change Palpitations Productive cough Fevers Sinus congestion Orthopnea Wheezing Chills Hoarseness LE edema Hemoptysis Night sweats Epistaxis PND Pleuritic pain Fatigue Syncope SOB x Claudication MCCLAIN MSK RENAL ENDO GI x All negative x All negative x All negative x All negative Arthralgias Frequency Heat intolerance Blood in stool Myalgias Urgency Cold intolerance Dysphagia Weakness Hematuria Polydipsia Odynophagia Stiffness Flank pain Polyphagia Abdominal discomfort Dysuria Cushingoid Constipation Foamy urine Diarrhea Discharge Nausea/Vomiting LYMPH SKIN NEURO PSYCH x All negative x All negative x All negative x All negative Swollen nodes Rash Seizures Depressed affect Tender nodes Ulcers Tremors Occupational stress Diffuse nodes Bruising Spasticity Anxiety Local nodes Tanned skin Focal weakness Insomnia Night sweats Telangiectasias Diplopia Paresthesias Dizziness FAMILY HISTORY: Family History Problem Relation Age of Onset ??? Abdominal Aortic Aneurysm Neg Hx ??? Heart Disease Neg Hx SOCIAL HISTORY: Social History Tobacco Use ??? [...] and toxoid PHYSICAL EXAMINATION: Vital Signs: BP 116/69 (BP Location (NBP): Right arm, Patient Position: Sitting, BP Cuff Sizes: Adult (25-34 cm)) Pulse 79 Ht 170.2 cm (5' 7) Comment: reported Wt 81.6 kg (180 lb) Comment: reported BMI 28.19 kg/m?? Exam Details: General: Pleasant 59 y.o. man in no acute distress Eyes: No scleral icterus ENT: Moist mucous membranes Heart: Regular rate and rhythm, normal S1/S2, no murmurs/rubs/gallops appreciated Lungs: Clear to ascultation bilaterally Abdomen: Soft, non-tender, non-distended, normoactive bowel sounds noted. Extremities: No peripheral edema noted. No ulcerations noted. Vessels: No carotid bruits appreciated. Neuro: No gross abnormalities noted Psych: Alert and oriented 3 x, normal affect DATA PERSONALLY REVIEWED: Last 3 wbc, hgb, hct plt No results for input(s): WBC, HGB, HCT, PLATELET in the last 7068 hours. Last 3 Lytes Recent Labs 04/23/20 0928 CREATININE 0.85 EKG 06/17/2020: RA/RL lead reversal, NSR 73bpm, IRBBB ASSESSMENT AND PLAN: #1 PAD #2 Chest pain #3 Hypertension #4 Pre-operative cardiovascular evaluation Mr. Melara is a very pleasant 59-year-old gentleman with history of hypertension, hyperlipidemia and peripheral artery disease with lifestyle limiting right lower extremity claudication who presents for preoperative evaluation. He does get chest pain on exertion when climbing hills, that is associated with his claudication. Given known peripheral artery disease, it is very possible that he has poly-vascular disease including coronary artery disease. He has additional risk factors that includehypertension hyperlipidemia. Given chest pain and exertion and need for surgery, I would suggest a p reoperative stress test to evaluate whether there is significant amount of myocardial ischemia. Hisblood pressure is well controlled and he is already on an aspirin. I will increase his statin to high intensity statin. I will see him in follow-up after his pharmacologic nuclear stress test. We will plan to treat medically if there is mild to moderate amount of ischemia as his surgery still several weeks away, and consider invasive evaluation if there is significant amount of ischemia. Plan: 1. Pharmacologic nuclear stress test. 2. Increase atorvastatin to 40 mg daily. 3. Continue aspirin 81 mg daily and lisinopril 20 mg daily. 4. Return to clinic after stress test. Thank you for allowing me to participate in the care of your patient. Please do not hesitate to contact me with any questions or concerns. Elder Ha MD, MPH, [facility], [facility] [employer] [address] documented in this encounter Plan of Treatment Not on file documented as of this encounter Procedures Procedure Name Priority Date/Time Associated Diagnosis Comments EKG 12-LEAD Routine 06/17/2020 8:20 AM EDT PAD (peripheral artery disease) documented in this encounter Results * EKG 12 Lead (06/17/2020 8:20 AM EDT) Ventricular rate 73 BPM MUSE SYSTEM Atrial Rate 73 BPM MUSE SYSTEM P-R Interval 160 ms MUSE SYSTEM QRS Duration 102 ms MUSE SYSTEM Q-T Interval 394 ms MUSE SYSTEM QTC Calculated (Bezet) 434 ms MUSE SYSTEM Calculated R Clever -30 degrees MUSE SYSTEM Calculated T Clever 141 degrees MUSE SYSTEM INTERPRETATION Normal sinus rhythm Left axis deviation Low voltage QRS Incomplete right bundle branch block Nonspecific T wave abnormality Abnormal ECG No previous ECGs available I personally reviewed the tracing and edited the fellows interpretation Confirmed by fellow Maxime Devine ([id number]) on 06/17/2020 11:43:14 AM Confirmed by Maribeth Bear ([id number]) on 06/17/2020 12:54:06 PM MUSE SYSTEM 06/17/2020 8:20 AM EDT 06/17/2020 12:54 PM EDT Elder Ha MD ECG ORDERABLES MUSE SYSTEM documented in this encounter Visit Diagnoses Diagnosis PAD (peripheral artery disease) Peripheral vascular disease, unspecified Stable angina pectoris Essential hypertension Unspecified essential hypertension Pre-operative cardiovascular examination Hyperlipidemia, unspecified hyperlipidemia type documented in this encounter Care Teams Assistant Clinical Director Relationship Specialty Start Date End Date Brittany Fay MD [address] [place] [address] PCP - General General Internal Medicine 03/25/20 documented as of this encounter
--- OUTSIDE RECORDS SUMMARY | 2024-08-29 11:06 | XMS_ITS | Encounter Summary ---
Author Organization [facility] [place] [address] Care Team Providers Care Doll Repairer Name Role Phone Brittany Fay MD Primary Care Provider [phone] Reason for Visit * Diagnostic Test (Routine) - Closed Specialty Diagnoses / Procedures Referred By Contac t Referred To Contact Radiology Diagnoses PAD (peripheral artery disease) Stable angina pectoris Procedures NM Pharmacologic Stress and Rest Myocardial Perfusion NM Exercise Stress and Rest Myocardial Perfusion Elder Ha MD [facility] [place] [address] [facility] [place] [address] Referral ID Status Reason Start Date Expiration Date V isits Requested Visits Authorized [id number] Closed Specialty Service Requested 07/01/2020 12/28/2020 1 1 Encounter Details Date Type Department Care Team (Latest Contact Info) Description 07/03/2020 9:28 AM EDT - 07/03/2020 9:29 AM EDT Hospital Encounter [place] [phone] Elder Ha MD [facility] [place] [address] PAD (peripheral artery disease); Stable angina pectoris [...] PAD (peripheral artery disease) Stable angina pectoris STRESS TEST SCAN 07/03/2020 12:0 0 AM EDT documented in this encounter Results * (ABNORMAL) NM Pharmacologic Stress and Rest [...] ? Electronically signed by: Todd Snyder MD, [facility] ([phone]), at 07/03/2020 12:09 PM Narrative 07/03/2020 12:09 [...] Agency Comment Unexpected Finding Elder Ha MD [facility] NM ORDERABLES * SCAN DOC: STRESS TEST (07/03/2020 12:00 AM EDT) Anatomical Region Laterality Modality Nuclear Medicine Narrative 07/03/2020 12:00 AM EDT Ordered by an unspecified provider. Scanning Provider MEDIA MGR SCAN EXT O RDR/RSLT documented in this encounter Visit Diagnoses Diagnosis PAD (peripheral artery disease) Peripheral vascular disease, unspecified Stable angina pectoris documented in this encounter Administered Medications Inactive Administered Medications - up to 3 most recent administrations Medication Order MAR Action Action Date Dose Rate Site technetium (Tc-99m) sestamibi injection 0-30 mCi 0-30 mCi, Intravenous, ONCE PRN, 1 dose, Starting on Freya 07/03/20 at 0947, Until Freya 07/03/20 at 0945, Per Protocol, Radiology Contrast, Routine Given 07/03/2020 9:45 AM EDT 8.6 mCi documented in this encounter Care Teams Doll Repairer Relationship Specialty Start Date End Date Brittany Fay MD [address] [place] [address] PCP - General General Internal Medicine 03/25/20 documented as of this encounter
--- OUTSIDE RECORDS SUMMARY | 2024-08-29 11:06 | XMS_ITS | Encounter Summary ---
Author Organization [facility], Located [facility] [place] [address] Care Team Providers Care Driver Guard Name Role Phone Brittany Fay MD Primary Care Provider [phone] Encounter Details Date Type Department Care Team (Late st Contact Info) Description 08/14/2020 10:30 AM EST Tech [place] [address] Grant Salinas, RVT Claudication of right lower extremity Social History [...] Diagnosis Comments PARKER, LEGS, MULTIPLE LEVELS Routine 08/14/2020 10:21 AM EST Claudication of right lower extremity documented in this encounter Results * PARKER, legs, multiple levels (08/14/2020 10:21 AM EST) VB Text Report Department: Vascular Surgery Lab Patient: [id number] (FERN MONTGOMERY) CPT: 51010 ICD10: I70.211;I73.9 Referring Physician: CHRIS CHASE ?? Phone: Indications: ??s/p RIGHT LE [...] 1.20(-.08) ---- ? ---- Electronically Signed by: CHRIS CHASE on 2020-08-14 11:10:35 AM VASCUBASE VB Text Report End of Report VASCUBASE 08/14/2020 10:2 1 AM EST Chris Chase MD VASCULAR ORDERABLES VASCUBASE documented in this encounter Visit Diagnoses Diagnosis Claudication of right lower extremity Peripheral vascular disease, unspecified documented in this encounter Care Teams Driver Guard Relationship Specialty Start Date End Date Brittany Fay MD [address] [address] PCP - General General Internal Medicine 03/25/20 documented as of this encounter
--- OUTSIDE RECORDS SUMMARY | 2024-08-29 11:06 | XMS_ITS | Encounter Summary ---
Author Organization [facility] [place] [address] Care Team Providers Care Ice Cream Maker Name Role Phone Brittany Fay MD Primary Care Provider [phone] Reason for Visit * Diagnostic Test (Routine) - Closed Specialty Diagnoses / Procedures Referred By Contac t Referred To Contact Radiology Diagnoses PAD (peripheral artery disease) Stable angina pectoris Procedures NM Pharmacologic Stress CT Component NM Exercise Stress CT Component Elder Ha MD [facility] [address] [facility] [place] [address] Referral ID Status Reason Start Date Expiration Date V isits Requested Visits Authorized [id number] Closed Specialty Service Requested 07/01/2020 12/28/2020 1 1 Encounter Details Date Type Department Care Team (Latest Contact Info) Description 07/03/2020 9:30 AM EDT Hospital Encounter [place] [address] Elder Ha MD [facility] [address] PAD (peripheral artery disease); Stable [...] Date/Time Associated Diagnosis Comments NM PHARMACOLOGIC STRESS CT COMPONENT Routine 07/03/2020 11:20 AM EDT PAD (peripheral artery disease) Stable [...] on the prior CT. Elder Ha MD [facility] NM ORDERABLES documented in this encounter Visit Diagnoses Diagnosis PAD (peripheral artery disease) Peripheral vascular disease, unspecified Stable angina pectoris documented in this encounter Care Teams Ice Cream Maker Relationship Specialty Start Date End Date Brittany Fay MD [address] [place] [address] PCP - General General Internal Medicine 03/25/20 documented as of this encounter
--- OUTSIDE RECORDS SUMMARY | 2024-08-29 11:06 | XMS_ITS | Encounter Summary ---
[place] [address] Care Team Providers Care Communication Technician Name Role Phone Brittany Fay MD Primary Care Provider Encounter Details Date Type Department Care Team (Late st Contact Info) Description 06/12/2020 Telephone [place] [phone] Roxanne Rocha Social History Tobacco Use Types Packs/Day Years Used Date Smoking Tobacco: Every Day Cigarettes 0.5 16 Smokeless Tobacco: Never Sex and Gender Information Value Date Recorded Sex Assigned at Not on file Gender Identity Not on file Sexual Orientation Not on file documented as of this encounter Miscellaneous Notes * Telephone Encounter - Roxanne Palmer - 06/12/2020 1:23 PM EDT LMX1 to schedule appointment from recall documented in this encounter Plan of Treatment Not on file documented as of this encounter Visit Diagnoses Not on filedocumented in this encounter Care Teams Communication Technician Relationship Specialty Start Date End Date Brittany Fay MD [address] [place] [address] PCP - General General Internal Medicine 03/25/20 documented as of this encounter
--- OUTSIDE RECORDS SUMMARY | 2024-08-29 11:07 | XMS_ITS ---
Author Organization Unknown Address [address] [place] [phone] Phone Care Team Providers Care Shake Loader Name Role Phone REUBEN Lowery Attending Unavailable Results CT LDCT FOR LUNG CA SCREEN - Completed: 10/14/2023 13:00 LOINC: [No content] Social History Type Status Start Date End Date Code Code Syst em Smoking History Current every day smoker 795461791 SNOMED CT Sex Male Medications Medication Start Date End Date Route Frequency Dose Code Code System Medication Instructions Home Meds Valium 5MG Oral Tablet 11/02/2021 Unknown ORAL NEEDED EVERY 8 HOURS 1 TABLET 789149 RxNorm TAKE 1 TABLET ORAL NEEDED EVERY 8 HOURS Cipro 500MG Oral Tablet 01/08/2024 Unknown ORAL TWICE A DAY 1 TABLET 136386 RxNorm TAKE 1 TABLET ORAL TWICE A [...] Code System HIGH BLOOD PRESSURE 01/07/2024 resolved 00125830 SNOMED-CT HIGH CHOLESTEROL 01/07/2024 resolved 04875052 SN OMED-CT Allergies and Adverse Reactions Allergy Substance Reaction Severity Start Date Concern Status Co de Code System TETANUS IMMUNE GLOBULIN Active 70426 RxNorm PENICILLIN Active Plan of Treatment CT CHEST W/O CONTRAST 10/14/2023 CT CHEST W/O CONTRAST 01/14/2023 Encounters Encounter Diagnosis Start Date Code Code Sys tem Nicotine dependence, cigarettes, uncomplicated 024 SNOMED-CT Personal Care Team Section Performer Name Performer Role Active Date Inactive Da te
--- OUTSIDE RECORDS SUMMARY | 2024-08-29 11:07 | XMS_ITS ---
Author Organization Unknown Address [address] [place] [phone] Phone Care Team Providers Care Playroom Attendant Name Role Phone REUBEN Lowery Attending Unavailable Results CT LDCT FOR LUNG CA SCREEN - Completed: 01/14/2023 13:09 LOINC: [facility] RAD[facility] [place], [place] [address] PACS PATIENT LIAISON REPORT Patient Name: FERN MONTGOMERY MRN: Sex: : Age: [id number] M 1960 62 Account: Accession: Admit: StayType: [id number] 01/14/2023 O/P Ordered: Order ID: Submitted: Ordering Provider: 01/14/2023 12:55 [id number] [facility] BEKAH ALEXIS Completed: Technologist: Resulted: 01/14/2023 13:09 JDeanna 01/14/2023 16:00 Study Description: CT LDCT FOR LUNG CA SCREEN Study Reason: SMOKER Technique: Low dose screening technique, axial, coronal and sagittal and MIP reconstructions were performed. Comparison: 31 October 2021 chest CTA, low-dose chest CT 14 November 2020 FINDINGS: Tracheobronchial tree: Patent where visualized. No bronchial wall thickening. No mucous plugging. Pulmonary parenchyma: Stable scarring upper lobes, right greater than left.. Lung Nodules: Stable 6 mm nodule right upper lobe. No new nodules. Pleura: No effusion. No pneumothorax. Heart: The heart is not dilated. Moderate coronary artery calcifications are seen. Aorta: Thoracic aorta non-dilated. Mild atherosclerotic calcifications. Upper abdomen: Fatty infiltration of the liver. Bones: Unremarkable for age. Soft Tissues: Unremarkable. IMPRESSION: Stable 6 mm right upper lobe nodule. Lung RADS category 2. Lung-RADS 1.0 CATEGORIES: Category 0 - Prior chest CT exam(s) being located for comparison. Category 1 - Annual screening in 12 months. No nodules or definitely benign nodules. Category 2 - Annual screening in 12 months. Benign appearance. Nodules with low likelihood of becoming active cancer. Category 3 - 6-month follow-up. Probably benign. Short-term follow-up suggested. Nodules with low likelihood of becoming active cancer. Category 4A - 3-month follow-up and CT/PET if >8 mm in size. Suspicious finding. Findings which require additional testing. Category 4B - Findings which require additional testing and tissue sampling. Modifier S- Potentially clinically significant findings (non lung cancer) Report Digitally Signed by Jayde Kate on 01/14/2023 04:00 PM EDT Social History Type Status Start Date End Date Code Code Syst em Smoking History Current every day smoker 964596353 SNOMED CT Sex Male Medications Medication Start Date End Date Route Frequency Dose Code Code System Medication Instructions Home Meds Valium 5MG Oral Tablet 11/02/2021 Unknown ORAL NEEDED EVERY 8 HOURS 1 TABLET 232293 RxNorm TAKE 1 TABLET ORAL NEEDED EVERY 8 HOURS Cipro 500MG Oral Tablet 01/08/2024 Unknown ORAL TWICE A DAY 1 TABLET 128546 RxNorm TAKE 1 TABLET ORAL TWICE A [...] Code System HIGH BLOOD PRESSURE 01/07/2024 resolved 18246999 SNOMED-CT HIGH CHOLESTEROL 01/07/2024 resolved 44943629 SN OMED-CT Allergies and Adverse Reactions Allergy Substance Reaction Severity Start Date Concern Status Co de Code System TETANUS IMMUNE GLOBULIN Active 19544 RxNorm PENICILLIN Active Plan of Treatment CT CHEST W/O CONTRAST 10/14/2023 CT CHEST W/O CONTRAST 01/14/2023 Encounters Encounter Diagnosis Start Date Code Code Sys tem Lung field abnormal 01/14/2023 469862692 SNOMED-C T Personal Care Team Section Performer Name Performer Role Active Date Inactive Da te
--- OUTSIDE RECORDS SUMMARY | 2024-08-29 11:08 | XMS_ITS ---
Author Organization Unknown Address [address] [place] [phone] Phone Care Team Providers Care Keypunch Operator Name Role Phone CHAPO WATSON Registered Nurse Unavailable NADYA Huerta Attending Unavailable REUBEN Lowery Primary Unavailable UNLISTED PROVIDER - REQUESTED Xhandoff Un available Results TROPONIN HIGH SENSITIVITY* - Collect Date/Time: 01/07/2024 23:30 [facility] ID: [id number] [address] [place] [address], [address] LOINC: 74071-6 Test Value Unit Reference Range Code Code System Flag TROPONIN HS 6.1 pg/mL L=0.0 H=60.4 Specimen seq. 1 HOUR URINALYSIS WITH REFLEX CULT IF POSITIVE* - Collect Date/Time: 01/07/2024 22:40 [facility] ID: [id number] [address] [place] [address], [address] LOINC: 23336-5 Test Value Unit Reference Range Code Code System Flag COLLECTION MODE: CLEAN CATCH 46007-5 LOINC Color YELLOW yellow 5778-6 LOINC Appearance CLEAR clear 5767-9 LOINC Glucose urine NEGATIVE negative mg/dl 60841-9 LOINC Bilirubin NEGATIVE negative 5770-3 LOINC Ketones TRACE negative mg/dl 2514-8 LOINC A Spec gravity 1.025 1.003 - 1.030 5811-5 LOINC pH urine 6.0 5.0 - 7.0 2756-5 LOINC Protein 100 negative mg/dl 24118-7 LOINC A Urobilinogen 4.0 <or= 1 EU/dl 34410-0 LOINC A Nitrite. NEGATIVE negative 5802-4 LOINC Blood NEGATIVE negative 5794-3 LOINC Leukocytes. NEGATIVE negative MICROSCOPIC INDICATED WBCs. 5-10 0-5 / hpf 39768-3 LOINC RBCs 0-5 0-5 / hpf 72996-2 LOINC Epith cells 0-5 0-5 / hpf 94002-4 LOINC Cell types squamous Crystals none none Bacteria moderate none Mucus present none 8247-9 LOINC Casts 10-25 none /lpf 32416-0 LOINC Cast types hyal+gran Other 26404-[address] [facility] COVID FLU RSV GENEXPE RT - Collect Date/Time: 01/07/2024 22:20 [facility] ID: [id number] [address] [place] [address], [id number] LOINC: 93127-9 Test Value Unit Reference Range Code Code System Flag COVID NEGATIVE Normal: Negative 51812-9 LOINC INFLUENZA A DNA NEGATIVE Normal: Negative 25175-0 LOINC INFLUENZA B DNA NEGATIVE Normal: Negative 25272-1 LOINC RSV DNA NEGATIVE Normal: Negative 05600-5 LOINC TROPONIN HIGH SENSITIVITY* - Collect Date/Time: 01/07/2024 22:20 [facility] ID: [id number] [address] [place] [address], [address] LOINC: 07763-4 Test Value Unit Reference Range Code Code System Flag TROPONIN HS 5.9 pg/mL L=0.0 H=60.4 Specimen seq. OTHER ALCOHOL (ETHANOL)* - Collect Date/Time: 01/07/2024 22:20 [facility] ID: [id number] [address] [place] [address], [address] LOINC: 49912-3 Test Value Unit Reference Range Code Code System Flag ALCOHOL (ETHANOL) 247 mg/dL 12677-3 LOINC COMPREHENSIVE METABOLIC PANE L (CMP) - Collect Date/Time: 01/07/2024 22:20 [facility] ID: [id number] [address] [place] [address], [address] LOINC: 93822-4 Test Value Unit Reference Range Code Code System Flag GLUCOSE 114 mg/dL L=70 H=116 2345-7 LOINC BUN 18 mg/dL L=6 H=25 3094-0 LOINC CREATININE 1.04 mg/dL L=0.67 H=1.17 2160-0 LOINC SODIUM SERUM 141 mmol/L L=136 H=145 2951-2 LOINC POTASSIUM SERUM 4.0 mmol/L L=3.4 H=5.2 2823-3 LOINC CHLORIDE SERUM 103 mmol/L L=96 H=110 2075-0 LOINC CARBON DIOXIDE (CO2) 27 mmol/L L=22 H=34 2028-9 LOINC ANION GAP 11.4 mmol/L 31613-9 LOINC CALCIUM SERUM 9.1 mg/dL L=8.2 H=10.2 84139-9 LOINC BILIRUBIN TOTAL 0.3 mg/dL L=0.0 H=1.3 1975-2 LOINC ALK. PHOS. 116 U/L L=46 H=116 6768-6 LOINC SGOT (AST) 56 U/L L=15 H=37 1920-8 LOINC H SGPT (ALT) 72 U/L L=12 H=78 1742-6 LOINC TOTAL PROTEIN 7.4 gm/dL L=6.0 H=8.0 2885-2 LOINC ALBUMIN 3.9 gm/dL L=3.4 H=5.0 1751-7 LOINC AGE 63 years eGFR (non-Afr.Amer.) 72 mL/min 27961-2 LOINC eGFR (Afr-French) 88 mL/min 33087-9 LOINC CBC W/ DIFFERENTIAL* - Colle ct Date/Time: 01/07/2024 22:20 [facility] ID: [id number] [address] [place], [place], [address] LOINC: 53313-9 Test Value Unit Reference Range Code Code System Flag WBC 7.26 th/cmm L=5.00 H=10.00 6690-2 LOINC NEUT % 41.5 % L=40.0 H=80.0 LYMPH % 42.0 % L=10.0 H=50.0 MONO % 10.2 % L=2.0 H=12.0 53099-1 LOINC EOS % 4.8 % L=0.0 H=8.0 BASO % 1.1 % L=0.0 H=3.0 IG % 0.4 % L=0.0 H=1.1 2514-8 LOINC NRBC % 0.0 % L=0.0 H=0.0 08962-8 LOINC NEUT abs count 3.0 th/cmm L=1.6 H=8.4 751-8 LOINC LYMPH abs count 3.1 th/cmm L=1.5 H=4.0 731-0 LOINC MONO abs count 0.7 th/cmm L=0.2 H=1.0 742-7 LOINC EOS abs count 0.4 th/cmm L=0.0 H=0.5 711-2 LOINC BASO abs count 0.1 th/cmm L=0.0 H=0.2 704-7 LOINC IG abs count 0.0 th/cmm L=0.0 H=0.1 24451-9 LOINC NRBC abs count 0.0 mil/cmm L=0.0 H=0.0 38271-6 LOINC RBC 4.34 mil/cmm L=4.30 H=6.20 789-8 LOINC HEMOGLOBIN 15.1 gm/dL L=13.0 H=17.0 718-7 LOINC HEMATOCRIT 43 % L=45 H=52 4544-3 LOINC L MCV 99 fL L=82 H=92 787-2 LOINC H MCH 34.8 pg L=27.0 H=31.0 785-6 LOINC H MCHC 35.3 % L=32.0 H=36.0 786-4 LOINC RDW-SD 49.1 fL L=39.0 H=49.0 788-0 LOINC H PLATELET COUNT 287 th/cmm L=150 H=450 777-[address] HEAD WO CONTRAST - Comple guillermo: 01/08/2024 01:09 LOINC: [place], [place] [address] PACS LOGISTIC MANAGER REPORT Patient Name: FERN MONTGOMERY MRN: Sex: : Age: [id number] M 1960 63 Account: Accession: Admit: StayType: [id number] 01/07/2024 E/R Ordered: Order ID: Submitted: Ordering Provider: 01/08/2024 00:47 [id number] TOMAS RODRÍGUEZ Completed: Technologist: Resulted: 01/08/2024 01:09 AT 01/08/2024 07:43 Study Description: CT HEAD WO CONTRAST Study Reason: dizzy Technique: Imaging Protocol: Axial computed tomography images with coronal and sagittal reformatted images were created and reviewed. Comparison: Comparison MRI brain is 10/01/2019. FINDINGS: Ventricles and Extra axial spaces: Normal in size and morphology for the patient's age. Hemorrhage: None. Cerebral parenchyma: Normal. [place]: Unremarkable. Midline shift: None. Brainstem/Cerebellum: Normal. Calvarium: Normal. Visualized Paranasal sinuses/Mastoids: There is mucosal thickening in the visualized paranasal sinuses. No air-fluid levels are seen. The mastoid air cells are clear. IMPRESSION: No acute intracranial process. Radiation Optimization: All CT scans at this facility use at least one of these dose optimization techniques: automated exposure control; mA and/or kV adjustment per patient size (includes targeted exams where dose is matched to clinical indication); or iterative reconstruction. Report Digitally Signed by Herminio Salinas on 01/08/2024 07:43 AM EDT XR CHEST PORTABLE OR 1V - Co mpleted: 01/07/2024 22:50 LOINC: [facility] RADIOLOG[facility] [place], [place] [address] PACS LOGISTIC MANAGER REPORT Patient Name: FERN MONTGOMERY MRN: Sex: : Age: [id number] M 1960 63 Account: Accession: Admit: StayType: [id number] 01/07/2024 E/R Ordered: Order ID: Submitted: Ordering Provider: 01/07/2024 22:27 [id number] TOMAS SALEH Completed: Technologist: Resulted: 01/07/2024 22:50 AT 01/08/2024 08:06 Study Description: XR CHEST PORTABLE OR 1V Study Reason: SOB Technique: 2D digital imaging was performed of the chest. 2 images were obtained. Comparison: Comparison is made with prior examinations. FINDINGS: MEDIASTINUM: Normal. HEART: Normal. PULMONARY VASCULATURE: Normal. LUNGS: Clear. PLEURAL SPACE: No pleural effusion or pneumothorax. BONE:Within normal limits for the patient's age. OTHER FINDINGS:Normal. IMPRESSION: No acute pulmonary findings. Report Digitally Signed by Herminio Salinas on 01/08/2024 08:06 AM EDT Social History Type Status Start Date End Date Code Code Syst em Smoking History Current every day smoker 375857644 SNOMED CT Sex Male Vital Signs Vital Sign Value Unit Navarro Value Navarro Unit Date/Time Recent/Initial? Code Code System Body Mass Index 28.70 kg/m2 01/07/2024 23:30 Initial 45902 -5 LOINC Systolic Blood Pressure 121 mm[Hg] 01/08/2024 02:02 Most Recent 8480- 6 LOINC Diastolic Blood Pressure 87 mm[Hg] 01/08/2024 02:02 Most Recent 8462- 4 LOINC Systolic Blood Pressure 127 mm[Hg] 01/07/2024 22:22 Initial 8480- 6 LOINC Diastolic Blood Pressure 65 mm[Hg] 01/07/2024 22:22 Initial 8462- 4 LOINC Body Surface Area 2.12 m2 01/07/2024 23:30 Initial 3140- 1 LOINC Height 177.800 0 cm 70.00 in 01/07/2024 23:30 Initial 8302- 2 LOINC O2 Saturation 94 % 2023 01:14 Most Recent 56019 -5 LOINC O2 Saturation 95 % 2023 22:22 Initial 12891 -5 LOINC Pulse 75.0 /min 01/08/2024 02:02 Most Recent 8867- 4 LOINC Pulse 85.0 /min 01/07/2024 22:22 Initial 8867- 4 LOINC Respiration 18 /min 01/08/20 02:02 Most Recent 9279- 1 LOINC Respiration 18 /min 01/07/20 22:22 Initial 9279- 1 INC Temperature 35.9 Yi 96.6 F 01/07/20 22:22 Initial 8310- 5 LOINC Weight 90.72 kg 200.00 lbs 01/07/2024 23:30 Initial 45551 -7 [facility] Medications Medication Start Date End Date Route Frequency Dose Code Code System Medication Instructions Home Meds Valium 5MG Oral Tablet 11/02/2021 Unknown ORAL NEEDED EVERY 8 HOURS 1 TABLET 303765 RxNorm TAKE 1 TABLET ORAL NEEDED EVERY 8 HOURS Cipro 500MG Oral Tablet 01/08/2024 Unknown ORAL TWICE A DAY 1 TABLET 504266 RxNorm TAKE 1 TABLET ORAL TWICE A DAY Hospital Discharge Instructions Should you have any questions prior to discharge, please contact a member of your healthcare team. If you have left the hospital and have any questions, please contact your primary care physician. Reason For Referral No Data Found Procedures Procedure Name Date Status Code Code Syste m Pain of left eye completed [id number] SNO MEDCT Problems Problem Start Date Resolved Date Status Code Code System HIGH BLOOD PRESSURE 01/07/2024 resolved 16634021 SNOMED-CT HIGH CHOLESTEROL 01/07/2024 resolved 84089059 SN OMED-CT Allergies and Adverse Reactions Allergy Substance Reaction Severity Start Date Concern Status Co de Code System TETANUS IMMUNE GLOBULIN Active 58422 RxNorm PENICILLIN Active Plan of Treatment CT CHEST W/O CONTRAST 10/14/2023 CT CHEST W/O CONTRAST 01/14/2023 Encounters Encounter Diagnosis Start Date Code Code Sys tem Urinary tract infection, site not specified 01/07/2024 SNOMED-CT Personal Care Team Section Performer Name Performer Role Active Date Inactive Da te
[2024-08-29 15:09] LABS: Anion Gap 7.8 mmol/L (3-11); BUN 15 mg/dL (7-18); CO2 30.2 mmol/L (21.0-32.0); CREATININE 1.1 mg/dL (0.70-1.30); Calcium 9.7 mg/dL (8.5-10.1); Calculated LDL 72 mg/dL (<100); Chloride 104 mmol/L (98-107); Cholesterol 164 mg/dL (<200); Glucose 97 mg/dL (74-106); HDL Cholesterol 79 mg/dL (40-60); Potassium 4.7 mmol/L (3.5-5.1); Sodium 142 mmol/L (136-145); Triglyceride 69 mg/dL (<150)
== END 2024-08-29 11:03 | disposition home or self-care (01) ==
LOC: NCHCN 11:02
PROVIDERS: PCP Nurse Practitioner Family; Visit Provider Internal Medicine
DX: I10 Essential (primary) hypertension (principal); E78.5 Hyperlipidemia, unspecified
CPT/HCPCS: 80048; 80061

== ENCOUNTER 2025-05-28 16:32 | Outpatient (REF) | payer MEDICAID, SELFPAY ==
[2025-05-28 15:19] LABS: HCT 41.4 % (40.0-50.0); HGB 14.3 g/dL (13.5-17.5); MCH 34.8 pg (27.0-33.0); MCHC 34.5 % (32.0-36.0); MCV 101 fL (80-95); MPV 9.4 fL (8.0-11.0); Platelet Count 286 10^3/uL (130-400); RBC 4.11 10^6/uL (4.36-5.78); RDW 13.7 % (11.8-14.1); RDW-SD 50.9 fL; WBC 7.28 10^3/uL (4.4-10.8)
[2025-05-28 15:45] LABS: ALT 48 U/L (16-63); AST 58 U/L (15-37); Albumin 3.9 g/dL (3.4-5.0); Alkaline Phosphatase 90 U/L (46-116); Anion Gap 10.9 mmol/L (3-11); BUN 9 mg/dL (7-18); Bilirubin, Total 0.4 mg/dL (0.2-1.0); CO2 28.1 mmol/L (21.0-32.0); Calcium 9.3 mg/dL (8.5-10.1); Calculated LDL 74 mg/dL (<100); Chloride 107 mmol/L (98-107); Cholesterol 169 mg/dL (<200); Estimated GFR 99.44 (mL/min/1.73m2); Glucose 93 mg/dL (74-106); HDL Cholesterol 74 mg/dL (>or=40); Potassium 4.9 mmol/L (3.5-5.1); Sodium 146 mmol/L (136-145); Total Protein 7.2 g/dL (6.4-8.2); Triglyceride 105 mg/dL (<150)
== END 2025-05-28 16:33 | disposition home or self-care (01) ==
LOC: NCHCN 16:32
PROVIDERS: PCP Nurse Practitioner Family; Visit Provider Physician Assistant
DX: I73.9 Peripheral vascular disease, unspecified (principal)
CPT/HCPCS: 80053; 80061; 85027